=== PATIENT | female | born 1940 | race Caucasian/White ===

== ENCOUNTER → 2016-10-20 | Outpatient (CLI) | payer MEDICARE, BC ==
[2016-10-20 15:53] LABS: Blood Urea Nitrogen 27 mg/dL (7-17); Non-African American GFR(MDRD) >60 (>60 ml/min/1.73 sqM)
== END | disposition home or self-care (01) ==
LOC: LABWHC1 15:20
PROVIDERS: ATTEND Otolaryngology
DX: H91.92 Unspecified hearing loss, left ear (principal)
CPT/HCPCS: 36415; 82565; 84520

== ENCOUNTER → 2016-10-30 | Outpatient (CLI) | payer MEDICARE, BC ==
--- NOTE | 2016-10-30 11:02 | MR ---
EXAMINATION TYPE: MR iac wo/w con DATE OF EXAM: 10/30/2016 10:26 AM COMPARISON: NONE HISTORY: Lt. hearing loss TECHNIQUE: Multiplanar, multisequence images of the brain and brainstem is performed without and with IV contras t, utilizing 15 mL intravenous MultiHance . Acoustic nerve disorder protocol. FINDINGS: Diffusion weighted images demonstrate no evidence of a recent infarct or other diffusion ab normality. There is no worrisome extra-axial fluid collection. There is ventricular and sulcal promi nence consistent with mild to moderate diffuse age-related cerebral atrophy. There are focal and conf luent areas of T2 hyperintensity seen throughout the deep and periventricular white matter. Lesions a re nonspecific in appearance and distribution but are most likely on basis of product of chronic smal l vessel ischemic change in patient of this age. Some brainstem involvement is present at level of th e dionne. Midline structures demonstrate normal morphology. The craniocervical junction appears within normal limits. The paranasal sinuses are grossly clear. The globes are intact bilaterally. Normal vascular f low voids are felt present. No suspicious fluid signal seen in mastoid air cells bilaterally. Visualized portion of vestibulococh lear complexes are symmetric and felt within normal limits. There is no suspicious enhancing cerebell opontine angle mass identified bilaterally. IMPRESSION: 1. No significant finding is seen to account for patient's symptoms of left-sided hearing loss. 2. There is background of mild to moderate diffuse cerebral atrophy and moderate to severe chronic sm all vessel ischemic change noted.
== END | disposition home or self-care (01) ==
LOC: RADMRIMAIN 09:19
PROVIDERS: ATTEND Otolaryngology
DX: G31.9 Degenerative disease of nervous system, unspecified (principal); I67.82 Cerebral ischemia
CPT/HCPCS: 70553; A9577

== ENCOUNTER → 2017-12-07 | Outpatient (CLI) | payer MEDICARE, BC ==
--- NOTE | 2017-12-07 14:19 | XR ---
Cervical spine HISTORY: Numbness in right hand for 6 months, neck pain 5 views of the cervical spine on 6 images No comparisons There is multilevel facet arthropathy. Anterolisthesis grade 1 C2-3, retrolisthesis grade 1 C5-6. The re is loss of disc height at the intervertebral levels, multilevel spondylosis. Cervical vertebral florentin dies show preserved height, bone mineralization is reduced. Bilateral foraminal encroachment present due to lateral extension endplate disc complexes at C3-4, C5-6, C6-7 IMPRESSION: Degenerative disc disease and facet arthropathy.
== END | disposition home or self-care (01) ==
LOC: RADXRMAIN 10:21
PROVIDERS: ATTEND Internal Medicine Geriatric Medicine
DX: M50.30 Other cervical disc degeneration, unspecified cervical region (principal); M46.82 Other specified inflammatory spondylopathies, cervical region
CPT/HCPCS: 72050

== ENCOUNTER → 2018-02-18 | Outpatient (CLI) | payer MEDICARE, BC ==
--- NOTE | 2018-02-19 08:25 | CT ---
EXAMINATION TYPE: CT lower extremity RT wo con DATE OF EXAM: 02/18/2018 COMPARISON: NONE HISTORY: Pain in right joints. Prophecy protocol. CT DLP: 463 mGycm Automated exposure control for dose reduction was used. FINDINGS: Right knee: There is no suprapatellar joint effusion. Patellar retinaculum appear grossly intact. No focal soft tissue swelling. Subchondral sclerosis of the medial tibial plateau and small medial jadon rtment and lateral compartment marginal osteophytes of the tibial plateau and distal femoral condyles are noted. Medial compartment and patellofemoral compartment narrowing are present. Osseous structur es are intact. Subchondral cysts are seen of the distal femur centrally and within the distal medial femoral condyle. Incidental note of a fabella. Suprapatellar small osteophyte is also seen. Anterior cruciate ligament and posterior cruciate ligament appear morphologically unremarkable. Evaluation of the tendons and ligaments are limited on CT although the distal quadriceps tendon and patellar tendon appear intact. Right ankle: The prior known medial malleolus fracture treated with open reduction internal fixation is healed without cortical lucency medial fixation plate and 4 transcortical screws fixate the prior fracture and abuts the cortical surface without dislocation or hardware fracture. There is extensive degenerative change of the talotibial joint and distal fibula with innumerable subchondral cysts and [id number] articulation of the lateral talar dome with the distal tibia and medial talar dome with the medial malleolus. There is no evidence of subchondral collapse of the talus. Bony productive hardin ge of the dorsal talus and talonavicular joints are also seen. Osteophyte protrudes into the sinus ta rsus. Large os trigonum is present. There is diffuse soft tissue swelling of the right ankle most pro nounced in the hindfoot. Evaluation of the tendons and ligaments are limited on CT and further limite d by the surrounding soft tissue swelling. However, the peroneus longus and brevis appear thickened a nd could relate to tendinopathy. There is hindfoot valgus and articulation of the talus with the fibu la creating a pseudoarthrosis. Several large subchondral cystic changes are seen of the tarsometatars al joints. IMPRESSION: 1. No evidence of acute fracture or dislocation of the right ankle or knee. 2. Moderate tricompartmental arthropathy of the right knee. 3. Hindfoot valgus suggesting biomechanical dysfunction with thickening of the peroneus is longus and brevis and may relate to tendinopathy or partial tear. 4. Extensive arthropathy of the hindfoot with [id number] articulation of the lateral talar dome wit h the distal tibia and medial talar dome with the medial malleolus creating subchondral sclerosis and subchondral cyst without subchondral collapse. This is presumed to be posttraumatic in etiology with intact medial distal tibial fixation plate intimately abutting the cortical surface. 5. Extensive midfoot arthropathy with diffuse soft tissue swelling of the right ankle and osteophyte protruding into the sinus tarsus.
== END | disposition home or self-care (01) ==
LOC: RADCTMAIN 15:53
PROVIDERS: ATTEND Orthopaedic Surgery
DX: Z53.9 Procedure and treatment not carried out, unspecified reason (principal)

== ENCOUNTER 2018-05-05 09:06 | Inpatient (IN) | payer MEDICARE, BC ==
[2018-04-28 12:09] VITALS: BMI 27.6
[~2018-05-05 09:06] MED LIST: HYDROmorphone 0.5 MG/0.5 ML SYRINGE IVP PRN; ONDANSETRON 4 MG/2 ML VIAL IVP PRN; ceFAZolin IN SWFI 2 GM/20 ML SYRINGE IVP ONE; fentaNYL (PF) 50 MCG/ML 2 ML AMP IV PRN
[2018-05-05] MEDS: LACTATED RINGERS 1,000 ML IV SCH ×3 (12:04→17:59)
[2018-05-05] MEDS ORDERED: ONDANSETRON 4 MG/2 ML VIAL ONE (12:06)
[2018-05-05] MEDS ORDERED: LIDOCAINE 1% 20 ML VIAL (10MG/ML) FOR IV START INTRADERMA ONE (12:10)
[2018-05-05] MEDS ORDERED: MIDAZOLAM 2 MG/2 ML VIAL IVP ONE (12:44)
[2018-05-05] MEDS ORDERED: LIDOCAINE 1% INJ 10MG/ML (20 ML MDV) ONE (13:38)
[2018-05-05] MEDS ORDERED: fentaNYL (PF) 50 MCG/ML 2 ML AMP ONE (13:38)
[2018-05-05] MEDS ORDERED: HYDROmorphone (PF) 1 MG/ML ONE (13:38)
[2018-05-05] MEDS ORDERED: PROPOFOL 10 MG/ML 20 ML VIAL IV ONE (13:38)
[2018-05-05] MEDS ORDERED: SUCCINYLCHOLINE CHLORIDE 100 MG/5 ML SYR IV ONE (13:38)
[2018-05-05] MEDS ORDERED: PHENYLEPHRINE-0.9% NACL SYG 1 MG/10 ML SYRINGE ONE (13:38)
[2018-05-05] MEDS ORDERED: MIDAZOLAM 2 MG/2 ML VIAL ONE (13:38)
[2018-05-05] MEDS ORDERED: ceFAZolin 1,000 MG in SODIUM CHLORIDE 0.9% 1,000 ML IRRIGATION ONE (14:15)
--- NOTE | 2018-05-05 15:56 | XR ---
EXAMINATION TYPE: XR ankle limited RT DATE OF EXAM: 05/05/2018 COMPARISON: NONE TECHNIQUE: Two views submitted HISTORY: Post op FINDINGS: There is a prosthetic Ankle in near anatomic alignment. There is soft tissue edema and emphysema. IMPRESSION: 1. Postoperative change. Appears in near-anatomic alignment
--- NOTE | 2018-05-05 15:57 | FL ---
EXAMINATION TYPE: FL guidance operating room DATE OF EXAM: 05/05/2018 HISTORY: Flouroscopy time 46 seconds of fluoroscopy provided. IMPRESSION: 1. Fluoroscopy time.
[2018-05-05] MEDS ORDERED: LACTATED RINGERS 1,000 ML IV ONE (15:58)
[2018-05-05] MEDS ORDERED: HYDROcodone/APAP 5-325MG 1 EACH TAB PO PRN (16:03)
[2018-05-05] MEDS ORDERED: NALOXONE 0.4 MG/ML 1 ML VIAL IV PRN (16:03)
[2018-05-05] MEDS ORDERED: TEMAZEPAM 15 MG CAP PO PRN (16:03)
[2018-05-05] MEDS ORDERED: MAGNESIUM HYDROXIDE 2,400 MG/10 ML CUP PO PRN (16:03)
[2018-05-05] MEDS ORDERED: ONDANSETRON 4 MG/2 ML VIAL IVP PRN (16:03)
[2018-05-05] MEDS ORDERED: NA PHOS,M-B/NA PHOS,DI-BA 133 ML ENEMA RECTAL PRN (16:03)
[2018-05-05] MEDS ORDERED: HYDROmorphone 1 MG/ML 1 ML SYRINGE IVP PRN ×4 (16:03)
[2018-05-05] MEDS ORDERED: BISACODYL 10 MG SUPP RECTAL PRN (16:03)
[2018-05-05] MEDS: SENNOSIDES-DOCUSATE SODIUM 1 EACH TAB PO SCH (21:36)
[2018-05-06] MEDS ORDERED: HYDROmorphone 1 MG/ML 1 ML SYRINGE ONE (00:30)
[2018-05-06] MEDS ORDERED: HYDROcodone/APAP 5-325MG 1 EACH TAB ONE (00:30)
[2018-05-06] MEDS: LACTATED RINGERS 1,000 ML IV SCH ×3 (06:31→15:13)
[2018-05-06] MEDS: ceFAZolin IN SWFI 2 GM/20 ML SYRINGE IVP SCH ×2 (06:32→09:36)
[2018-05-06 07:15] LABS: Basophils % (A) 0 %; Eosinophils % (A) 0 %; HGB 12.2 gm/dL (11.4-16.0); Lymphocytes # (A) 0.8 k/uL (1.0-4.8); Lymphocytes % (A) 11 %; MCH 30.9 pg (25.0-35.0); MCHC 32.9 g/dL (31.0-37.0); MCV 93.8 fL (80.0-100.0); Monocytes # (A) 0.4 k/uL (0-1.0); Monocytes % (A) 5 %; Neutrophils # (A) 6.1 k/uL (1.3-7.7); Neutrophils % (A) 82 %; Platelet Count 154 k/uL (150-450); RBC 3.95 m/uL (3.80-5.40); RDW 13.4 % (11.5-15.5); WBC 7.4 k/uL (3.8-10.6)
[2018-05-06] MEDS: HYDROcodone/APAP 5-325MG 1 EACH TAB PO PRN ×3 (07:49→18:54)
--- NOTE | 2018-05-06 08:27 | P.PN ---
Subjective Progress Note Date: 05/06/18 Principal diagnosis: Status post right total ankle arthroplasty This is a 77 year-old female post right total ankle arthroplasty. This is post- op day 1. The patient was evaluated at the bedside today. The patient denies nausea, vomiting, abdominal pain, shortness of breath, and chest pain this morning. She states her pain is controlled at this time but is having some burning on her anterior lower leg. The patient has not been up with physical therapy. Objective - Vital Signs Vital signs: Vital Signs Temp 97.4 F L 05/05/18 17:15 Pulse 80 05/05/18 19:15 Resp 16 05/05/18 17:15 BP 106/68 05/05/18 19:15 Pulse Ox 97 05/05/18 19:15 Intake & Output 05/05/18 05/06/18 05/06/18 18:59 06:59 18:59 Intake Total 1401 1200 Output Total 20 Balance 1381 1200 Weight 66.224 kg Intake: IV 1401 Oral 1200 Output: Estimated Blood Loss 20 Other: Voiding Method Bedpan # Voids 1 - Exam The patient does not appear in acute distress. Alert and orientated x3. Dressing and splint are dry and intact. Thigh is soft and nontender. She is able to wiggle her toes without difficulty. Sensation and circulatory status is intact. - Labs CBC & Chem 7: 05/06/18 06:38 Labs: Abnormal Lab Results - Last 24 Hours (Table) 05/06/18 Range/Units 06:38 Lymphocytes # 0.8 L (1.0-4.8) k/uL Assessment and Plan (1) Status post right ankle joint replacement Current Visit: Yes Status: Acute Code(s): Z96.661 - PRESENCE OF RIGHT ARTIFICIAL ANKLE JOINT SNOMED Code(s): 445179480 (2) Osteoarthritis of right ankle Current Visit: Yes Status: Acute Code(s): M19.071 - PRIMARY OSTEOARTHRITIS, RIGHT ANKLE AND FOOT SNOMED Code(s): 05287536556681787 Plan: 1. Continue pain control 2. Anticoagulation with Lovenox 3. Start physical therapy and ambulation, non-weightbearing 4. Anticipate discharge to skilled rehab when stable
[2018-05-06] MEDS: ATORVASTATIN 10 MG TAB PO SCH (09:37)
[2018-05-06] MEDS: buPROPion XL 300 MG TAB.ER.24H PO SCH (09:38)
[2018-05-06] MEDS: ENOXAPARIN 30 MG/0.3 ML SYRINGE SQ SCH ×2 (09:38→20:06)
[2018-05-06] MEDS: CHOLECALCIFEROL 1,000 UNIT TAB PO SCH (09:38)
[2018-05-06] MEDS: DOCUSATE 100 MG CAP PO SCH (09:38)
[2018-05-06] MEDS: LISINOPRIL-HCTZ 20-12.5 MG 1 EACH TAB PO SCH (09:39)
[2018-05-06] MEDS: hydrOXYzine PAMOATE 25 MG CAP PO PRN ×2 (13:10→18:54)
--- NOTE | 2018-05-06 13:13 | P.CONS ---
History of Present Illness - Reason for Consult Consult date: 05/06/18 Medical management - History of Present Illness This is a 77-year-old female patient of Dr. Peres with past history for hypertension, hyperlipidemia, gastroesophageal reflux disease, history of skin cancer, spinal stenosis status post steroid injections, vitamin D deficiency, recurrent depression. Patient had original injury with fracture to her right ankle in October 2003 initially underwent surgery with Dr. Duque followed by surgery done at [facility]. It sounds like patient did well for a while and then developed difficulty with range of motion and ambulation. 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 Nowak for total right ankle arthroplasty and right gastroc resection was performed yesterday. Patient does complain of some burning along the pretibial area on the right. She states the pain is controlled to her ankle area. She does have a large cast/dressing in place. Patient has been up to commode chair and bed ariza and has been able to void. She is eating her breakfast and denies any nausea or vomiting. No abdominal pain. No chest pain or shortness of breath. She has been afebrile and vital signs have been stable. Pulse ox is 94% on room air. Patient is planning to go to [facility] for rehab at the time of discharge. Review of Systems All systems: negative Constitutional: Denies chills, Denies fever, Denies poor appetite Eyes: denies blurred vision, denies pain Ears, nose, mouth and throat: Denies dental pain, Denies dysphagia, Denies headache, Denies mouth pain, Denies sore throat Cardiovascular: Denies chest pain, Denies decreased exercise tolerance, Denies dyspnea on exertion, Denies edema, Denies leg edema, Denies lightheadedness, Denies shortness of breath, Denies syncope Respiratory: Denies cough, Denies cough with sputum, Denies dyspnea, Denies excessive sputum, Denies hemoptysis, Denies home oxygen, Denies wheezing Gastrointestinal: Denies abdominal pain, Denies diarrhea, Denies loss of appetite, Denies nausea, Denies vomiting Genitourinary: Denies dysuria, Denies hematuria Musculoskeletal: Reports leg numbness/tingling, Denies myalgias Integumentary: Denies pruritus, Denies rash Neurological: Denies numbness, Denies weakness Psychiatric: Denies anxiety, Denies depression Endocrine: Denies fatigue, Denies weight change Past Medical History Past Medical History: Cancer, GERD/Reflux, Hyperlipidemia, Hypertension, Osteoarthritis (OA) Additional Past Medical History / Comment(s): 'slight heart murmer", constipation, hx skin cancer, numbnrss in left arm, spinal stenosis, degenerative disks, "dry eyes" History of Any Multi-Drug Resistant Organisms: None Reported Past Surgical History: Orthopedic Surgery Additional Past Surgical History / Comment(s): 8 surgeries to remove skin cancer ,2 surgeries on rt ankle for fx(plate and screws), 2 surgeries on left knee and thu in left knee as small child, tumor removed from nose, blepharoplasty pop eyes, pop cataracts, left arm surgery to release nerve, steroid spinal injections, total right ankle arthroplasty and right gastroc resection 04/[address] Nowak. Past Anesthesia/Blood Transfusion Reactions: No Reported Reaction Additional Past Anesthesia/Blood Transfusion Reaction / Comm: no family hx ( adopted) Smoking Status: Former smoker Additional Past Alcohol Use History / Comment(s): She was a smoker one pack per day for 40 years and quit in 2016. She denies any marijuana, street drug use. She drinks white wine with dinner. She lives alone and is as her several years ago. - Past Family History Mother Family Medical History: Unable to Obtain Additional Family Medical History / Comment(s): Patient was adopted and does not know any family history. Daughter(s) Additional Family Medical History / Comment(s): Patient has 3 daughters and 2 sons all in their 50s with no major medical problems. Medications and Allergies Home Medications Medication Instructions Recorded Confirmed Type Aloe Cure 1 cap PO DAILY 04/28/18 05/05/18 History Atorvastatin [Lipitor] 10 mg PO DAILY 04/28/18 05/05/18 History Cholecalciferol [Vitamin D3] 5,000 unit PO DAILY 04/28/18 05/05/18 History Docusate [Colace] 100 mg PO DAILY 04/28/18 05/05/18 History Heart Strong 1 oz PO DAILY 04/28/18 05/05/18 History Lidocaine HCl [Aspercreme] 1 applic TOPICAL DIRECTED PRN 04/28/18 05/05/18 History Lisinopril-Hctz 20-12.5 mg 1 tab PO DAILY 04/28/18 05/05/18 History [Zestoretic 20-12.5] Meloxicam [Mobic] 7.5 mg PO BID 04/28/18 05/05/18 History Menthol [Biofreeze] 1 applic TOPICAL DIRECTED PRN 04/28/18 05/05/18 History Multivitamin/Iron/Folic Acid 1 tab PO DAILY 04/28/18 05/05/18 History [Centrum Adults Tablet] [place] Xl 1 cap PO DAILY 04/28/18 05/05/18 History buPROPion XL [Wellbutrin Xl] 300 mg PO DAILY 04/28/18 05/05/18 History traMADol HCL [Ultram] 50 - 100 mg PO Q6HR PRN 04/28/18 05/05/18 History Gabapentin [Neurontin] 100 - 200 mg PO TID PRN 04/29/18 05/05/18 History Allergies Allergy/AdvReac Type Severity Reaction Status Date / Time nickel Allergy Unknown Verified 05/05/18 18:01 Physical Exam Vitals: Vital Signs Temp Pulse Pulse Pulse Resp BP Pulse Ox 05/05/18 19:15 80 106/68 97 05/05/18 19:00 77 103/68 97 05/05/18 18:45 84 101/65 05/05/18 18:30 83 116/73 89 L 05/05/18 18:15 84 119/76 95 05/05/18 18:00 83 125/77 99 05/05/18 17:45 81 126/67 98 05/05/18 17:30 83 109/69 96 05/05/18 17:15 97.4 F L 89 16 100/66 97 05/05/18 17:12 87 05/05/18 17:01 87 18 93/53 98 05/05/18 16:46 90 18 92/54 98 05/05/18 16:30 93 18 94/51 98 05/05/18 16:16 98 F 14 L 14 101/55 97 05/05/18 11:46 98.0 F 81 16 128/67 96 Intake and Output 05/05/18 05/06/18 05/06/18 22:59 06:59 14:59 Intake Total 1000 600 Output Total 20 Balance 980 600 Intake: IV 400 Oral 600 600 Output: Estimated Blood Loss 20 Other: Voiding Method Bedpan # Voids 1 Weight 66.224 kg Gen: This is a 77-year-old female. She is sitting up in bed and appears to be comfortable and in no acute distress. HEENT: Head is atraumatic, normocephalic. Pupils equal, round. Sclerae is anicteric. NECK: Supple. No JVD. No lymphadenopathy. No thyromegaly. LUNGS: Clear to auscultation. No wheezes or rhonchi. No intercostal retractions. HEART: Regular rate and rhythm. No murmur. ABDOMEN: Soft. Bowel sounds are present. No masses. No tenderness. EXTREMITIES: Splint and large dressing in place to the right lower extremity. Capillary refill immediate on the right toes. Left foot has no pedal edema, dorsalis pedis +2. SCD in place to the left leg. NEUROLOGICAL: Patient is awake, alert and oriented x3. Cranial nerves 2 through 12 are grossly intact. Results CBC & Chem 7: 05/06/18 06:38 Labs: Abnormal Lab Results - Last 24 Hours (Table) 05/06/18 Range/Units 06:38 Lymphocytes # 0.8 L (1.0-4.8) k/uL Assessment and Plan Plan: 1. Posttraumatic ankle arthritis failed outpatient treatment, status post total right ankle arthroplasty and right gastroc resection 05/05. Continue current pain management. PT OT per orthopedics. Incentive spirometry reduce incidence of atelectasis and hospital-acquired pneumonia. 2. Hypertension. Patient is on Zestoretic 1 daily. Hold for systolic less than 110. 3. Hyperlipidemia. Continue atorvastatin. 4. Recurrent depression. Continue Wellbutrin. 5. Vitamin D deficiency. Continue supplement. 6. DVT prophylaxis. Lovenox. 7. GI prophylaxis. Pepcid. Discharge plan: [facility] under the care of Dr. Peres. Impression and plan of care have been directed as dictated by the signing physician. Leyla Farmer nurse practitioner acting as scribe for signing physician.
[2018-05-06] MEDS: MULTIVITAMINS, THERA 1 EACH TAB PO SCH (15:11)
[2018-05-06] MEDS ORDERED: HYDROmorphone 2 MG TAB PO PRN ×3 (18:05→18:13)
[2018-05-06] MEDS ORDERED: HYDROmorphone 4 MG TABLET PO PRN (18:13)
[2018-05-06] MEDS: SENNOSIDES-DOCUSATE SODIUM 1 EACH TAB PO SCH (20:05)
--- NOTE | 2018-05-06 21:27 | OP ---
OPERATIVE REPORT DATE OF SURGERY: 05/05/2018. PREOPERATIVE DIAGNOSES: 1. Right posttraumatic ankle arthritis. 2. Symptomatic hardware. 3. Right gastrocnemius equinus contracture. POSTOPERATIVE DIAGNOSES: 1. Right posttraumatic ankle arthritis. 2. Symptomatic hardware. 3. Right gastrocnemius equinus contracture. PROCEDURE: 1. Right total ankle arthroplasty with implant. 2. Delayed gastrocnemius recession. 3. Right ankle hardware removal, deep. 4. Application of short-leg splint by physician. SURGEON: Dr. Gus Nowak. RADIO SURVEY WORKER: Madyson Torres NP (Madyson Torres NP was required as a skilled car rental sales assistant for patient positioning, surgical exposure, retraction, performance of arthroplasty, closure of wound and application of splint). FLUID: 600 mL crystalloid. TOURNIQUET TIME: 97 minutes. ESTIMATED BLOOD LOSS: Blood loss 20 mL. COMPLICATIONS: None. INDICATION: The patient is a very pleasant, previously healthy 77-year-old female with a longstanding history of problems with her right ankle. She previously had a fracture which was fixed by another physician. She went on to develop posttraumatic arthritis. She was initially managed nonsurgically with activity modification, oral anti- inflammatory pain medications, cortisone, corticosteroid injections, bracing, and physical therapy all with diminishing relief. She got to the point that she requested surgery. Due to the patient's age, low demand and minimal deformity, I thought that she would be a good candidate for ankle replacement. She had x-rays of the ankle and foot, which showed a complete loss of the joint space. We discussed the potential risks and complications of an elective ankle replacement and gastrocnemius recession, including, but not limited to risk of anesthesia, risk of superficial infection, risk of deep infection, risk of delayed wound healing, risk of damage to local blood vessels or nerves, risk of intraoperative fracture of the malleoli, risk of postoperative fracture, risk of postoperative infection requiring antibiotics, poly exchange and possibly deep implant removal, placement of an antibiotic spacer, and a PICC line, risk of subsidence of the components, risk of failure of the components, risk of chronic pain, risk of chronic swelling, risk of stiffness, risk of dissatisfaction with surgery, risk of DVT, risk of PE, risk of other medical complications and possibly loss of life or limb. The patient voiced understanding of the potential for complications and provided verbal and written consent to go forward with surgery. The patient identified in preoperative holding. The correct right ankle was marked with my initials. I reviewed the consent form with the patient and her family. All the questions were answered. The patient was then brought back to the operating room. She was positioned on the OR table where general anesthetic and preoperative antibiotics were administered. The patient was then carefully positioned on the OR table. A tourniquet was applied to the proximal aspect of the right leg. All bony prominences were well padded. A bump was placed under the right side internally rotated the leg to neutral. Ramp was placed under the right leg to facilitate imaging. The right leg was then prepped and draped in the standard sterile fashion. Prior to starting surgery, time-out was performed identifying the correct patient, operative extremity, and procedure. The patient's leg was then elevated, exsanguinated with an Esmarch bandage and the tourniquet was inflated to 250 mmHg. I began by performing a gastrocnemius recession. With the knee extended, a longitudinal incision was marked out 1 thumb breadth posterior to the medial tibia at the distal muscle belly of the gastrocnemius. Skin incision was made with a 15 blade scalpel. Dissection was carried down carefully to the subcutaneous tissue with tenotomy scissors. The fascia was incised longitudinally in line with the skin incision. I then bluntly developed the interval between the gastrocnemius aponeurosis and soleus fascia and between the gastrocnemius aponeurosis and superficial fascia. The sural nerve was seen to be adherent to the superficial fascia. Modified right- angled retractors were placed and the gastrocnemius aponeurosis was transected sharply from medial to lateral under direct visualization. Following this, the sural nerve was again identified and seemed to be intact. The wound was copiously irrigated and then closed in layers. Attention was then turned to the hardware in the ankle. Stab incisions were made over the screw sites. The distal 3 screws were removed as they all interfered with placement of the ankle implant and the K-wires holding the custom cutting block in place. Due to the patient's prior fracture, poor bone health and age, I elected to leave the plate and remaining screw to activate support to prevent postoperative or intraoperative malleoli fracture. The wound was copiously irrigated and closed with 3- 0 nylon. Attention was then turned to the anterior aspect of the ankle. A standard anterior incision was marked out directly over the ankle. Skin incision made with a scalpel. Dissection was carried down carefully through the subcutaneous tissue with tenotomy scissors. A branch of the superficial peroneal nerve was identified and carefully retracted. The extensor retinaculum was incised longitudinally in line with the skin incision. I left the sheath covering the tibialis anterior intact. I bluntly developed the interval between the tibialis anterior and EHL tendon. The neurovascular bundle was identified and carefully retracted. Crossing vessels were controlled with electrocautery. I then came down directly on the ankle joint and the capsule was incised. There was a large effusion of clear synovial fluid that did not appear infected. The ankle joint was then exposed. I took care to remove loose bodies, but did not remove any bone off the distal tibia to prevent the cutting block from sitting flush. The wound was copiously irrigated. The joint appeared completely arthritic with loss of bone on the entire talar dome. Multiple loose bodies were removed from the joint. Once all the soft tissue off of the distal tibia was removed, the custom cutting block and guide was placed onto the distal tibia until it found its sweat spot. A single K-wire was placed and the alignment was checked and verified with preoperative templating. I then placed the remaining 3 wires and once again checked the template. The custom cutting guide was removed and the initial cutting back was placed in the corners were drilled. This was removed and a size 2 cutting block was placed and held into place. In addition to making the tibial cuts, I also held the ankle in neutral and verified its position with AP and lateral fluoroscopic images. The talus was then pinned. I then made the tibial and talar cuts with a small microsagittal saw. The tibial bone block was then removed with a distraction device. An osteotome was used to remove the cut portion of the talus. There was a small ridge of bone posterior laterally which was contoured, flush with the initial cut using a saw. The wound was copiously irrigated. I then removed all the pins and left the 2 more proximal pins in the tibia. The tibial base plate was placed and sized to a size 2 long. I then the posterior broach hole and the anterior two broach holes. The posterior broach hole went into a small cyst, but the anterior 2 holes were in solid bone. I then placed a size 2 tibial component and poly. I then elected to float an in bone talus into place. Once the talar component found it sweet spot it was verified with fluoroscopy. I gently manipulated the talar component until its position was in the correct position in both the AP and lateral planes. It was held into place and pinned. I also marked the anterior aspect of the component with a marker. The 2 pegs were then drilled. The poly was removed and a central pin was placed on the talar component. The talar component and anterior two K-wires were removed and a reamer was used for the central component with the talar component. The wound was then copiously irrigated. The final size 2 long tibial component was gently tamped into place. It clinically appeared solid. I verified that it was completely seated on the lateral fluoroscopic image. The ankle was then plantar flexed and a final size 2 talar component was tapped into place. I then trialed with a size 6 mm which felt loose and went up to a size 8 mm poly which felt stable. A final 8 mm poly was gently placed using the insertion device. Final fluoroscopic images were taken including a mortise view, which showed a stable ankle implant with no evidence of loosening or intraoperative fractures. Alignment appeared to be acceptable and comparable with preoperative templated imaging. Lateral x-ray showed both the tibial and talar components fully seated. A maximum dorsiflexion and plantar flexion view were taken. The wound was then copiously irrigated. The capsule was closed with interrupted 0-Vicryl. The extensor retinaculum was closed with interrupted 0-Vicryl. The deep subcu was reapproximated using 2-0 Vicryl. The skin was closed using 0 nylon horizontal mattress stitches. I verified that all instrument, sponge and sharp counts were correct. The tourniquet was let down. Total tourniquet time of 97 minutes. A sterile dressing consisting of Betadine- soaked Adaptic, 4 x 4 and Webril was applied. A bulky Palmer splint was then placed with the ankle in neutral. The patient was woken from her anesthetic, transferred from the OR table to a gurney and brought to PACU having tolerated the procedure well. PLAN: The patient is going to be admitted for IV antibiotics. DVT prophylaxis. Physical therapy and Internal Medicine consult. She has arranged strictly nonweightbearing on her right leg. She is going to be placed in subacute rehab following surgery. She will follow up in 2 weeks for splint removal, x-rays, and likely suture removal. [place] / [place]ULETT[place]: [id number] /
[2018-05-07] MEDS: HYDROcodone/APAP 5-325MG 1 EACH TAB PO PRN ×4 (00:51→19:49)
[2018-05-07] MEDS: LACTATED RINGERS 1,000 ML IV SCH ×3 (01:46→22:35)
--- NOTE | 2018-05-07 08:29 | P.PN ---
Subjective Progress Note Date: 05/07/18 This is a 77-year-old female who is status post right total ankle arthroplasty. This is postoperative day #2. The patient was seen and evaluated at bedside today. Patient does complain of some muscle cramping to the anterior aspect of the right lower extremity and occasionally to the left foot. Otherwise, patient states that her pain is under control. Patient states that she has not been up and out of bed yet. Patient denies any fever/chills, numbness, weakness, tingling, abdominal pain, shortness of breath or chest pain. Objective - Vital Signs Vital signs: Vital Signs Temp 98.8 F 05/07/18 07:00 Pulse 82 05/07/18 07:00 Resp 14 05/07/18 07:00 BP 172/87 05/07/18 07:00 Pulse Ox 96 05/07/18 07:00 Intake & Output 05/06/18 05/07/18 05/07/18 18:59 06:59 18:59 Intake Total 237 540 Output Total 900 Balance -663 540 Intake: Oral 237 540 Output: Urine 900 Other: Voiding Method Bedpan # Voids 2 3 - Exam Vital signs are stable. Patient is in no acute distress and is alert and oriented 3. Splint is clean, dry and intact. Capillary refill is normal at less than 2 seconds. Patient is able to wiggle the toes of the right foot without pain or difficulty. Sensation intact. Neurovascular status and circulatory status are intact. - Labs CBC & Chem 7: 05/06/18 06:38 Assessment and Plan (1) Primary osteoarthritis of right ankle Current Visit: Yes Status: Acute Code(s): M19.071 - PRIMARY OSTEOARTHRITIS, RIGHT ANKLE AND FOOT SNOMED Code(s): 152054042 (2) Status post right ankle joint replacement Current Visit: Yes Status: Acute Code(s): Z96.661 - PRESENCE OF RIGHT ARTIFICIAL ANKLE JOINT SNOMED Code(s): 909938570 Plan: 1. Continue routine postoperative care. 2. Keep splint clean, dry and intact. 3. Non-weightbearing to right lower extremity. 4. Rest and elevate for swelling. 5. Continue anticoagulation with Lovenox. 6. Continue physical therapy. 7. Appreciated input from medicine. 8. Anticipate discharge to [facility] tomorrow or Thursday.
[2018-05-07] MEDS: ATORVASTATIN 10 MG TAB PO SCH (09:43)
[2018-05-07] MEDS: ENOXAPARIN 30 MG/0.3 ML SYRINGE SQ SCH ×2 (09:45→19:48)
[2018-05-07] MEDS: DOCUSATE 100 MG CAP PO SCH (09:46)
[2018-05-07] MEDS: LISINOPRIL-HCTZ 20-12.5 MG 1 EACH TAB PO SCH (09:46)
[2018-05-07] MEDS: FAMOTIDINE 20 MG TAB PO SCH (09:46)
[2018-05-07] MEDS: MULTIVITAMINS, THERA 1 EACH TAB PO SCH (09:46)
[2018-05-07] MEDS: CHOLECALCIFEROL 1,000 UNIT TAB PO SCH (09:46)
[2018-05-07] MEDS: buPROPion XL 300 MG TAB.ER.24H PO SCH (09:46)
--- NOTE | 2018-05-07 14:30 | P.PN ---
Subjective Progress Note Date: 05/07/18 This is a 77-year-old female patient of Dr. Peres with past history for hypertension, hyperlipidemia, gastroesophageal reflux disease, history of skin cancer, spinal stenosis status post steroid injections, vitamin D deficiency, recurrent depression. Patient had original injury with fracture to her right ankle in October 2003 initially underwent surgery with Dr. Duque followed by surgery done at [facility]. It sounds like patient did well for a while and then developed difficulty with range of motion and ambulation. 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 Nowak for total right ankle arthroplasty and right gastroc resection was performed yesterday. Patient does complain of some burning along the pretibial area on the right. She states the pain is controlled to her ankle area. She does have a large cast/dressing in place. Patient has been up to commode chair and bed ariza and has been able to void. She is eating her breakfast and denies any nausea or vomiting. No abdominal pain. No chest pain or shortness of breath. She has been afebrile and vital signs have been stable. Pulse ox is 94% on room air. Patient is planning to go to [facility] for rehab at the time of discharge. 05/07: Patient has been afebrile, pulse ox 96%. Discharge plan is for [facility] on Thursday or Thursday. Pain is controlled. Patient has worked with PT and OT with minimal to moderate assist and improved from yesterday. Objective - Vital Signs Vital signs: Vital Signs Temp 98.8 F 05/07/18 07:00 Pulse 82 05/07/18 07:00 Resp 14 05/07/18 07:00 BP 111/69 05/07/18 08:00 Pulse Ox 96 05/07/18 07:00 Intake & Output 05/06/18 05/07/18 05/07/18 18:59 06:59 18:59 Intake Total 237 540 Output Total 900 Balance -663 540 Intake: Oral 237 540 Output: Urine 900 Other: Voiding Method Bedpan Bedpan # Voids 2 3 - Exam Gen: This is a 77-year-old female. She is sitting up in bed and appears to be comfortable and in no acute distress. HEENT: Head is atraumatic, normocephalic. Pupils equal, round. Sclerae is anicteric. NECK: Supple. No JVD. No lymphadenopathy. No thyromegaly. LUNGS: Clear to auscultation. No wheezes or rhonchi. No intercostal retractions. HEART: Regular rate and rhythm. No murmur. ABDOMEN: Soft. Bowel sounds are present. No masses. No tenderness. EXTREMITIES: Splint and large dressing in place to the right lower extremity. Capillary refill immediate on the right toes. Left foot has no pedal edema, dorsalis pedis +2. SCD in place to the left leg. NEUROLOGICAL: Patient is awake, alert and oriented x3. Cranial nerves 2 through 12 are grossly intact. - Labs CBC & Chem 7: 05/06/18 06:38 Assessment and Plan Plan: 1. Posttraumatic ankle arthritis failed outpatient treatment, status post total right ankle arthroplasty and right gastroc resection 05/05. Continue current pain management. PT OT per orthopedics. Incentive spirometry reduce incidence of atelectasis and hospital-acquired pneumonia. 2. Hypertension. Patient is on Zestoretic 1 daily. Hold for systolic less than 110. 3. Hyperlipidemia. Continue atorvastatin. 4. Recurrent depression. Continue Wellbutrin. 5. Vitamin D deficiency. Continue supplement. 6. DVT prophylaxis. Lovenox. 7. GI prophylaxis. Pepcid. Discharge plan: [facility] under the care of Dr. Peres. Impression and plan of care have been directed as dictated by the signing physician. Leyla Farmer nurse practitioner acting as scribe for signing physician.
[2018-05-07] MEDS: SENNOSIDES-DOCUSATE SODIUM 1 EACH TAB PO SCH (19:49)
[2018-05-08] MEDS: HYDROcodone/APAP 5-325MG 1 EACH TAB PO PRN ×2 (02:43→09:09)
[2018-05-08] MEDS: LACTATED RINGERS 1,000 ML IV SCH (05:19)
[2018-05-08 06:45] VITALS: BP 109/65; PULSE 73; RESP 14; TEMP 98
[2018-05-08 07:44] LABS: Basophils % (A) 0 %; Eosinophils # (A) 0.1 k/uL (0-0.7); Eosinophils % (A) 2 %; HCT 38.9 % (34.0-46.0); HGB 12.7 gm/dL (11.4-16.0); Lymphocytes # (A) 1.3 k/uL (1.0-4.8); Lymphocytes % (A) 24 %; MCH 30.9 pg (25.0-35.0); MCHC 32.6 g/dL (31.0-37.0); MCV 94.8 fL (80.0-100.0); Mean Platelet Volume 7.4; Monocytes # (A) 0.4 k/uL (0-1.0); Monocytes % (A) 7 %; Neutrophils # (A) 3.5 k/uL (1.3-7.7); Neutrophils % (A) 64 %; Platelet Count 177 k/uL (150-450); RDW 13.2 % (11.5-15.5); WBC 5.5 k/uL (3.8-10.6)
[2018-05-08] MEDS: LISINOPRIL-HCTZ 20-12.5 MG 1 EACH TAB PO SCH (08:37)
[2018-05-08] MEDS: MULTIVITAMINS, THERA 1 EACH TAB PO SCH (08:37)
[2018-05-08] MEDS: ATORVASTATIN 10 MG TAB PO SCH (08:37)
[2018-05-08] MEDS: ENOXAPARIN 30 MG/0.3 ML SYRINGE SQ SCH (08:37)
[2018-05-08] MEDS: buPROPion XL 300 MG TAB.ER.24H PO SCH (08:37)
[2018-05-08] MEDS: DOCUSATE 100 MG CAP PO SCH (08:38)
[2018-05-08] MEDS: FAMOTIDINE 20 MG TAB PO SCH (08:38)
[2018-05-08] MEDS: CHOLECALCIFEROL 1,000 UNIT TAB PO SCH (08:38)
--- NOTE | 2018-05-08 08:45 | P.PN ---
Subjective Progress Note Date: 05/08/18 The patient is a very pleasant 69-year-old female who is postoperative day #3 status post right ankle replacement. She is doing well this morning and has no complaints. Objective - Vital Signs Vital signs: Vital Signs Temp 98 F 05/08/18 06:42 Pulse 73 05/08/18 06:42 Resp 14 05/08/18 06:42 BP 109/65 05/08/18 06:42 Pulse Ox 97 05/08/18 06:42 Intake & Output 05/07/18 05/08/18 05/08/18 18:59 06:59 18:59 Intake Total 200 Balance 200 Intake: Intake, IV Titration 200 Amount Lactated Ringers 1,000 ml 200 @ 100 mls/hr IV .Q10H RAFI Rx#:[id number] Other: Voiding Method Bedpan Bedside Commode # Voids 2 2 - Exam A focused exam of the right lower extremity was conducted. On inspection the bulky Palmer splint is in place. There is a small amount of saturated blood over the posterior aspect of the splint which has been reinforced with an ABDs and Kerlix. The tips of the toes are warm and well perfused with brisk capillary refill. Sensation is intact to light touch at the tip of the toes. She is able to actively move her toes. - Labs CBC & Chem 7: 05/08/18 07:01 Assessment and Plan (1) Status post right ankle joint replacement Current Visit: Yes Status: Acute Code(s): Z96.661 - PRESENCE OF RIGHT ARTIFICIAL ANKLE JOINT SNOMED Code(s): 342255584 Plan: The patient is doing well this morning. She is to continue strict nonweightbearing on her right leg. She is to ice and elevate. Reinforce the dressing as needed. If a bed is available at [facility] I'm okay with her discharging today. Time with Patient: Less than 30
--- NOTE | 2018-05-08 08:47 | P.DS ---
Providers Date of admission: 05/05/18 11:06 Attending physician: Gus Nowak Consults: 05/05/18 16:03 Consult Physician Routine Consulting Provider: Jose J Peres Reason/Comments: medical management Do you want consulting provider notified?: Yes Primary care physician: Jose J Peres - Discharge Diagnosis(es) (1) Status post right ankle joint replacement Current Visit: Yes Status: Acute Hospital Course: The patient underwent an uncomplicated total ankle replacement and was then admitted to the floor. She received 2 doses of postoperative antibiotics. Internal medicine was consulted to assist with perioperative medical management. She was treated with Lovenox for DVT prophylaxis. The patient's pain was controlled and she was transitioned from IV to oral pain medication. The patient mobilized out of bed with physical therapy. Arrangement was made for discharge to a correction facility. Procedures: Right total ankle arthroplasty, right gastrocnemius recession, and right ankle hardware removal Patient Condition at Discharge: Good Plan - Discharge Summary Discharge Rx Participant: Yes New Discharge Prescriptions: No Action Aloe Cure 1 cap PO DAILY Multivitamin/Iron/Folic Acid [Centrum Adults Tablet] 1 tab PO DAILY Docusate [Colace] 100 mg PO DAILY Cholecalciferol [Vitamin D3] 5,000 unit PO DAILY Meloxicam [Mobic] 7.5 mg PO BID Atorvastatin [Lipitor] 10 mg PO DAILY traMADol HCL [Ultram] 50 - 100 mg PO Q6HR PRN PRN Reason: Pain Lisinopril-Hctz 20-12.5 mg [Zestoretic 20-12.5] 1 tab PO DAILY buPROPion XL [Wellbutrin Xl] 300 mg PO DAILY Heart Strong 1 oz PO DAILY [place] Xl 1 cap PO DAILY Lidocaine HCl [Aspercreme] 1 applic TOPICAL DIRECTED PRN PRN Reason: Pain Menthol [Biofreeze] 1 applic TOPICAL DIRECTED PRN PRN Reason: Pain Gabapentin [Neurontin] 100 - 200 mg PO TID PRN PRN Reason: Pain Discharge Medication List Aloe Cure 1 cap PO DAILY 04/28/18 [History] Atorvastatin [Lipitor] 10 mg PO DAILY 04/28/18 [History] Cholecalciferol [Vitamin D3] 5,000 unit PO DAILY 04/28/18 [History] Docusate [Colace] 100 mg PO DAILY 04/28/18 [History] Heart Strong 1 oz PO DAILY 04/28/18 [History] Lidocaine HCl [Aspercreme] 1 applic TOPICAL DIRECTED PRN 04/28/18 [History] Lisinopril-Hctz 20-12.5 mg [Zestoretic 20-12.5] 1 tab PO DAILY 04/28/18 [History ] Meloxicam [Mobic] 7.5 mg PO BID 04/28/18 [History] Menthol [Biofreeze] 1 applic TOPICAL DIRECTED PRN 04/28/18 [History] Multivitamin/Iron/Folic Acid [Centrum Adults Tablet] 1 tab PO DAILY 04/28/18 [ History] [place] Xl 1 cap PO DAILY 04/28/18 [History] buPROPion XL [Wellbutrin Xl] 300 mg PO DAILY 04/28/18 [History] traMADol HCL [Ultram] 50 - 100 mg PO Q6HR PRN 04/28/18 [History] Gabapentin [Neurontin] 100 - 200 mg PO TID PRN 04/29/18 [History] Activity/Diet/Wound Care/Special Instructions: Regular diet Non Weight bearing to right lower extremity Keep splint clean, dry, and intact, to be removed by physician
--- NOTE | 2018-05-08 09:14 | P.PN ---
Subjective Progress Note Date: 05/08/18 Principal diagnosis: Right ankle fracture post surgery, hypertension, hyperlipidemia and depression This is a 77-year-old female patient of Dr. Peres with past history for hypertension, hyperlipidemia, gastroesophageal reflux disease, history of skin cancer, spinal stenosis status post steroid injections, vitamin D deficiency, recurrent depression. Patient had original injury with fracture to her right ankle in October 2003 initially underwent surgery with Dr. Duque followed by surgery done at [facility]. It sounds like patient did well for a while and then developed difficulty with range of motion and ambulation. 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 Nowak for total right ankle arthroplasty and right gastroc resection was performed yesterday. Patient does complain of some burning along the pretibial area on the right. She states the pain is controlled to her ankle area. She does have a large cast/dressing in place. Patient has been up to commode chair and bed ariza and has been able to void. She is eating her breakfast and denies any nausea or vomiting. No abdominal pain. No chest pain or shortness of breath. She has been afebrile and vital signs have been stable. Pulse ox is 94% on room air. Patient is planning to go to [facility] for rehab at the time of discharge. 05/07: Patient has been afebrile, pulse ox 96%. Discharge plan is for [facility] on Thursday or Thursday. Pain is controlled. Patient has worked with PT and OT with minimal to moderate assist and improved from yesterday. Objective - Vital Signs Vital signs: Vital Signs Temp 98 F 05/08/18 06:42 Pulse 73 05/08/18 06:42 Resp 14 05/08/18 06:42 BP 109/65 05/08/18 06:42 Pulse Ox 97 05/08/18 06:42 Intake & Output 05/07/18 05/08/18 05/08/18 18:59 06:59 18:59 Intake Total 200 Balance 200 Intake: Intake, IV Titration 200 Amount Lactated Ringers 1,000 ml 200 @ 100 mls/hr IV .Q10H RAFI Rx#:[id number] Other: Voiding Method Bedpan Bedside Commode # Voids 2 2 - Constitutional Constitutional Comment(s): ROS: CONSTITUTIONAL: Well-developed no acute respiratory distress. EYES: No icterus sclerae, no conjunctivitis. EARS, NOSE, MOUTH, THROAT, and FACE: No sore throat, lymphadenopathy, carotid bruits or deformity. RESPIRATORY: No SOB cough or wheezes. CARDIOVASCULAR: No CP, Palpitation, PND, Orthopnea, or angina. GASTROINTESTINAL: No Abd pain, Nausea or vomiting, no Diarrhea or constipation, No GI Bleed, no distention or masses. GENITOURINARY: Negative for Hematuria or UTI, no kidney stones. INTEGUMENT/BREAST: Negative for any muscular injury with mild osteoarthritis.. HEMATOLOGIC/LYMPHATIC: Negative for bleed or purpura. MUSCULOSKELTAL: Negative for Myalgia or arthralgia. NEURLOGICAL: No LOC, Sz or syncope, blurred vision dizziness or abnormality.. BEHAVIORAL/PSYCH: Negative. ENDOCRINE: Negative. Physical Exam: General Appearance: Alert, cooperative, no distress, appears stated age. Neck HEENT: Supple, no lymphadenopathy, no thyroid enlargement, no carotid bruits. Lungs: Clear to auscultation without crackles or wheezes no rhonchi, no deformity. Chest Wall: Chest wall normal expansion with deep inspiration no tenderness and no deformity was found on exam, no costochondral pain or discomfort. Heart: Regular rate and rhythm, S1, S2 normal, no murmur, rub or gallop. Back: Symmetric, no curvature, ROM normal, no CVA tenderness. Abdomen: Soft, non-tender, bowel sounds active all four quadrants, no masses, no organomegaly. Extremities: Extremities normal, atraumatic, no cyanosis or edema. Pulses: 2+ and symmetric. Skin: Skin color, texture, tugor normal, no rashes or lesions. Neurologic: Alert oriented x3 cranial nerves II through XII intact, no motor deficit, no abnormal balance or gait. General appearance: Present: cooperative, no acute distress. Absent: average body habitus, disheveled, mild distress, morbidly obese, obese, severe distress , thin - EENT Eyes: Present: normal appearance. Absent: abnormal pupil, anicteric sclerae, disc margins sharp, edentulous, EOMI, PERRLA, fundus normal, photophobia, dentition normal, poor dentition, ptosis, scleral icterus ENT: Present: normal oropharynx. Absent: hard of hearing, hearing grossly normal, NA/AT, other, pharyngeal erythema, thrush, tonsillar exudates, tonsillar swelling Ears: bilateral: normal - Neck Neck: Present: normal ROM. Absent: lymphadenopathy, other, rigidity, stridor, thyromegaly Carotids: bilateral: upstroke normal Thyroid: bilateral: normal size - Respiratory Respiratory: bilateral: CTA, diminished - Cardiovascular Rhythm: regular Heart sounds: normal: S1, S2 Abnormal Heart Sounds: Present: systolic murmur - Gastrointestinal General gastrointestinal: Present: decreased bowel sounds, normal bowel sounds. Absent: absent bowel sounds, distended, hepatomegaly, hyperactive bowel sounds , organomegaly, rigid, scaphoid, soft, splenomegaly, tenderness, umbilical hernia, ventral hernia - Integumentary Integumentary Comment(s): Right leg is in cast after surgery and immobilizer. Integumentary: Present: normal. Absent: calor, cellulitis, cyanotic, decreased turgor, flushed, jaundiced, normal turgor, pale, rash, ulcer - Neurologic Neurologic: Present: CNII-XII intact - Musculoskeletal Musculoskeletal: Present: gait normal, generalized weakness - Psychiatric Psychiatric: Present: A&O x's 3 - Labs CBC & Chem 7: 05/08/18 07:01 Assessment and Plan Plan: 1. Posttraumatic ankle arthritis failed outpatient treatment, status post total right ankle arthroplasty and right gastroc resection 05/05. The right leg still an immobilizer and cast, mobility still significantly decreased and patient is agreeable to go to [facility] for rehabilitation. 2. Hypertension. Patient is on Zestoretic 1 daily. 3. Hyperlipidemia. Continue atorvastatin. 4. Recurrent depression. Continue Wellbutrin. 5. Vitamin D deficiency. Continue supplement. 6. DVT prophylaxis. Lovenox. 7. GI prophylaxis. Pepcid. 8. Discharge planning: Patient is going to [facility] rehabilitation for 1-2 weeks.
== END 2018-05-08 14:22 | DRG 469 ==
LOC: 2ORMAIN 11:06 → 3SUR 16:31
PROVIDERS: ADMIT Orthopaedic Surgery; ATTEND Orthopaedic Surgery
PROC: 0L8S0ZZ Division of Right Ankle Tendon, Open Approach (ICD-10-PCS; 2018-05-05)
PROC: 0SPF04Z Removal of Internal Fixation Device from Right Ankle Joint, Open Approach (ICD-10-PCS; 2018-05-05)
PROC: 0SRF0JZ Replacement of Right Ankle Joint with Synthetic Substitute, Open Approach (ICD-10-PCS; principal; 2018-05-05 13:00)
DX: M12.579 Traumatic arthropathy, unspecified ankle and foot (principal); F33.9 Major depressive disorder, recurrent, unspecified; M19.071 Primary osteoarthritis, right ankle and foot; S82.891S Other fracture of right lower leg, sequela; E78.5 Hyperlipidemia, unspecified; I10 Essential (primary) hypertension; K21.9 Gastro-esophageal reflux disease without esophagitis; Z85.828 Personal history of other malignant neoplasm of skin; Z87.891 Personal history of nicotine dependence; T84.84XS Pain due to internal orthopedic prosthetic devices, implants and grafts, sequela; M48.00 Spinal stenosis, site unspecified; E55.9 Vitamin D deficiency, unspecified; R01.1 Cardiac murmur, unspecified; H04.123 Dry eye syndrome of bilateral lacrimal glands; Z98.42 Cataract extraction status, left eye; Z98.41 Cataract extraction status, right eye; Z47.2 Encounter for removal of internal fixation device
CPT/HCPCS: 85025

== ENCOUNTER → 2018-08-30 | Outpatient (CLI) | payer MEDICARE, BC ==
--- NOTE | 2018-08-30 12:33 | US ---
Exam: LOWER EXTREMITY VENOUS INSUFFICIENCY DATE: 08/30/2018. TECHNIQUE: Bilateral duplex lower extremity ultrasound. SIDE PERFORMED: Bilateral FINDINGS: 1) Color flow is present and patency is documented in the following vessels. EIV Common Femoral Vein Deep Femoral Vein Femoral Vein Popliteal Vein Proximal Calf Veins Greater Saph Vein Upper Small Saph Vein No DVT or SVT is noted. 2) There is venous reflux noted at the following venous levels: Right EIV. Fluid collection left popliteal fossa, measures 4.9 x 1.0 x 2.2 cm. IMPRESSION: 1. No evidence for DVT in the bilateral lower extremities imaged from the groin to the upper calves. 2. Venous reflux noted in the right external iliac vein. 3. Small to moderate sized elongated Castillo's cyst on the left.
--- NOTE | 2018-09-01 14:24 | P.ARTDOP ---
Arterial Doppler LOWER EXTREMITY ARTERIAL DOPPLER: DATE OF SERVICE: 08/30/2018 Reason for study: Right ankle ulcer. Doppler waveforms: Multiphasic bilaterally throughout. Pulse volume recording: Normal configuration. Pressure gradients: None except a small gradient at the right foot Ankle-brachial indices: Greater than 1 bilaterally. Toe pressures: 55 on the right, 86 on the left Impression: Proximal areas are normal. Mild decrease pressure right great toe. This could be vasospastic or less likely very distal disease. Does not relate to ankle ulcer. Tissue perfusion probably adequate for healing.
== END ==
LOC: RADUSWWP 08:51
PROVIDERS: ATTEND Internal Medicine Geriatric Medicine
DX: M71.22 Synovial cyst of popliteal space [Baker], left knee (principal); I82.421 Acute embolism and thrombosis of right iliac vein; M79.605 Pain in left leg
CPT/HCPCS: 93923; 93970

== ENCOUNTER 2018-11-17 08:49 | Emergency (ER) | payer MEDICARE, BC ==
[2018-11-17 08:55] VITALS: RESP 18; TEMP 97.6
--- NOTE | 2018-11-17 09:25 | ED ---
Recheck HPI - General Chief Complaint: Recheck/Abnormal Lab/Rx Stated Complaint: wound on ankle Time Seen by Provider: 11/17/18 09:00 Source: patient, RN notes reviewed, old records reviewed Mode of arrival: wheelchair Limitations: no limitations - History of Present Illness Initial Comments: Patient is a 77-year-old female who presents emergency Department today with complaints of pain on her right ankle. Patient reports that she is seeing wound care for a delayed healing wound from ankle surgery and joint replacement. Patient states that she had a new change in her treatment care and they added compression to help heal her wounds yesterday. Patient states that she today she's been having pain over the medial aspect of her ankle. She believes that the compression dressing was wrapped too tight. She reports she has full sensation and range of motion of her toes. After the nurse removed the compression dressings Patient states that he feels much better at this time. - Related Data Home Medications Medication Instructions Recorded Confirmed Atorvastatin [Lipitor] 10 mg PO DAILY 04/28/18 11/16/18 Cholecalciferol [Vitamin D3] 5,000 unit PO DAILY 04/28/18 11/16/18 Lidocaine HCl [Aspercreme] 1 applic TOPICAL DIRECTED PRN 04/28/18 11/16/18 Lisinopril-Hctz 20-12.5 mg 1 tab PO DAILY 04/28/18 11/16/18 [Zestoretic 20-12.5] Multivitamin/Iron/Folic Acid 1 tab PO DAILY 04/28/18 11/16/18 [Centrum Adults Tablet] buPROPion XL [Wellbutrin XL] 300 mg PO DAILY 04/28/18 11/16/18 Gabapentin [Neurontin] 100 - 200 mg PO TID PRN 04/29/18 11/16/18 L.acidoph,Paracasei, B.lactis 1 each PO DAILY 08/17/18 11/16/18 [Probiotic] Meloxicam [Mobic] 7.5 mg PO BID 09/21/18 11/16/18 predniSONE 10 mg PO DAILY 10/26/18 11/16/18 Allergies Allergy/AdvReac Type Severity Reaction Status Date / Time nickel Allergy Unknown Verified 11/17/18 08:50 Review of Systems ROS Statement: Those systems with pertinent positive or pertinent negative responses have been documented in the HPI. ROS Other: All systems not noted in ROS Statement are negative. Past Medical History Past Medical History: Cancer, GERD/Reflux, Hyperlipidemia, Hypertension, Osteoarthritis (OA) Additional Past Medical History / Comment(s): 'slight heart murmer", constipation, hx skin cancer, numbnrss in left arm, spinal stenosis, degenerative disks, "dry eyes" History of Any Multi-Drug Resistant Organisms: None Reported Past Surgical History: Orthopedic Surgery Additional Past Surgical History / Comment(s): 8 surgeries to remove skin cancer ,2 surgeries on rt ankle for fx(plate and screws), 2 surgeries on left knee and thu in left knee as small child, tumor removed from nose, blepharoplasty pop eyes, pop cataracts, left arm surgery to release nerve, steroid spinal injections, total right ankle arthroplasty and right gastroc resection 04/[address] Nowak. Past Anesthesia/Blood Transfusion Reactions: No Reported Reaction Additional Past Anesthesia/Blood Transfusion Reaction / Comment(s): no family hx (adopted) Past Psychological History: Anxiety, Depression Smoking Status: Former smoker Past Alcohol Use History: None Reported Past Drug Use History: None Reported - Past Family History Mother Family Medical History: Unable to Obtain Additional Family Medical History / Comment(s): Patient was adopted and does not know any family history. Daughter(s) Additional Family Medical History / Comment(s): Patient has 3 daughters and 2 sons all in their 50s with no major medical problems. General Exam - General Exam Comments Initial Comments: Pleasant 77-year-old female. Alert and oriented. No significant distress. Limitations: no limitations General appearance: alert, in no apparent distress Head exam: Present: atraumatic, normocephalic, normal inspection Eye exam: Present: normal appearance, PERRL, EOMI. Absent: scleral icterus, conjunctival injection, periorbital swelling ENT exam: Present: normal exam, mucous membranes moist Neck exam: Present: normal inspection. Absent: tenderness, meningismus, lymphadenopathy Respiratory exam: Present: normal lung sounds bilaterally. Absent: respiratory distress, wheezes, rales, rhonchi, stridor Cardiovascular Exam: Present: regular rate, normal rhythm, normal heart sounds. Absent: systolic murmur, diastolic murmur, rubs, gallop, clicks GI/Abdominal exam: Present: soft, normal bowel sounds. Absent: distended, tenderness, guarding, rebound, rigid Extremities exam: Present: normal inspection, full ROM, normal capillary refill. Absent: tenderness, pedal edema, joint swelling, calf tenderness Right Ankle exam: Present: full ROM, erythema (Patient has slight erythema over the incision site from ankle joint replacement. Patient has an area at the top of the incision that is scabbed over. Patient has normal sensation range of motion of all of her toes and ankle.). Absent: normal inspection Foot/Toe exam: Present: normal inspection, full ROM Neurovascular tendon exam: Present: no vascular compromise Gait: observed and normal Back exam: Present: normal inspection Neurological exam: Present: alert, oriented X3, CN II-XII intact Psychiatric exam: Present: normal affect, normal mood Skin exam: Present: warm, dry, intact, normal color. Absent: rash Course Vital Signs 11/17/18 08:50 Temperature 97.6 F Pulse Rate 75 Respiratory 18 Rate Blood Pressure 142/82 O2 Sat by Pulse 99 Oximetry Medical Decision Making - Medical Decision Making 69-year-old female presents referred from today for evaluation for right ankle pain. Patient recently saw wound. They changed her treatment plan to add a compression dressing on. At this time I believe patient's pain was related to a wrinkle within her dressing pressing over the medial aspect of her ankle. After the dressing was removed she states she feels much better. She has less than 2 second capillary refill in all sensation is intact. Patient Was re- addressed with her wound. I discussed that if the pain would recur to his gently loosen her dressing. Patient agrees treatment plan will comply. Return parameters were discussed. Disposition Clinical Impression: Encounter for wound care Disposition: HOME SELF-CARE Condition: Good Instructions (If sedation given, give patient instructions): Chronic Wounds (ED ) Additional Instructions: Patient advised to follow-up with wound care has typically scheduled. Keep this dressing on until seen by wound care. Return to emergency department if any alarming signs or symptoms occur. Is patient prescribed a controlled substance at d/c from ED?: No Referrals: Jose J Peres MD [Primary Care Provider] - 1-2 days Time of Disposition: 09:24
[2018-11-17 10:06] VITALS: BP 139/80; PULSE 79
== END 2018-11-17 10:16 | disposition home or self-care (01) ==
LOC: EC 08:49
DX: Z48.01 Encounter for change or removal of surgical wound dressing (principal); M25.571 Pain in right ankle and joints of right foot; E78.5 Hyperlipidemia, unspecified; I10 Essential (primary) hypertension; M19.90 Unspecified osteoarthritis, unspecified site; F32.9 Major depressive disorder, single episode, unspecified; Z79.1 Long term (current) use of non-steroidal anti-inflammatories (NSAID); Z79.51 Long term (current) use of inhaled steroids; Z79.899 Other long term (current) drug therapy; Z91.048 Other nonmedicinal substance allergy status; Z87.891 Personal history of nicotine dependence; Z85.828 Personal history of other malignant neoplasm of skin; Z96.661 Presence of right artificial ankle joint
CPT/HCPCS: 99283

== ENCOUNTER 2019-05-06 07:33 | Day surgery (SDC) | payer MEDICARE, BC ==
[2019-05-04 12:44] VITALS: BMI 27.9
[~2019-05-06 07:33] MED LIST changes: -HYDROmorphone 0.5 MG/0.5 ML SYRINGE IVP PRN; +LACTATED RINGERS 1,000 ML IV SCH; +LIDOCAINE 1% 20 ML VIAL (10MG/ML) FOR IV START INTRADERMA PRN; -ONDANSETRON 4 MG/2 ML VIAL IVP PRN; -ceFAZolin IN SWFI 2 GM/20 ML SYRINGE IVP ONE; -fentaNYL (PF) 50 MCG/ML 2 ML AMP IV PRN
[2019-05-06 07:59] VITALS: TEMP 97.2
[2019-05-06] MEDS ORDERED: LIDOCAINE 1% INJ 10MG/ML (20 ML MDV) ONE (08:19)
[2019-05-06] MEDS ORDERED: PROPOFOL 10 MG/ML 20 ML VIAL IV ONE (08:19)
--- NOTE | 2019-05-06 08:37 | P.GSHP ---
History of Present Illness H&P Date: 05/06/19 Chief Complaint: Dysphagia Patient here today for upper endoscopy. Recent barium swallow shows some subtle narrowing possibly on the basis of bone spurs. Some tertiary contractions noted. Upper endoscopy advised. Patient has intermittent episodes of dysphagia. Some reflux symptoms as well. Past Medical History Past Medical History: Cancer, GERD/Reflux, Hyperlipidemia, Hypertension, Osteoarthritis (OA) Additional Past Medical History / Comment(s): 'slight heart murmer", hx skin cancer, numbness in left hand-two fingers, spinal stenosis, degenerative disks, "dry eyes", "SOME TROUBLE SWALLOWING" History of Any Multi-Drug Resistant Organisms: None Reported Past Surgical History: Orthopedic Surgery Additional Past Surgical History / Comment(s): 8 surgeries to remove skin cancer,2 surgeries on rt ankle for fx(plate and screws), 2 surgeries on left knee and thu in left knee as small child, tumor removed from nose, blephar oplasty pop eyes, pop cataracts, left arm surgery to release nerve, steroid spinal injections, total right ankle arthroplasty and right ANKLE SURGERY-JOINT REPLACEMENT Past Anesthesia/Blood Transfusion Reactions: No Reported Reaction Additional Past Anesthesia/Blood Transfusion Reaction / Comment(s): no family hx (adopted) Smoking Status: Former smoker - Past Family History Mother Family Medical History: Unable to Obtain Additional Family Medical History / Comment(s): Patient was adopted and does not know any family history. Daughter(s) Family Medical History: No Reported History Additional Family Medical History / Comment(s): Patient has 3 daughters and 2 sons all in their 50s with no major medical problems. Medications and Allergies Home Medications Medication Instructions Recorded Confirmed Type Atorvastatin [Lipitor] 10 mg PO HS 04/28/18 05/06/19 History Cholecalciferol [Vitamin D3 (25 5,000 unit PO DAILY 04/28/18 05/06/19 History Mcg = 1000 Iu)] Lisinopril-Hctz 20-12.5 mg 1 tab PO DAILY 04/28/18 05/06/19 History [Zestoretic 20-12.5] Multivitamin/Iron/Folic Acid 1 tab PO DAILY 04/28/18 05/06/19 History [Centrum Adults Tablet] buPROPion XL [Wellbutrin XL] 300 mg PO DAILY 04/28/18 05/06/19 History Gabapentin [Neurontin] 100 mg PO BID 04/29/18 05/06/19 History L.acidoph,Paracasei, B.lactis 1 each PO DAILY 08/17/18 05/06/19 History [Probiotic] Baclofen 5 mg PO BID PRN 11/17/18 05/06/19 History Naproxen Sodium [Aleve] 220 mg PO Q12HR 11/30/18 05/06/19 History Oxybutynin Chloride [Ditropan] 5 mg PO DAILY 05/04/19 05/06/19 History Allergies Allergy/AdvReac Type Severity Reaction Status Date / Time nickel Allergy Rash/Hives Verified 05/06/19 07:48 Surgical - Exam Vital Signs Temp Pulse Resp BP Pulse Ox 97.2 F L 72 18 135/69 98 05/06/19 07:57 05/06/19 07:57 05/06/19 07:57 05/06/19 07:57 05/06/19 07:57 Physical exam: General: Well-developed, well-nourished HEENT: Normocephalic, sclerae nonicteric Abdomen: Nontender, nondistended Extremities: No edema Neuro: Alert and oriented Assessment and Plan (1) Dysphagia Narrative/Plan: Will proceed with upper endoscopy with possible dilation at this time. Risks of bleeding and perforation reviewed. She understands and wishes to proceed. Current Visit: Yes Status: Acute Code(s): R13.10 - DYSPHAGIA, UNSPECIFIED SNOMED Code(s): 39829305
[2019-05-06 08:56] VITALS: RESP 16
[2019-05-06 09:11] VITALS: BP 124/67; PULSE 71
--- NOTE | 2019-05-23 09:06 | PCN ---
Date of Procedure: 05/06/19 Procedure(s) Performed: Preoperative Dx: Dysphagia Postoperative Dx: Erosive gastritis, distal esophagitis Procedure: EGD with Bx Anesthesia: Sedation Endoscopist: Dr. De Leon Specimens: Antrum Endoscopic Procedure: The patient was on the endoscopy table in the left decubitus position. The Olympus gastroscope was inserted into the oropharynx and passed under direct visualization to the region of the third portion of the duodenum. From that point the scope was slowly withdrawn inspecting all surfaces carefully. There were no neoplastic inflammatory or polypoid lesions throughout the duodenum. The pylorus was widely patent. The stomach was carefully inspected. There was erosive gastritis present. A biopsy of the antrum took place to rule out H. pylori. Retroflexion revealed a normal hiatus. The esophagus was then carefully examined. There was evidence of mild distal esophagitis. A single linear erosion present non-circumferential measuring less than 1 cm. The remainder the esophagus appear normal although slightly tortuous. The patient was then taken to the recovery room in stable condition per anesthesia guidelines. Recommendations: Begin antiacid therapy. This should improve the patient's dysphagia symptoms. MTDD
== END 2019-05-06 09:43 | disposition home or self-care (01) ==
LOC: ORWHC2ENDO 07:33
PROVIDERS: ATTEND Surgery
DX: K25.7 Chronic gastric ulcer without hemorrhage or perforation (principal); K21.0 Gastro-esophageal reflux disease with esophagitis; R13.10 Dysphagia, unspecified; K22.8 Other specified diseases of esophagus; I10 Essential (primary) hypertension; E78.5 Hyperlipidemia, unspecified; M19.90 Unspecified osteoarthritis, unspecified site; R20.0 Anesthesia of skin; Z85.828 Personal history of other malignant neoplasm of skin; Z87.891 Personal history of nicotine dependence; Z79.1 Long term (current) use of non-steroidal anti-inflammatories (NSAID); Z79.899 Other long term (current) drug therapy; Z91.09 Other allergy status, other than to drugs and biological substances
CPT/HCPCS: 88305; 43239; J2001; J2704

== ENCOUNTER → 2019-11-11 | Outpatient (CLI) | payer MEDICARE, BC ==
--- NOTE | 2019-11-11 10:18 | BD ---
EXAMINATION TYPE: Axial Bone Density DATE OF EXAM: 11/11/2019 COMPARISON: NONE CLINICAL HISTORY: M 80.0 Height: 5 FT 1 IN Weight: 139 FRAX RISK QUESTIONS: Alcohol (3 or more units per day): NO Family History (Parent hip fracture): UNKNOWN Glucocorticoids (More than 3mos): NO (Ex: prednisone, prednisolone, methylprednisolone, dexamethasone, and hydrocortisone). History of Fracture in Adulthood: YES Secondary Osteoporosis: 1. Type 1 Diabetes: NO 2. Hyperthyroidism: NO 3. Menopause before 45: NO 4. Malnutrition: NO 5. Chronic liver disease: NO Rheumatoid Arthritis: NO Current Tobacco Use: NO RISK FACTORS HISTORY OF: Family History of Osteoporosis: UNKNOWN PT ADOPTED Active: NO Postmenopausal woman: EARLY 50'S Take estrogen and/or progesterone medications: DID TAKE HRT NOT SURE HOW LONG Lost more than 2 inches in height since high school: YES Frequent falls: VERY UNSTEADY MEDICATIONS: Additional Medications: LISINOPRIL, AMOXICILLIN, ANXIETY MEDS , ATORVASTATIN, VITAMINS, VIT D,OMEPRA ZOLE,ALEVE Additional History: RT ANKLE REPLACED 2018 EXAM MEASUREMENTS: Bone mineral densitometry was performed using the [employer] System. Bone mineral density as measured about the Lumbar spine is: ----- L1-L4(G/cm2): 1.652 T Score Values are as follows: ----- L2: 6.2 ----- L3: 4.2 ----- L4: 0.9 ----- L1-L4: 3.9 BASELINE Bone mineral density about the R hip (g/cm2): 0.921 Bone mineral density about the L hip (g/cm2): 0.993 T Score values are as follows: -----R Neck: -0.8 -----L Neck: -0.3 -----R Total: -1.0 -----L Total: -1.0 BASELINE IMPRESSION: Osteopenia (T Score between -2.5 and -1). There is slightly increased risk of fracture and the patient may be considered for treatment. Re-Screen 2-5 years. NOTE: T-SCORE=SD OF THE YOUNG ADULT MEAN.
== END ==
LOC: RADBDWWP 09:17
PROVIDERS: ATTEND Internal Medicine
DX: M85.80 Other specified disorders of bone density and structure, unspecified site (principal)
CPT/HCPCS: 77080

== ENCOUNTER → 2019-12-08 | Outpatient (CLI) | payer MEDICARE, BC ==
--- NOTE | 2019-12-09 14:16 | MM ---
Reason for exam: screening (asymptomatic). Last mammogram was performed 10 months ago. History: Taking hormonal contraceptives. Physical Findings: A clinical breast exam by your physician is recommended on an annual basis and results should be correlated with mammographic findings. MG 3D Screening Mammo W/Cad Bilateral CC and MLO view(s) were taken. Prior study comparison: January 27, 2019, mammogram, performed at [facility]. January 26, 2018, mammogram, performed at [facility]. There are scattered fibroglandular densities. There is a stable left anterior depth upper outer quadrant oval circumscribed mass. Benign appearing vascular bilateral calcifications. No suspicious abnormality. No significant changes when compared with prior studies. ASSESSMENT: Benign, BI-RAD 2 RECOMMENDATION: Routine screening mammogram of both breasts in 1 year.
== END | disposition home or self-care (01) ==
LOC: RADMAMWWP 07:37
PROVIDERS: ATTEND Internal Medicine
DX: Z12.31 Encounter for screening mammogram for malignant neoplasm of breast (principal)
CPT/HCPCS: 77063; 77067

== ENCOUNTER 2020-10-03 15:52 | Inpatient (IN) | payer MEDICARE, BC ==
--- NOTE | 2020-10-03 16:08 | ED ---
General Adult HPI - General Chief complaint: Syncope Stated complaint: Syncope Time Seen by Provider: 10/03/20 16:03 Source: patient, EMS Mode of arrival: EMS Limitations: no limitations - History of Present Illness Initial comments: Patient presents the ED by ambulance for evaluation after having a syncopal episode. Patient states that she has been constipated for the past 3-4 days, and she states that she was on her way to the bathroom this afternoon to have a bowel movement when she became flushed and lightheaded. Patient states that she then sat down on the floor and had a syncopal episode. Patient states that her caregiver was with her and called for an ambulance for her. Patient states that she had one bout of emesis en route to the ED, and patient had a large bowel movement on arrival to the ED. Patient states that she was having crampy abdominal pain earlier today, but she states her abdominal pain has improved now that she has had a bowel movement. Patient denies trauma or injury, fever or chills, headache, focal numbness/weakness/neuro deficit, neck/back/extremity pain, chest pain, dyspnea, cough or cold symptoms, palpitations, bloody or melanotic stool, hematemesis, dysuria or urinary symptoms, decreased urine output, leg or calf swelling or pain, or any other symptoms or complaints. Per EMS, the patient was weak and hypotensive on scene, so she was given epinephrine 1 mg IV. - Related Data Home Medications Medication Instructions Recorded Confirmed Atorvastatin [Lipitor] 10 mg PO HS 04/28/18 05/06/19 Cholecalciferol [Vitamin D3 (25 5,000 unit PO DAILY 04/28/18 05/06/19 Mcg = 1000 Iu)] Lisinopril-Hctz 20-12.5 mg 1 tab PO DAILY 04/28/18 05/06/19 [Zestoretic 20-12.5] Multivitamin/Iron/Folic Acid 1 tab PO DAILY 04/28/18 05/06/19 [Centrum Adults Tablet] buPROPion XL [Wellbutrin XL] 300 mg PO DAILY 04/28/18 05/06/19 Gabapentin [Neurontin] 100 mg PO BID 04/29/18 05/06/19 L.acidoph,Paracasei, B.lactis 1 each PO DAILY 08/17/18 05/06/19 [Probiotic] Baclofen 5 mg PO BID PRN 11/17/18 05/06/19 Naproxen Sodium [Aleve] 220 mg PO Q12HR 11/30/18 05/06/19 Oxybutynin Chloride [Ditropan] 5 mg PO DAILY 05/04/19 05/06/19 Allergies Allergy/AdvReac Type Severity Reaction Status Date / Time nickel Allergy Rash/Hives Verified 10/03/20 16:07 Review of Systems ROS Statement: Those systems with pertinent positive or pertinent negative responses have been documented in the HPI. ROS Other: All systems not noted in ROS Statement are negative. Past Medical History Past Medical History: Cancer, GERD/Reflux, Hyperlipidemia, Hypertension, Osteoarthritis (OA) Additional Past Medical History / Comment(s): 'slight heart murmer", hx skin cancer, numbness in left hand-two fingers, spinal stenosis, degenerative disks, "dry eyes", "SOME TROUBLE SWALLOWING" History of Any Multi-Drug Resistant Organisms: None Reported Past Surgical History: Orthopedic Surgery Additional Past Surgical History / Comment(s): 8 surgeries to remove skin cancer,2 surgeries on rt ankle for fx(plate and screws), 2 surgeries on left k nee and thu in left knee as small child, tumor removed from nose, blepharoplasty pop eyes, pop cataracts, left arm surgery to release nerve, steroid spinal injections, total right ankle arthroplasty and right ANKLE SURGERY-JOINT REPLACEMENT Past Anesthesia/Blood Transfusion Reactions: No Reported Reaction Additional Past Anesthesia/Blood Transfusion Reaction / Comment(s): no family hx (adopted) Past Psychological History: Anxiety, Depression Smoking Status: Never smoker Past Alcohol Use History: Occasional Past Drug Use History: None Reported - Past Family History Mother Family Medical History: Unable to Obtain Additional Family Medical History / Comment(s): Patient was adopted and does not know any family history. Daughter(s) Family Medical History: No Reported History Additional Family Medical History / Comment(s): Patient has 3 daughters and 2 sons all in their 50s with no major medical problems. General Exam Limitations: no limitations General appearance: alert, in no apparent distress Head exam: Present: atraumatic, normocephalic Eye exam: Present: normal appearance, PERRL, EOMI ENT exam: Present: mucous membranes moist Neck exam: Present: other (Trachea is in midline). Absent: tenderness Respiratory exam: Present: normal lung sounds bilaterally. Absent: respiratory distress, wheezes, rales, rhonchi Cardiovascular Exam: Present: regular rate, normal rhythm, normal heart sounds, other (Normal radial pulses bilaterally) GI/Abdominal exam: Present: soft, normal bowel sounds. Absent: distended, tenderness, guarding Extremities exam: Present: full ROM. Absent: tenderness, pedal edema, calf tenderness Back exam: Present: normal inspection. Absent: tenderness Neurological exam: Present: alert, oriented X3, CN II-XII intact. Absent: motor sensory deficit Psychiatric exam: Present: normal affect, normal mood Skin exam: Present: warm, dry, intact, normal color Course Vital Signs 10/03/20 10/03/20 15:54 17:00 Temperature 97.6 F Pulse Rate 81 82 Respiratory 18 18 Rate Blood Pressure 131/70 129/84 O2 Sat by Pulse 95 96 Oximetry - Reevaluation(s) Reevaluation #1: 10/03/20 17:30 Patient denies development of any new symptoms while in the ED. Patient has had loose stool while in the ED. Patient remains alert and breathing comfortably with a normal room air oxygen saturation. Patient's vital signs have been stable while in the ED. Patient is aware of her test results, and she agrees with hospital admission at this time. 10/03/20 17:38 Case, H&P, test results and ED management were discussed with Dr. Peres. He accepts hospital admission. He has no further recommendations at this time. EKG Findings - EKG Comments: EKG Findings:: Normal sinus rhythm, ventricular rate of 76 bpm, no ectopy, normal NM and QRS intervals, normal QT interval, normal axis, no ST or T-wave abnormality Medical Decision Making - Medical Decision Making Other than a mildly elevated lactate level, patient's labs are fairly unremarkable. Patient's EKG and chest x-ray are also unremarkable. Patient's vital signs have been stable while in the ED. I suspect that the patient's syncopal episode was likely secondary to vasovagal syncope given her report that she became lightheaded after having abdominal cramps and as she was on her way to have a bowel movement. Still, given the patient's age, risk factors and reported hypotension on scene, will admit the patient to the hospital for observation and further evaluation. Dr. Peres has accepted hospital admission. Patient's stool studies are pending at this time. - Lab Data Result diagrams: 10/03/20 16:29 10/03/20 16:29 Lab Results 10/03/20 10/03/20 10/03/20 Range/Units 16:29 16:29 16:29 WBC 9.5 (3.8-10.6) k/uL RBC 4.73 (3.80-5.40) m/uL Hgb 15.0 (11.4-16.0) gm/dL Hct 44.8 (34.0-46.0) % MCV 94.6 (80.0-100.0) fL MCH 31.7 (25.0-35.0) pg MCHC 33.4 (31.0-37.0) g/dL RDW 12.9 (11.5-15.5) % Plt Count 144 L (150-450) k/uL MPV 9.8 Neutrophils % 51 % Lymphocytes % 37 % Monocytes % 6 % Eosinophils % 2 % Basophils % 1 % Neutrophils # 4.8 (1.3-7.7) k/uL Lymphocytes # 3.5 (1.0-4.8) k/uL Monocytes # 0.6 (0-1.0) k/uL Eosinophils # 0.2 (0-0.7) k/uL Basophils # 0.1 (0-0.2) k/uL PT 10.6 (9.0-12.0) sec INR 1.0 (<1.2) APTT 22.7 (22.0-30.0) sec Sodium 139 (137-145) mmol/L Potassium 3.9 (3.5-5.1) mmol/L Chloride 105 (98-107) mmol/L Carbon Dioxide 27 (22-30) mmol/L Anion Gap 7 mmol/L BUN 37 H (7-17) mg/dL Creatinine 0.94 (0.52-1.04) mg/dL Est GFR (CKD-EPI)AfAm 66 (>60 ml/min/1.73 sqM) Est GFR (CKD-EPI)NonAf 58 (>60 ml/min/1.73 sqM) Glucose 139 H (74-99) mg/dL Plasma Lactic Acid Fredrick (0.7-2.0) mmol/L Calcium 10.3 H (8.4-10.2) mg/dL Magnesium 2.8 H (1.6-2.3) mg/dL Total Bilirubin 0.5 (0.2-1.3) mg/dL AST 34 (14-36) U/L ALT 21 (4-34) U/L Alkaline Phosphatase 212 H (38-126) U/L Troponin I (0.000-0.034) ng/mL Total Protein 7.4 (6.3-8.2) g/dL Albumin 4.2 (3.5-5.0) g/dL 10/03/20 10/03/20 Range/Units 16:29 16:29 WBC (3.8-10.6) k/uL RBC (3.80-5.40) m/uL Hgb (11.4-16.0) gm/dL Hct (34.0-46.0) % MCV (80.0-100.0) fL MCH (25.0-35.0) pg MCHC (31.0-37.0) g/dL RDW (11.5-15.5) % Plt Count (150-450) k/uL MPV Neutrophils % % Lymphocytes % % Monocytes % % Eosinophils % % Basophils % % Neutrophils # (1.3-7.7) k/uL Lymphocytes # (1.0-4.8) k/uL Monocytes # (0-1.0) k/uL Eosinophils # (0-0.7) k/uL Basophils # (0-0.2) k/uL PT (9.0-12.0) sec INR (<1.2) APTT (22.0-30.0) sec Sodium (137-145) mmol/L Potassium (3.5-5.1) mmol/L Chloride (98-107) mmol/L Carbon Dioxide (22-30) mmol/L Anion Gap mmol/L BUN (7-17) mg/dL Creatinine (0.52-1.04) mg/dL Est GFR (CKD-EPI)AfAm (>60 ml/min/1.73 sqM) Est GFR (CKD-EPI)NonAf (>60 ml/min/1.73 sqM) Glucose (74-99) mg/dL Plasma Lactic Acid Fredrick 2.5 H* (0.7-2.0) mmol/L Calcium (8.4-10.2) mg/dL Magnesium (1.6-2.3) mg/dL Total Bilirubin (0.2-1.3) mg/dL AST (14-36) U/L ALT (4-34) U/L Alkaline Phosphatase (38-126) U/L Troponin I <0.012 (0.000-0.034) ng/mL Total Protein (6.3-8.2) g/dL Albumin (3.5-5.0) g/dL - Radiology Data Radiology results: image reviewed (Chest x-ray is negative) Disposition Clinical Impression: Syncope Disposition: ADMITTED IP TO THIS [facility] Condition: Stable Is patient prescribed a controlled substance at d/c from ED?: No Referrals: Jose J Peres MD [Primary Care Provider] - 1-2 days Time of Disposition: 17:38
[2020-10-03] MEDS ORDERED: SODIUM CHLORIDE 0.9% 500 ML 500 ML IV STA (16:11)
[2020-10-03 16:40] LABS: Basophils # (A) 0.1 k/uL (0-0.2); Basophils % (A) 1 %; Eosinophils # (A) 0.2 k/uL (0-0.7); Eosinophils % (A) 2 %; HCT 44.8 % (34.0-46.0); Lymphocytes # (A) 3.5 k/uL (1.0-4.8); Lymphocytes % (A) 37 %; MCH 31.7 pg (25.0-35.0); MCHC 33.4 g/dL (31.0-37.0); MCV 94.6 fL (80.0-100.0); Mean Platelet Volume 9.8; Monocytes # (A) 0.6 k/uL (0-1.0); Monocytes % (A) 6 %; Neutrophils # (A) 4.8 k/uL (1.3-7.7); Neutrophils % (A) 51 %; Platelet Count 144 k/uL (150-450); RBC 4.73 m/uL (3.80-5.40); RDW 12.9 % (11.5-15.5); WBC 9.5 k/uL (3.8-10.6)
[2020-10-03 16:50] LABS: Albumin 4.2 g/dL (3.5-5.0); Calcium 10.3 mg/dL (8.4-10.2); Magnesium 2.8 mg/dL (1.6-2.3); Potassium 3.9 mmol/L (3.5-5.1); Total Bilirubin 0.5 mg/dL (0.2-1.3); Total Protein 7.4 g/dL (6.3-8.2)
[2020-10-03 17:00] LABS: Partial Thromboplastin Time 22.7 sec (22.0-30.0); Prothrombin Time 10.6 sec (9.0-12.0)
[2020-10-03] MEDS ORDERED: SODIUM CHLORIDE 0.9% 500 ML 500 ML IV ONE (17:11)
--- NOTE | 2020-10-03 17:30 | XR ---
EXAMINATION TYPE: XR chest 1V portable DATE OF EXAM: 10/03/2020 COMPARISON: NONE HISTORY: Syncope TECHNIQUE: Single view FINDINGS: Heart is normal. Lungs are clear. Diaphragm is normal. Bony thorax is normal. There are ed[address] leads. IMPRESSION: No active cardiopulmonary disease.
[2020-10-03] MEDS: SODIUM CHLORIDE 0.9% 1,000 ML IV SCH (17:58)
[2020-10-03] MEDS ORDERED: MECLIZINE 12.5 MG TAB PO PRN (23:59)
--- NOTE | 2020-10-03 23:59 | P.HPIM ---
History of Present Illness H&P Date: 10/03/20 Chief Complaint: Syncope, severe dehydration, nausea vomiting with diarrhea, hypercalcemia a 79-year-old female one of my office patient with past medical history of hypertension, hyperlipidemia, history of severe arthritis will also had atherosclerotic heart disease chronic lower back pain with spinal stenosis along with valvular heart disease patient has been doing well brought to the emergency department at [facility] by EMS for syncopal episode according to her has been constipated for the last to 4 days she ended up going to the bathroom the afternoon and had a bowel movement developed to have lightheadedness and flushing-like symptoms afterward along with severe dizziness she said down on the floor and had syncopal episode her caregiver ended up calling in the EMS patient had one episode of nausea and vomiting on route to the emergency department and she had a large bowel movement at arrival at the emergency was having significant abdominal cramps all the today as well. Her symptom has improved slightly bit after arriving to demurs department she had no head trauma declined any fever or chills declining infection or food poisoning recently. Patient ended up been tested for Route C. diff which was negative her blood work showed moderately elevated blood sugar along with hypercalcemia elevated alkaline phosphatase with normal CBC except mild thrombocytopenia. Chest x-ray on admission showed the no active cardiomegaly on her wrap active pulmonary disease. EKG showed normal sinus rhythm with no other abnormality. Patient was continue on hydration and admitted to the hospital for observation along with hydration. Review of Systems CONSTITUTIONAL: Well-developed no acute respiratory distress. EYES: No icterus sclerae, no conjunctivitis. EARS, NOSE, MOUTH, THROAT, and FACE: No sore throat, lymphadenopathy, carotid bruits or deformity. RESPIRATORY: Mild shortness of breath no cough wheezes CARDIOVASCULAR: No CP, Palpitation, PND, Orthopnea, or angina. Mild arrhythmia on and off GASTROINTESTINAL: She had constipation early but ended up having diarrhea along with emesis and nausea no gastrointestinal bleed no blood be stool or bright red blood per rectum. GENITOURINARY: Negative for Hematuria or UTI, no kidney stones. INTEGUMENT/BREAST: Negative for any muscular injury with mild osteoarthritis.. Generalized arthralgia and lower back pain. HEMATOLOGIC/LYMPHATIC: Negative for bleed or purpura. Mild anemia MUSCULOSKELTAL: Negative for Myalgia or arthralgia. NEURLOGICAL: No LOC, Sz or syncope, blurred vision dizziness or abnormality.. Syncopal episode not a clear etiology. BEHAVIORAL/PSYCH: Negative. ENDOCRINE: Negative. Past Medical History Past Medical History: Cancer, GERD/Reflux, Hyperlipidemia, Hypertension, Osteoarthritis (OA) Additional Past Medical History / Comment(s): 'slight heart murmer", hx skin cancer, numbness in left hand-two fingers, spinal stenosis, degenerative disks, "dry eyes", "SOME TROUBLE SWALLOWING" History of Any Multi-Drug Resistant Organisms: None Reported Past Surgical History: Orthopedic Surgery Additional Past Surgical History / Comment(s): 8 surgeries to remove skin cancer,2 surgeries on rt ankle for fx(plate and screws), 2 surgeries on left knee and thu in left knee as small child, tumor removed from nose, blepharoplasty pop eyes, pop cataracts, left arm surgery to release nerve, steroid spinal injections, total right ankle arthroplasty and right ANKLE SURGERY-JOINT REPLACEMENT Past Anesthesia/Blood Transfusion Reactions: No Reported Reaction Additional Past Anesthesia/Blood Transfusion Reaction / Comment(s): no family hx (adopted) Past Psychological History: Anxiety, Depression Smoking Status: Never smoker Past Alcohol Use History: Occasional Additional Past Alcohol Use History / Comment(s): STARTED SMOKING AT AGE 15 quit in 2017. Past Drug Use History: None Reported - Past Family History Mother Family Medical History: Unable to Obtain Additional Family Medical History / Comment(s): Patient was adopted and does not know any family history. Daughter(s) Family Medical History: No Reported History Additional Family Medical History / Comment(s): Patient has 3 daughters and 2 so ns all in their 50s with no major medical problems. Medications and Allergies Home Medications Medication Instructions Recorded Confirmed Type Atorvastatin [Lipitor] 10 mg PO Q48H 04/28/18 10/03/20 History Lisinopril-Hctz 20-12.5 mg 1 tab PO DAILY 04/28/18 10/03/20 History [Zestoretic 20-12.5] Multivitamin/Iron/Folic Acid 1 tab PO DAILY 04/28/18 10/03/20 History [Centrum Adults Tablet] buPROPion XL [Wellbutrin XL] 300 mg PO DAILY 04/28/18 10/03/20 History Naproxen Sodium [Aleve] 220 mg PO Q12HR PRN 11/30/18 10/03/20 History Calcium Carbonate [Calcium] 600 mg PO DAILY 10/03/20 10/03/20 History Cholecalciferol [Vitamin D3 (25 1,000 unit PO DAILY 10/03/20 10/03/20 History Mcg = 1000 Iu)] Meclizine HCl 12.5 mg PO TID PRN 10/03/20 10/03/20 History Mirabegron [Myrbetriq] 50 mg PO DAILY 10/03/20 10/03/20 History Vit C/E/Zn/Coppr/Lutein/Zeaxan 1 tab PO DAILY 10/03/20 10/03/20 History [Preservision Areds 2 Softgel] Allergies Allergy/AdvReac Type Severity Reaction Status Date / Time nickel Allergy Rash/Hives Verified 10/03/20 16:07 Physical Exam Vitals: Vital Signs Temp Pulse Pulse Resp BP BP Pulse Ox 10/03/20 21:00 97.6 F 97 19 136/78 97 10/03/20 20:21 97.6 F 71 19 136/78 97 10/03/20 20:09 98.4 F 93 18 133/84 97 10/03/20 17:00 82 18 129/84 96 10/03/20 15:54 97.6 F 81 18 131/70 95 Intake and Output 10/03/20 10/03/20 10/04/20 14:59 22:59 06:59 Intake Total 240 Balance 240 Intake: Oral 240 Other: # Voids 2 Weight 67.585 kg General Appearance: Alert, cooperative, no distress, appears stated age. Neck HEENT: Supple, no lymphadenopathy, no thyroid enlargement, no carotid br uits. Lungs: Clear to auscultation without crackles or wheezes no rhonchi, no deformity. Chest Wall: Chest wall normal expansion with deep inspiration no tenderness and no deformity was found on exam, no costochondral pain or discomfort. Heart: Regular rate and rhythm, S1, S2 normal, no murmur, rub or gallop. Back: Symmetric, no curvature, ROM normal, no CVA tenderness. Mild scoliosis and kyphosis with no rash. Abdomen: Soft positive bowel sound organomegaly no tenderness rebound or rigidity. Extremities: Extremities normal, atraumatic, no cyanosis or edema. Generalized arthralgia specially both lower extremities. Pulses: 2+ and symmetric. Skin: Skin color, texture, tugor normal, no rashes or lesions. Neurologic: Alert oriented x3 cranial nerves II through XII intact, no motor deficit, no abnormal balance or gait. Results CBC & Chem 7: 10/03/20 16:29 10/03/20 16:29 Labs: Abnormal Lab Results - Last 24 Hours (Table) 10/03/20 10/03/20 10/03/20 Range/Units 16:29 16:29 16:29 Plt Count 144 L (150-450) k/uL BUN 37 H (7-17) mg/dL Glucose 139 H (74-99) mg/dL Plasma Lactic Acid Fredrick 2.5 H* (0.7-2.0) mmol/L Calcium 10.3 H (8.4-10.2) mg/dL Magnesium 2.8 H (1.6-2.3) mg/dL Alkaline Phosphatase 212 H (38-126) U/L Thrombosis Risk Factor Assmnt - DVT/VTE Prophylaxis DVT/VTE Prophylaxis: Pharmacologic Prophylaxis ordered, Mechanical Prophylaxis ordered - Choose All That Apply Each Factor Represents 1 point: Obesity (BMI >25) Each Risk Factor Represents 3 Points: Age 75 years or older Thrombosis Risk Factor Assessment Total Risk Factor Score: 4 Thrombosis Risk Factor Assessment Level: Moderate Risk Assessment and Plan Assessment: 1 syncope: Not clear etiology most likely vasovagal with patient's current presentation patient will be monitor in the hospital further testing including carotid ultrasound echocardiogram will be done we will consult neurology in the meanwhile after hydration the patient continued to have symptom further testing will be done otherwise the left clear this as a vasovagal after severe constipa tion with the episode of diarrhea and abdominal cramps most likely with causes symptom the first place, continue to use antiarrhythmic medication if needed. 2 mild hypercalcemia most likely from mild dehydration and her current symptoms continue hydration for now repeat chemistry tomorrow morning. 3 lactic acidosis: No sign of infection so far no elevated white blood cell UA was not done which will be order for now no sign of infection on chest x-ray. Continue current management exclude any UTI this point. 4 History of valvular heart disease has been stable with no intervention needed at this point. 5 hypertension: Has been on lisinopril hydrochlorothiazide 20/12.5 mg daily continue medication. 6 hyperlipidemia: Remain on atorvastatin 10 mg daily. 7 chronic depression: Has been on Wellbutrin XL 300 mg a day. 8 severe stress incontinence: Has been on Myrbetriq 50 mg daily. 9 thrombocytopenia: Not a clear etiology repeat CBC by tomorrow morning. 10 GI prophylaxis: Continue patient on Pepcid 20 mg daily. 11 DVT prophylaxis: Continue knee-high JOSH hose and early mobilization. CODE STATUS: Full code. Admit patient to observation status for 1-2 nights stay.
[2020-10-04 02:03] LABS: Basophils # (A) 0.1 k/uL (0-0.2); Basophils % (A) 0 %; Eosinophils # (A) 0.1 k/uL (0-0.7); Eosinophils % (A) 1 %; HCT 44.3 % (34.0-46.0); HGB 14.8 gm/dL (11.4-16.0); Lymphocytes # (A) 0.5 k/uL (1.0-4.8); Lymphocytes % (A) 4 %; MCH 31.7 pg (25.0-35.0); MCHC 33.5 g/dL (31.0-37.0); MCV 94.5 fL (80.0-100.0); Mean Platelet Volume 7.8; Monocytes # (A) 0.5 k/uL (0-1.0); Monocytes % (A) 4 %; Neutrophils # (A) 10.7 k/uL (1.3-7.7); Neutrophils % (A) 90 %; Platelet Count 131 k/uL (150-450); RBC 4.69 m/uL (3.80-5.40); RDW 12.4 % (11.5-15.5); WBC 11.9 k/uL (3.8-10.6)
[2020-10-04] MEDS ORDERED: LABETALOL 5 MG/ML VIAL MDV IVP ONE (02:15)
[2020-10-04] MEDS ORDERED: PANTOPRAZOLE 40 MG/10 ML VIAL IVP ONE (02:34)
--- NOTE | 2020-10-04 02:34 | P.EN ---
A team note Activated at 1:30 AM. Arrived on the scene shortly after. Discussed the case with the patient's RN and reviewed the chart. The patient was admitted to the hospital due to complaints of near syncope and diarrhea. She had a rectal tube inserted which was initially draining soft dark brown stool which then developed bright red bloody drainage, roughly 250-300 ccs. The patient's vitals were BP 2 5/98, pulse 102, with an SpO2 of 97% on room air. The patient noted a mild aching discomfort in the lower abdomen but otherwise denied active complaints. On examination, she was a pleasant elderly female in no acute distress. Heart examination revealed a regular S1 and S2 with no murmurs. Lungs were clear to auscultation. Abdomen revealed mild tenderness diffusely in the lower abdomen with no guarding or rebound. CBC and CT abdomen were ordered. Labetalol 20 mg IV push was also ordered for the patient the patient will be transferred to the medical ICU. ICU and GI consults were placed. The patient's primary team was notified by the RN.
[2020-10-04] MEDS: ATORVASTATIN 10 MG TAB PO SCH (02:38)
--- NOTE | 2020-10-04 02:39 | CT ---
EXAM: CT Abdomen and Pelvis Without Intravenous Contrast CLINICAL HISTORY: ITS.REASON CT Reason: GI bleed TECHNIQUE: Axial computed tomography images of the abdomen and pelvis without intravenous contrast. CTDI is 12.67 mGy and DLP is 713.5 mGy-cm. This CT exam was performed using one or more of the following dose reduction techniques: automated exposure control, adjustment of the mA and/or kV according to patient size, and/or use of iterative reconstruction technique. COMPARISON: CT 06/10/10. FINDINGS: Limitations: Evaluation of the abdominal viscera is limited without contrast. Lung bases: Bibasilar atelectasis/pneumonitis. Emphysematous changes. Small pulmonary nodules. Optional followup imaging in 12 months may be considered in a high-risk patient. Mediastinum: Small hiatal hernia. ABDOMEN: Liver: Small hepatic hypodensity. Gallbladder and bile ducts: Unremarkable. Pancreas: Unremarkable. Spleen: Unremarkable. Adrenals: Bilateral adrenal thickening. Kidneys and ureters: No obstructing stones. No hydronephrosis. Stomach and bowel: Wall thickening of the transverse, descending, and rectosigmoid colon with pericolic stranding compatible with colitis. Scattered colonic diverticula. PELVIS: Appendix: Appendix not visualized. Bladder: Mejía catheter and air in the bladder. Reproductive: Unremarkable as visualized. ABDOMEN and PELVIS: Intraperitoneal space: Trace free fluid. Bones/joints: Degenerative changes. Soft tissues: Unremarkable. Vasculature: Atherosclerotic disease. Lymph nodes: Small mesenteric lymph nodes. IMPRESSION: 1. Colonic wall thickening with pericolic stranding compatible with colitis. 2. Additional findings, as above.
[2020-10-04] MEDS ORDERED: NALOXONE 0.4 MG/ML 1 ML VIAL IV PRN (03:13)
[2020-10-04 05:38] LABS: Basophils % (A) 0 %; Eosinophils # (A) 0.1 k/uL (0-0.7); Eosinophils % (A) 1 %; HCT 45.3 % (34.0-46.0); HGB 14.8 gm/dL (11.4-16.0); Lymphocytes # (A) 0.5 k/uL (1.0-4.8); Lymphocytes % (A) 5 %; MCHC 32.6 g/dL (31.0-37.0); MCV 95.2 fL (80.0-100.0); Monocytes # (A) 0.5 k/uL (0-1.0); Monocytes % (A) 4 %; Neutrophils # (A) 10.6 k/uL (1.3-7.7); Neutrophils % (A) 90 %; Platelet Count 151 k/uL (150-450); RBC 4.76 m/uL (3.80-5.40); RDW 12.9 % (11.5-15.5); WBC 11.8 k/uL (3.8-10.6)
[2020-10-04 06:02] LABS: Appearance,Urine Clear (Clear); Bilirubin,Urine Negative (Negative); Blood,Urine Trace (Negative); Color,Urine Light Yellow; Glucose,Urine (UA) 1+ (Negative); Ketones,Urine Negative (Negative); Leukocyte Esterase,Urine Negative (Negative); Mucus,Urine Rare /hpf; Nitrite,Urine Negative (Negative); Protein,Urine Negative (Negative); RBC,Urine 3 /hpf (0-5); Specific Gravity,Urine 1.013 (1.001-1.035); Urobilinogen,Urine <2.0 mg/dL (<2.0); WBC,Urine 1 /hpf (0-5)
[2020-10-04 06:15] LABS: ALT 25 U/L (4-34); AST 30 U/L (14-36); African American GFR (CKD) >90 (>60 ml/min/1.73 sqM); Albumin 3.6 g/dL (3.5-5.0); Alkaline Phosphatase 206 U/L (38-126); Anion Gap 6 mmol/L; Blood Urea Nitrogen 21 mg/dL (7-17); Calcium 8.3 mg/dL (8.4-10.2); Carbon Dioxide 24 mmol/L (22-30); Chloride 107 mmol/L (98-107); Glucose 186 mg/dL (74-99); Non-African American GFR(CKD) 85 (>60 ml/min/1.73 sqM); Potassium 3.4 mmol/L (3.5-5.1); Sodium 137 mmol/L (137-145); Total Bilirubin 0.9 mg/dL (0.2-1.3); Total Protein 6.4 g/dL (6.3-8.2)
[2020-10-04] MEDS ORDERED: LEVOFLOXACIN 500MG-D5W PMX 500 MG in DEXTROSE/WATER 1 100ML.BAG IVPB SCH (08:00)
--- NOTE | 2020-10-04 08:21 | CONS ---
CONSULTATION DATE OF DICTATION: October 04, 2020. REASON FOR CONSULTATION: Severe abdominal pain, nausea, vomiting, diarrhea with rectal bleeding of one day duration. HISTORY OF PRESENT ILLNESS: The patient is an 79-year-old pleasant white female with history of hypertension, hyperlipidemia and degenerative joint disease who was admitted to the hospital after having an episode of lightheadedness with severe flushing like symptoms and presyncope. The patient apparently started having severe lower abdominal pain that started yesterday morning and she had an urge to have a bowel movement and had gushing loose watery bowel movement. She almost passed out. EMS was called and she was brought into the emergency room and subsequently admitted to the hospital for further evaluation. While she was on the floor, she had a large bloody bowel movement and hence was transferred to the intensive care unit. Subsequently she had a CT of the abdomen and pelvis done that showed thickening of the descending and sigmoid colon as well as distal transverse colon consistent with acute colitis. Through the night as per the nursing staff, she had 3 other small bloody bowel movement. This morning, she is feeling better. Still has abdominal pain. No further episodes of nausea, vomiting. No fever, chills, night sweats. She never had these symptoms in the past. She recalls having a colonoscopy by Dr. De Leon in April of 2019 and according to the patient it was within normal limits. PAST MEDICAL HISTORY: Significant for hypertension, hyperlipidemia, degenerative joint disease, coronary artery disease, anxiety, depression. MEDICATIONS: Medications at home include vitamin D3, calcium, Myrbetriq, meclizine, Wellbutrin, Zestoretic, Lipitor, Aleve, Centrum Silver. ALLERGIES: NICKEL. SOCIAL HISTORY: No smoking, no alcohol use. FAMILY HISTORY: Unremarkable. REVIEW OF SYSTEMS: CARDIOPULMONARY: No chest pain, no shortness of breath. GENITOURINARY: No dysuria or hematuria. MUSCULOSKELETAL: Unremarkable. SKIN: Unremarkable. ENDOCRINE: Unremarkable. PSYCHIATRIC: Unremarkable. NEUROLOGY: Unremarkable. ENT/VISION: Unremarkable. CONSTITUTIONAL: No recent weight loss. No fever, chills, night sweats. PAST SURGICAL HISTORY: Surgery for skin cancer and total right ankle arthroplasty. PHYSICAL EXAMINATION: She appears comfortable. No apparent distress. Vital signs are stable. Blood pressure 132/86, pulse 80 per minute and afebrile. HEENT: Examination unremarkable. Conjunctivae pink. Sclerae anicteric. Oral cavity, no lesions. NECK: No JVD or lymph node enlargement. CHEST: Was clear. HEART: Regular rate and rhythm. ABDOMEN: Soft. Bowel sounds are positive. There was mild tenderness in the lower abdomen in the suprapubic area and left lower quadrant area. EXTREMITIES: No pedal edema. SKIN: No rashes. NEUROLOGIC: Alert and oriented x3. No focal deficits. LABS: WBC 11.8, hemoglobin 14.7, platelets normal. Basic metabolic panel is within normal limits. BUN 21, creatinine 0.64. Stool for C difficile toxin negative. IMPRESSION: 1. This is a lady who presented to the hospital with acute onset of severe lower abdominal pain followed by diarrhea and rectal bleeding and CAT scan showing thickening of the left colon, all consistent with acute ischemic colitis possibility of infectious colitis cannot be excluded. Hemoglobin remains stable at 14 g/dL. She does have mild leukocytosis. 2. History of hypertension. 3. History of hypercholesteremia. 4. Dizziness. RECOMMENDATION: 1. Start her on clear liquid diet. 2. Start empiric antibiotics with Flagyl and Levaquin. 3. Stool for culture. 4. Clear liquids and advance as tolerated. 5. We will follow with you closely. Thank you for this consultation. MMODL / IJN: [id number] /
[2020-10-04] MEDS: CHOLECALCIFEROL 1,000 UNIT TAB PO SCH (09:13)
[2020-10-04] MEDS: buPROPion XL 300 MG TAB.ER.24H PO SCH (09:13)
[2020-10-04] MEDS: LISINOPRIL-HCTZ 20-12.5 MG 1 EACH TAB PO SCH (09:13)
[2020-10-04] MEDS: metroNIDAZOLE-NS PMX 500 MG in SALINE 1 100ML.BAG IVPB SCH ×2 (09:15→18:29)
[2020-10-04] MEDS: NON FORMULARY DRUG (Mirabegron [Myrbetriq] 50 MG Tab.Er.24h) PO SCH (09:16)
--- NOTE | 2020-10-04 10:24 | P.CNPUL ---
History of Present Illness Consult date: 10/04/20 Reason for consult: other Chief complaint: Acute GI bleeding History of present illness: 79-year-old white female patient who came into the hospital per EMS for evaluation after having a syncopal episode. Patient apparently had been having constipation, alternating with some liquid stool, and she was on her way to the bathroom when she became flushed and lightheaded. The ambulance was called, patient was encouraged emergency department, she was having abdominal cramping, however her abdomen was soft. She denied any bloody or melanotic stools, denied any nausea vomiting, denied any hematemesis. No fever or chills, no shortness of breath or cough. Patient was weak and hypotensive urgency room, she was given epinephrine 1 mg IV. Chest x-ray showed no active cardiopulmonary disease. In the emergency department patient was having loose stools. Blood work was reviewed, showing white blood cell count of 9.5, hemoglobin 15, INR is 1, electrolytes are within normal limits, B1 is 37, creatinine 0.94, plasma lactic acid was elevated at 2.5, calcium was 10.3, AST and ALT were unremarkable, but alkaline phosphatase was elevated at 212, troponin was negative at 0.012, C. diff was negative. GI service was consulted, patient was started on Levaquin, she was given some fluids in the ER, she was admitted to the floor. However later that evening she developed some blood in the stool, rapid response team was called, patient had erythematous inserted for soft brown stool which then turn into bright red bloody drainage with a roughly of 250-300 mL. Patient was having some diffuse abdominal tenderness, but abdomen was soft, she was given IV fluids, she was transferred to the intensive care unit to [facility] monitoring for any hemodynamic instability. She was also noted to be very hypertensive at that time, requiring labetalol 20 mg IV push. Repeat CBC was obtained showing stable hemoglobin of 14.8, CT of the abdomen and pelvis without IV contrast was completed, showing colonic wall thickening with paracolic stranding compatible with colitis. She has 4 other very small bowel movements that were red since admission to the intensive care unit. Hemodynamically she is stable, she is getting IV fluids with 0.9 normal saline at 100 ML per hour, she is on Levaquin and Flagyl, GI service is following. Abdomen still has some diffuse tenderness, but soft, no nausea or vomiting. Plasma lactic acid has improved and is down to 1.8. Review of Systems All systems: negative Constitutional: Denies chills, Denies fever Eyes: denies blurred vision, denies pain Ears, nose, mouth and throat: Denies headache, Denies sore throat Cardiovascular: Denies chest pain, Denies shortness of breath Respiratory: Denies cough Gastrointestinal: Reports abdominal pain, Reports diarrhea, Reports hematochezia, Denies nausea, Denies vomiting Genitourinary: Denies dysuria, Denies hematuria Musculoskeletal: Denies myalgias Integumentary: Denies pruritus, Denies rash Neurological: Denies numbness, Denies weakness Psychiatric: Denies anxiety, Denies depression Endocrine: Denies fatigue, Denies weight change Past Medical History Past Medical History: Cancer, GERD/Reflux, Hyperlipidemia, Hypertension, Osteoarthritis (OA) Additional Past Medical History / Comment(s): 'slight heart murmer", hx skin cancer, numbness in left hand-two fingers, spinal stenosis, degenerative disks, "dry eyes", "SOME TROUBLE SWALLOWING" History of Any Multi-Drug Resistant Organisms: None Reported Past Surgical History: Orthopedic Surgery Additional Past Surgical History / Comment(s): 8 surgeries to remove skin cancer,2 surgeries on rt ankle for fx(plate and screws), 2 surgeries on left knee and thu in left knee as small child, tumor removed from nose, blepharoplasty pop eyes, pop cataracts, left arm surgery to release nerve, steroid spinal injections, total right ankle arthroplasty and right ANKLE SURGERY-JOINT REPLACEMENT Past Anesthesia/Blood Transfusion Reactions: No Reported Reaction Additional Past Anesthesia/Blood Transfusion Reaction / Comment(s): no family hx (adopted) Past Psychological History: Anxiety, Depression Smoking Status: Never smoker Past Alcohol Use History: Occasional Additional Past Alcohol Use History / Comment(s): STARTED SMOKING AT AGE 15 quit in 2017. Past Drug Use History: None Reported - Past Family History Mother Family Medical History: Unable to Obtain Additional Family Medical History / Comment(s): Patient was adopted and does not know any family history. Daughter(s) Family Medical History: No Reported History Additional Family Medical History / Comment(s): Patient has 3 daughters and 2 sons all in their 50s with no major medical problems. Medications and Allergies Home Medications Medication Instructions Recorded Confirmed Type Atorvastatin [Lipitor] 10 mg PO Q48H 04/28/18 10/03/20 History Lisinopril-Hctz 20-12.5 mg 1 tab PO DAILY 04/28/18 10/03/20 History [Zestoretic 20-12.5] Multivitamin/Iron/Folic Acid 1 tab PO DAILY 04/28/18 10/03/20 History [Centrum Adults Tablet] buPROPion XL [Wellbutrin XL] 300 mg PO DAILY 04/28/18 10/03/20 History Naproxen Sodium [Aleve] 220 mg PO Q12HR PRN 11/30/18 10/03/20 History Calcium Carbonate [Calcium] 600 mg PO DAILY 10/03/20 10/03/20 History Cholecalciferol [Vitamin D3 (25 1,000 unit PO DAILY 10/03/20 10/03/20 History Mcg = 1000 Iu)] Meclizine HCl 12.5 mg PO TID PRN 10/03/20 10/03/20 History Mirabegron [Myrbetriq] 50 mg PO DAILY 10/03/20 10/03/20 History Vit C/E/Zn/Coppr/Lutein/Zeaxan 1 tab PO DAILY 10/03/20 10/03/20 History [Preservision Areds 2 Softgel] Allergies Allergy/AdvReac Type Severity Reaction Status Date / Time nickel Allergy Rash/Hives Verified 10/03/20 16:07 Physical Exam Vitals: Vital Signs Temp Pulse Pulse Resp BP BP Pulse Ox 10/04/20 10:00 86 14 156/80 95 10/04/20 09:30 92 14 156/80 96 10/04/20 09:00 90 14 159/84 95 10/04/20 08:30 89 12 155/99 94 L 10/04/20 08:00 96 18 138/92 95 10/04/20 07:30 92 16 173/99 97 10/04/20 07:00 89 15 173/80 96 10/04/20 06:30 84 16 190/83 94 L 10/04/20 06:00 89 15 181/84 94 L 10/04/20 05:30 85 16 165/91 94 L 10/04/20 05:00 84 13 171/81 94 L 10/04/20 04:30 99.3 F 85 16 186/92 94 L 10/04/20 04:00 88 12 151/105 96 10/04/20 03:30 81 14 171/86 95 10/04/20 03:00 98.2 F 79 16 164/74 94 L 10/04/20 02:10 85 172/81 94 L 10/04/20 02:09 85 166/78 97 10/04/20 02:07 91 189/87 95 10/04/20 01:54 93 209/95 96 10/04/20 01:47 93 221/93 97 10/04/20 01:40 93 205/98 96 10/04/20 01:32 89 204/91 97 10/04/20 01:20 94 180/85 95 10/03/20 21:00 97.6 F 97 19 136/78 97 10/03/20 20:21 97.6 F 71 19 136/78 97 10/03/20 20:09 98.4 F 93 18 133/84 97 10/03/20 17:00 82 18 129/84 96 10/03/20 15:54 97.6 F 81 18 131/70 95 Intake and Output 10/03/20 10/04/20 10/04/20 22:59 06:59 14:59 Intake Total 240 400 500 Output Total 330 525 Balance 240 70 -25 Intake: IV 400 400 0.9 NaCl- 400 400 Oral 240 100 Output: Urine 330 525 Other: Voiding Method Indwelling Catheter Indwelling Catheter # Voids 2 # Bowel Movements 1 1 Weight 67.585 kg GENERAL EXAM: Alert, pleasant, 79-year-old white female, resting in bed, appears a bit fatigued, but denies any acute distress, she is on room air with a pulse ox of 95% comfortable in no apparent distress. HEAD: Normocephalic/atraumatic. EYES: Normal reaction of pupils, equal size. Conjunctiva pink, sclera white. NOSE: Clear with pink turbinates. THROAT: No erythema or exudates. NECK: No masses, no JVD, no thyroid enlargement, no adenopathy. CHEST: No chest wall deformity. Symmetrical expansion. LUNGS: Equal air entry with no crackles, wheeze, rhonchi or dullness. CVS: Regular rate and rhythm, normal S1 and S2, no gallops, no murmurs, no rubs ABDOMEN: Soft, diffusely tender, but not rigid No hepatosplenomegaly, normal bowel sounds, no guarding or rigidity. EXTREMITIES: No clubbing, no edema, no cyanosis, 2+ pulses and upper and lower extremities. MUSCULOSKELETAL: Muscle strength and tone normal. SPINE: No scoliosis or deformity SKIN: No rashes CENTRAL NERVOUS SYSTEM: Alert and oriented -3. No focal deficits, tone is normal in all 4 extremities. PSYCHIATRIC: Alert and oriented -3. Appropriate affect. Intact judgment and insight. Results - Laboratory Findings CBC and BMP: 10/04/20 05:27 10/04/20 05:27 PT/INR, D-dimer PT 10.6 sec (9.0-12.0) 10/03/20 16:29 INR 1.0 (<1.2) 10/03/20 16:29 Abnormal lab findings: Abnormal Labs 10/03/20 10/03/20 10/03/20 16:29 16:29 16:29 WBC Plt Count 144 L Neutrophils # Lymphocytes # Potassium BUN 37 H Glucose 139 H Plasma Lactic Acid Fredrick 2.5 H* Calcium 10.3 H Magnesium 2.8 H Alkaline Phosphatase 212 H Urine Glucose (UA) Urine Blood Urine Mucus 10/04/20 10/04/20 10/04/20 01:50 05:15 05:27 WBC 11.9 H Plt Count 131 L Neutrophils # 10.7 H Lymphocytes # 0.5 L Potassium 3.4 L BUN 21 H Glucose 186 H Plasma Lactic Acid Fredrick Calcium 8.3 L Magnesium Alkaline Phosphatase 206 H Urine Glucose (UA) 1+ H Urine Blood Trace H Urine Mucus Rare H 10/04/20 05:27 WBC 11.8 H Plt Count Neutrophils # 10.6 H Lymphocytes # 0.5 L Potassium BUN Glucose Plasma Lactic Acid Fredrick Calcium Magnesium Alkaline Phosphatase Urine Glucose (UA) Urine Blood Urine Mucus - Diagnostic Findings Chest x-ray: report reviewed, image reviewed Additional studies: CT of the abdomen and pelvis results reviewed Assessment and Plan Plan: Assessment: #1. Acute severe abdominal pain with episodes of diarrhea and constipation, and CT of the abdomen and pelvis showing colonic wall thickening the possibility of acute ischemic colitis or infectious colitis #2. Rectal bleeding, improved, hemoglobin remains stable at 14.8, did not require blood transfusions #3. Lactic acidosis, mild, improved with IV hydration #4. Syncopal episode at home possibly related to vasovagal episode related to , pain, and constipation with diarrhea. C. diff has been ruled out #5. Hypertension #6. Lipidemia #7. Osteoarthritis #8. GERD/reflux #9. Anxiety depression #10. Never smoker Plan: Continue IV fluids, patient has not required any blood transfusions, she remains hemodynamically stable, she's been started on IV antibiotics for possibility of infectious colitis, C. diff has been ruled out, the rectal bleeding seems to have stopped, we will continue to monitor for any further bleeding in the intensive care unit, diet per GI service. Patient's home antihypertensives, we'll continue to follow I performed a history & physical examination of the patient and discussed their management with my nurse practitioner, Tracey Mandel. I reviewed the nurse practitioner's note and agree with the documented findings and plan of care. Lung sounds are positive for diminished breath sounds. The findings and the impression was discussed with the patient. I attest to the documentation by the nurse practitioner. Time with Patient: Greater than 30
--- NOTE | 2020-10-04 10:41 | P.PN ---
Subjective 79-year-old female one of my office patient with past medical history of hypertension, hyperlipidemia, history of severe arthritis will also had athe rosclerotic heart disease chronic lower back pain with spinal stenosis along with valvular heart disease patient has been doing well brought to the emergency department at [facility] by EMS for syncopal episode according to her has been constipated for the last to 4 days she ended up going to the bathroom the afternoon and had a bowel movement developed to have lightheadedness and flushing-like symptoms afterward along with severe dizziness she said down on the floor and had syncopal episode her caregiver ended up calling in the EMS patient had one episode of nausea and vomiting on route to the emergency department and she had a large bowel movement at arrival at the emergency was h aving significant abdominal cramps all the today as well. Her symptom has improved slightly bit after arriving to the emergency department she had no head trauma declined any fever or chills declining infection or food poisoning recently. Patient ended up been tested for Route C. diff which was negative her blood work showed moderately elevated blood sugar along with hypercalcemia elevated alkaline phosphatase with normal CBC except mild thrombocytopenia. Chest x-ray on admission showed the no active cardiomegaly on her wrap active pulmonary disease. EKG showed normal sinus rhythm with no other abnormality. Patient was continue on hydration and admitted to the hospital for observation a long with hydration. 10/04: Patient evaluated today in the ICU, resting in bed, in no acute distress. Yesterday patient had a rectal tube inserted which was initially draining soft dark brown stool patient then developed bright red bloody drainage. Patient became hypertensive and tachycardic, patient was given IV labetalol and a CT of the abdomen was ordered along with a stat CBC. CT showed colonic wall thickening with pericolic stranding compatible with colitis. Repeat hemoglobin is stable at 14.8, GI has been consulted, consult appreciated recommends clear liquid diet, antibiotics Flagyl and Levaquin, and stool cultures. C.diff has been ruled out. Carotid Doppler, EEG, echo and CT head are pending for her syncopal episode, although more likely vasovagal episode. Patient has not had any further episodes of rectal bleeding or syncope. Neurology also following. Objective - Vital Signs Vital signs: Vital Signs Temp 99.3 F 10/04/20 04:30 Pulse 86 12/24/20 10:00 Resp 14 10/04/20 10:00 BP 156/80 10/04/20 10:00 Pulse Ox 95 10/04/20 10:00 Intake & Output 10/03/20 10/04/20 10/04/20 18:59 06:59 18:59 Intake Total 640 500 Output Total 330 525 Balance 310 -25 Weight 67.585 kg 67.585 kg Intake: IV 400 400 0.9 NaCl- 400 400 Oral 240 100 Output: Urine 330 525 Other: Voiding Method Indwelling Catheter Indwelling Catheter # Voids 2 # Bowel Movements 1 1 - Exam General Appearance: Alert, cooperative, no distress, appears stated age. Neck HEENT: Supple, no lymphadenopathy, no thyroid enlargement, no carotid bruits. Lungs: Clear to auscultation without crackles or wheezes no rhonchi, no deformity. Chest Wall: Chest wall normal expansion with deep inspiration no tenderness and no deformity was found on exam, no costochondral pain or discomfort. Heart: Regular rate and rhythm, S1, S2 normal, no murmur, rub or gallop. Back: Symmetric, no curvature, ROM normal, no CVA tenderness. Mild scoliosis and kyphosis with no rash. Abdomen: Soft positive bowel sound, tenderness Extremities: Extremities normal, atraumatic, no cyanosis or edema. Generalized arthralgia specially both lower extremities. Pulses: 2+ and symmetric. Skin: Skin color, texture, tugor normal, no rashes or lesions. Neurologic: Alert oriented x3 cranial nerves II through XII intact, no motor def icit, no abnormal balance or gait. - Labs CBC & Chem 7: 10/04/20 05:27 10/04/20 05:27 Labs: Abnormal Lab Results - Last 24 Hours (Table) 10/03/20 10/03/20 10/03/20 Range/Units 16:29 16:29 16:29 WBC (3.8-10.6) k/uL Plt Count 144 L (150-450) k/uL Neutrophils # (1.3-7.7) k/uL Lymphocytes # (1.0-4.8) k/uL Potassium (3.5-5.1) mmol/L BUN 37 H (7-17) mg/dL Glucose 139 H (74-99) mg/dL Plasma Lactic Acid Fredrick 2.5 H* (0.7-2.0) mmol/L Calcium 10.3 H (8.4-10.2) mg/dL Magnesium 2.8 H (1.6-2.3) mg/dL Alkaline Phosphatase 212 H (38-126) U/L Urine Glucose (UA) (Negative) Urine Blood (Negative) Urine Mucus (None) /hpf 10/04/20 10/04/20 10/04/20 Range/Units 01:50 05:15 05:27 WBC 11.9 H (3.8-10.6) k/uL Plt Count 131 L (150-450) k/uL Neutrophils # 10.7 H (1.3-7.7) k/uL Lymphocytes # 0.5 L (1.0-4.8) k/uL Potassium 3.4 L (3.5-5.1) mmol/L BUN 21 H (7-17) mg/dL Glucose 186 H (74-99) mg/dL Plasma Lactic Acid Fredrick (0.7-2.0) mmol/L Calcium 8.3 L (8.4-10.2) mg/dL Magnesium (1.6-2.3) mg/dL Alkaline Phosphatase 206 H (38-126) U/L Urine Glucose (UA) 1+ H (Negative) Urine Blood Trace H (Negative) Urine Mucus Rare H (None) /hpf 10/04/20 Range/Units 05:27 WBC 11.8 H (3.8-10.6) k/uL Plt Count (150-450) k/uL Neutrophils # 10.6 H (1.3-7.7) k/uL Lymphocytes # 0.5 L (1.0-4.8) k/uL Potassium (3.5-5.1) mmol/L BUN (7-17) mg/dL Glucose (74-99) mg/dL Plasma Lactic Acid Fredrick (0.7-2.0) mmol/L Calcium (8.4-10.2) mg/dL Magnesium (1.6-2.3) mg/dL Alkaline Phosphatase (38-126) U/L Urine Glucose (UA) (Negative) Urine Blood (Negative) Urine Mucus (None) /hpf Microbiology - Last 24 Hours (Table) 10/03/20 17:49 Stool Culture - Preliminary Stool Assessment and Plan Plan: 1 syncope: most likely vasovagal from rectal bleed. consult neurology, CT head, EEG, carotid u/s and echocardiogram pending. 2 mild hypercalcemia most likely from mild dehydration and her current symptoms continue hydration for now repeat chemistry tomorrow morning. 3 lactic acidosis: Secondary to ischemic colitis. repeat 1.8 4 History of valvular heart disease has been stable with no intervention needed at this point. 5 hypertension: Has been on lisinopril hydrochlorothiazide 20/12.5 mg daily continue medication. 6 hyperlipidemia: Remain on atorvastatin 10 mg daily. 7 chronic depression: Has been on Wellbutrin XL 300 mg a day. 8 severe stress incontinence: Has been on Myrbetriq 50 mg daily. 9 thrombocytopenia: Not a clear etiology repeat CBC by tomorrow morning. 10. Colitis and acute GI bleed. Continue Flagyl and Levaquin, stool culture negative for C. diff, clear liquids and advance as tolerated, GI on consult 10 GI prophylaxis: Continue patient on Pepcid 20 mg daily. 11 DVT prophylaxis: Continue knee-high JOSH hose and early mobilization. CODE STATUS: Full code. The above impression and plan of care have been discussed and directed by signing physician. Tomasa Conti nurse practitioner acting as scribe for signing physician.
--- NOTE | 2020-10-04 11:18 | US ---
EXAM: US Duplex Bilateral Extracranial Arteries CLINICAL HISTORY: ITS.REASON US Reason: syncope TECHNIQUE: Real-time duplex ultrasound scan of the extracranial arteries integrating B-mode two-dimensional vascular structure, Doppler spectral analysis and color flow Doppler imaging. COMPARISON: No relevant prior studies available. FINDINGS: Right common carotid artery: Extensive atherosclerosis is seen involving the right common carotid artery and bulb. No occlusion or significant stenosis on color flow and spectral Doppler imaging. Right internal carotid artery: Atherosclerosis is seen involving the proximal right ICA. Peak systolic velocity is 88.6 cm/s. End diastolic velocity of 20.2 cm/s. Right external carotid artery: Atherosclerosis is also seen involving the proximal right ECA. No occlusion or significant stenosis on color flow and spectral Doppler imaging. Right vertebral artery: Unremarkable. Antegrade flow. Right ICA/CCA ratio: 1.5. Within normal limits. Left common carotid artery: Atherosclerosis is seen involving the left carotid bulb. No occlusion or significant stenosis on color flow and spectral Doppler imaging. Left internal carotid artery: Atherosclerosis is seen involving the left proximal ICA. No occlusion or significant stenosis on color flow and spectral Doppler imaging. Peak systolic velocity is 85.6 cm/s. End- diastolic velocity is 24.5 cm/s. Left external carotid artery: Unremarkable. No occlusion or significant stenosis on color flow and spectral Doppler imaging. Left vertebral artery: Unremarkable. Antegrade flow. Left ICA/CCA ratio: 1.2. Within normal limits. Lymph nodes: Unremarkable. No lymphadenopathy. CAROTID STENOSIS REFERENCE USING SRU CRITERIA: Mild - <50% stenosis. ICA PSV is less than 125 cm/second and plaque or intimal thickening is visible. Moderate - 50-69% stenosis. ICA PSV is 125 to 230 cm/second and plaque is visible. Severe - 70-94% stenosis. ICA PSV is more than 230 cm/second and visible plaque with lumen narrowing is seen. Near occlusion - 95-99% stenosis. ICA PSV is variable and significant plaque with luminal narrowing is seen. Occluded - 100% stenosis. No flow identified. IMPRESSION: Atherosclerosis of bilateral ICAs with no significant elevated peak systolic velocities. Findings suggest less than 50% stenosis.
--- NOTE | 2020-10-04 12:25 | P.CNNES ---
History of Present Illness Consult date: 10/04/20 Requesting physician: Jose J Peres Reason for Consult: syncope History of Present Illness: This is an 79-year-old woman with medical history of hypertention, hyperlipidemia, coronary artery disease, chronic lower back pain with spinal stenosis, valvular heart disease, severe arthritis that presented to the emergency department on 10/03/2020 because of a syncopal episodes. The patient is known to Dr. Peres. The patient had the been constipated for the last 4-5 days prior to presentation to Hospital. She ended up going to the bathroom on 10/03/2020 and had a bowel movement then developed lightheadedness and flushing symptoms afterwards with severe dizziness. She thinks she passed out but not sure. She denies any urinary or bowel incontinence. As a result caregiver end up calling EMS. She had an episode of nausea and vomiting around to the emergency department. The patient did not have any head trauma that's reported. Patient denies any history of seizures in the past. Patient had the severe abdominal pain with the episodes of diarrhea and constipation. Regarding her history or family history she is adopted so does not know. She has cervical and lower back spondlyosis and said she sees an Orthopedic as outpatient in the past. She uses a walker at home. She stated that she has hammertoes of bilateral feet and she had surgery in the past. Workup in the hospital consisted of: Initial vital signs is reported as blood pressure of 131/70, heart rate of 81, respiratory rate of 18, temperature of 97.6 Fahrenheit oral and pulse ox of 95% at room air. In the hospital stay her blood pressure has been elevated and the systolic has been in the range of 180s to 220s and diastolic is been in the range of the 70s to 90s. An EKG is reported as normal sinus rhythm. Normal EKG. Patient initial serum glucose on presentation is 139 repeated was 186. The calcium was 10.3 but the repeat is 8.3. Magnesium is a hot elevated is 2.8. Patient had CT of the abdomen and that was reported as colonic wall thickening with the pericolic stranding compatible with colitis. Per the ICU team because of the acute abdominal pain with Diarrhea and Constipation Because of the CT Abdomen Finding Digits Possibly That She Has Acute Ischemic Colitis or Infectious Colitis. It's reported that she had rectal bleeding which did not require any the blood transfusion. And her hemoglobin is stable at 14.8. Review of Systems Review of system: The 12 point system was reviewed and apparent positive and negative per HPI. Past Medical History Past Medical History: Cancer, GERD/Reflux, Hyperlipidemia, Hypertension, Osteoarthritis (OA) Additional Past Medical History / Comment(s): 'slight heart murmer", hx skin cancer, numbness in left hand-two fingers, spinal stenosis, degenerative disks, "dry eyes", "SOME TROUBLE SWALLOWING" History of Any Multi-Drug Resistant Organisms: None Reported Past Surgical History: Orthopedic Surgery Additional Past Surgical History / Comment(s): 8 surgeries to remove skin cancer,2 surgeries on rt ankle for fx(plate and screws), 2 surgeries on left knee and thu in left knee as small child, tumor removed from nose, blepharoplasty pop eyes, pop cataracts, left arm surgery to release nerve, steroid spinal injections, total right ankle arthroplasty and right ANKLE SURGERY-JOINT REPLACEMENT Past Anesthesia/Blood Transfusion Reactions: No Reported Reaction Additional Past Anesthesia/Blood Transfusion Reaction / Comment(s): no family hx (adopted) Past Psychological History: Anxiety, Depression Smoking Status: Never smoker Past Alcohol Use History: Occasional Additional Past Alcohol Use History / Comment(s): STARTED SMOKING AT AGE 15 quit in 2017. Past Drug Use History: None Reported - Past Family History Mother Family Medical History: Unable to Obtain Additional Family Medical History / Comment(s): Patient was adopted and does not know any family history. Daughter(s) Family Medical History: No Reported History Additional Family Medical History / Comment(s): Patient has 3 daughters and 2 sons all in their 50s with no major medical problems. Medications and Allergies Home Medications Medication Instructions Recorded Confirmed Type Atorvastatin [Lipitor] 10 mg PO Q48H 04/28/18 10/03/20 History Lisinopril-Hctz 20-12.5 mg 1 tab PO DAILY 04/28/18 10/03/20 History [Zestoretic 20-12.5] Multivitamin/Iron/Folic Acid 1 tab PO DAILY 04/28/18 10/03/20 History [Centrum Adults Tablet] buPROPion XL [Wellbutrin XL] 300 mg PO DAILY 04/28/18 10/03/20 History Naproxen Sodium [Aleve] 220 mg PO Q12HR PRN 11/30/18 10/03/20 History Calcium Carbonate [Calcium] 600 mg PO DAILY 10/03/20 10/03/20 History Cholecalciferol [Vitamin D3 (25 1,000 unit PO DAILY 10/03/20 10/03/20 History Mcg = 1000 Iu)] Meclizine HCl 12.5 mg PO TID PRN 10/03/20 10/03/20 History Mirabegron [Myrbetriq] 50 mg PO DAILY 10/03/20 10/03/20 History Vit C/E/Zn/Coppr/Lutein/Zeaxan 1 tab PO DAILY 10/03/20 10/03/20 History [Preservision Areds 2 Softgel] Allergies Allergy/AdvReac Type Severity Reaction Status Date / Time nickel Allergy Rash/Hives Verified 10/03/20 16:07 Physical Examination - Vital Signs Vital Signs: Vital Signs Temp Pulse Pulse Resp BP BP Pulse Ox 10/04/20 08:00 96 18 138/92 95 10/04/20 07:30 92 16 173/99 97 10/04/20 07:00 89 15 173/80 96 10/04/20 06:30 84 16 190/83 94 L 10/04/20 06:00 89 15 181/84 94 L 10/04/20 05:30 85 16 165/91 94 L 10/04/20 05:00 84 13 171/81 94 L 10/04/20 04:30 99.3 F 85 16 186/92 94 L 10/04/20 04:00 88 12 151/105 96 10/04/20 03:30 81 14 171/86 95 10/04/20 03:00 98.2 F 79 16 164/74 94 L 10/04/20 02:10 85 172/81 94 L 10/04/20 02:09 85 166/78 97 10/04/20 02:07 91 189/87 95 10/04/20 01:54 93 209/95 96 10/04/20 01:47 93 221/93 97 10/04/20 01:40 93 205/98 96 10/04/20 01:32 89 204/91 97 10/04/20 01:20 94 180/85 95 10/03/20 21:00 97.6 F 97 19 136/78 97 10/03/20 20:21 97.6 F 71 19 136/78 97 10/03/20 20:09 98.4 F 93 18 133/84 97 10/03/20 17:00 82 18 129/84 96 10/03/20 15:54 97.6 F 81 18 131/70 95 Intake and Output 10/03/20 10/04/20 10/04/20 22:59 06:59 14:59 Intake Total 240 Balance 240 Intake: Oral 240 Other: # Voids 2 Weight 67.585 kg GENERAL: The patient is lying in bed and is not in acute distress. CHEST: The heart rate is regular rate rhythm. No murmurs to auscultation. LUNG: Clear to auscultation bilaterally no wheezing noted throughout. Not labored breathing. ABDOMEN/GI: Bowel sounds present in all 4 quadrants. No tenderness to palpation throughout. INTEGUMENTARY: Has scar right above right ankle from prior surgery. NEUROLOGICAL: Higher mental function: The patient is awake, alert, oriented to self, place and time. Patient is following commands. No aphasia and no neglect. Cranial nerves: The pupils are round, equal and reactive to light and accommodation. Visual pritchard are full to confrontation throughout. Extraocular movement is intact no nystagmus is noted. Facial sensation is normal to touch throughout. The facial strength is normal throughout. Hearing is normal bilaterally to hand rub. Tongue is midline and moved [id number] without any difficulty. No dysarthria is noted. Shoulder shrug is normal bilaterally. Motor: Gait is deferred. The strength is 5 over 5 throughout. Normal tone and bulk. Cerebellum: Normal finger to nose bilaterally. Sensation: Sensation is normal to touch throughout. Reflexes (right/left): 2+ throughout except ankles are 0-1 bilaterally. Plantars are upgoing bilaterally. Musculoskeletal: Has arches feet with some hammer toes bilaterally Results Coagulation study: study: PT of 10.6, INR 1.0, PTT of 22.7. Urinalysis seems negative for urinary tract infection. C.Diff EIA is negative - Laboratory Findings CBC and BMP: 10/04/20 05:27 10/04/20 05:27 Abnormal Lab Findings: Abnormal Labs 10/03/20 10/03/20 10/03/20 16:29 16:29 16:29 WBC Plt Count 144 L Neutrophils # Lymphocytes # Potassium BUN 37 H Glucose 139 H Plasma Lactic Acid Fredrick 2.5 H* Calcium 10.3 H Magnesium 2.8 H Alkaline Phosphatase 212 H Urine Glucose (UA) Urine Blood Urine Mucus 10/04/20 10/04/20 10/04/20 01:50 05:15 05:27 WBC 11.9 H Plt Count 131 L Neutrophils # 10.7 H Lymphocytes # 0.5 L Potassium 3.4 L BUN 21 H Glucose 186 H Plasma Lactic Acid Fredrick Calcium 8.3 L Magnesium Alkaline Phosphatase 206 H Urine Glucose (UA) 1+ H Urine Blood Trace H Urine Mucus Rare H 10/04/20 05:27 WBC 11.8 H Plt Count Neutrophils # 10.6 H Lymphocytes # 0.5 L Potassium BUN Glucose Plasma Lactic Acid Fredrick Calcium Magnesium Alkaline Phosphatase Urine Glucose (UA) Urine Blood Urine Mucus Assessment and Plan Assessment: This is an 79-year-old woman with medical history with multiple medical problems that presented to the emergency department on 10/03/2020 after syncopal episode. She was constipated for 4 days and upon going to the bathroom she felt lightheaded, flushing and dizziness. Syncope seems vasovagal syncope. Unlikely seizure. History of Chronic lower back pain with spinal stenosis Acute severe abdominal pain with the episodes of diarrhea and constipation. Because of the CT abdomen finding of colonic wall thickening there is a possibility of acute ischemic colitis or infection colitis. Rectal bleeding, with a hemoglobin stable at 14.8 that did not require blood pressures and. Uncontrolled Hypertension Hyperlipidemia Coronary artery disease Severe arthritis Plan: Carotid duplex is ordered by the primary team: Is reported atherosclerosis of bilateral ICA with no significant elevated the peak systolic velocities at. Finding suggest less than 50% stenosis. I ordered routine EEG. I will not start the patient on antiepileptic drugs unless there is epileptiform discharges or seizure on the EEG. I'll order a CT of the head. 2-D echo was ordered by the primary team and is pending. Recommend cardiac monitoring. Possibly consider cardiology consultation because of the patient's multiple risk factor of cardiovascular disease. The patient is on the Lipitor 10 mg. I recommend aspirin 81 mg whenever the patient is stable,once stable she is clear since had GI bleed. Reason for ASA 81mg is because of some carotid the stenosis. Regarding the management of the the GI bleed, brass instrument repair technician team are consulted. Regarding the management of hypertension and the rest of the medical management will defer to the primary team. Plan was discussed with the patient as well as the patient's nurse. Thank you for the consultation. Bret Ascencio MD Neuro-Hospitalist Time with Patient: Greater than 30
[2020-10-04] MEDS: SODIUM CHLORIDE 0.9% 1,000 ML IV SCH ×2 (12:41→14:43)
--- NOTE | 2020-10-04 14:32 | EEG ---
ELECTROENCEPHALOGRAM REPORT DATE OF SERVICE: 10/04/2020. CLINICAL HISTORY: This is an 79-year-old woman that presented to the emergency department after a syncope episode. The video EEG is obtained to evaluate for seizure and epileptiform activity. RELEVANT MEDICATION: The patient is not on any antiepileptic drugs. EEG TYPE: A routine 21 channel EEG is performed with video using the 10/20 electrode placement system. DESCRIPTION: Wakefulness and drowsiness are obtained. During wakefulness, there is a posterior dominant rhythm of low to moderate voltage that is well modulated of 6-6.5 hertz over the bilateral hemisphere. During drowsiness, there is slowing attenuation of the background activity. There is no physiological stage II sleep over bilateral hemisphere. There are occasional to frequent 1-1.5 Hz generalized rhythmic delta activity with frontal predominance over bilateral hemisphere. INTERICTAL AND ICTAL: None. ACTIVATION PROCEDURE: Photic stimulation is performed but no photic drive is seen bilaterally. Hyperventilation is not performed. CLINICAL INTERPRETATION: This is an abnormal routine awake and drowsy EEG. The background slowing and generalized rhythmic delta activity of frontal predominance are suggestive of mild to moderate encephalopathy. There are no focal slowing, epileptiform discharges or seizure seen during the study. Clinical correlation is recommended. MMODL / IJN: [id number] / [id number]
--- NOTE | 2020-10-04 17:52 | ECHOF ---
Referral Reason:lvfunction MEASUREMENTS -------- HEIGHT: 152.4 cm WEIGHT: 67.6 kg BP: RVIDd: 2.8 cm (< 3.3) IVSd: 1.0 cm (0.6 - 1.1) LVIDd: 3.0 cm (3.9 - 5.3) LVPWd: 1.4 cm (0.6 - 1.1) IVSs: 1.3 cm LVIDs: 2.6 cm LVPWs: 0.8 cm LAESV Index (A-L): 21.06 ml/m Ao Diam: 2.8 cm (2.0 - 3.7) AV Cusp: 1.7 cm (1.5 - 2.6) MV EXCURSION: 15.293 mm (> 18.000) MV EF SLOPE: 81 mm/s (70 - 150) EPSS: 0.3 cm MV E Rodolfo: 0.41 m/s MV DecT: 233 ms MV A Rodolfo: 1.08 m/s MV E/A Ratio: 0.38 RAP: 5.00 mmHg RVSP: 15.73 mmHg FINDINGS -------- Sinus rhythm. This was a technically good study. LV size, wall thickness and systolic function are normal, with an EF greater than 55%. The left bella tricular size is normal. The right ventricle is normal in size. Normal LA size by volume 22+/-6 ml/m2. The right atrial size is normal. There is mild aortic valve sclerosis. There is mild aortic regurgitation. Mild mitral regurgitation is present. Mild tricuspid regurgitation present. The right ventricular systolic pressure, as measured by Doppl er, is 15.73mmHg. There is no pulmonic regurgitation present. The aortic root size is normal. Echo free space represents a pericardial fat pad. CONCLUSIONS -------- 1. LV size, wall thickness and systolic function are normal, with an EF greater than 55%. 2. The left ventricular size is normal. 3. The right ventricle is normal in size. 4. Normal LA size by volume 22+/-6 ml/m2. 5. The right atrial size is normal. 6. There is mild aortic valve sclerosis. 7. There is mild aortic regurgitation. 8. Mild mitral regurgitation is present. 9. Mild tricuspid regurgitation present. 10. The right ventricular systolic pressure, as measured by Doppler, is 15.73mmHg. 11. Echo free space represents a pericardial fat pad. MONOTYPE OPERATOR: Massiel Darling RDCS
--- NOTE | 2020-10-04 19:30 | CT ---
History: ITS.REASON CT Reason: syncope Exam: CT HEAD Without Contrast Technique more: CTDI is 50.8 mGy and DLP is 1078.4 mGy-cm. Technique more: This CT exam was performed using one or more of the following dose reduction techniques: automated exposure control, adjustment of the mA and/or kV according to patient size, and/or use of iterative reconstruction technique. Comparison: None available FINDINGS: No intracranial hemorrhage, mass effect or CT evidence of large vascular territory acute infarct. The ventricles are within limits and midline. Periventricular confluent areas of white matter low-attenuation statistically would represent chronic small vessel ischemic change, nonspecific. The visualized paranasal sinuses, mastoids and orbits appear within limits. Bilateral parasellar carotid calcification noted. IMPRESSION: No intracranial hemorrhage, mass effect or CT evidence of large vascular territory acute infarct. Periventricular confluent areas of white matter low-attenuation statistically would represent chronic small vessel ischemic change, nonspecific.
[2020-10-05] MEDS: metroNIDAZOLE-NS PMX 500 MG in SALINE 1 100ML.BAG IVPB SCH ×4 (00:09→23:20)
[2020-10-05] MEDS: SODIUM CHLORIDE 0.9% 1,000 ML IV SCH ×3 (01:48→11:26)
[2020-10-05 05:11] LABS: Basophils % (A) 0 %; Eosinophils # (A) 0.1 k/uL (0-0.7); Eosinophils % (A) 1 %; HCT 40.6 % (34.0-46.0); HGB 13.6 gm/dL (11.4-16.0); Lymphocytes # (A) 1.2 k/uL (1.0-4.8); Lymphocytes % (A) 10 %; MCH 31.2 pg (25.0-35.0); MCHC 33.4 g/dL (31.0-37.0); MCV 93.6 fL (80.0-100.0); Mean Platelet Volume 7.8; Monocytes # (A) 0.7 k/uL (0-1.0); Monocytes % (A) 6 %; Neutrophils # (A) 9.6 k/uL (1.3-7.7); Neutrophils % (A) 82 %; Platelet Count 149 k/uL (150-450); RBC 4.34 m/uL (3.80-5.40); RDW 12.9 % (11.5-15.5); WBC 11.7 k/uL (3.8-10.6)
[2020-10-05 05:23] LABS: African American GFR (CKD) >90 (>60 ml/min/1.73 sqM); Anion Gap 4 mmol/L; Blood Urea Nitrogen 10 mg/dL (7-17); Calcium 8.3 mg/dL (8.4-10.2); Carbon Dioxide 27 mmol/L (22-30); Chloride 105 mmol/L (98-107); Glucose 120 mg/dL (74-99); Non-African American GFR(CKD) 88 (>60 ml/min/1.73 sqM); Sodium 136 mmol/L (137-145)
[2020-10-05 05:33] LABS: Potassium 2.7 mmol/L (3.5-5.1)
[2020-10-05] MEDS: LEVOFLOXACIN 500MG-D5W PMX 500 MG in DEXTROSE/WATER 1 100ML.BAG IVPB SCH (06:46)
[2020-10-05] MEDS: CHOLECALCIFEROL 1,000 UNIT TAB PO SCH (09:04)
[2020-10-05] MEDS: LISINOPRIL-HCTZ 20-12.5 MG 1 EACH TAB PO SCH (09:04)
[2020-10-05] MEDS: buPROPion XL 300 MG TAB.ER.24H PO SCH (09:04)
[2020-10-05] MEDS: POTASSIUM CHLORIDE ER 20 MEQ TAB.ER PO SCH ×5 (09:04→17:40)
[2020-10-05] MEDS: NON FORMULARY DRUG (Mirabegron [Myrbetriq] 50 MG Tab.Er.24h) PO SCH (09:05)
--- NOTE | 2020-10-05 10:11 | P.PN ---
Subjective Progress Note Date: 10/05/20 Principal diagnosis: Acute GI bleed 79-year-old white female patient who came into the hospital per EMS for evaluation after having a syncopal episode. Patient apparently had been having constipation, alternating with some liquid stool, and she was on her way to the bathroom when she became flushed and lightheaded. The ambulance was called, patient was encouraged emergency department, she was having abdominal cramping, however her abdomen was soft. She denied any bloody or melanotic stools, denied any nausea vomiting, denied any hematemesis. No fever or chills, no shortness of breath or cough. Patient was weak and hypotensive urgency room, she was given epinephrine 1 mg IV. Chest x-ray showed no active cardiopulmonary disease. In the emergency department patient was having loose stools. Blood work was reviewed, showing white blood cell count of 9.5, hemoglobin 15, INR is 1, electrolytes are within normal limits, B1 is 37, creatinine 0.94, plasma lactic acid was elevated at 2.5, calcium was 10.3, AST and ALT were unremarkable, but alkaline phosphatase was elevated at 212, troponin was negative at 0.012, C. diff was negative. GI service was consulted, patient was started on Levaquin, she was given some fluids in the ER, she was admitted to the floor. However later that evening she developed some blood in the stool, rapid response team was called, patient had erythematous inserted for soft brown stool which then turn into bright red bloody drainage with a roughly of 250-300 mL. Patient was having some diffuse abdominal tenderness, but abdomen was soft, she was given IV fluids, she was transferred to the intensive care unit to continue monitoring for any hemodynamic instability. She was also noted to be very hypertensive at that time, requiring labetalol 20 mg IV push. Repeat CBC was obtained showing stable hemoglobin of 14.8, CT of the abdomen and pelvis without IV contrast was completed, showing colonic wall thickening with paracolic stranding compatible with colitis. She has 4 other very small bowel movements that were red since admission to the intensive care unit. Hemodynamically she is stable, she is getting IV fluids with 0.9 normal saline at 100 ML per hour, she is on Levaquin and Flagyl, GI service is following. Abdomen still has some diffuse tenderness, but soft, no nausea or vomiting. Plasma lactic acid has improved and is down to 1.8. The patient is seen today 10/05/2020 in follow-up in the intensive care unit. She is currently resting comfortably in bed. Maintaining O2 saturations in the 90s on room air. She's afebrile. Hemodynamically stable. Awake and alert in no acute distress. No active GI bleeding noted through the night. Current hemoglobin 13.6. White count 11.7. Platelets 149. Sodium 136. Potassium 2.7. Creatinine 0.58. She remains on metronidazole, Levaquin. Objective - Vital Signs Vital signs: Vital Signs Temp 98.1 F 10/05/20 08:41 Pulse 94 10/05/20 08:41 Resp 11 L 10/05/20 08:41 BP 96/64 10/05/20 08:41 Pulse Ox 94 L 10/05/20 08:41 Intake & Output 10/04/20 10/05/20 10/05/20 18:59 06:59 18:59 Intake Total 1550 1400 100 Output Total 1450 1435 75 Balance 100 -35 25 Weight 65.5 kg Intake: IV 1200 1400 100 0.9 NaCl- 1200 1200 Flagyl 500mg 200 Levaquin 100mg 100 Oral 350 Output: Urine 1450 1435 75 Other: Voiding Method Indwelling Catheter Indwelling Catheter Indwelling Catheter # Bowel Movements 1 - Exam GENERAL EXAM: Alert, pleasant, 79-year-old female patient, resting in bed, denies any acute distress, she is on room air. HEAD: Normocephalic/atraumatic. EYES: Normal reaction of pupils, equal size. Conjunctiva pink, sclera white. NOSE: Clear with pink turbinates. THROAT: No erythema or exudates. NECK: No masses, no JVD, no thyroid enlargement, no adenopathy. CHEST: No chest wall deformity. Symmetrical expansion. LUNGS: Equal air entry with no crackles, wheeze, rhonchi or dullness. CVS: Regular rate and rhythm, normal S1 and S2, no gallops, no murmurs, no rubs ABDOMEN: Soft, diffusely tender, but not rigid No hepatosplenomegaly, normal bowel sounds, no guarding or rigidity. EXTREMITIES: No clubbing, no edema, no cyanosis, 2+ pulses and upper and lower e xtremities. MUSCULOSKELETAL: Muscle strength and tone normal. SPINE: No scoliosis or deformity SKIN: No rashes CENTRAL NERVOUS SYSTEM: No focal deficits, tone is normal in all 4 extremities. PSYCHIATRIC: Alert and oriented -3. Appropriate affect. Intact judgment and insight. - Labs CBC & Chem 7: 10/05/20 04:31 10/05/20 04:31 Labs: Abnormal Lab Results - Last 24 Hours (Table) 10/05/20 10/05/20 Range/Units 04:31 04:31 WBC 11.7 H (3.8-10.6) k/uL Plt Count 149 L (150-450) k/uL Neutrophils # 9.6 H (1.3-7.7) k/uL Sodium 136 L (137-145) mmol/L Potassium 2.7 L* (3.5-5.1) mmol/L Glucose 120 H (74-99) mg/dL Calcium 8.3 L (8.4-10.2) mg/dL Assessment and Plan Assessment: 1 Acute severe abdominal pain with episodes of diarrhea and constipation, and CT of the abdomen and pelvis showing colonic wall thickening the possibility of acute ischemic colitis or infectious colitis 2 Rectal bleeding, improved, hemoglobin remains stable at 14.8, did not require blood transfusions 3 Lactic acidosis, mild, improved with IV hydration 4 Syncopal episode at home possibly related to vasovagal episode related to , pain, and constipation with diarrhea. C. diff has been ruled out 5 Hypertension 6 Lipidemia 7 Osteoarthritis 8 GERD/reflux 9 Anxiety depression 10 Never smoker Plan: The patient was seen and evaluated by Dr. Ascencio She is currently stable from the critical care standpoint Transfer out of the ICU today We'll continue to follow I, the cosigning physician, performed a history & physical examination of the patient. Lungs sounds are clear. Maintaining good O2 saturations in the 90s on room air. I discussed the assessment and plan of care with my nurse practitioner, Deepali Oates. I attest to the above note as dictated by her.
--- NOTE | 2020-10-05 11:41 | PN ---
PROGRESS NOTE DATE OF DICTATION: October 05, 2020 Patient is an 79-year-old pleasant white female admitted to hospital with severe lower abdominal pain and bloody diarrhea of 2 days duration. She is feeling better. Still has abdominal pain. Had 3 bowel movements with bright red blood in the stool through the night and one this morning. No nausea. No vomiting. On a clear liquid diet tolerating well. PHYSICAL EXAMINATION: Appears comfortable. VITAL SIGNS: Stable. Blood pressure 96/64, pulse rate 94, temperature 98.1. HEENT examination unremarkable. Conjunctivae pink. Sclerae anicteric. Oral cavity no lesions. Neck no JVD or lymph node enlargement. CHEST was clear to auscultation. HEART: Regular rate and rhythm. ABDOMEN: Soft. There was mild diffuse tenderness in the left lower quadrant area, suprapubic area and right lower quadrant area. Extremities: No pedal edema. Skin no rashes. NEUROLOGIC: Alert and oriented x3. No focal deficits. LABS: WBC 11.7, hemoglobin 13.6, platelets 149. BUN 10. Creatinine 0.58, potassium is 2.7. IMPRESSION: 1. Acute left-sided colitis possibly ischemic in etiology cannot rule out infectious colitis on empiric antibiotics with Levaquin and Flagyl. Patient gradually improving. Still has some bleeding, but hemoglobin remains stable. 2. Lactic acidosis, improving. 3. History of hypertension and hyperlipidemia. RECOMMENDATIONS: 1. Continue with empiric antibiotics. 2. Continue with a clear liquid diet for today. 3. Monitor CBC on a daily basis. 4. No plans on any endoscopic intervention. 5. Thank you for this consultation. MMODL / IJN: [id number] /
[2020-10-05] MEDS ORDERED: hydrALAZINE HCL 25 MG TAB PO PRN (14:26)
--- NOTE | 2020-10-05 14:36 | US ---
EXAM: US Pelvis Transabdominal, Complete CLINICAL HISTORY: ITS.REASON US Reason: post menopausal bleeding TECHNIQUE: Real-time complete transabdominal pelvic ultrasound with image documentation. COMPARISON: None FINDINGS: Uterus: Surgically absent. Ovaries: Surgically absent. Other: Small amount of free fluid in the pelvis. No adnexal mass. Mejía catheter in a decompressed bladder. IMPRESSION: 1. Prior hysterectomy and oophorectomies. 2. No definite mass identified. 3. Small amount of fluid in the pelvis.
[2020-10-05] MEDS ORDERED: Potassium Replacement Protocol 1 EACH MISC MISCELLANE PRN (16:15)
[2020-10-05] MEDS: ONDANSETRON 4 MG/2 ML VIAL IVP PRN (16:31)
--- NOTE | 2020-10-05 18:06 | P.PN ---
Subjective Progress Note Date: 10/05/20 The patient was seen at bedside and she stated that she's doing well. No further episodes of loss of consciousness or seizure-like activity. Objective - Vital Signs Vital signs: Vital Signs Temp 98.2 F 10/05/20 15:24 Pulse 99 10/05/20 15:24 Resp 18 10/05/20 15:24 BP 127/78 10/05/20 15:24 Pulse Ox 97 10/05/20 15:24 Intake & Output 10/04/20 10/05/20 10/05/20 18:59 06:59 18:59 Intake Total 1550 1400 100 Output Total 1450 1435 475 Balance 100 -35 -375 Weight 65.5 kg Intake: IV 1200 1400 100 0.9 NaCl- 1200 1200 Flagyl 500mg 200 Levaquin 100mg 100 Oral 350 Output: Urine 1450 1435 475 Other: Voiding Method Indwelling Catheter Indwelling Catheter Indwelling Catheter # Bowel Movements 1 - Exam GENERAL: The patient is lying in bed and is not in acute distress. NEUROLOGICAL: Higher mental function: The patient is awake, alert, oriented to self, place and time. Patient is following commands. No aphasia and no neglect. Cranial nerves: The pupils are round, equal and reactive to light and ac commodation. Visual pritchard are full to confrontation throughout. Extraocular movement is intact no nystagmus is noted. Facial sensation is normal to touch throughout. The facial strength is normal throughout. Hearing is normal bilaterally to hand rub. Tongue is midline and moved [id number] without any difficulty. No dysarthria is noted. Shoulder shrug is normal bilaterally. Motor: Gait is deferred. The strength is 5 over 5 throughout. Normal tone and bulk. Cerebellum: Normal finger to nose bilaterally. Sensation: Sensation is normal to touch throughout. Reflexes (right/left): 2+ throughout except ankles are 0-1 bilaterally. Plantars are upgoing bilaterally. Musculoskeletal: Has arches feet with some hammer toes bilaterally - Labs CBC & Chem 7: 10/05/20 04:31 10/05/20 04:31 Labs: Abnormal Lab Results - Last 24 Hours (Table) 10/05/20 10/05/20 Range/Units 04:31 04:31 WBC 11.7 H (3.8-10.6) k/uL Plt Count 149 L (150-450) k/uL Neutrophils # 9.6 H (1.3-7.7) k/uL Sodium 136 L (137-145) mmol/L Potassium 2.7 L* (3.5-5.1) mmol/L Glucose 120 H (74-99) mg/dL Calcium 8.3 L (8.4-10.2) mg/dL Assessment and Plan Assessment: This is an 79-year-old woman with medical history with multiple medical problems that presented to the emergency department on 10/03/2020 after syncopal episode. She was constipated for 4 days and upon going to the bathroom she felt lightheaded, flushing and dizziness. Syncope seems vasovagal syncope. Unlikely seizure. History of Chronic lower back pain with spinal stenosis Acute severe abdominal pain with the episodes of diarrhea and constipation. Because of the CT abdomen finding of colonic wall thickening there is a possibility of acute ischemic colitis or infection colitis. Rectal bleeding, with a hemoglobin stable at 14.8 that did not require blood pressures and. Uncontrolled Hypertension Hyperlipidemia Coronary artery disease Severe arthritis Plan: Carotid duplex is ordered by the primary team: Is reported atherosclerosis of bilateral ICA with no significant elevated the peak systolic velocities at. Finding suggest less than 50% stenosis. Routine EEG: The back was following the in the generalized rhythmic delta activity with frontal predominance are suggestive of mild to moderate encephalopathy. There are no focal slowing, epileptiform discharges or seizure on the routine EEG. CT of the head: Was reported as no intracranial hemorrhage, mass effect or CT evidence of a large vascular territory acute infarct. Paraventricular confluent areas of white matter low attenuation sit to sickly would represent chronic small vessel ischemic change, nonspecific. 2-D echo: It's reported as ejection fraction of 55%. Left ventricular size is normal. Normal left atrial size by volume. Recommend cardiac monitoring. Possibly consider cardiology consultation because of the patient's multiple risk factor of cardiovascular disease. The patient is on the Lipitor 10 mg. I recommend aspirin 81 mg whenever the patient is stable,once stable she is clear since had GI bleed. Reason for ASA 81mg is because of some carotid the stenosis. Regarding the management of the the GI bleed, horseradish maker team are consulted. Regarding the management of hypertension and the rest of the medical management will defer to the primary team. Plan was discussed with the patient as well as the patient's nurse. From a neurology perspective there is no further neurological workup. Neurology will sign off. Please reconsult as needed. Bret Ascencio MD Neuro-Hospitalist Time with Patient: Less than 30
[2020-10-05] MEDS: ATORVASTATIN 10 MG TAB PO SCH (23:20)
[2020-10-06] MEDS: ONDANSETRON 4 MG/2 ML VIAL IVP PRN (00:17)
[2020-10-06] MEDS: LEVOFLOXACIN 500MG-D5W PMX 500 MG in DEXTROSE/WATER 1 100ML.BAG IVPB SCH (05:39)
[2020-10-06] MEDS: SODIUM CHLORIDE 0.9% 1,000 ML IV SCH (05:39)
[2020-10-06 06:51] LABS: Basophils % (A) 0 %; Eosinophils # (A) 0.1 k/uL (0-0.7); Eosinophils % (A) 1 %; HCT 38.4 % (34.0-46.0); Lymphocytes % (A) 8 %; MCH 32.1 pg (25.0-35.0); MCHC 33.8 g/dL (31.0-37.0); MCV 94.9 fL (80.0-100.0); Mean Platelet Volume 7.6; Monocytes # (A) 0.7 k/uL (0-1.0); Monocytes % (A) 6 %; Neutrophils # (A) 9.6 k/uL (1.3-7.7); Neutrophils % (A) 84 %; Platelet Count 132 k/uL (150-450); RBC 4.04 m/uL (3.80-5.40); RDW 12.6 % (11.5-15.5); WBC 11.5 k/uL (3.8-10.6)
[2020-10-06] MEDS: buPROPion XL 300 MG TAB.ER.24H PO SCH (07:37)
[2020-10-06] MEDS: LISINOPRIL-HCTZ 20-12.5 MG 1 EACH TAB PO SCH (07:37)
[2020-10-06] MEDS: CHOLECALCIFEROL 1,000 UNIT TAB PO SCH (07:37)
[2020-10-06] MEDS: metroNIDAZOLE-NS PMX 500 MG in SALINE 1 100ML.BAG IVPB SCH ×3 (07:38→22:54)
[2020-10-06] MEDS: NON FORMULARY DRUG (Mirabegron [Myrbetriq] 50 MG Tab.Er.24h) PO SCH (07:45)
[2020-10-06 09:27] LABS: African American GFR (CKD) 99.8 (60.0-200.0); Calcium 8.2 mg/dL (8.7-10.3); Non-African American GFR(CKD) 86.1 (60.0-200.0); Potassium 3.4 mmol/L (3.5-5.5)
--- NOTE | 2020-10-06 10:50 | PN ---
PROGRESS NOTE DATE OF SERVICE: 10/06/2020 INTERVAL HISTORY: Patient is an 79-year-old pleasant white female admitted to the hospital with acute abdominal pain, bloody diarrhea, possibly related to ischemic colitis. Presently on broad-spectrum antibiotics. She still continues to complain of abdominal pain and had 2 bowel movements last night with no blood. No nausea, no vomiting. She is also complaining of severe headaches. PHYSICAL EXAMINATION: VITAL SIGNS: Vital signs are stable. Blood pressure 123/75, pulse rate 94, temperature 98.9. HEENT: Examination unremarkable. Conjunctivae are pink. Sclerae anicteric. Oral cavity no lesions. NECK: No JVD or lymph node enlargement. CHEST: Clear to auscultation. HEART: Regular rate and rhythm. ABDOMEN: Soft. There was tenderness in the right lower quadrant area as well as mild tenderness in the suprapubic area. EXTREMITIES: No pedal edema. SKIN: No rashes. NEUROLOGICAL: She is alert and oriented x3. No focal deficits. LABS: From today WBC 11.5, hemoglobin 13, platelets 132. Basic metabolic panel was not done. IMPRESSION: 1. Acute onset of lower abdominal pain with rectal bleeding and CT scan showing thickening of the left colon, all consistent with acute ischemic colitis. The patient continues to have ongoing abdominal pain, though the bleeding has resolved. She is on a clear liquid diet, tolerating well. Remains on broad-spectrum antibiotics. 2. History of hypertension and hyperlipidemia. RECOMMENDATIONS: 1. Continue with broad-spectrum antibiotics. 2. Advance to full liquid diet. 3. Monitor CBC daily. 4. We will follow with you closely. Thank you for this consultation. MMODL / IJN: [id number] /
--- NOTE | 2020-10-06 13:17 | P.PN ---
Subjective Progress Note Date: 10/05/20 Principal diagnosis: Syncope, GI bleed, severe dehydration, colitis, possible vaginal bleed, valvular heart disease and thrombocytopenia 79-year-old female one of my office patient with past medical history of hypertension, hyperlipidemia, history of severe arthritis will also had atherosclerotic heart disease chronic lower back pain with spinal stenosis along with valvular heart disease patient has been doing well brought to the emergency department at [facility] by EMS for syncopal episode according to her has been constipated for the last to 4 days she ended up going to the bathroom the afternoon and had a bowel movement developed to have lightheadedness and flushing-like symptoms afterward along with severe dizziness she said down on the floor and had syncopal episode her caregiver ended up calling in the EMS patient had one episode of nausea and vomiting on route to the emergency department and she had a large bowel movement at arrival at the emergency was having significant abdominal cramps all the today as well. Her symptom has improved slightly bit after arriving to the emergency department she had no head trauma declined any fever or chills declining infection or food poisoning recently. Patient ended up been tested for Route C. diff which was negative her blood work showed moderately elevated blood sugar along with hypercalcemia elevated alkaline phosphatase with normal CBC except mild thrombocytopenia. Chest x-ray on admission showed the no active cardiomegaly on her wrap active pulmonary disease. EKG showed normal sinus rhythm with no other abnormality. Patient was continue on hydration and admitted to the hospital for observation along with hydration. 10/04: Patient evaluated today in the ICU, resting in bed, in no acute distress. Yesterday patient had a rectal tube inserted which was initially draining soft dark brown stool patient then developed bright red bloody drainage. Patient became hypertensive and tachycardic, patient was given IV labetalol and a CT of the abdomen was ordered along with a stat CBC. CT showed colonic wall thickening with pericolic stranding compatible with colitis. Repeat hemoglobin is stable at 14.8, GI has been consulted, consult appreciated recommends clear liquid diet, antibiotics Flagyl and Levaquin, and stool cultures. C.diff has been ruled out. Carotid Doppler, EEG, echo and CT head are pending for her syncopal episode, although more likely vasovagal episode. Patient has not had any further episodes of rectal bleeding or syncope. Neurology also following. 10/05: Patient is doing better so far been treated for colitis continued to have slight rectal bleed with slight abdominal pain she is on Flagyl for ischemic an infectious colitis. An episode of vaginal bleed Papen today agent be seen DIE TESTER along with an pelvic ultrasound to determine whether need any further intervention. In the meanwhile continue to treat her colitis and continue to watch her hemoglobin on daily basis. Objective - Vital Signs Vital signs: Vital Signs Temp 98.2 F 10/05/20 15:24 Pulse 99 10/05/20 15:24 Resp 18 10/05/20 15:24 BP 127/78 10/05/20 15:24 Pulse Ox 97 10/05/20 15:24 Intake & Output 10/04/20 10/05/20 10/05/20 18:59 06:59 18:59 Intake Total 1550 1400 100 Output Total 1450 1435 475 Balance 100 -35 -375 Weight 65.5 kg Intake: IV 1200 1400 100 0.9 NaCl- 1200 1200 Flagyl 500mg 200 Levaquin 100mg 100 Oral 350 Output: Urine 1450 1435 475 Other: Voiding Method Indwelling Catheter Indwelling Catheter Indwelling Catheter # Bowel Movements 1 - Exam Objective - Vital Signs Vital signs: Vital Signs Temp 99.3 F 10/04/20 04:30 Pulse 86 10/04/20 10:00 Resp 14 10/04/20 10:00 BP 156/80 10/04/20 10:00 Pulse Ox 95 10/04/20 10:00 Intake & Output 10/03/20 10/04/20 10/04/20 18:59 06:59 18:59 Intake Total 640 500 Output Total 330 525 Balance 310 -25 Weight 67.585 kg 67.585 kg Intake: IV 400 400 0.9 NaCl- 400 400 Oral 240 100 Output: Urine 330 525 Other: Voiding Method Indwelling Catheter Indwelling Catheter # Voids 2 # Bowel Movements 1 1 - Exam General Appearance: Alert, cooperative, no distress, appears stated age. Neck HEENT: Supple, no lymphadenopathy, no thyroid enlargement, no carotid bruits. Lungs: Clear to auscultation without crackles or wheezes no rhonchi, no deformity. Chest Wall: Chest wall normal expansion with deep inspiration no tenderness and no deformity was found on exam, no costochondral pain or discomfort. Heart: Regular rate and rhythm, S1, S2 normal, no murmur, rub or gallop. Back: Symmetric, no curvature, ROM normal, no CVA tenderness. Mild scoliosis and kyphosis with no rash. Abdomen: Soft positive bowel sound, tenderness Extremities: Extremities normal, atraumatic, no cyanosis or edema. Generalized arthralgia specially both lower extremities. Pulses: 2+ and symmetric. Skin: Skin color, texture, tugor normal, no rashes or lesions. Neurologic: Alert oriented x3 cranial nerves II through XII intact, no motor deficit, no abnormal balance or gait. - Labs CBC & Chem 7: 10/06/20 06:19 10/06/20 06:19 Labs: Abnormal Lab Results - Last 24 Hours (Table) 10/05/20 10/05/20 10/05/20 Range/Units 04:31 04:31 15:17 WBC 11.7 H (3.8-10.6) k/uL Plt Count 149 L (150-450) k/uL Neutrophils # 9.6 H (1.3-7.7) k/uL Sodium 136 L (137-145) mmol/L Potassium 2.7 L* 3.3 L (3.5-5.1) mmol/L Glucose 120 H (74-99) mg/dL Calcium 8.3 L (8.4-10.2) mg/dL Assessment and Plan Assessment: 1 syncope: Not clear etiology most likely vasovagal with patient's current presentation patient will be monitor in the hospital further testing including carotid ultrasound echocardiogram will be done we will consult neurology in the meanwhile after hydration the patient continued to have symptom further testing will be done otherwise the left clear this as a vasovagal after severe constipation with the episode of diarrhea and abdominal cramps most likely with causes symptom the first place, continue to use antiarrhythmic medication if needed. 2 gastrointestinal bleed: Most likely secondary to ischemic colitis or infectious colitis also no significant drop in hemoglobin continue to treat mellitus with IV Levaquin and Flagyl. Patient stable to leave the ICU this point. 3 lactic acidosis: No sign of infection so far no elevated white blood cell UA was not done which will be order for now no sign of infection on chest x-ray. Continue current management exclude any UTI this point. 4 History of valvular heart disease has been stable with no intervention needed at this point. 5 vaginal bleed: Patient is seeing PRODUCTION STATISTICAL CLERK and pelvic ultrasound be done. 6 hyperlipidemia: Remain on atorvastatin 10 mg daily. 7 chronic depression: Has been on Wellbutrin XL 300 mg a day. 8 severe stress incontinence: Has been on Myrbetriq 50 mg daily. 9 thrombocytopenia: Not a clear etiology repeat CBC by tomorrow morning. 10 hypertension: Has been on lisinopril hydrochlorothiazide 20/12.5 mg daily continue medication. 11 GI prophylaxis: Continue patient on Pepcid 20 mg daily. 12 DVT prophylaxis: Continue knee-high JOSH hose and early mobilization. CODE STATUS: Full code. Patient be transfer out of ICU today was start PTOT possible need to go to subacute rehab sometime in the next few days.
--- NOTE | 2020-10-06 13:19 | P.PN ---
Subjective Progress Note Date: 10/06/20 Principal diagnosis: Syncope, GI bleed, severe dehydration, colitis, possible vaginal bleed, valvular heart disease and thrombocytopenia 79-year-old female one of my office patient with past medical history of hypertension, hyperlipidemia, history of severe arthritis will also had atherosclerotic heart disease chronic lower back pain with spinal stenosis along with valvular heart disease patient has been doing well brought to the emergency department at [facility] by EMS for syncopal episode according to her has been constipated for the last to 4 days she ended up going to the bathroom the afternoon and had a bowel movement developed to have lightheadedness and flushing-like symptoms afterward along with severe dizziness she said down on the floor and had syncopal episode her caregiver ended up calling in the EMS patient had one episode of nausea and vomiting on route to the emergency department and she had a large bowel movement at arrival at the emergency was having significant abdominal cramps all the today as well. Her symptom has improved slightly bit after arriving to the emergency department she had no head trauma declined any fever or chills declining infection or food poisoning recently. Patient ended up been tested for Route C. diff which was negative her blood work showed moderately elevated blood sugar along with hypercalcemia elevated alkaline phosphatase with normal CBC except mild thrombocytopenia. Chest x-ray on admission showed the no active cardiomegaly on her wrap active pulmonary disease. EKG showed normal sinus rhythm with no other abnormality. Patient was continue on hydration and admitted to the hospital for observation along with hydration. 10/04: Patient evaluated today in the ICU, resting in bed, in no acute distress. Yesterday patient had a rectal tube inserted which was initially draining soft dark brown stool patient then developed bright red bloody drainage. Patient became hypertensive and tachycardic, patient was given IV labetalol and a CT of the abdomen was ordered along with a stat CBC. CT showed colonic wall thickening with pericolic stranding compatible with colitis. Repeat hemoglobin is stable at 14.8, GI has been consulted, consult appreciated recommends clear liquid diet, antibiotics Flagyl and Levaquin, and stool cultures. C.diff has been ruled out. Carotid Doppler, EEG, echo and CT head are pending for her syncopal episode, although more likely vasovagal episode. Patient has not had any further episodes of rectal bleeding or syncope. Neurology also following. 10/05: Patient is doing better so far been treated for colitis continued to have slight rectal bleed with slight abdominal pain she is on Flagyl for ischemic an infectious colitis. An episode of vaginal bleed Papen today agent be seen PHOTOCOPYING EQUIPMENT MECHANIC along with an pelvic ultrasound to determine whether need any further intervention. In the meanwhile continue to treat her colitis and continue to watch her hemoglobin on daily basis. 10/06: Pelvic ultrasound did not show any abnormality or bleed like sign, patient was seen DRILL SHARPENER and no active bleed was found at the time. Significantly decrease the amount of GI bleed at this point with no need for blood transfusion, will switch patient to oral Flagyl by tomorrow, will advance PTOT patient might benefit from going to inpatient rehab Objective - Vital Signs Vital signs: Vital Signs Temp 98.9 F 10/06/20 07:18 Pulse 94 10/06/20 07:18 Resp 17 10/06/20 07:18 BP 123/75 10/06/20 07:18 Pulse Ox 92 L 10/06/20 07:18 Intake & Output 10/05/20 10/06/20 10/06/20 18:59 06:59 18:59 Intake Total 100 Output Total 475 500 Balance -375 -500 Intake: IV 100 Levaquin 100mg 100 Output: Urine 475 500 Other: Voiding Method Indwelling Catheter Indwelling Catheter Indwelling Catheter # Bowel Movements 1 - Exam Objective - Vital Signs Vital signs: Vital Signs Temp 99.3 F 10/04/20 04:30 Pulse 86 10/04/20 10:00 Resp 14 10/04/20 10:00 BP 156/80 10/04/20 10:00 Pulse Ox 95 10/04/20 10:00 Intake & Output 10/03/20 10/04/20 10/04/20 18:59 06:59 18:59 Intake Total 640 500 Output Total 330 525 Balance 310 -25 Weight 67.585 kg 67.585 kg Intake: IV 400 400 0.9 NaCl- 400 400 Oral 240 100 Output: Urine 330 525 Other: Voiding Method Indwelling Catheter Indwelling Catheter # Voids 2 # Bowel Movements 1 1 - Exam General Appearance: Alert, cooperative, no distress, appears stated age. Neck HEENT: Supple, no lymphadenopathy, no thyroid enlargement, no carotid bruits. Lungs: Clear to auscultation without crackles or wheezes no rhonchi, no deformity. Chest Wall: Chest wall normal expansion with deep inspiration no tenderness and no deformity was found on exam, no costochondral pain or discomfort. Heart: Regular rate and rhythm, S1, S2 normal, no murmur, rub or gallop. Back: Symmetric, no curvature, ROM normal, no CVA tenderness. Mild scoliosis and kyphosis with no rash. Abdomen: Soft positive bowel sound, tenderness Extremities: Extremities normal, atraumatic, no cyanosis or edema. Generalized arthralgia specially both lower extremities. Pulses: 2+ and symmetric. Skin: Skin color, texture, tugor normal, no rashes or lesions. Neurologic: Alert oriented x3 cranial nerves II through XII intact, no motor deficit, no abnormal balance or gait. - Labs CBC & Chem 7: 10/06/20 06:19 10/06/20 06:19 Labs: Abnormal Lab Results - Last 24 Hours (Table) 10/05/20 10/06/20 10/06/20 Range/Units 15:17 06:19 06:19 WBC 11.5 H (3.8-10.6) k/uL Plt Count 132 L (150-450) k/uL Neutrophils # 9.6 H (1.3-7.7) k/uL Potassium 3.3 L 3.4 L (3.5-5.1) mmol/L Glucose 131 H (70-110) mg/dL Calcium 8.2 L (8.7-10.3) mg/dL Assessment and Plan Assessment: 1 syncope: Not clear etiology most likely vasovagal with patient's current presentation patient will be monitor in the hospital further testing including carotid ultrasound echocardiogram will be done we will consult neurology in the meanwhile after hydration the patient continued to have symptom further testing will be done otherwise the left clear this as a vasovagal after severe constipation with the episode of diarrhea and abdominal cramps most likely with causes symptom the first place, continue to use antiarrhythmic medication if needed. 2 gastrointestinal bleed: Most likely secondary to ischemic colitis or infectious colitis also no significant drop in hemoglobin continue to treat mellitus with IV Levaquin and Flagyl. Patient stable to leave the ICU this point. 3 lactic acidosis: No sign of infection so far no elevated white blood cell UA was not done which will be order for now no sign of infection on chest x-ray. Continue current management exclude any UTI this point. 4 History of valvular heart disease has been stable with no intervention needed at this point. 5 vaginal bleed: Patient is seeing DRILL SHARPENER and pelvic ultrasound be done. 6 hyperlipidemia: Remain on atorvastatin 10 mg daily. 7 chronic depression: Has been on Wellbutrin XL 300 mg a day. 8 severe stress incontinence: Has been on Myrbetriq 50 mg daily. 9 thrombocytopenia: Not a clear etiology repeat CBC by tomorrow morning. 10 hypertension: Has been on lisinopril hydrochlorothiazide 20/12.5 mg daily continue medication. 11 GI prophylaxis: Continue patient on Pepcid 20 mg daily. 12 DVT prophylaxis: Continue knee-high JOSH hose and early mobilization. CODE STATUS: Full code. Patient has done very well since was transfer out of ICU, electrolytes are much better today with potassium is up to 3.4 kidney function is normal white blood cell still at 11.5 with hemoglobin 13.0 with drop of 200 have a grams since admission. No further syncope was found and neurology has completed their testing.
--- NOTE | 2020-10-06 13:20 | P.PN ---
Subjective Progress Note Date: 10/06/20 Principal diagnosis: Acute GI bleed 79-year-old white female patient who came into the hospital per EMS for evaluation after having a syncopal episode. Patient apparently had been having constipation, alternating with some liquid stool, and she was on her way to the bathroom when she became flushed and lightheaded. The ambulance was called, patient was encouraged emergency department, she was having abdominal cramping, however her abdomen was soft. She denied any bloody or melanotic stools, denied any nausea vomiting, denied any hematemesis. No fever or chills, no shortness of breath or cough. Patient was weak and hypotensive urgency room, she was given epinephrine 1 mg IV. Chest x-ray showed no active cardiopulmonary disease. In the emergency department patient was having loose stools. Blood work was reviewed, showing white blood cell count of 9.5, hemoglobin 15, INR is 1, electrolytes are within normal limits, B1 is 37, creatinine 0.94, plasma lactic acid was elevated at 2.5, calcium was 10.3, AST and ALT were unremarkable, but alkaline phosphatase was elevated at 212, troponin was negative at 0.012, C. diff was negative. GI service was consulted, patient was started on Levaquin, she was given some fluids in the ER, she was admitted to the floor. However later that evening she developed some blood in the stool, rapid response team was called, patient had erythematous inserted for soft brown stool which then turn into bright red bloody drainage with a roughly of 250-300 mL. Patient was having some diffuse abdominal tenderness, but abdomen was soft, she was given IV fluids, she was transferred to the intensive care unit to continue monitoring for any hemodynamic instability. She was also noted to be very hypertensive at that time, requiring labetalol 20 mg IV push. Repeat CBC was obtained showing stable hemoglobin of 14.8, CT of the abdomen and pelvis without IV contrast was completed, showing colonic wall thickening with paracolic stranding compatible with colitis. She has 4 other very small bowel movements that were red since admission to the intensive care unit. Hemodynamically she is stable, she is getting IV fluids with 0.9 normal saline at 100 ML per hour, she is on Levaquin and Flagyl, GI service is following. Abdomen still has some diffuse tenderness, but soft, no nausea or vomiting. Plasma lactic acid has improved and is down to 1.8. The patient is seen today 10/05/2020 in follow-up in the intensive care unit. She is currently resting comfortably in bed. Maintaining O2 saturations in the 90s on room air. She's afebrile. Hemodynamically stable. Awake and alert in no acute distress. No active GI bleeding noted through the night. Current hemoglobin 13.6. White count 11.7. Platelets 149. Sodium 136. Potassium 2.7. Creatinine 0.58. She remains on metronidazole, Levaquin. The patient is seen today 10/06/2020 in follow-up on the regular medical floor. She is sitting up in bed. Awake and alert in no acute distress. Denies any further syncopal episodes. No dizziness or lightheadedness. Maintaining O2 saturation in the 90s on room air. She's been afebrile. Hemodynamically stable. White count 11.5. Hemoglobin 13.0. Sodium 139. Potassium 3.4. Creatinine 0.6. Objective - Vital Signs Vital signs: Vital Signs Temp 98.9 F 10/06/20 07:18 Pulse 94 10/06/20 07:18 Resp 17 10/06/20 07:18 BP 123/75 10/06/20 07:18 Pulse Ox 92 L 10/06/20 07:18 Intake & Output 10/05/20 10/06/20 10/06/20 18:59 06:59 18:59 Intake Total 100 Output Total 475 500 Balance -375 -500 Intake: IV 100 Levaquin 100mg 100 Output: Urine 475 500 Other: Voiding Method Indwelling Catheter Indwelling Catheter Indwelling Catheter # Bowel Movements 1 - Exam GENERAL EXAM: Alert, pleasant, 79-year-old female patient, denies any acute distress, she is on room air. HEAD: Normocephalic/atraumatic. EYES: Normal reaction of pupils, equal size. Conjunctiva pink, sclera white. NOSE: Clear with pink turbinates. THROAT: No erythema or exudates. NECK: No masses, no JVD, no thyroid enlargement, no adenopathy. CHEST: No chest wall deformity. Symmetrical expansion. LUNGS: Equal air entry with no crackles, wheeze, rhonchi or dullness. CVS: Regular rate and rhythm, normal S1 and S2, no gallops, no murmurs, no rubs ABDOMEN: Soft, diffusely tender, but not rigid No hepatosplenomegaly, normal bowel sounds, no guarding or rigidity. EXTREMITIES: No clubbing, no edema, no cyanosis, 2+ pulses and upper and lower extremities. MUSCULOSKELETAL: Muscle strength and tone normal. SPINE: No scoliosis or deformity SKIN: No rashes CENTRAL NERVOUS SYSTEM: No focal deficits, tone is normal in all 4 extremities. PSYCHIATRIC: Alert and oriented -3. Appropriate affect. Intact judgment and insight. - Labs CBC & Chem 7: 10/06/20 06:19 10/06/20 06:19 Labs: Abnormal Lab Results - Last 24 Hours (Table) 10/05/20 10/06/20 10/06/20 Range/Units 15:17 06:19 06:19 WBC 11.5 H (3.8-10.6) k/uL Plt Count 132 L (150-450) k/uL Neutrophils # 9.6 H (1.3-7.7) k/uL Potassium 3.3 L 3.4 L (3.5-5.1) mmol/L Glucose 131 H (70-110) mg/dL Calcium 8.2 L (8.7-10.3) mg/dL Assessment and Plan Assessment: 1 Acute severe abdominal pain with episodes of diarrhea and constipation, and CT of the abdomen and pelvis showing colonic wall thickening the possibility of acute ischemic colitis or infectious colitis 2 Rectal bleeding, improved, hemoglobin remains stable at 13.0, did not require blood transfusions 3 Lactic acidosis, mild, improved with IV hydration 4 Syncopal episode at home possibly related to vasovagal episode related to , pain, and constipation with diarrhea. C. diff has been ruled out 5 Hypertension 6 Lipidemia 7 Osteoarthritis 8 GERD/reflux 9 Anxiety depression 10 Never smoker Plan: The patient was seen and evaluated by Dr. Ascencio She is stable from the pulmonary and critical care standpoint We will see as needed I, the cosigning physician, performed a history & physical examination of the patient. Lungs sounds are clear. Maintaining good O2 saturations in the 90s on room air. I discussed the assessment and plan of care with my nurse practitioner, Deepali Oates. I attest to the above note as dictated by her.
[2020-10-06] MEDS: DICLOFENAC SODIUM GEL 100 GM TUBE TOPICAL SCH ×2 (19:49→22:52)
[2020-10-07 01:20] LABS: Appearance,Urine Clear (Clear); Bacteria,Urine Rare /hpf; Bilirubin,Urine Negative (Negative); Blood,Urine Trace (Negative); Color,Urine Light Red; Glucose,Urine (UA) Negative (Negative); Hyaline Casts,Urine 22 /lpf (0-2); Ketones,Urine 1+ (Negative); Leukocyte Esterase,Urine Moderate (Negative); Mucus,Urine Moderate /hpf; Nitrite,Urine Negative (Negative); Protein,Urine Trace (Negative); RBC,Urine 3 /hpf (0-5); Specific Gravity,Urine 1.021 (1.001-1.035); Squamous Epithelial Cell,Urine <1 /hpf (0-4); Urobilinogen,Urine <2.0 mg/dL (<2.0); WBC,Urine 13 /hpf (0-5)
[2020-10-07] MEDS: SODIUM CHLORIDE 0.9% 1,000 ML IV SCH ×2 (01:32→04:22)
--- NOTE | 2020-10-07 05:05 | P.OBCN ---
History of Present Illness Consult date: 10/06/20 Reason for consult: other (postmenopausal bleeding) Chief complaint: syncopal episode History of present illness: 79-year-old female presented to the emergency room after a syncopal episode when she was getting ready to go out to her girlfriends house for a crab dinner. She's been diagnosed with infectious diverticulitis and had some bloody stools. Pitocin was halved since become softer normal. When she was having a bloody stools one of the RNs thought she saw some vaginal bleeding as well. Since that one incision there has been no further episodes of bleeding. Review of Systems All systems: negative Constitutional: Denies chills, Denies fever Eyes: denies blurred vision, denies pain Ears, nose, mouth and throat: Denies headache, Denies sore throat Cardiovascular: Denies chest pain, Denies shortness of breath Respiratory: Denies cough Gastrointestinal: Reports abdominal pain, Reports change in bowel habits, Repor ts diarrhea, Reports nausea, Denies vomiting Genitourinary: Denies dysuria, Denies hematuria Musculoskeletal: Denies myalgias Integumentary: Denies pruritus, Denies rash Neurological: Denies numbness, Denies weakness Psychiatric: Denies anxiety, Denies depression Endocrine: Denies fatigue, Denies weight change Past Medical History Past Medical History: Cancer, GERD/Reflux, Hyperlipidemia, Hypertension, Oste oarthritis (OA) Additional Past Medical History / Comment(s): 'slight heart murmer", hx skin cancer, numbness in left hand-two fingers, spinal stenosis, degenerative disks, "dry eyes", "SOME TROUBLE SWALLOWING" History of Any Multi-Drug Resistant Organisms: None Reported Past Surgical History: Orthopedic Surgery Additional Past Surgical History / Comment(s): 8 surgeries to remove skin cancer,2 surgeries on rt ankle for fx(plate and screws), 2 surgeries on left knee and thu in left knee as small child, tumor removed from nose, blepharoplasty pop eyes, pop cataracts, left arm surgery to release nerve, steroid spinal injections, total right ankle arthroplasty and right ANKLE SURGERY-JOINT REPLACEMENT Past Anesthesia/Blood Transfusion Reactions: No Reported Reaction Additional Past Anesthesia/Blood Transfusion Reaction / Comm: no family hx (adopted) Past Psychological History: Anxiety, Depression Smoking Status: Never smoker Past Alcohol Use History: Occasional Additional Past Alcohol Use History / Comment(s): STARTED SMOKING AT AGE 15 quit in 2017. Past Drug Use History: None Reported - Past Family History Mother Family Medical History: Unable to Obtain Additional Family Medical History / Comment(s): Patient was adopted and does not know any family history. Daughter(s) Family Medical History: No Reported History Additional Family Medical History / Comment(s): Patient has 3 daughters and 2 sons all in their 50s with no major medical problems. Medications and Allergies Home Medications Medication Instructions Recorded Confirmed Type Atorvastatin [Lipitor] 10 mg PO Q48H 04/28/18 10/03/20 History Lisinopril-Hctz 20-12.5 mg 1 tab PO DAILY 04/28/18 10/03/20 History [Zestoretic 20-12.5] Multivitamin/Iron/Folic Acid 1 tab PO DAILY 04/28/18 10/03/20 History [Centrum Adults Tablet] buPROPion XL [Wellbutrin XL] 300 mg PO DAILY 04/28/18 10/03/20 History Naproxen Sodium [Aleve] 220 mg PO Q12HR PRN 11/30/18 10/03/20 History Calcium Carbonate [Calcium] 600 mg PO DAILY 10/03/20 10/03/20 History Cholecalciferol [Vitamin D3 (25 1,000 unit PO DAILY 10/03/20 10/03/20 History Mcg = 1000 Iu)] Meclizine HCl 12.5 mg PO TID PRN 10/03/20 10/03/20 History Mirabegron [Myrbetriq] 50 mg PO DAILY 10/03/20 10/03/20 History Vit C/E/Zn/Coppr/Lutein/Zeaxan 1 tab PO DAILY 10/03/20 10/03/20 History [Preservision Areds 2 Softgel] Allergies Allergy/AdvReac Type Severity Reaction Status Date / Time nickel Allergy Rash/Hives Verified 10/03/20 16:07 Exam Osteopathic Statement: *. No significant issues noted on an osteopathic structural exam other than those noted in the History and Physical/Consult. Vital Signs Temp Pulse Resp BP Pulse Ox 10/07/20 02:35 98.3 F 95 16 99/61 91 L 10/06/20 21:40 98.1 F 76 16 115/68 96 12/26/20 20:00 76 16 10/06/20 14:42 98.5 F 90 18 94/64 96 10/06/20 07:18 98.9 F 94 17 123/75 92 L Intake and Output 10/06/20 10/06/20 10/07/20 14:59 22:59 06:59 Other: Voiding Method Indwelling Catheter Indwelling Catheter # Voids 1 Vaginal exam there are no masses externally, no blood noted in the vaginal vault. Results Result Diagrams: 10/06/20 06:19 10/06/20 06:19 Abnormal Lab Results - Last 24 Hours (Table) 10/06/20 10/06/20 10/07/20 Range/Units 06:19 06:19 01:05 WBC 11.5 H (3.8-10.6) k/uL Plt Count 132 L (150-450) k/uL Neutrophils # 9.6 H (1.3-7.7) k/uL Potassium 3.4 L (3.5-5.5) mmol/L Glucose 131 H (70-110) mg/dL Calcium 8.2 L (8.7-10.3) mg/dL Urine Protein Trace H (Negative) Urine Ketones 1+ H (Negative) Urine Blood Trace H (Negative) Ur Leukocyte Esterase Moderate H (Negative) Urine WBC 13 H (0-5) /hpf Urine Bacteria Rare H (None) /hpf Hyaline Casts 22 H (0-2) /lpf Urine Mucus Moderate H (None) /hpf Microbiology - Last 24 Hours (Table) 10/03/20 17:49 Stool Culture - Final Stool Assessment and Plan (1) Bloody stools Current Visit: Yes Status: Acute Code(s): K92.1 - MELENA SNOMED Code(s): 443526032 (2) Syncope Current Visit: Yes Status: Acute Code(s): R55 - SYNCOPE AND COLLAPSE SNOMED Code(s): 264654172 Plan: 1. When I was consulted on this patient originally, I did call the nurse and asked if she still had a uterus. The RN informed me that she did not see in the chart where the patient had a previous hysterectomy and so she assumed that the patient did have a uterus. I asked her if she does have a uterus, then to order a pelvic ultrasound and I will see her in the morning. She did order this ultrasound and results of the ultrasound showed that she has a surgically absent uterus and ovaries. After my exam of finding no blood in the vaginal vault and no masses that would be bleeding from there, I am concluding that the blood that the RN did see was rectal bleeding from her bloody stools. If this conclusion changes, please reconsult. Thank you for including me in consultation of this pleasant woman.
[2020-10-07] MEDS: LEVOFLOXACIN 500MG-D5W PMX 500 MG in DEXTROSE/WATER 1 100ML.BAG IVPB SCH (05:29)
[2020-10-07 07:02] LABS: HCT 33.9 % (34.0-46.0); HGB 11.7 gm/dL (11.4-16.0); MCH 32.9 pg (25.0-35.0); MCHC 34.6 g/dL (31.0-37.0); Mean Platelet Volume 7.8; Platelet Count 146 k/uL (150-450); RBC 3.57 m/uL (3.80-5.40); RDW 12.7 % (11.5-15.5); WBC 9.7 k/uL (3.8-10.6)
[2020-10-07] MEDS: buPROPion XL 300 MG TAB.ER.24H PO SCH (07:41)
[2020-10-07] MEDS: CHOLECALCIFEROL 1,000 UNIT TAB PO SCH (07:41)
[2020-10-07] MEDS: DICLOFENAC SODIUM GEL 100 GM TUBE TOPICAL SCH ×4 (07:41→19:56)
[2020-10-07] MEDS: metroNIDAZOLE-NS PMX 500 MG in SALINE 1 100ML.BAG IVPB SCH ×3 (07:42→23:02)
[2020-10-07] MEDS: LISINOPRIL-HCTZ 20-12.5 MG 1 EACH TAB PO SCH (07:42)
[2020-10-07] MEDS: NON FORMULARY DRUG (Mirabegron [Myrbetriq] 50 MG Tab.Er.24h) PO SCH (07:52)
[2020-10-07 09:36] LABS: Glucose,Whole Blood 175 mg/dL (75-99)
[2020-10-07 09:36] LABS: Glucose,Whole Blood 167 mg/dL (75-99)
[2020-10-07 09:38] LABS: Glucose,Whole Blood 143 mg/dL (75-99)
[2020-10-07 09:44] LABS: African American GFR (CKD) 99.8 (60.0-200.0); Albumin 3.1 g/dL (3.80-4.90); Albumin/Globulin Ratio 1.94 (1.60-3.17); Anion Gap 6.3 mmol/L (4.00-12.00); BUN/Creat Ratio 18.33 Ratio (12.00-20.00); Calcium 8.1 mg/dL (8.7-10.3); Carbon Dioxide 29.7 mmol/L (21.6-31.8); Globulin 1.6 g/dL (1.6-3.3); Non-African American GFR(CKD) 86.1 (60.0-200.0); Potassium 3.1 mmol/L (3.5-5.5); Total Bilirubin 0.4 mg/dL (0.2-1.2); Total Protein 4.7 g/dL (6.2-8.2)
[2020-10-07] MEDS: POTASSIUM CHLORIDE ER 20 MEQ TAB.ER PO SCH ×3 (11:58→15:09)
--- NOTE | 2020-10-07 13:19 | P.PN ---
Subjective Progress Note Date: 10/07/20 Principal diagnosis: Syncope, GI bleed, severe dehydration, colitis, possible vaginal bleed, valvular heart disease and thrombocytopenia, UTI 79-year-old female one of my office patient with past medical history of hypertension, hyperlipidemia, history of severe arthritis will also had atherosclerotic heart disease chronic lower back pain with spinal stenosis along with valvular heart disease patient has been doing well brought to the emergency department at [facility] by EMS for syncopal episode according to her has been constipated for the last to 4 days she ended up going to the bathroom the afternoon and had a bowel movement developed to have lightheadedness and flushing-like symptoms afterward along with severe dizziness she said down on the floor and had syncopal episode her caregiver ended up calling in the EMS patient had one episode of nausea and vomiting on route to the emergency department and she had a large bowel movement at arrival at the emergency was having significant abdominal cramps all the today as well. Her symptom has improved slightly bit after arriving to the emergency department she had no head trauma declined any fever or chills declining infection or food poisoning recently. Patient ended up been tested for Route C. diff which was negative her blood work showed moderately elevated blood sugar along with hypercalcemia el evated alkaline phosphatase with normal CBC except mild thrombocytopenia. Chest x-ray on admission showed the no active cardiomegaly on her wrap active pulmonary disease. EKG showed normal sinus rhythm with no other abnormality. Patient was continue on hydration and admitted to the hospital for observation along with hydration. 10/04: Patient evaluated today in the ICU, resting in bed, in no acute distress. Yesterday patient had a rectal tube inserted which was initially draining soft dark brown stool patient then developed bright red bloody drainage. Patient became hypertensive and tachycardic, patient was given IV labetalol and a CT of the abdomen was ordered along with a stat CBC. CT showed colonic wall thickening with pericolic stranding compatible with colitis. Repeat hemoglobin is stable at 14.8, GI has been consulted, consult appreciated recommends clear liquid diet, antibiotics Flagyl and Levaquin, and stool cultures. C.diff has been ruled out. Carotid Doppler, EEG, echo and CT head are pending for her syncopal episode, although more likely vasovagal episode. Patient has not had any further episodes of rectal bleeding or syncope. Neurology also following. 10/05: Patient is doing better so far been treated for colitis continued to have slight rectal bleed with slight abdominal pain she is on Flagyl for ischemic an infectious colitis. An episode of vaginal bleed Papen today agent be seen [employer] along with an pelvic ultrasound to determine whether need any further intervention. In the meanwhile continue to treat her colitis and continue to watch her hemoglobin on daily basis. 10/06: Pelvic ultrasound did not show any abnormality or bleed like sign, paty nt was seen MARKETING TRAFFIC MANAGER and no active bleed was found at the time. Significantly decrease the amount of GI bleed at this point with no need for blood transfusion, will switch patient to oral Flagyl by tomorrow, will advance PTOT patient might benefit from going to inpatient rehab 10/07: No further bleeding at this point, still having mild diarrhea, still having significant fatigue and tiredness, UA was positive for UTI and patient remain on Levaquin orally. Continue PTOT and prepare hopefully for discharge to rehab tomorrow. Objective - Vital Signs Vital signs: Vital Signs Temp 98.2 F 10/07/20 07:52 Pulse 88 10/07/20 07:52 Resp 18 10/07/20 07:52 BP 116/73 10/07/20 07:52 Pulse Ox 94 L 10/07/20 07:52 Intake & Output 10/06/20 10/07/20 10/07/20 18:59 06:59 18:59 Output Total 150 Balance -150 Output: Urine 150 Other: Voiding Method Indwelling Catheter Indwelling Catheter Indwelling Catheter # Voids 1 - Exam Objective - Vital Signs Vital signs: Vital Signs Temp 99.3 F 10/04/20 04:30 Pulse 86 10/04/20 10:00 Resp 14 10/04/20 10:00 BP 156/80 10/04/20 10:00 Pulse Ox 95 10/04/20 10:00 Intake & Output 10/03/20 10/04/20 10/04/20 18:59 06:59 18:59 Intake Total 640 500 Output Total 330 525 Balance 310 -25 Weight 67.585 kg 67.585 kg Intake: IV 400 400 0.9 NaCl- 400 400 Oral 240 100 Output: Urine 330 525 Other: Voiding Method Indwelling Catheter Indwelling Catheter # Voids 2 # Bowel Movements 1 1 - Exam General Appearance: Alert, cooperative, no distress, appears stated age. Neck HEENT: Supple, no lymphadenopathy, no thyroid enlargement, no carotid bruits. Lungs: Clear to auscultation without crackles or wheezes no rhonchi, no deformity. Chest Wall: Chest wall normal expansion with deep inspiration no tenderness and no deformity was found on exam, no costochondral pain or discomfort. Heart: Regular rate and rhythm, S1, S2 normal, no murmur, rub or gallop. Back: Symmetric, no curvature, ROM normal, no CVA tenderness. Mild scoliosis and kyphosis with no rash. Abdomen: Soft positive bowel sound, tenderness Extremities: Extremities normal, atraumatic, no cyanosis or edema. Generalized arthralgia specially both lower extremities. Pulses: 2+ and symmetric. Skin: Skin color, texture, tugor normal, no rashes or lesions. Neurologic: Alert oriented x3 cranial nerves II through XII intact, no motor deficit, no abnormal balance or gait. - Labs CBC & Chem 7: 10/07/20 06:27 10/07/20 06:27 Labs: Abnormal Lab Results - Last 24 Hours (Table) 10/04/20 10/04/20 10/04/20 Range/Units 02:36 05:24 12: RBC (3.80-5.40) m/uL Hct (34.0-46.0) % Plt Count (150-450) k/uL Potassium (3.5-5.5) mmol/L Glucose (70-110) mg/dL POC Glucose (mg/dL) 175 H 167 H 143 H (75-99) mg/dL Calcium (8.7-10.3) mg/dL Total Protein (6.2-8.2) g/dL Albumin (3.80-4.90) g/dL Urine Protein (Negative) Urine Ketones (Negative) Urine Blood (Negative) Ur Leukocyte Esterase (Negative) Urine WBC (0-5) /hpf Urine Bacteria (None) /hpf Hyaline Casts (0-2) /lpf Urine Mucus (None) /hpf 10/07/20 10/07/20 10/07/20 Range/Units 01:05 06:27 06:27 RBC 3.57 L (3.80-5.40) m/uL Hct 33.9 L (34.0-46.0) % Plt Count 146 L (150-450) k/uL Potassium 3.1 L (3.5-5.5) mmol/L Glucose 116 H (70-110) mg/dL POC Glucose (mg/dL) (75-99) mg/dL Calcium 8.1 L (8.7-10.3) mg/dL Total Protein 4.7 L (6.2-8.2) g/dL Albumin 3.10 L (3.80-4.90) g/dL Urine Protein Trace H (Negative) Urine Ketones 1+ H (Negative) Urine Blood Trace H (Negative) Ur Leukocyte Esterase Moderate H (Negative) Urine WBC 13 H (0-5) /hpf Urine Bacteria Rare H (None) /hpf Hyaline Casts 22 H (0-2) /lpf Urine Mucus Moderate H (None) /hpf Microbiology - Last 24 Hours (Table) 10/07/20 01:05 Urine Culture - Preliminary Urine,Voided 10/03/20 17:49 Stool Culture - Final Stool Assessment and Plan Assessment: 1 syncope: Not clear etiology most likely vasovagal with patient's current presentation patient will be monitor in the hospital further testing including carotid ultrasound echocardiogram will be done we will consult neurology in the meanwhile after hydration the patient continued to have symptom further testing will be done otherwise the left clear this as a vasovagal after severe constipation with the episode of diarrhea and abdominal cramps most likely with causes symptom the first place, continue to use antiarrhythmic medication if needed. 2 gastrointestinal bleed: Most likely secondary to ischemic colitis or infectious colitis also no significant drop in hemoglobin continue to treat mellitus with IV Levaquin and Flagyl. Patient stable to leave the ICU this point. 3 lactic acidosis: No sign of infection so far no elevated white blood cell UA was not done which will be order for now no sign of infection on chest x-ray. Continue current management exclude any UTI this point. 4 History of valvular heart disease has been stable with no intervention needed at this point. 5 vaginal bleed: Patient is seeing MARKETING TRAFFIC MANAGER and pelvic ultrasound be done. 6 UTI: UA was very positive patient male Levaquin at this point waiting for final culture. 7 chronic depression: Has been on Wellbutrin XL 300 mg a day. 8 severe stress incontinence: Has been on Myrbetriq 50 mg daily. 9 mild anemia: On iron supplement only. 10 hypertension: Has been on lisinopril hydrochlorothiazide 30/09.5 mg daily continue medication. Discharge planning: Possible going to rehab tomorrow.
[2020-10-07] MEDS: MAGNESIUM SULFATE-D5W PMX 1 GM in DEXTROSE/WATER 1 100ML.BAG IVPB SCH ×2 (13:41→15:08)
[2020-10-07] MEDS: Acetaminophen-Codeine 300-30mg TAB PO PRN ×2 (16:58→23:01)
--- NOTE | 2020-10-07 18:25 | PN ---
PROGRESS NOTE DATE OF DICTATION: October 07, 2020 Patient is an 79-year-old pleasant white female admitted to the hospital with possible acute ischemic colitis when she presented with abdominal pain and bloody diarrhea. She is doing better. She had no bowel movements yesterday or today. No nausea, no vomiting. Abdominal pain is improving. On a full liquid diet tolerating well. PHYSICAL EXAMINATION: Appears comfortable. VITAL SIGNS: Stable. Blood pressure is 132/76, pulse rate 96, temperature 98.6. HEENT examination unremarkable. Conjunctivae pink. Sclerae anicteric. Oral cavity no lesions. Neck no JVD. No lymph node enlargement. CHEST was clear to auscultation. HEART: Regular rate and rhythm. ABDOMEN: Soft. Bowel sounds are positive. No organomegaly. Extremities: No pedal edema. Skin no rashes. Neuro: She is alert and oriented x3. No focal deficits. LABS: From today WBC 9.7, hemoglobin 11.7, platelets are 146. Rest of the labs are within normal limits. IMPRESSION: 1. Possible acute ischemic colitis versus infectious colitis. Patient on broad- spectrum antibiotics. Symptoms gradually improving. Abdominal pain has significantly improved. Diarrhea and bleeding have resolved. Hemoglobin remains stable. 2. History of hypertension and hyperlipidemia. RECOMMENDATIONS: 1. Continue with antibiotics. 2. Advance to soft diet. 3. Increase ambulation. 4. Repeat labs in the morning. 5. Will follow with you closely. Thank you for this consultation. [place] / R[place]: [id number] /
[2020-10-07] MEDS: ATORVASTATIN 10 MG TAB PO SCH (23:01)
[2020-10-08 03:16] VITALS: RESP 16
[2020-10-08] MEDS: LEVOFLOXACIN 500MG-D5W PMX 500 MG in DEXTROSE/WATER 1 100ML.BAG IVPB SCH (05:26)
[2020-10-08] MEDS: SODIUM CHLORIDE 0.9% 1,000 ML IV SCH (05:27)
[2020-10-08] MEDS: buPROPion XL 300 MG TAB.ER.24H PO SCH (07:27)
[2020-10-08] MEDS: CHOLECALCIFEROL 1,000 UNIT TAB PO SCH (07:27)
[2020-10-08] MEDS: metroNIDAZOLE-NS PMX 500 MG in SALINE 1 100ML.BAG IVPB SCH (07:27)
[2020-10-08] MEDS: LISINOPRIL-HCTZ 20-12.5 MG 1 EACH TAB PO SCH (07:27)
[2020-10-08 08:17] VITALS: BP 129/78; PULSE 90; TEMP 98.2
[2020-10-08] MEDS: NON FORMULARY DRUG (Mirabegron [Myrbetriq] 50 MG Tab.Er.24h) PO SCH (08:30)
[2020-10-08] MEDS: DICLOFENAC SODIUM GEL 100 GM TUBE TOPICAL SCH (11:36)
--- NOTE | 2020-10-08 11:46 | P.DS ---
Providers Date of admission: 10/04/20 02:17 Expected date of discharge: 10/08/20 Attending physician: Jose J Peres Consults: 10/04/20 00:00 Consult Physician Routine Consulting Provider: Bret Ascencio Consult Reason/Comments: Syncope Do you want consulting provider notified?: Yes 10/04/20 02:42 Consult Physician Routine Consulting Provider: Emani Syed Consult Reason/Comments: GI bleed Do you want consulting provider notified?: Yes, Notify in am 10/04/20 03:13 Consult Physician Stat Consulting Provider: Lyle Ascencio Consult Reason/Comments: ICU management Do you want consulting provider notified?: Already Contacted 10/05/20 12:49 Consult Physician Stat Consulting Provider: Ignacia Swenson Consult Reason/Comments: Post menapausal bleeding Do you want consulting provider notified?: Already Contacted Primary care physician: Jose J Peres [facility] Course: Syncope, GI bleed, severe dehydration, colitis, possible vaginal bleed, valvular heart disease and thrombocytopenia, UTI 79-year-old female one of my office patient with past medical history of hypertension, hyperlipidemia, history of severe arthritis will also had atherosclerotic heart disease chronic lower back pain with spinal stenosis along with valvular heart disease patient has been doing well brought to the emergency department at [facility] by EMS for syncopal episode according to her has been constipated for the last to 4 days she ended up going to the bathroom the afternoon and had a bowel movement developed to have lightheadedness and flushing-like symptoms afterward along with severe dizziness she said down on the floor and had syncopal episode her caregiver ended up calling in the EMS patient had one episode of nausea and vomiting on route to the emergency department and she had a large bowel movement at arrival at the emergency was having significant abdominal cramps all the today as well. Her symptom has improved slightly bit after arriving to the emergency department she had no head trauma declined any fever or chills declining infection or food poisoning recently. Patient ended up been tested for Route C. diff which was negative her blood work showed moderately elevated blood sugar along with hypercalcemia elevated alkaline phosphatase with normal CBC except mild thrombocytopenia. Chest x-ray on admission showed the no active cardiomegaly on her wrap active pulmonary disease. EKG showed normal sinus rhythm with no other abnormality. Patient was continue on hydration and admitted to the hospital for observation along with hydration. 10/04: Patient evaluated today in the ICU, resting in bed, in no acute distress. Yesterday patient had a rectal tube inserted which was initially draining soft dark brown stool patient then developed bright red bloody drainage. Patient became hypertensive and tachycardic, patient was given IV labetalol and a CT of the abdomen was ordered along with a stat CBC. CT showed colonic wall thickening with pericolic stranding compatible with colitis. Repeat hemoglobin is stable at 14.8, GI has been consulted, consult appreciated recommends clear liquid diet, antibiotics Flagyl and Levaquin, and stool cultures. C.diff has been ruled out. Carotid Doppler, EEG, echo and CT head are pending for her syncopal episode, although more likely vasovagal episode. Patient has not had any further episodes of rectal bleeding or syncope. Neurology also following. 10/05: Patient is doing better so far been treated for colitis continued to have slight rectal bleed with slight abdominal pain she is on Flagyl for ischemic an infectious colitis. An episode of vaginal bleed Papen today agent be seen SUPPORT TEAM [employer]BER along with an pelvic ultrasound to determine whether need any further intervention. In the meanwhile continue to treat her colitis and continue to watch her hemoglobin on daily basis. 10/06: Pelvic ultrasound did not show any abnormality or bleed like sign, patient was seen [employer] and no active bleed was found at the time. Significantly decrease the amount of GI bleed at this point with no need for blood transfusion, will switch patient to oral Flagyl by tomorrow, will advance PTOT patient might benefit from going to inpatient rehab 10/07: No further bleeding at this point, still having mild diarrhea, still having significant fatigue and tiredness, UA was positive for UTI and patient remain on Levaquin orally. Continue PTOT and prepare hopefully for discharge to rehab tomorrow. 10/08: Patient evaluated, resting in bed, she is in no acute distress. Patient doing well, continues have mild diarrhea. White count is trending down at 9.7, hemoglobin is stable at 11.7, Still has some weakness and debility, continue PTOT, patient is agreeable to go to subacute rehab. Patient was unsure which rehab facility she would like to go to, will have social work speak with patient Patient Condition at Discharge: Stable Plan - Discharge Summary Discharge Rx Participant: No New Discharge Prescriptions: No Action Multivitamin/Iron/Folic Acid [Centrum Adults Tablet] 1 tab PO DAILY Atorvastatin [Lipitor] 10 mg PO Q48H Lisinopril-Hctz 20-12.5 mg [Zestoretic 20-12.5] 1 tab PO DAILY buPROPion XL [Wellbutrin XL] 300 mg PO DAILY Naproxen Sodium [Aleve] 220 mg PO Q12HR PRN PRN Reason: Pain Calcium Carbonate [Calcium] 600 mg PO DAILY Vit C/E/Zn/Coppr/Lutein/Zeaxan [Preservision Areds 2 Softgel] 1 tab PO DAILY Mirabegron [Myrbetriq] 50 mg PO DAILY Meclizine HCl 12.5 mg PO TID PRN PRN Reason: Nausea And Vomiting Cholecalciferol [Vitamin D3 (25 Mcg = 1000 Iu)] 1,000 unit PO DAILY Discharge Medication List Atorvastatin [Lipitor] 10 mg PO Q48H 04/28/18 [History] Lisinopril-Hctz 20-12.5 mg [Zestoretic 20-12.5] 1 tab PO DAILY 04/28/18 [History] Multivitamin/Iron/Folic Acid [Centrum Adults Tablet] 1 tab PO DAILY 04/28/18 [History] buPROPion XL [Wellbutrin XL] 300 mg PO DAILY 04/28/18 [History] Naproxen Sodium [Aleve] 220 mg PO Q12HR PRN 11/30/18 [History] Calcium Carbonate [Calcium] 600 mg PO DAILY 10/03/20 [History] Cholecalciferol [Vitamin D3 (25 Mcg = 1000 Iu)] 1,000 unit PO DAILY 10/03/20 [History] Meclizine HCl 12.5 mg PO TID PRN 10/03/20 [History] Mirabegron [Myrbetriq] 50 mg PO DAILY 10/03/20 [History] Vit C/E/Zn/Coppr/Lutein/Zeaxan [Preservision Areds 2 Softgel] 1 tab PO DAILY 10/03/20 [History] Follow up Appointment(s)/Referral(s): Jose J Peres MD [Primary Care Provider] - 1-2 days Discharge/Stand Alone Forms: Community Resources
== END 2020-10-08 15:09 | DRG 391 ==
LOC: EC 15:52 → 1SOBS 17:39 → OBSVTOIN 10-04 02:17 → 2SICU 10-04 02:18 → 4SSUR 10-05 15:00
PROVIDERS: ADMIT Internal Medicine Geriatric Medicine; ATTEND Internal Medicine Geriatric Medicine
DX: A09 Infectious gastroenteritis and colitis, unspecified (principal); K55.039 Acute (reversible) ischemia of large intestine, extent unspecified; E87.2 Acidosis; N39.0 Urinary tract infection, site not specified; D64.9 Anemia, unspecified; D69.6 Thrombocytopenia, unspecified; E78.00 Pure hypercholesterolemia, unspecified; E78.5 Hyperlipidemia, unspecified; E83.52 Hypercalcemia; E86.0 Dehydration; F41.8 Other specified anxiety disorders; I10 Essential (primary) hypertension; R53.81 Other malaise; I25.10 Atherosclerotic heart disease of native coronary artery without angina pectoris; K21.9 Gastro-esophageal reflux disease without esophagitis; K59.00 Constipation, unspecified; M19.90 Unspecified osteoarthritis, unspecified site; N39.3 Stress incontinence (female) (male); Z79.899 Other long term (current) drug therapy; Z85.828 Personal history of other malignant neoplasm of skin; Z87.891 Personal history of nicotine dependence
CPT/HCPCS: 36415; 70450; 71045; 74176; 76857; 80048; 80053; 81001; 83605; 83735; 84132; 84484; 85025; 85027; 85610; 85730; 87045; 87046; 87086; 87324; 93005; 93306; 93880; 95819; 99283

== ENCOUNTER 2022-03-22 13:21 | Emergency (ER) | payer MEDICARE, BC ==
[2022-03-22 13:36] VITALS: RESP 18; TEMP 97.4
[2022-03-22] MEDS ORDERED: SODIUM CHLORIDE 0.9% 1,000 ML IV STA (13:56)
[2022-03-22] MEDS ORDERED: DIPH,PERTUS(ACELL)TETVAC-LF 0.5 ML VIAL IM ONE (13:57)
--- NOTE | 2022-03-22 14:04 | ED ---
General Adult HPI - General Chief complaint: Head Injury Stated complaint: Fall Time Seen by Provider: 03/22/22 13:38 Source: patient, family, RN notes reviewed, old records reviewed Mode of arrival: wheelchair Limitations: no limitations - History of Present Illness Initial comments: Patient is an 81-year-old female with past medical history remarkable for Parkinson's disease recent was started on a new medication for her tremors presents emergency Department after a fall. Patient states she's been falling asleep easily over the last few weeks since she started on medication. Has been feeling fatigued. Denies any nausea, vomiting, abdominal pain, chest pain, shortness of breath. She states she believes she is feeling sleepy may have become drowsy, and states that she slumped over and awoke when she hit the ground striking the left side of her head. She woke when she the ground. Does not believe that she experienced syncopal episode but rather she is feeling sleepy. Denies being on blood thinners. Denies any blurry vision. Has no acute complaints at this time. Presents for further evaluation at this time. Denies any cardiac history. She has been dealing with these symptoms since she started a new medication 3 weeks ago. Believes this is likely causing her to be more tired than normal. Is due to follow-up with her PCP regarding this medication. - Related Data Home Medications Medication Instructions Recorded Confirmed Atorvastatin [Lipitor] 10 mg PO Q48H 04/28/18 10/03/20 Lisinopril-Hctz 20-12.5 mg 1 tab PO DAILY 04/28/18 10/03/20 [Zestoretic 20-12.5] Multivitamin/Iron/Folic Acid 1 tab PO DAILY 04/28/18 10/03/20 [Centrum Adults Tablet] buPROPion XL [Wellbutrin XL] 300 mg PO DAILY 04/28/18 10/03/20 Naproxen Sodium [Aleve] 220 mg PO Q12HR PRN 11/30/18 10/03/20 Calcium Carbonate [Calcium] 600 mg PO DAILY 10/03/20 10/03/20 Cholecalciferol [Vitamin D3 (25 1,000 unit PO DAILY 10/03/20 10/03/20 Mcg = 1000 Iu)] Meclizine HCl 12.5 mg PO TID PRN 10/03/20 10/03/20 Mirabegron [Myrbetriq] 50 mg PO DAILY 10/03/20 10/03/20 Vit C/E/Zn/Coppr/Lutein/Zeaxan 1 tab PO DAILY 10/03/20 10/03/20 [Preservision Areds 2 Softgel] Previous Rx's Medication Instructions Recorded Diclofenac Sodium Gel [Voltaren 2 gm TOPICAL QID tube 10/08/20 Gel] Levofloxacin [Levaquin] 500 mg PO DAILY 1 Days #7 tab 10/08/20 hydrALAZINE HCL [Apresoline] 25 mg PO Q6HR PRN tab 10/08/20 metroNIDAZOLE [Flagyl] 500 mg PO TID #21 tab 10/08/20 Allergies Allergy/AdvReac Type Severity Reaction Status Date / Time nickel Allergy Rash/Hives Verified 03/22/22 13:35 Review of Systems ROS Statement: Those systems with pertinent positive or pertinent negative responses have been documented in the HPI. Review of Systems: CONST: Denies fever EYES: Denies blurry vision ENT: Denies nasal congestion C/V: Denies Chest pain RESP: Denies shortness of breath GI: Denies abdominal pain : Denies dysuria SKIN: Endorses lacerations/abrasions to the left lateral face. MSK: Denies joint pain. NEURO: Denies headache ROS Other: All systems not noted in ROS Statement are negative. Past Medical History Past Medical History: Cancer, GERD/Reflux, Hyperlipidemia, Hypertension, Osteoarthritis (OA) Additional Past Medical History / Comment(s): 'slight heart murmer", hx skin cancer, numbness in left hand-two fingers, spinal stenosis, degenerative disks, "dry eyes", "SOME TROUBLE SWALLOWING" History of Any Multi-Drug Resistant Organisms: None Reported Past Surgical History: Orthopedic Surgery Additional Past Surgical History / Comment(s): 8 surgeries to remove skin cancer,2 surgeries on rt ankle for fx(plate and screws), 2 surgeries on left knee and thu in left knee as small child, tumor removed from nose, blepharoplasty pop eyes, pop cataracts, left arm surgery to release nerve, steroid spinal injections, total right ankle arthroplasty and right ANKLE SURGERY-JOINT REPLACEMENT Past Anesthesia/Blood Transfusion Reactions: No Reported Reaction Additional Past Anesthesia/Blood Transfusion Reaction / Comment(s): no family hx (adopted) Past Psychological History: Anxiety, Depression Smoking Status: Never smoker Past Alcohol Use History: Occasional Past Drug Use History: None Reported - Past Family History Mother Family Medical History: Unable to Obtain Additional Family Medical History / Comment(s): Patient was adopted and does not know any family history. Daughter(s) Family Medical History: No Reported History Additional Family Medical History / Comment(s): Patient has 3 daughters and 2 sons all in their 50s with no major medical problems. General Exam - General Exam Comments Initial Comments: General: Appears in no acute distress. HEAD: Patient has an approximately 2-3 cm linear laceration located lateral to the left eye as well as a skin tear/abrasion inferior to this is approximately 1-2 cm in diameter. Bleeding is controlled on both. Mild swelling around both lacerations but no obvious deformities. EYES: PERRLA, EOMI, conjunctiva normal, no discharge. Pupils are 2 mm and equal bilaterally. ENT: Hearing grossly intact, normal oropharynx. RESPIRATORY: Clear breath sounds bilaterally. No wheezes, rales, or rhonchi. C/V: Regular rate and rhythm. S1 and S2 auscultated, no edema, peripheral pulses 2+ and intact throughout ABD: Abd is soft, nontender, nondistended EXT: Normal range of motion, no obvious deformity.No Midline C, T, L-spine tenderness to palpation. Pelvis is stable. SKIN: Facial laceration/abrasions as well as small abrasion located over the anterior right vu. NEURO: Alert and oriented x 4. Cranial nerves II-XII intact. No focal sensory or strength deficits. NIH of 0. GCS of 15. Limitations: no limitations Course Vital Signs 03/22/22 03/22/22 13:27 17:00 Temperature 97.4 F L Pulse Rate 76 78 Respiratory 18 18 Rate Blood Pressure 106/67 110/68 O2 Sat by Pulse 98 99 Oximetry Medical Decision Making - Medical Decision Making The patient's presentation and physical exam, she appeared to have suffered a fall from chair and has abrasions located over the left lateral face. Appears to be happening more frequently with falling asleep lately. However cannot rule out syncopal episode at this time. Therefore we will obtain basic labs, as well as cardiac labs and urinalysis. She'll be given a 1 L fluid bolus. Tetanus booster will be updated. She was in agreement this plan. She refuses analgesic medications at this time. Due to her age as well as fall, we will obtain a CT brain as well as a C-spine. EKG showed no signs of acute ischemia. Chest x-ray revealed no acute cardio pu lmonary process. CT of the face and brain and neck revealed no acute traumatic injury other than the edema over the sites of the abrasions. No acute intracranial process. Laboratory studies are remarkable for a mild AK eye with a creatinine of 1.37 revealing a 56. Patient did receive a 1 L fluid bolus. Troponin is undetectable. Urine is unremarkable. Remainder labs are unremarkable. On reevaluation, patient is feeling improved. Laceration was closed by mid- level provider. Please see separate note. Used skin glue. She would like to go home. I did discuss with her that I do believe this is reasonable. Workup was unremarkable. It does appear that her symptoms have been ongoing since she started her new medication, the carbidopa levodopa and I recommended that she stop using until she can follow up with her PCP. She was in agreement this plan. She is ambulating at her baseline. Vital signs and neuro exam remained within normal as throughout her stay. I believe it is reasonable for discharge home at this time. I instructed the patient to follow up with their PCP in the next 3 days. I explained that the patient should return to the emergency department if they experience any worsening symptoms. Strict return precautions were discussed with the patient. The patient expressed understanding of these instructions. I answered all questions that the patient had. The patient was discharged home in good condition with their prescriptions and follow up information. - Lab Data Result diagrams: 03/22/22 14:06 03/22/22 14:06 Lab Results 03/22/22 03/22/22 03/22/22 Range/Units 14:06 14:06 14:06 WBC 6.9 (3.8-10.6) k/uL RBC 4.21 (3.80-5.40) m/uL Hgb 13.7 (11.4-16.0) gm/dL Hct 41.2 (34.0-46.0) % MCV 97.9 (80.0-100.0) fL MCH 32.7 (25.0-35.0) pg MCHC 33.4 (31.0-37.0) g/dL RDW 12.7 (11.5-15.5) % Plt Count 196 (150-450) k/uL MPV 8.3 Neutrophils % 60 % Lymphocytes % 27 % Monocytes % 6 % Eosinophils % 4 % Basophils % 1 % Neutrophils # 4.1 (1.3-7.7) k/uL Lymphocytes # 1.8 (1.0-4.8) k/uL Monocytes # 0.4 (0-1.0) k/uL Eosinophils # 0.3 (0-0.7) k/uL Basophils # 0.1 (0-0.2) k/uL PT 11.0 (9.0-12.0) sec INR 1.0 (<1.2) APTT 26.1 (22.0-30.0) sec Sodium (137-145) mmol/L Potassium (3.5-5.1) mmol/L Chloride (98-107) mmol/L Carbon Dioxide (22-30) mmol/L Anion Gap mmol/L BUN (7-17) mg/dL Creatinine (0.52-1.04) mg/dL Est GFR (CKD-EPI)AfAm (>60 ml/min/1.73 sqM) Est GFR (CKD-EPI)NonAf (>60 ml/min/1.73 sqM) Glucose (74-99) mg/dL Calcium (8.4-10.2) mg/dL Magnesium (1.6-2.3) mg/dL Total Bilirubin (0.2-1.3) mg/dL AST (14-36) U/L ALT (4-34) U/L Alkaline Phosphatase (38-126) U/L Troponin I (0.000-0.034) ng/mL Total Protein (6.3-8.2) g/dL Albumin (3.5-5.0) g/dL Urine Color Light Yellow Urine Appearance Clear (Clear) Urine pH 5.5 (5.0-8.0) Ur Specific [place] 1.012 (1.001-1.035) Urine Protein Negative (Negative) Urine Glucose (UA) Negative (Negative) Urine Ketones Negative (Negative) Urine Blood Negative (Negative) Urine Nitrite Negative (Negative) Urine Bilirubin Negative (Negative) Urine Urobilinogen <2.0 (<2.0) mg/dL Ur Leukocyte Esterase Negative (Negative) 03/22/22 03/22/22 Range/Units 14:06 14:06 WBC (3.8-10.6) k/uL RBC (3.80-5.40) m/uL Hgb (11.4-16.0) gm/dL Hct (34.0-46.0) % MCV (80.0-100.0) fL MCH (25.0-35.0) pg MCHC (31.0-37.0) g/dL RDW (11.5-15.5) % Plt Count (150-450) k/uL MPV Neutrophils % % Lymphocytes % % Monocytes % % Eosinophils % % Basophils % % Neutrophils # (1.3-7.7) k/uL Lymphocytes # (1.0-4.8) k/uL Monocytes # (0-1.0) k/uL Eosinophils # (0-0.7) k/uL Basophils # (0-0.2) k/uL PT (9.0-12.0) sec INR (<1.2) APTT (22.0-30.0) sec Sodium 140 (137-145) mmol/L Potassium 4.0 (3.5-5.1) mmol/L Chloride 104 (98-107) mmol/L Carbon Dioxide 29 (22-30) mmol/L Anion Gap 7 mmol/L BUN 56 H (7-17) mg/dL Creatinine 1.37 H (0.52-1.04) mg/dL Est GFR (CKD-EPI)AfAm 42 (>60 ml/min/1.73 sqM) Est GFR (CKD-EPI)NonAf 36 (>60 ml/min/1.73 sqM) Glucose 88 (74-99) mg/dL Calcium 9.2 (8.4-10.2) mg/dL Magnesium 2.2 (1.6-2.3) mg/dL Total Bilirubin 0.4 (0.2-1.3) mg/dL AST 28 (14-36) U/L ALT 12 (4-34) U/L Alkaline Phosphatase 79 (38-126) U/L Troponin I <0.012 (0.000-0.034) ng/mL Total Protein 7.7 (6.3-8.2) g/dL Albumin 4.5 (3.5-5.0) g/dL Urine Color Urine Appearance (Clear) Urine pH (5.0-8.0) Ur Specific [place] (1.001-1.035) Urine Protein (Negative) Urine Glucose (UA) (Negative) Urine Ketones (Negative) Urine Blood (Negative) Urine Nitrite (Negative) Urine Bilirubin (Negative) Urine Urobilinogen (<2.0) mg/dL Ur Leukocyte Esterase (Negative) - EKG Data -: EKG Interpreted by Me EKG Comments: 12-lead Electrocardiogram Interpretation Note EKG was reviewed and interpreted by myself. 12-lead ECG performed at 1354 is interpreted by me as revealing normal sinus rhythm at a rate of 70 beats per minute. [place] is normal. [place] interval is 186 ms, QRS duration is 87 ms, QTc is 417 ms.. There were no ST or T wave abnormalities to suggest myocardial ischemia or injury. R wave progression across the precordium was satisfactory. By my interpretation this EKG is non-diagnostic for acute ischemia. Disposition Clinical Impression: Fall, Laceration of head Disposition: HOME SELF-CARE Condition: Good Instructions (If sedation given, give patient instructions): Fall Prevention for Older Adults (ED) Is patient prescribed a controlled substance at d/c from ED?: No Referrals: Jose J Peres MD [Primary Care Provider] - 1-2 days Time of Disposition: 17:30
[2022-03-22] MEDS ORDERED: LIDOCAINE 1% INJ 10MG/ML (5 ML VIAL-PF) SQ ONE (14:24)
[2022-03-22 14:30] LABS: Basophils # (A) 0.1 k/uL (0-0.2); Basophils % (A) 1 %; Eosinophils # (A) 0.3 k/uL (0-0.7); Eosinophils % (A) 4 %; HCT 41.2 % (34.0-46.0); HGB 13.7 gm/dL (11.4-16.0); Lymphocytes # (A) 1.8 k/uL (1.0-4.8); Lymphocytes % (A) 27 %; MCH 32.7 pg (25.0-35.0); MCHC 33.4 g/dL (31.0-37.0); MCV 97.9 fL (80.0-100.0); Mean Platelet Volume 8.3; Monocytes # (A) 0.4 k/uL (0-1.0); Monocytes % (A) 6 %; Neutrophils # (A) 4.1 k/uL (1.3-7.7); Neutrophils % (A) 60 %; Platelet Count 196 k/uL (150-450); RBC 4.21 m/uL (3.80-5.40); RDW 12.7 % (11.5-15.5); WBC 6.9 k/uL (3.8-10.6)
[2022-03-22 14:47] LABS: Partial Thromboplastin Time 26.1 sec (22.0-30.0)
[2022-03-22 14:54] LABS: Albumin 4.5 g/dL (3.5-5.0); Calcium 9.2 mg/dL (8.4-10.2); Magnesium 2.2 mg/dL (1.6-2.3); Total Bilirubin 0.4 mg/dL (0.2-1.3); Total Protein 7.7 g/dL (6.3-8.2)
[2022-03-22] MEDS ORDERED: TOPICAL SKIN ADHESIVE 1 EACH AMP TOPICAL ONE (15:07)
--- NOTE | 2022-03-22 16:21 | CT ---
EXAMINATION TYPE: CT brain cspine wo con CT DLP: 1042.7 mGycm, Automated exposure control for dose reduction was used. DATE OF EXAM: 03/22/2022 3:37 PM COMPARISON: None CLINICAL INDICATION:Female, 81 years old with history of syncope; Fall and forehead laceration. TECHNIQUE: Brain: Multiple axial CT images of the brain were obtained without IV contrast. Cspine: Axial CT images from the skull base to the inferior aspect of T2 we obtained without intraven ous contrast. Coronal and sagittal reformatted images were also reviewed. FINDINGS: Brain: Extra-axial spaces: No abnormal extra-axial fluid collections. Ventricular system: Dilatation in proportion to cerebral atrophy. Cerebral parenchyma: Cerebral atrophy. No acute intraparenchymal hemorrhage or mass effect. The moseley -white junction is well differentiated. Scattered hypoattenuating areas are seen within the white mat ter. Cerebellum: Unremarkable. Mass effect: No evidence of midline shift. Intracranial vasculature: unremarkable Soft tissues: Left frontal scalp and cheek saphenous fat stranding likely representing edema. Calvarium/osseous structures: No depressed skull fracture. Paranasal sinuses and mastoid air cells: Clear. Visualized orbits: Orbital contents are intact. Cervical spine: Fracture: None. Osseous structures: Multilevel degenerative disc disease changes with endplate spurring and disc oste ophyte complex's. Vertebral alignment: Straightening of the alignment. Spinal canal/Neural Foramina: No evidence of significant spinal canal narrowing. Facet joint uncovert ebral joint arthropathy scattered throughout the cervical spine with varying degrees of neural forami nal stenosis. Neck soft tissues: Prevertebral soft tissues are within normal limits. Right thyroid nodule measuring 7 mm.. Other: The airway is patent. The lung apices are clear. Atherosclerosis of the arterial vasculature. IMPRESSION: 1. No acute intracranial process. 2. Nonspecific white matter changes, likely secondary to chronic small vessel ischemic disease. 3. Left frontal scalp and left cheek subcutaneous edema. 4. No evidence of cervical spine fracture. 5. Moderate to severe multilevel degenerative disc disease varying degrees of neural foraminal steno sis throughout the spine..
--- NOTE | 2022-03-22 16:26 | CT ---
EXAMINATION TYPE: CT facial bones wo con CT DLP: 1042.7 mGycm, Automated exposure control for dose reduction was used. DATE OF EXAM: 03/22/2022 3:37 PM COMPARISON: Extremity brain same day. CLINICAL INDICATION:Female, 81 years old with history of facial pain, fall; Fall and forehead lacera tion. TECHNIQUE: Multiple unenhanced axial CT images were obtained of the facial bones soft tissue and bone windows. Coronal, axial and sagittal reformatted images were also provided in soft tissue and bone windows and submitted for interpretation. FINDINGS: Left facial and left cheek subcutaneous fat stranding/edema. There is no evidence of fractu re, subluxation, dislocation. The lenses are not in the globes. The temporal-mandibular joints appear symmetric. The visualized portion of the paranasal sinuses appear clear. IMPRESSION: 1. No evidence of acute fracture. 2. Left cheek and left frontal scalp edema.
--- NOTE | 2022-03-22 16:27 | XR ---
EXAMINATION TYPE: XR chest 2V DATE OF EXAM: 03/22/2022 3:41 PM COMPARISON: Chest radiographs from 10/03/2020 TECHNIQUE: XR chest 2V Frontal and lateral views of the chest. CLINICAL INDICATION:Female, 81 years old with history of syncope; FINDINGS: Lungs/Pleura: There is flattening of the diaphragm with increased lucency of the lungs. No evidence o f pneumothorax, pleural effusion or focal consolidation. Pulmonary vascularity: Unremarkable. Heart/mediastinum: Cardiomediastinal silhouette is unremarkable. Musculoskeletal: No acute osseous pathology. IMPRESSION: 1. No acute cardiopulmonary disease process. 2. COPD changes.
[2022-03-22 17:23] LABS: Appearance,Urine Clear (Clear); Bilirubin,Urine Negative (Negative); Blood,Urine Negative (Negative); Color,Urine Light Yellow; Glucose,Urine (UA) Negative (Negative); Ketones,Urine Negative (Negative); Leukocyte Esterase,Urine Negative (Negative); Nitrite,Urine Negative (Negative); PH, Urine 5.5 (5.0-8.0); Protein,Urine Negative (Negative); Specific Gravity,Urine 1.012 (1.001-1.035); Urobilinogen,Urine <2.0 mg/dL (<2.0)
[2022-03-22 17:58] VITALS: BP 110/68; PULSE 78
== END 2022-03-22 17:55 | disposition home or self-care (01) ==
LOC: EC 13:21
DX: S01.91XA Laceration without foreign body of unspecified part of head, initial encounter (principal); E78.5 Hyperlipidemia, unspecified; I10 Essential (primary) hypertension; Z23 Encounter for immunization; Z91.048 Other nonmedicinal substance allergy status; W19.XXXA Unspecified fall, initial encounter
CPT/HCPCS: 36415; 93005; 80053; 83735; 84484; 85025; 85610; 85730; 81003; 71046; 72125; 70486; 70450; 90715; 99284; 90471; 96360; J2001

== ENCOUNTER 2022-04-03 16:36 | Emergency (ER) | payer MEDICARE, BC ==
[2022-04-03 16:49] VITALS: BP 128/78; PULSE 81; RESP 18; TEMP 97.7
--- NOTE | 2022-04-03 18:03 | ED ---
Fall HPI - General Chief Complaint: Fall Stated Complaint: Fall, blood thiners Time Seen by Provider: 04/03/22 16:51 Source: patient, family, EMS, Caregiver Mode of arrival: EMS - History of Present Illness Initial Comments: This is an 81-year-old female who presents to the emergency department for a fall. She was walking out of her closet when she caught her foot on a carpet a nd tripped. When she fell she hit the back of her head. Denies taking any blood thinners. She does report some pain to the back of her head on the right side. She also has some obvious bruising underneath the left eye, however this may be from the fall she experienced a couple of weeks ago. Currently denies any pain in the chest, trunk or, extremities. The staff heard her fall and came to her assistance. Denies any loss of consciousness or prolonged downtime. Denies any fevers, chills, sore throat, cough, dyspnea, chest pain, palpitations, abdominal pain, nausea, vomiting, diarrhea, or back pain. MD Complaint: fall Fall From: standing Fall Witnessed: no Place Fall Occurred: long term/SNF Loss of Consciousness: none Prolonged Down Time?: no Symptoms Prior to Fall: none Location: head Context: tripped/slipped - Related Data Home Medications Medication Instructions Recorded Confirmed Atorvastatin [Lipitor] 10 mg PO Q48H 04/28/18 10/03/20 Lisinopril-Hctz 20-12.5 mg 1 tab PO DAILY 04/28/18 10/03/20 [Zestoretic 20-12.5] Multivitamin/Iron/Folic Acid 1 tab PO DAILY 04/28/18 10/03/20 [Centrum Adults Tablet] buPROPion XL [Wellbutrin XL] 300 mg PO DAILY 04/28/18 10/03/20 Naproxen Sodium [Aleve] 220 mg PO Q12HR PRN 11/30/18 10/03/20 Calcium Carbonate [Calcium] 600 mg PO DAILY 10/03/20 10/03/20 Cholecalciferol [Vitamin D3 (25 1,000 unit PO DAILY 10/03/20 10/03/20 Mcg = 1000 Iu)] Meclizine HCl 12.5 mg PO TID PRN 10/03/20 10/03/20 Mirabegron [Myrbetriq] 50 mg PO DAILY 10/03/20 10/03/20 Vit C/E/Zn/Coppr/Lutein/Zeaxan 1 tab PO DAILY 10/03/20 10/03/20 [Preservision Areds 2 Softgel] Previous Rx's Medication Instructions Recorded Diclofenac Sodium Gel [Voltaren 2 gm TOPICAL QID tube 10/08/20 Gel] Levofloxacin [Levaquin] 500 mg PO DAILY 1 Days #7 tab 10/08/20 hydrALAZINE HCL [Apresoline] 25 mg PO Q6HR PRN tab 10/08/20 metroNIDAZOLE [Flagyl] 500 mg PO TID #21 tab 10/08/20 Allergies Allergy/AdvReac Type Severity Reaction Status Date / Time nickel Allergy Rash/Hives Verified 04/03/22 16:49 Review of Systems ROS Statement: Those systems with pertinent positive or pertinent negative responses have been documented in the HPI. ROS Other: All systems not noted in ROS Statement are negative. Past Medical History Past Medical History: Cancer, GERD/Reflux, Hyperlipidemia, Hypertension, Osteoarthritis (OA) Additional Past Medical History / Comment(s): 'slight heart murmer", hx skin cancer, numbness in left hand-two fingers, spinal stenosis, degenerative disks, "dry eyes", "SOME TROUBLE SWALLOWING" History of Any Multi-Drug Resistant Organisms: None Reported Past Surgical History: Orthopedic Surgery Additional Past Surgical History / Comment(s): 8 surgeries to remove skin cancer,2 surgeries on rt ankle for fx(plate and screws), 2 surgeries on left knee and thu in left knee as small child, tumor removed from nose, blepharoplasty pop eyes, pop cataracts, left arm surgery to release nerve, steroid spinal injections, total right ankle arthroplasty and right ANKLE S URGERY-JOINT REPLACEMENT Past Anesthesia/Blood Transfusion Reactions: No Reported Reaction Additional Past Anesthesia/Blood Transfusion Reaction / Comment(s): no family hx (adopted) Past Psychological History: Anxiety, Depression Smoking Status: Never smoker Past Alcohol Use History: Occasional Past Drug Use History: None Reported - Past Family History Mother Family Medical History: Unable to Obtain Additional Family Medical History / Comment(s): Patient was adopted and does not know any family history. Daughter(s) Family Medical History: No Reported History Additional Family Medical History / Comment(s): Patient has 3 daughters and 2 sons all in their 50s with no major medical problems. General Exam Limitations: no limitations General appearance: alert, in no apparent distress Head exam: Present: atraumatic, normocephalic, normal inspection, other (Mild tenderness to the right occipital area no obvious abrasions or lacerations. No palpable hematoma. Ecchymosis inferior to the left orbit.) Respiratory exam: Present: normal lung sounds bilaterally. Absent: respiratory distress, wheezes, rales, rhonchi, stridor Cardiovascular Exam: Present: regular rate, normal rhythm, normal heart sounds. Absent: systolic murmur, diastolic murmur, rubs, gallop, clicks Extremities exam: Present: normal inspection, full ROM, normal capillary refill. Absent: tenderness, pedal edema, joint swelling, calf tenderness Neurological exam: Present: alert, oriented X3, CN II-XII intact Psychiatric exam: Present: normal affect, normal mood Skin exam: Present: warm, dry, intact. Absent: rash Course Vital Signs 04/03/22 16:43 Temperature 97.7 F Pulse Rate 81 Respiratory 18 Rate Blood Pressure 128/78 O2 Sat by Pulse 98 Oximetry Medical Decision Making - Medical Decision Making This is an 81-year-old female who presents to the emergency department for a fall. Patient fell and hit the back of her head. CT of the facial bones, head, and C-spine were obtained, all revealing no acute irregularities. There are no obvious abrasions or lacerations to the head or neck. Patient cleared for discharge home. Instructed the caregiver to pay close attention to her over the next couple of days, and if she exhibits any neurological or behavioral changes, to return to the emergency department, as it may be an indication of a delayed brain bleed. Return precautions reviewed in depth, the patient is instructed to return to the emergency department with any new, worsening, or concerning symptoms. Patient verbalized understanding. This case was discussed in detail with the attending ED physician. Presentation, findings, and treatment plan discussed in detail as well. - Radiology Data Radiology results: report reviewed, image reviewed Disposition Clinical Impression: Head injury, closed, without LOC Disposition: HOME SELF-CARE Instructions (If sedation given, give patient instructions): Fall Prevention for Older Adults (ED) Additional Instructions: Return to the emergency department with any new, worsening, or concerning symptoms. Closely monitor the patient and her behavior over the next couple of days and if she exhibits any changes return to the emergency department immediately. Follow up with your primary care provider in 1-2 days. Is patient prescribed a controlled substance at d/c from ED?: No Referrals: Jose J Peres MD [Primary Care Provider] - 1-2 days
--- NOTE | 2022-04-03 18:11 | CT ---
EXAMINATION TYPE: CT brain cspine wo con CT DLP: 1209.7 mGycm, Automated exposure control for dose reduction was used. DATE OF EXAM: 04/03/2022 5:45 PM COMPARISON: 03/22/2022 CLINICAL INDICATION:Female, 81 years old with history of head injury after fall; Head injury after fa ll TECHNIQUE: Brain: Multiple axial CT images of the brain were obtained without IV contrast. Cspine: Axial CT images from the skull base to the inferior aspect of T2 we obtained without intraven ous contrast. Coronal and sagittal reformatted images were also reviewed. FINDINGS: Brain: Extra-axial spaces: No abnormal extra-axial fluid collections. Ventricular system: Dilatation in proportion to cerebral atrophy. Cerebral parenchyma: Cerebral atrophy. No acute intraparenchymal hemorrhage or mass effect. The moseley -white junction is well differentiated. Scattered hypoattenuating areas are seen within the white mat ter. Cerebellum: Unremarkable. Mass effect: No evidence of midline shift. Intracranial vasculature: Atherosclerotic calcifications of the intracranial vessels. Soft tissues: Normal. Calvarium/osseous structures: No depressed skull fracture. Paranasal sinuses and mastoid air cells: Clear. Visualized orbits: Bilateral aphakia Cervical spine: Fracture: None. Osseous structures: Multilevel degenerative disc disease changes with endplate spurring and disc oste ophyte complex's. Vertebral alignment: Straightening of the normal alignment of the cervical spine. Spinal canal/Neural Foramina: Mild multilevel spinal canal stenosis secondary disc osteophyte complex es throughout the cervical spine. Facet joint uncovertebral joint arthropathy scattered throughout th e cervical spine with varying degrees of neural foraminal stenosis. Neck soft tissues: Prevertebral soft tissues are within normal limits. Other: The airway is patent. Respiratory motion limits presumably mosaic attenuation from atelectasis noted bilaterally. IMPRESSION: 1. No acute intracranial process. 2. Nonspecific white matter changes, likely secondary to chronic small vessel ischemic disease. 3. No evidence of cervical spine fracture. 4. Moderate to severe multilevel degenerative disc disease.
--- NOTE | 2022-04-03 18:13 | CT ---
EXAMINATION TYPE: CT facial bones wo con CT DLP: 1209.7 mGycm, Automated exposure control for dose reduction was used. DATE OF EXAM: 04/03/2022 5:45 PM COMPARISON: CT facial 03/22/2022. CLINICAL INDICATION:Female, 81 years old with history of Head and facial trauma from fall; Head injur y after fall TECHNIQUE: Multiple unenhanced axial CT images were obtained of the facial bones soft tissue and bone windows. Coronal, axial and sagittal reformatted images were also provided in soft tissue and bone windows and submitted for interpretation. No 3-D reformats are created. FINDINGS: There is no evidence of fracture, subluxation, dislocation, or significant soft tissue swelling. The orbital contents are unremarkable. The temporal-mandibular joints appear symmetric. No evidence of si gnificant paranasal sinus disease. Bilateral aphakia IMPRESSION: No evidence of acute fracture.
== END 2022-04-03 18:53 | disposition home or self-care (01) ==
LOC: EC 16:36
DX: S05.12XA Contusion of eyeball and orbital tissues, left eye, initial encounter (principal); I10 Essential (primary) hypertension; E78.5 Hyperlipidemia, unspecified; K21.9 Gastro-esophageal reflux disease without esophagitis; M19.90 Unspecified osteoarthritis, unspecified site; F32.A Depression, unspecified; F41.9 Anxiety disorder, unspecified; Z79.899 Other long term (current) drug therapy; W01.0XXA Fall on same level from slipping, tripping and stumbling without subsequent striking against object, initial encounter; Y92.129 Unspecified place in nursing home as the place of occurrence of the external cause
CPT/HCPCS: 70450; 70486; 72125; 99284

== ENCOUNTER 2022-05-03 17:45 | Emergency (ER) | payer MEDICARE, BC ==
[2022-05-03 18:12] VITALS: BP 153/79; PULSE 82; RESP 18; TEMP 97.6
--- NOTE | 2022-05-03 18:47 | XR ---
EXAMINATION TYPE: XR hand complete LT DATE OF EXAM: 05/03/2022 6:39 PM INDICATION: Patient age:Female; 81 years old; Reason for study: pain; COMPARISON: None TECHNIQUE: Frontal, lateral and oblique views of the right hand were obtained. FINDINGS: Bone demineralization. Normal alignment of the visualized joints. No acute osseous patholo gy is identified. The DIP and PIP joints with joint space narrowing and sclerosis. No osseous erosion s. Severe degenerative changes at the first carpometacarpal joint. No evidence of soft tissue swellin g. No radiopaque foreign bodies. IMPRESSION: No acute osseous pathology. Degenerative changes most pronounced at the first carpometacarpal joint.
--- NOTE | 2022-05-03 19:46 | ED ---
General Adult HPI - General Chief complaint: Fall Stated complaint: fall, hit head, hand injury Time Seen by Provider: 05/03/22 19:38 Source: patient Limitations: no limitations - History of Present Illness Initial comments: Patient presents to the ED with her friend from her assisted living facility for evaluation status post fall/possible syncope. Patient states that she was sitting at a chair at her desk at her assisted living facility this evening, and the next thing she remembers was waking up on the floor. Patient states that she is uncertain how she fell out of her chair onto the carpeted floor. She states that she is not certain if she lost consciousness. Patient is currently complaining of having left hand pain and skin tears. Patient also states that she believes that she hit her head, but she denies having any head pain, although she states that her head feels unusual. Patient denies any other site of pain or injury. Patient denies fever or chills, headache, focal numbness/weakness/neuro deficit, visual changes, speech difficulty, neck/back/lower extremity pain, chest pain, cough or cold symptoms, palpitations, dizziness, abdominal pain, nausea/vomiting/diarrhea, bloody or melanotic stool, dysuria or urinary symptoms, or any other symptoms or complaints. Patient states that her tetanus is up-to-date. - Related Data Home Medications Medication Instructions Recorded Confirmed Atorvastatin [Lipitor] 10 mg PO Q48H 04/28/18 10/03/20 Lisinopril-Hctz 20-12.5 mg 1 tab PO DAILY 04/28/18 10/03/20 [Zestoretic 20-12.5] Multivitamin/Iron/Folic Acid 1 tab PO DAILY 04/28/18 10/03/20 [Centrum Adults Tablet] buPROPion XL [Wellbutrin XL] 300 mg PO DAILY 04/28/18 10/03/20 Naproxen Sodium [Aleve] 220 mg PO Q12HR PRN 11/30/18 10/03/20 Calcium Carbonate [Calcium] 600 mg PO DAILY 10/03/20 10/03/20 Cholecalciferol [Vitamin D3 (25 1,000 unit PO DAILY 10/03/20 10/03/20 Mcg = 1000 Iu)] Meclizine HCl 12.5 mg PO TID PRN 10/03/20 10/03/20 Mirabegron [Myrbetriq] 50 mg PO DAILY 10/03/20 10/03/20 Vit C/E/Zn/Coppr/Lutein/Zeaxan 1 tab PO DAILY 10/03/20 10/03/20 [Preservision Areds 2 Softgel] Previous Rx's Medication Instructions Recorded Diclofenac Sodium Gel [Voltaren 2 gm TOPICAL QID tube 10/08/20 Gel] Levofloxacin [Levaquin] 500 mg PO DAILY 1 Days #7 tab 10/08/20 hydrALAZINE HCL [Apresoline] 25 mg PO Q6HR PRN tab 10/08/20 metroNIDAZOLE [Flagyl] 500 mg PO TID #21 tab 10/08/20 Allergies Allergy/AdvReac Type Severity Reaction Status Date / Time nickel Allergy Rash/Hives Verified 05/03/22 18:09 Review of Systems ROS Statement: Those systems with pertinent positive or pertinent negative responses have been documented in the HPI. ROS Other: All systems not noted in ROS Statement are negative. Past Medical History Past Medical History: Cancer, GERD/Reflux, Hyperlipidemia, Hypertension, O steoarthritis (OA) Additional Past Medical History / Comment(s): 'slight heart murmer", hx skin cancer, numbness in left hand-two fingers, spinal stenosis, degenerative disks, "dry eyes", "SOME TROUBLE SWALLOWING" History of Any Multi-Drug Resistant Organisms: None Reported Past Surgical History: Orthopedic Surgery Additional Past Surgical History / Comment(s): 8 surgeries to remove skin cancer,2 surgeries on rt ankle for fx(plate and screws), 2 surgeries on left knee and thu in left knee as small child, tumor removed from nose, blepharoplasty pop eyes, pop cataracts, left arm surgery to release nerve, steroid spinal injections, total right ankle arthroplasty and right ANKLE SURGERY-JOINT REPLACEMENT Past Anesthesia/Blood Transfusion Reactions: No Reported Reaction Additional Past Anesthesia/Blood Transfusion Reaction / Comment(s): no family hx (adopted) Past Psychological History: Anxiety, Depression Smoking Status: Never smoker Past Alcohol Use History: Occasional Past Drug Use History: None Reported - Past Family History Mother Family Medical History: Unable to Obtain Additional Family Medical History / Comment(s): Patient was adopted and does not know any family history. Daughter(s) Family Medical History: No Reported History Additional Family Medical History / Comment(s): Patient has 3 daughters and 2 sons all in their 50s with no major medical problems. General Exam Limitations: no limitations General appearance: alert, in no apparent distress Head exam: Present: atraumatic, normocephalic Eye exam: Present: normal appearance, PERRL, EOMI ENT exam: Present: mucous membranes moist, TM's normal bilaterally Neck exam: Present: other (Trachea is in midline). Absent: tenderness, meningismus Respiratory exam: Present: normal lung sounds bilaterally. Absent: respiratory distress, wheezes, rales, rhonchi, stridor, chest wall tenderness Cardiovascular Exam: Present: regular rate, normal rhythm, normal heart sounds, other (Normal radial pulses bilaterally) GI/Abdominal exam: Present: soft. Absent: distended, tenderness, guarding Extremities exam: Present: other (Superficial skin tears are noted over left third and fifth digits with surrounding tenderness; no deformity is appreciated; pelvis is stable and nontender). Absent: pedal edema, calf tenderness Back exam: Absent: tenderness Neurological exam: Present: alert, oriented X3, CN II-XII intact. Absent: motor sensory deficit Psychiatric exam: Present: normal affect, normal mood Skin exam: Present: warm, dry, normal color Course Vital Signs 05/03/22 18:09 Temperature 97.6 F Pulse Rate 82 Respiratory 18 Rate Blood Pressure 153/79 O2 Sat by Pulse 97 Oximetry - Reevaluation(s) Reevaluation #1: 05/03/22 23:02 Patient denies development of any new pain or symptoms while in the ED. Patient remains alert and breathing comfortably. Patient and friend are aware the patient's test results. I have discussed with the patient my recommendation to be admitted to the hospital for cardiac monitoring given her possible syncopal episode, but she declines. Patient states that she has had multiple syncopal episodes in the past, and she does not want to be admitted to the hospital for any further monitoring or workup. Patient states that she will follow up closely with her primary care provider. Other than mild renal insufficiency (patient was treated with IV fluids in the ED), the patient's labs and imaging studies are fairly unremarkable. Patient's wounds were cleaned and dressed by ED nursing staff. Patient was counseled about falls, skin tears and syncope. Patient was clearly explained return and follow-up instructions, and she was instructed to follow up closely with her primary care provider. Patient feels comfortable with this plan. EKG Findings - EKG Comments: EKG Findings:: Normal sinus rhythm, ventricular rate of 88 bpm, no ectopy, normal RI and QRS intervals, normal QT interval, normal axis, no ST or T-wave abnormality Medical Decision Making - Lab Data Result diagrams: 05/03/22 20:35 05/03/22 20:35 Lab Results 05/03/22 05/03/22 05/03/22 Range/Units 20:35 20:35 20:35 WBC 7.1 (3.8-10.6) k/uL RBC 3.99 (3.80-5.40) m/uL Hgb 12.5 (11.4-16.0) gm/dL Hct 39.0 (34.0-46.0) % MCV 97.7 (80.0-100.0) fL MCH 31.2 (25.0-35.0) pg MCHC 32.0 (31.0-37.0) g/dL RDW 12.7 (11.5-15.5) % Plt Count 200 (150-450) k/uL MPV 8.2 Neutrophils % 64 % Lymphocytes % 25 % Monocytes % 6 % Eosinophils % 2 % Basophils % 1 % Neutrophils # 4.5 (1.3-7.7) k/uL Lymphocytes # 1.8 (1.0-4.8) k/uL Monocytes # 0.4 (0-1.0) k/uL Eosinophils # 0.2 (0-0.7) k/uL Basophils # 0.0 (0-0.2) k/uL PT 10.9 (9.0-12.0) sec INR 1.0 (<1.2) APTT 26.6 (22.0-30.0) sec Sodium 139 (137-145) mmol/L Potassium 4.0 (3.5-5.1) mmol/L Chloride 102 (98-107) mmol/L Carbon Dioxide 29 (22-30) mmol/L Anion Gap 8 mmol/L BUN 48 H (7-17) mg/dL Creatinine 1.46 H (0.52-1.04) mg/dL Est GFR (CKD-EPI)AfAm 38 (>60 ml/min/1.73 sqM) Est GFR (CKD-EPI)NonAf 33 (>60 ml/min/1.73 sqM) Glucose 108 H (74-99) mg/dL Calcium 9.5 (8.4-10.2) mg/dL Magnesium 2.2 (1.6-2.3) mg/dL Total Bilirubin 0.3 (0.2-1.3) mg/dL AST 23 (14-36) U/L ALT 11 (4-34) U/L Alkaline Phosphatase 76 (38-126) U/L Troponin I (0.000-0.034) ng/mL Total Protein 7.5 (6.3-8.2) g/dL Albumin 4.4 (3.5-5.0) g/dL 05/03/22 Range/Units 20:35 WBC (3.8-10.6) k/uL RBC (3.80-5.40) m/uL Hgb (11.4-16.0) gm/dL Hct (34.0-46.0) % MCV (80.0-100.0) fL MCH (25.0-35.0) pg MCHC (31.0-37.0) g/dL RDW (11.5-15.5) % Plt Count (150-450) k/uL MPV Neutrophils % % Lymphocytes % % Monocytes % % Eosinophils % % Basophils % % Neutrophils # (1.3-7.7) k/uL Lymphocytes # (1.0-4.8) k/uL Monocytes # (0-1.0) k/uL Eosinophils # (0-0.7) k/uL Basophils # (0-0.2) k/uL PT (9.0-12.0) sec INR (<1.2) APTT (22.0-30.0) sec Sodium (137-145) mmol/L Potassium (3.5-5.1) mmol/L Chloride (98-107) mmol/L Carbon Dioxide (22-30) mmol/L Anion Gap mmol/L BUN (7-17) mg/dL Creatinine (0.52-1.04) mg/dL Est GFR (CKD-EPI)AfAm (>60 ml/min/1.73 sqM) Est GFR (CKD-EPI)NonAf (>60 ml/min/1.73 sqM) Glucose (74-99) mg/dL Calcium (8.4-10.2) mg/dL Magnesium (1.6-2.3) mg/dL Total Bilirubin (0.2-1.3) mg/dL AST (14-36) U/L ALT (4-34) U/L Alkaline Phosphatase (38-126) U/L Troponin I <0.012 (0.000-0.034) ng/mL Total Protein (6.3-8.2) g/dL Albumin (3.5-5.0) g/dL - Radiology Data Left hand x-rays: No acute osseous pathology. Degenerative changes most pronounced at the first carpometacarpal joint. Chest x-ray: No acute cardiopulmonary disease process. No significant change from prior examination. COPD changes. Noncontrast head CT: No acute intracranial process. Nonspecific white matter changes, likely secondary to chronic small vessel ischemic disease. Disposition Clinical Impression: Fall, Skin tear Narrative: Possible syncope Disposition: HOME SELF-CARE Condition: Stable Instructions (If sedation given, give patient instructions): Fall Prevention for Older Adults (ED), Syncope (ED), Skin Tear (ED) Additional Instructions: Return to the ER immediately should you develop dizziness, fainting, new or worsening pain, a fever, chest pain, shortness of breath, or any other symptoms or complaints. Follow up closely with your primary care provider. Is patient prescribed a controlled substance at d/c from ED?: No Referrals: Jose J Peres MD [Primary Care Provider] - 1-2 days Time of Disposition: 23:06
--- NOTE | 2022-05-03 20:37 | XR ---
EXAMINATION TYPE: XR chest 1V portable DATE OF EXAM: 05/03/2022 8:32 PM COMPARISON: Chest radiographs from 03/22/2022. TECHNIQUE: XR chest 1V portable Frontal view of the chest. CLINICAL INDICATION:Female, 81 years old with history of syncope; FINDINGS: Lungs/Pleura: There is flattening of the diaphragm with increased lucency of the lungs. No evidence o f pneumothorax, pleural effusion or focal consolidation. Pulmonary vascularity: Unremarkable. Heart/mediastinum: Cardiomediastinal silhouette is unremarkable. Musculoskeletal: No acute osseous pathology. IMPRESSION: 1. No acute cardiopulmonary disease process. No significant change from prior examination. 2. COPD changes.
[2022-05-03 20:58] LABS: Basophils % (A) 1 %; Eosinophils # (A) 0.2 k/uL (0-0.7); Eosinophils % (A) 2 %; HGB 12.5 gm/dL (11.4-16.0); Lymphocytes # (A) 1.8 k/uL (1.0-4.8); Lymphocytes % (A) 25 %; MCH 31.2 pg (25.0-35.0); MCV 97.7 fL (80.0-100.0); Mean Platelet Volume 8.2; Monocytes # (A) 0.4 k/uL (0-1.0); Monocytes % (A) 6 %; Neutrophils # (A) 4.5 k/uL (1.3-7.7); Neutrophils % (A) 64 %; Platelet Count 200 k/uL (150-450); RBC 3.99 m/uL (3.80-5.40); RDW 12.7 % (11.5-15.5); WBC 7.1 k/uL (3.8-10.6)
[2022-05-03 21:02] LABS: Albumin 4.4 g/dL (3.5-5.0); Calcium 9.5 mg/dL (8.4-10.2); Magnesium 2.2 mg/dL (1.6-2.3); Total Bilirubin 0.3 mg/dL (0.2-1.3); Total Protein 7.5 g/dL (6.3-8.2)
--- NOTE | 2022-05-03 21:08 | CT ---
EXAMINATION TYPE: CT brain wo con CT DLP: 1196.4 mGycm, Automated exposure control for dose reduction was used. DATE OF EXAM: 05/03/2022 8:59 PM COMPARISON: CT brain C-spine 04/03/2022. CLINICAL INDICATION:Female, 81 years old with history of fall TECHNIQUE: Brain: Multiple axial CT images of the brain were obtained without IV contrast. Coronal and sagittal reformats reviewed. FINDINGS: Brain: Extra-axial spaces: No abnormal extra-axial fluid collections. Ventricular system: Dilatation in proportion to cerebral atrophy. Cerebral parenchyma: No acute intraparenchymal hemorrhage or mass effect. The moseley-white junction is well differentiated. Scattered and confluent hypoattenuating areas are seen within the white matter. Cerebral atrophy. Cerebellum: Unremarkable. Mass effect: No evidence of midline shift. Intracranial vasculature: Atherosclerotic calcifications of the intracranial vessels. Soft tissues: Normal. Calvarium/osseous structures: No depressed skull fracture. Paranasal sinuses and mastoid air cells: Clear Visualized orbits: Bilateral aphakia IMPRESSION: 1. No acute intracranial process. 2. Nonspecific white matter changes, likely secondary to chronic small vessel ischemic disease.
[2022-05-03 21:21] LABS: Partial Thromboplastin Time 26.6 sec (22.0-30.0); Prothrombin Time 10.9 sec (9.0-12.0)
[2022-05-03] MEDS ORDERED: SODIUM CHLORIDE 0.9% 1,000 ML IV ONE (21:37)
[2022-05-03] MEDS ORDERED: NEOMYCIN-BACITRACIN-POLY OINT 14 GM TUBE TOPICAL STA (22:36)
== END 2022-05-03 23:42 | disposition home or self-care (01) ==
LOC: EC 17:45
DX: S61.213A Laceration without foreign body of left middle finger without damage to nail, initial encounter (principal); S61.217A Laceration without foreign body of left little finger without damage to nail, initial encounter; I10 Essential (primary) hypertension; K21.9 Gastro-esophageal reflux disease without esophagitis; M19.90 Unspecified osteoarthritis, unspecified site; E78.5 Hyperlipidemia, unspecified; Z91.09 Other allergy status, other than to drugs and biological substances; Z79.899 Other long term (current) drug therapy; W07.XXXA Fall from chair, initial encounter
CPT/HCPCS: 36415; 70450; 71045; 80053; 83735; 84484; 85025; 85610; 85730; 93005; 96360; 99284

== ENCOUNTER → 2022-07-18 | Outpatient (CLI) | payer MEDICARE, BC ==
--- NOTE | 2022-07-18 17:37 | US ---
EXAMINATION TYPE: US venous doppler duplex LE RT DATE OF EXAM: 07/18/2022 4:59 PM COMPARISON: NONE CLINICAL HISTORY: I82.491 DVT EXTREMITY. Right lower extremity redness and edema SIDE PERFORMED: Right TECHNIQUE: The lower extremity deep venous system is examined utilizing real time linear array sonog glenny with graded compression, doppler sonography and color-flow sonography. VESSELS IMAGED: Common Femoral Vein Deep Femoral Vein Greater Saphenous Vein * Femoral Vein Popliteal Vein Small Saphenous Vein * Proximal Calf Veins (* superficial vessels) Right Leg: Negative for DVT. Prominent lymph nodes visualized in the right groin, lacking a hilum. Largest measures 1.7 x 0.8 x 1.1cm IMPRESSION: No evidence of deep vein thrombosis in the right leg.
== END | disposition home or self-care (01) ==
LOC: RADUSWWP 16:25
PROVIDERS: ATTEND Podiatrist Foot & Ankle Surgery
DX: I82.491 Acute embolism and thrombosis of other specified deep vein of right lower extremity (principal)

== ENCOUNTER → 2023-03-18 | Outpatient (CLI) | payer MEDICARE, BC | END | disposition home or self-care (01) | LOC: LABWHC1 11:05 | PROVIDERS: ATTEND Ophthalmology | DX: H35.3112 Nonexudative age-related macular degeneration, right eye, intermediate dry stage (principal); H16.223 Keratoconjunctivitis sicca, not specified as Sjogren's, bilateral | CPT/HCPCS: 36415 ==

== ENCOUNTER 2023-05-13 07:44 | Inpatient (IN) | payer MEDICARE, BC ==
[2023-05-13 07:53] LABS: Glucose,Whole Blood 96 mg/dL (70-110)
--- NOTE | 2023-05-13 07:54 | ED ---
General Adult HPI - General Stated complaint: Neuro, poss Stroke, CVA Time Seen by Provider: 05/13/23 07:46 Source: patient, RN notes reviewed Mode of arrival: EMS Limitations: altered mental status - History of Present Illness Initial comments: Patient is a pleasant 82-year-old female presenting to the emergency department with concern for weakness. Patient admits to feeling weak. Patient is a poor historian and offers little history. Last known well is to believed to be last evening however patient is unable to clarify this. Last known well therefore is unknown. Patient did have symptoms this morning. - Related Data Home Medications Medication Instructions Recorded Confirmed Multivitamin/Iron/Folic Acid 1 tab PO DAILY 04/28/18 05/13/23 [Centrum Adults Tablet] Meclizine HCl 12.5 mg PO BID PRN 10/03/20 05/13/23 Acetaminophen Tab [Tylenol Tab] 1,000 mg PO BID 05/13/23 05/13/23 Acetaminophen Tab [Tylenol Tab] 1,000 mg PO DAILY@1500 PRN 05/13/23 05/13/23 Albuterol Sulfate [Ventolin HFA] 2 puff INHALATION RT-Q4H PRN 05/13/23 05/13/23 Artificial Tears-Hypromellose 1 drop BOTH EYES QID PRN 05/13/23 05/13/23 [Artificial Tear Drops] Aspirin EC [Ecotrin Low Dose] 81 mg PO DAILY 05/13/23 05/13/23 Autologous Serum Tears 1 drop BOTH EYES QID 05/13/23 05/13/23 Carbidopa-Levodopa 25-100 mg 0.5 tab PO BID@0800,1200 05/13/23 05/13/23 [Sinemet 25-100] Carbidopa-Levodopa 25-100 mg 1 tab PO HS 05/13/23 05/13/23 [Sinemet 25-100] Carboxymethylcellulos/Glycerin 1 drop BOTH EYES QID 05/13/23 05/13/23 [Refresh Relieva 0.5-0.9% Drop] Cholecalciferol [Vitamin D3 (25 50 mcg PO DAILY 05/13/23 05/13/23 Mcg = 1000 Iu)] Docusate [Colace] 100 mg PO HS 05/13/23 05/13/23 Eye Multivitamin/Sodium Tablet 2 tab PO BID 05/13/23 05/13/23 Furosemide [Lasix] 20 mg PO Q2D 05/13/23 05/13/23 L.acidoph,Paracasei, B.lactis 1 cap PO DAILY 05/13/23 05/13/23 [Probiotic] Meloxicam [Mobic] 7.5 mg PO DAILY PRN 05/13/23 05/13/23 Pantoprazole [Protonix] 40 mg PO DAILY PRN 05/13/23 05/13/23 Refresh Optive Drops 1 drop BOTH EYES TID 05/13/23 05/13/23 Refresh Pm Lubricant Eye Ointm 1 applic OPHTHALMIC HS 05/13/23 05/13/23 Steralid Eye Cleanser 1 applic OPHTHALMIC MOWEFR 05/13/23 05/13/23 buPROPion XL [Wellbutrin XL] 150 mg PO DAILY 05/13/23 05/13/23 calcium polycarbophiL [Fiber-Lax] 1,250 mg PO HS 05/13/23 05/13/23 lisinopriL [Zestril] 10 mg PO DAILY 05/13/23 05/13/23 polyethylene glycoL 3350 [Miralax] 17 gm PO DAILY 05/13/23 05/13/23 rOPINIRole HCL [Requip] 0.25 mg PO HS 05/13/23 05/13/23 Allergies Allergy/AdvReac Type Severity Reaction Status Date / Time nickel Allergy Rash/Hives Verified 05/13/23 08:40 Review of Systems ROS Statement: Those systems with pertinent positive or pertinent negative responses have been documented in the HPI. ROS Other: All systems not noted in ROS Statement are negative. Constitutional: Denies: fever Eyes: Denies: eye pain ENT: Denies: ear pain Respiratory: Denies: cough Cardiovascular: Denies: chest pain Endocrine: Denies: fatigue Gastrointestinal: Denies: abdominal pain Genitourinary: Denies: urgency Musculoskeletal: Denies: back pain Neurological: Reports: as per HPI, weakness Past Medical History Past Medical History: Cancer, GERD/Reflux, Hyperlipidemia, Hypertension, Osteoarthritis (OA) Additional Past Medical History / Comment(s): 'slight heart murmer", hx skin cancer, numbness in left hand-two fingers, spinal stenosis, degenerative disks, "dry eyes", "SOME TROUBLE SWALLOWING" History of Any Multi-Drug Resistant Organisms: None Reported Past Surgical History: Orthopedic Surgery Additional Past Surgical History / Comment(s): 8 surgeries to remove skin cancer,2 surgeries on rt ankle for fx(plate and screws), 2 surgeries on left knee and thu in left knee as small child, tumor removed from nose, blepharoplasty pop eyes, pop cataracts, left arm surgery to release nerve, steroid spinal injections, total right ankle arthroplasty and right ANKLE SURGERY-JOINT REPLACEMENT Past Anesthesia/Blood Transfusion Reactions: No Reported Reaction Additional Past Anesthesia/Blood Transfusion Reaction / Comment(s): no family hx (adopted) Past Psychological History: Anxiety, Depression Smoking Status: Never smoker Past Alcohol Use History: Occasional Past Drug Use History: None Reported - Past Family History Mother Family Medical History: Unable to Obtain Additional Family Medical History / Comment(s): Patient was adopted and does not know any family history. Daughter(s) Family Medical History: No Reported History Additional Family Medical History / Comment(s): Patient has 3 daughters and 2 sons all in their 50s with no major medical problems. General Exam Limitations: no limitations General appearance: alert, in no apparent distress Head exam: Present: atraumatic Eye exam: Present: normal appearance, PERRL, EOMI ENT exam: Present: normal oropharynx Neck exam: Present: normal inspection Respiratory exam: Present: normal lung sounds bilaterally Cardiovascular Exam: Present: regular rate, normal rhythm GI/Abdominal exam: Present: soft. Absent: tenderness Extremities exam: Present: normal inspection Neurological exam: Present: alert, oriented X3 Expanded Neurological exam: Present: other (L facial droop. mild slurred speach) Patient oriented to: Present: person, place, time Cranial nerves: EOM's Intact: Normal Motor strength exam: RUE: 5, LUE: 5, RLE: 5, LLE: 5 Eye Response: (4) open spontaneously Motor Response: (6) obeys commands Verbal Response: (5) oriented Psychiatric exam: Present: normal affect, normal mood Skin exam: Present: normal color Course Vital Signs 05/13/23 05/13/23 05/13/23 07:47 08:01 08:04 Temperature 97.7 F 97.7 F Pulse Rate 83 83 78 Respiratory 18 18 18 Rate Blood Pressure 190/97 201/96 201/96 O2 Sat by Pulse 97 98 98 Oximetry 08/02/23 09:32 Temperature Pulse Rate 81 Respiratory 14 Rate Blood Pressure 148/122 O2 Sat by Pulse 98 Oximetry EKG Findings - EKG Results: EKG: interpreted by ERMD (Septal Q waves.), sinus rhythm, normal axis, normal ST/T Medical Decision Making - Medical Decision Making Was pt. sent in by a medical professional or institution (ARYAN Morales, CHALK EXTRUDING MACHINE OPERATOR, urgent care, hospital, or shelter...) When possible be specific @ -Patient was sent from nursing facility Did you speak to anyone other than the patient for history (EMS, parent, family, police, friend...)? What history was obtained from this source @ -[No] Did you review nursing and triage notes (agree or disagree)? Why? @ -[I reviewed and agree with nursing and triage notes] Were old charts reviewed (outside hosp., previous admission, EMS record, old EKG, old radiological studies, urgent care reports/EKG's, shelter records)? Report findings @ -[No old charts were reviewed] Differential Diagnosis (chest pain, altered mental status, abdominal pain women, abdominal pain men, vaginal bleeding, weakness, fever, dyspnea, syncope, headache, dizziness, GI bleed, back pain, seizure, CVA, palpatations, mental health, musculoskeletal)? @ -Differential Weakness: Hypoglycemia, shock, sepsis, hyponatremia, anemia, infection, VT, ETOH, adverse medicine reaction, overdose, stroke, this is not meant to be an all-inclusive list. EKG interpreted by me (3pts min.). @ -[As above] X-rays interpreted by me (1pt min.). @ -Chest x-ray does not reveal acute abnormality CT interpreted by me (1pt min.). @ -CT brain with chronic changes. No acute large mass or hemorrhage U/S interpreted by me (1pt. min.). @ -[None done] What testing was considered but not performed or refused? (CT, X-rays, U/S, labs)? Why? @ -[None] What meds were considered but not given or refused? Why? @ -Patient is not a candidate for TPA secondary to last known well greater than 4.5 hours Did you discuss the management of the patient with other professionals (p rofessionals i.e. ARYAN Morales, CHALK EXTRUDING MACHINE OPERATOR, lab, RT, psych nurse, hospice social worker, fourdrinier operator, teacher, lodge officer, case management assistant)? Give summary @ -Case was discussed with Dr. lee, who will admit covering Dr. Peres Was smoking cessation discussed for >3mins.? @ -[No] Was critical care preformed (if so, how long)? @ -[No] Were there social determinants of health that impacted care today? How? (Home lessness, low income, unemployed, alcoholism, drug addiction, transportation, low edu. Level, literacy, decrease access to med. care, senior living, rehab)? @ -[No] Was there de-escalation of care discussed even if they declined (Discuss DNR or withdrawal of care, Hospice)? DNR status @ -[No] What co-morbidities impacted this encounter? (DM, HTN, Smoking, COPD, CAD, Cancer, CVA, ARF, Chemo, Hep., AIDS, mental health diagnosis, sleep apnea, morbid obesity)? @ -[None] Was patient admitted / discharged? Hospital course, mention meds given and route, prescriptions, significant lab abnormalities, going to OR and other pertinent info. @ -Patient reevaluated and updated. Patient will be admitted with neurology consult. Admission orders written. Patient is not a TPA candidate secondary to last known well greater than 4.5 hours Undiagnosed new problem with uncertain prognosis? @ -[No] Drug Therapy requiring intensive monitoring for toxicity (Heparin, Nitro, Insulin, Cardizem)? @ -[No] Were any procedures done? @ -[No] Diagnosis/symptom? @ -cva Acute, or Chronic, or Acute on Chronic? @ -acute Uncomplicated (without systemic symptoms) or Complicated (systemic symptoms)? @ -[default] Side effects of treatment? @ -[No] Exacerbation, Progression, or Severe Exacerbation? @ -[No] Poses a threat to life or bodily function? How? (Chest pain, USA, VT, pneumonia, PE, COPD, DKA, ARF, appy, cholecystitis, CVA, Diverticulitis, Homicidal, Suicidal, threat to staff... and all critical care pts) @ -[No] - Lab Data Result diagrams: 05/13/23 07:58 05/13/23 07:58 Lab Results 05/13/23 05/13/23 05/13/23 Range/Units 07:50 07:58 07:58 WBC 6.1 (3.8-10.6) k/uL RBC 4.14 (3.80-5.40) m/uL Hgb 12.5 (11.4-16.0) gm/dL Hct 37.9 (34.0-46.0) % MCV 91.4 (80.0-100.0) fL MCH 30.1 (25.0-35.0) pg MCHC 33.0 (31.0-37.0) g/dL RDW 14.3 (11.5-15.5) % Plt Count 176 (150-450) k/uL MPV 8.5 Neutrophils % 54 % Lymphocytes % 33 % Monocytes % 7 % Eosinophils % 3 % Basophils % 0 % Neutrophils # 3.3 (1.3-7.7) k/uL Lymphocytes # 2.1 (1.0-4.8) k/uL Monocytes # 0.4 (0-1.0) k/uL Eosinophils # 0.2 (0-0.7) k/uL Basophils # 0.0 (0-0.2) k/uL PT 10.8 (9.0-12.0) sec INR 1.0 (<1.2) APTT 26.0 (22.0-30.0) sec Sodium (137-145) mmol/L Potassium (3.5-5.1) mmol/L Chloride (98-107) mmol/L Carbon Dioxide (22-30) mmol/L Anion Gap mmol/L BUN (7-17) mg/dL Creatinine (0.52-1.04) mg/dL Est GFR (CKD-EPI)AfAm (>60 ml/min/1.73 sqM) Est GFR (CKD-EPI)NonAf (>60 ml/min/1.73 sqM) Glucose (74-99) mg/dL POC Glucose (mg/dL) 96 (70-110) mg/dL POC Glu [employer] Manager ID Jose J Colon Calcium (8.4-10.2) mg/dL Total Bilirubin (0.2-1.3) mg/dL AST (14-36) U/L ALT (4-34) U/L Alkaline Phosphatase (38-126) U/L Creatine Kinase (30-135) U/L Total Protein (6.3-8.2) g/dL Albumin (3.5-5.0) g/dL 05/13/23 Range/Units 07:58 WBC (3.8-10.6) k/uL RBC (3.80-5.40) m/uL Hgb (11.4-16.0) gm/dL Hct (34.0-46.0) % MCV (80.0-100.0) fL MCH (25.0-35.0) pg MCHC (31.0-37.0) g/dL RDW (11.5-15.5) % Plt Count (150-450) k/uL MPV Neutrophils % % Lymphocytes % % Monocytes % % Eosinophils % % Basophils % % Neutrophils # (1.3-7.7) k/uL Lymphocytes # (1.0-4.8) k/uL Monocytes # (0-1.0) k/uL Eosinophils # (0-0.7) k/uL Basophils # (0-0.2) k/uL PT (9.0-12.0) sec INR (<1.2) APTT (22.0-30.0) sec Sodium 142 (137-145) mmol/L Potassium 4.0 (3.5-5.1) mmol/L Chloride 107 (98-107) mmol/L Carbon Dioxide 27 (22-30) mmol/L Anion Gap 8 mmol/L BUN 21 H (7-17) mg/dL Creatinine 0.64 (0.52-1.04) mg/dL Est GFR (CKD-EPI)AfAm >90 (>60 ml/min/1.73 sqM) Est GFR (CKD-EPI)NonAf 83 (>60 ml/min/1.73 sqM) Glucose 93 (74-99) mg/dL POC Glucose (mg/dL) (70-110) mg/dL POC Glu [employer] Manager ID Calcium 9.1 (8.4-10.2) mg/dL Total Bilirubin 0.4 (0.2-1.3) mg/dL AST 21 (14-36) U/L ALT 13 (4-34) U/L Alkaline Phosphatase 90 (38-126) U/L Creatine Kinase 32 (30-135) U/L Total Protein 7.1 (6.3-8.2) g/dL Albumin 4.0 (3.5-5.0) g/dL Disposition Clinical Impression: Cerebrovascular accident (CVA) Disposition: ADMITTED IP TO THIS HOSP Is patient prescribed a controlled substance at d/c from ED?: No Referrals: None,Stated [REFERRING] - 1-2 days Time of Disposition: 09:59
[2023-05-13 08:12] LABS: Basophils % (A) 0 %; Eosinophils # (A) 0.2 k/uL (0-0.7); Eosinophils % (A) 3 %; HCT 37.9 % (34.0-46.0); HGB 12.5 gm/dL (11.4-16.0); Lymphocytes # (A) 2.1 k/uL (1.0-4.8); Lymphocytes % (A) 33 %; MCH 30.1 pg (25.0-35.0); MCV 91.4 fL (80.0-100.0); Mean Platelet Volume 8.5; Monocytes # (A) 0.4 k/uL (0-1.0); Monocytes % (A) 7 %; Neutrophils # (A) 3.3 k/uL (1.3-7.7); Neutrophils % (A) 54 %; Platelet Count 176 k/uL (150-450); RBC 4.14 m/uL (3.80-5.40); RDW 14.3 % (11.5-15.5); WBC 6.1 k/uL (3.8-10.6)
[2023-05-13 08:22] LABS: ALT 13 U/L (4-34); AST 21 U/L (14-36); African American GFR (CKD) >90 (>60 ml/min/1.73 sqM); Alkaline Phosphatase 90 U/L (38-126); Anion Gap 8 mmol/L; Blood Urea Nitrogen 21 mg/dL (7-17); Calcium 9.1 mg/dL (8.4-10.2); Carbon Dioxide 27 mmol/L (22-30); Chloride 107 mmol/L (98-107); Creatine Kinase 32 U/L (30-135); Glucose 93 mg/dL (74-99); Non-African American GFR(CKD) 83 (>60 ml/min/1.73 sqM); Sodium 142 mmol/L (137-145); Total Bilirubin 0.4 mg/dL (0.2-1.3); Total Protein 7.1 g/dL (6.3-8.2)
[2023-05-13 08:23] LABS: Prothrombin Time 10.8 sec (9.0-12.0)
--- NOTE | 2023-05-13 08:42 | XR ---
EXAMINATION TYPE: XR chest 2V DATE OF EXAM: 05/13/2023 8:26 AM COMPARISON: Chest radiographs from 05/03/2022 TECHNIQUE: XR chest 2V Frontal and lateral views of the chest. CLINICAL INDICATION:Female, 82 years old with history of altered mental status; FINDINGS: Lungs/Pleura: There is flattening of the diaphragm with increased lucency of the lungs. No evidence o f pneumothorax, pleural effusion or focal consolidation. Chronic senescent parenchymal change. Pulmonary vascularity: Unremarkable. Heart/mediastinum: Cardiomediastinal silhouette is unremarkable. Atherosclerotic calcifications are seen in the aorta. Musculoskeletal: Multiple level degenerative disc disease changes seen throughout the spine. Bilatera l shoulder arthropathy. IMPRESSION: Chronic changes without evidence for acute process.
--- NOTE | 2023-05-13 09:08 | CT ---
EXAMINATION TYPE: CT brain wo con DATE OF EXAM: 05/13/2023 COMPARISON: 05/03/2022 INDICATION: headache, slurred speech, left leg drift DLP: 1129.6 mGycm, Automated exposure control for dose reduction was used. CONTRAST: None CT of the brain is performed utilizing 3 mm thick sections through the posterior fossa and 3 mm thick sections through the remaining calvarium. Study is performed within 24 hours of arrival to the hosp ital. No abnormal hyperdensity is present to suggest an acute intracranial hemorrhage. No mass lesion is evident. No acute infarcts are evident. Periventricular white matter hypodensity is present, likely on the bas is of patchy chronic appearing periventricular white matter ischemic changes. Old lacunar infarcts wi thin the inferior basal ganglion may be present. Virchow-Michele's spaces would be within the different ial. Ventricles and sulci are prominent for the patient age. Paranasal sinuses and mastoid air cells within the [id number] are clear. IMPRESSIONS: 1. Patchy chronic appearing periventricular white matter ischemic type changes with atrophy. Findin gs appear similar to comparison study. Follow-up MRI can be performed as clinically indicated
--- NOTE | 2023-05-13 09:17 | CT ---
EXAMINATION TYPE: CT angio head neck DATE OF EXAM: 05/13/2023 HISTORY: headache, slurred speech, left leg drift COMPARISON: None CT DLP: 411.3 mGycm. Automated Exposure Control for Dose Reduction was Utilized. TECHNIQUE: CTA scan of the neck is performed with IV Contrast, patient injected with 65 mL of Isovue 370, axial images are obtained, coronal and sagittal reformatted images are reviewed. Three-D recons tructed images are created on an independent workstation and reviewed. Source images are reviewed. FINDINGS: Carotid/Vascular Structures: There is a three-vessel arch. Vertebral arteries are codominant. Plaquin g is at the distal common carotid arteries and at the carotid bifurcation. Significant flow-limiting stenosis is not identified. Minimal narrowing of less than 50% is present bilaterally at the internal carotid artery origins. There may be a 45% narrowing of the distal right common carotid artery. Cervical of Brush: Vertebral basilar system appears normal. Posterior cerebral vasculature is unrema rkable. Internal carotid arteries bifurcate normally into A1 and M1 segments. A2 segments are normal. The anterior communicating artery is not identified. Left Posterior communicating artery may be pres ent. Right posterior communicating artery is absent. Other: Thyroid is somewhat heterogenous. IMPRESSION: 1. No significant flow-limiting stenosis bilateral carotid bifurcations. 2. Normal soboba of Brush NASCET criteria was used in interpretation of this exam?
[2023-05-13] MEDS ORDERED: ASPIRIN 325 MG TAB PO STA (10:00)
--- NOTE | 2023-05-13 10:06 | P.HPIM ---
History of Present Illness This is a pleasant 82 years old female with multiple medical problems GERD/Reflux, Hyperlipidemia, Hypertension, Osteoarthritis,, numbness in left hand-two fingers, spinal stenosis, degenerative disks, "dry eyes", "SOME TROUBLE SWALLOWING",8 surgeries to remove skin cancer,2 surgeries on rt ankle for fx(plate and screws), 2 surgeries on left knee and thu in left knee as small child, tumor removed from nose, blepharoplasty pop eyes, pop cataracts, left arm surgery to release nerve, steroid spinal injections, total right ankle arthroplasty and right ANKLE SURGERY-JOINT REPLACEMENT, Anxiety, Depression. Her PCP is Dr. Casiano and she follow up with the [facility] and she has been told she has Parkinson disease Patient is alert awake oriented 3, she is lying in bed looks very weak and le thargic, she talks slowly and will slowly with a low volume. Patient says that this morning she was going to the bathroom with the help of her aide, when she is difficulty getting up from the toilet seat. Also she is been complaining of from chronic numbness in her left hand but states that it's more numbness this time last right she came to the hospital. She denies any other specific weakness or new numbness. She is complaining of from mild headache which started last night about 5-6/10 in severity, all around her head. No dizziness. No vision changes but she states that she has trouble pronouncing words with low voice. She has chronic right shoulder problem and pain. She denies any specific GI or urinary symptoms. Chest pain or dyspnea. No smoking or drinking alcohol history. Review of Systems Review of systems CONSTITUTIONAL: No fever, no malaise, no fatigue. HEENT: No recent visual problems or hearing problems. Denied any sore throat. CARDIOVASCULAR: No orthopnea, PND, no palpitations, no syncope. PULMONARY: No shortness of breath, no cough, no hemoptysis. GASTROINTESTINAL: No diarrhea, no nausea, no vomiting, no abdominal pain. Normoactive bowel sounds. -NEUROLOGICAL: As above. HEMATOLOGICAL: Denies any bleeding or petechiae. GENITOURINARY: Denies any burning micturition, frequency, or urgency. MUSCULOSKELETAL/RHEUMATOLOGICAL: Denies any joint pain, swelling, or any muscle pain. ENDOCRINE: Denies any polyuria or polydipsia. Past Medical History Past Medical History: Cancer, GERD/Reflux, Hyperlipidemia, Hypertension, Osteoarthritis (OA) Additional Past Medical History / Comment(s): 'slight heart murmer", hx skin cancer, numbness in left hand-two fingers, spinal stenosis, degenerative disks, "dry eyes", "SOME TROUBLE SWALLOWING" History of Any Multi-Drug Resistant Organisms: None Reported Past Surgical History: Orthopedic Surgery Additional Past Surgical History / Comment(s): 8 surgeries to remove skin cancer,2 surgeries on rt ankle for fx(plate and screws), 2 surgeries on left knee and thu in left knee as small child, tumor removed from nose, bleph aroplasty pop eyes, pop cataracts, left arm surgery to release nerve, steroid spinal injections, total right ankle arthroplasty and right ANKLE SURGERY-JOINT REPLACEMENT Past Anesthesia/Blood Transfusion Reactions: No Reported Reaction Additional Past Anesthesia/Blood Transfusion Reaction / Comment(s): no family hx (adopted) Past Psychological History: Anxiety, Depression Smoking Status: Never smoker Past Alcohol Use History: Occasional Past Drug Use History: None Reported - Past Family History Mother Family Medical History: Unable to Obtain Additional Family Medical History / Comment(s): Patient was adopted and does not know any family history. Daughter(s) Family Medical History: No Reported History Additional Family Medical History / Comment(s): Patient has 3 daughters and 2 sons all in their 50s with no major medical problems. Medications and Allergies Home Medications Medication Instructions Recorded Confirmed Type Multivitamin/Iron/Folic Acid 1 tab PO DAILY 04/28/18 05/13/23 History [Centrum Adults Tablet] Meclizine HCl 12.5 mg PO BID PRN 10/03/20 05/13/23 History Acetaminophen Tab [Tylenol Tab] 1,000 mg PO BID 05/13/23 05/13/23 History Acetaminophen Tab [Tylenol Tab] 1,000 mg PO DAILY@1500 PRN 05/13/23 05/13/23 History Albuterol Sulfate [Ventolin HFA] 2 puff INHALATION RT-Q4H PRN 05/13/23 05/13/23 History Artificial Tears-Hypromellose 1 drop BOTH EYES QID PRN 05/13/23 05/13/23 History [Artificial Tear Drops] Aspirin EC [Ecotrin Low Dose] 81 mg PO DAILY 05/13/23 05/13/23 History Autologous Serum Tears 1 drop BOTH EYES QID 05/13/23 05/13/23 History Carbidopa-Levodopa 25-100 mg 0.5 tab PO BID@0800,1200 05/13/23 05/13/23 History [Sinemet 25-100] Carbidopa-Levodopa 25-100 mg 1 tab PO HS 05/13/23 05/13/23 History [Sinemet 25-100] Carboxymethylcellulos/Glycerin 1 drop BOTH EYES QID 05/13/23 05/13/23 History [Refresh Relieva 0.5-0.9% Drop] Cholecalciferol [Vitamin D3 (25 50 mcg PO DAILY 05/13/23 05/13/23 History Mcg = 1000 Iu)] Docusate [Colace] 100 mg PO HS 05/13/23 05/13/23 History Eye Multivitamin/Sodium Tablet 2 tab PO BID 05/13/23 05/13/23 History Furosemide [Lasix] 20 mg PO Q2D 05/13/23 05/13/23 History L.acidoph,Paracasei, B.lactis 1 cap PO DAILY 05/13/23 05/13/23 History [Probiotic] Meloxicam [Mobic] 7.5 mg PO DAILY PRN 05/13/23 05/13/23 History Pantoprazole [Protonix] 40 mg PO DAILY PRN 05/13/23 05/13/23 History Refresh Optive Drops 1 drop BOTH EYES TID 05/13/23 05/13/23 History Refresh Pm Lubricant Eye Ointm 1 applic OPHTHALMIC HS 05/13/23 05/13/23 History Steralid Eye Cleanser 1 applic OPHTHALMIC MOWEFR 05/13/23 05/13/23 History buPROPion XL [Wellbutrin XL] 150 mg PO DAILY 05/13/23 05/13/23 History calcium polycarbophiL [Fiber-Lax] 1,250 mg PO HS 05/13/23 05/13/23 History lisinopriL [Zestril] 10 mg PO DAILY 05/13/23 05/13/23 History polyethylene glycoL 3350 [Miralax] 17 gm PO DAILY 05/13/23 05/13/23 History rOPINIRole HCL [Requip] 0.25 mg PO HS 05/13/23 05/13/23 History Allergies Allergy/AdvReac Type Severity Reaction Status Date / Time nickel Allergy Rash/Hives Verified 05/13/23 08:40 Physical Exam Vitals: Vital Signs Temp Pulse Resp BP Pulse Ox 05/13/23 09:32 81 14 148/122 98 05/13/23 08:04 97.7 F 78 18 201/96 98 05/13/23 08:01 83 18 201/96 98 05/13/23 07:47 97.7 F 83 18 190/97 97 Intake and Output 05/12/23 05/13/23 05/13/23 22:59 06:59 14:59 Other: Weight 76.2 kg GENERAL: The patient is alert and oriented x3, not in any acute distress. Well developed, well nourished. HEENT: Pupils are round and equally reacting to light. EOMI. No scleral icterus. No conjunctival pallor. Normocephalic, atraumatic. No pharyngeal erythema. No thyromegaly. CARDIOVASCULAR: S1 and S2 present. No murmurs, rubs, or gallops. PULMONARY: Chest is clear to auscultation, no wheezing , no crackles. ABDOMEN: Soft, nontender, nondistended, normoactive bowel sounds. No palpable organomegaly. MUSCULOSKELETAL: No joint swelling or deformity. EXTREMITIES: No cyanosis, clubbing, or pedal edema. -NEUROLOGICAL: Mild diffusion of the lower face the right side, no much obvious with smiling rate other pertinent nerves are grossly intact. Motor 5/5. Sensation is intact.. SKIN: No rashes. no petechiae. Results CBC & Chem 7: 05/13/23 07:58 05/13/23 07:58 Labs: Abnormal Lab Results - Last 24 Hours (Table) 05/13/23 Range/Units 07:58 BUN 21 H (7-17) mg/dL Assessment and Plan Assessment: Extremity Weakness and difficulty moving. Could be secondary to Parkinson disease. Versus atrophic which is felt most likely versus other Diabetes mellitus Hypertension Hyperlipidemia History of osteoarthritis Plan: Continue with the neuro check Neurology consult Continue with aspirin Check TSH Labs and medication were reviewed.. Continue same treatment. Continue with symptomatic treatment. Resume home medication. Monitor lytes and vitals. DVT and GI prophylaxis. Further recommendations depends on the clinical course of the patient DVT prophylaxis: Subcutaneous heparin GI Prophylaxis: Pepcid PT/OT: Pending Prognosis is guarded
[2023-05-13] MEDS ORDERED: ALBUTEROL NEBULIZED 2.5 MG/3 ML INHALATION PRN (10:09)
[2023-05-13] MEDS ORDERED: MECLIZINE 12.5 MG TAB PO PRN (10:09)
[2023-05-13] MEDS ORDERED: PANTOPRAZOLE 40 MG TABLET PO PRN (10:09)
[2023-05-13] MEDS ORDERED: ARTIFICIAL TEARS-HYPROMELLOSE DROPS 15 ML BTL BOTH EYES PRN (10:09)
[2023-05-13] MEDS: lisinopriL 10 MG TAB PO SCH (10:34)
[2023-05-13] MEDS: SODIUM CHLORIDE 0.9% 1,000 ML IV SCH (10:34)
[2023-05-13] MEDS: CARBIDOPA-LEVODOPA 25-100 MG 1 EACH TAB PO SCH ×2 (13:12→21:18)
[2023-05-13] MEDS: METOPROLOL TARTRATE 12.5 MG TAB PO SCH ×2 (14:00→21:18)
[2023-05-13] MEDS: amLODIPine 5 MG TAB PO SCH (14:00)
--- NOTE | 2023-05-13 14:52 | P.CNNES ---
History of Present Illness Consult date: 05/13/23 Requesting physician: Nicanor Palmer Reason for Consult: cva History of Present Illness: 82-year-old woman with history of Parkinson's disease who presented emergency department because of left hand numbness. Some of the history is obtained from medical record since patient is not a great historian. According to patient she noticed today that her left hand is numb and unknown exact the last normal state. She stated that she usually has numbness over the left the fourth and fifth digit at a baseline for years but today she knows the left hand is numb. She resides in the nursing facility. Per the ED she presented emergency department the because of weakness and it was believed last normalcy was last evening on known She could not tell me she is on any antiplatelet. Per the nurse the according to her medical records she is not on any antiplatelet. Patient denies of any headache. She stated that she follows up with Dr. Gruber's team for her Parkinson's disease (had tremor over the right upper extremity). Some of the workup during this hospital visit consisted of: CBC with differential and commission panels unremarkable. CT of the head is reported as patchy chronic appearing. Ventricle white matter ischemic type changes with atrophy. Finding appears similar to the comparison study. Follow-up MRI can be performed as clinically indicated. I personally reviewed the CT head and there is no acute or subacute ischemia. There is no intracranial hemorrhage. CT angiography of the head and neck was reported as no significant flow limiting stenosis bilateral carotid bifurcation. No muscle colorless. No IV tpa per ED team since last normal >4.5. Initial risk outweigh the benefit. Review of Systems Review of systems Limited but the pertinent positive and negative as per HPI. Past Medical History Past Medical History: Cancer, GERD/Reflux, Hyperlipidemia, Hypertension, Osteoarthritis (OA) Additional Past Medical History / Comment(s): 'slight heart murmer", hx skin cancer, numbness in left hand-two fingers, spinal stenosis, degenerative disks, "dry eyes", "SOME TROUBLE SWALLOWING" History of Any Multi-Drug Resistant Organisms: None Reported Past Surgical History: Orthopedic Surgery Additional Past Surgical History / Comment(s): 8 surgeries to remove skin cancer,2 surgeries on rt ankle for fx(plate and screws), 2 surgeries on left knee and thu in left knee as small child, tumor removed from nose, blepharoplasty pop eyes, pop cataracts, left arm surgery to release nerve, steroid spinal injections, total right ankle arthroplasty and right ANKLE SURGERY-JOINT REPLACEMENT Past Anesthesia/Blood Transfusion Reactions: No Reported Reaction Additional Past Anesthesia/Blood Transfusion Reaction / Comment(s): no family hx (adopted) Past Psychological History: Anxiety, Depression Smoking Status: Never smoker Past Alcohol Use History: Occasional Past Drug Use History: None Reported - Past Family History Mother Family Medical History: Unable to Obtain Additional Family Medical History / Comment(s): Patient was adopted and does not know any family history. Daughter(s) Family Medical History: No Reported History Additional Family Medical History / Comment(s): Patient has 3 daughters and 2 sons all in their 50s with no major medical problems. Medications and Allergies Home Medications Medication Instructions Recorded Confirmed Type Multivitamin/Iron/Folic Acid 1 tab PO DAILY 04/28/18 05/13/23 History [Centrum Adults Tablet] Meclizine HCl 12.5 mg PO BID PRN 10/03/20 05/13/23 History Acetaminophen Tab [Tylenol Tab] 1,000 mg PO BID 05/13/23 05/13/23 History Acetaminophen Tab [Tylenol Tab] 1,000 mg PO DAILY@1500 PRN 05/13/23 05/13/23 History Albuterol Sulfate [Ventolin HFA] 2 puff INHALATION RT-Q4H PRN 05/13/23 05/13/23 History Artificial Tears-Hypromellose 1 drop BOTH EYES QID PRN 05/13/23 05/13/23 History [Artificial Tear Drops] Aspirin EC [Ecotrin Low Dose] 81 mg PO DAILY 05/13/23 05/13/23 History Autologous Serum Tears 1 drop BOTH EYES QID 05/13/23 05/13/23 History Carbidopa-Levodopa 25-100 mg 0.5 tab PO BID@0800,1200 05/13/23 05/13/23 History [Sinemet 25-100] Carbidopa-Levodopa 25-100 mg 1 tab PO HS 05/13/23 05/13/23 History [Sinemet 25-100] Carboxymethylcellulos/Glycerin 1 drop BOTH EYES QID 05/13/23 05/13/23 History [Refresh Relieva 0.5-0.9% Drop] Cholecalciferol [Vitamin D3 (25 50 mcg PO DAILY 05/13/23 05/13/23 History Mcg = 1000 Iu)] Docusate [Colace] 100 mg PO HS 05/13/23 05/13/23 History Eye Multivitamin/Sodium Tablet 2 tab PO BID 05/13/23 05/13/23 History Furosemide [Lasix] 20 mg PO Q2D 05/13/23 05/13/23 History L.acidoph,Paracasei, B.lactis 1 cap PO DAILY 05/13/23 05/13/23 History [Probiotic] Meloxicam [Mobic] 7.5 mg PO DAILY PRN 05/13/23 05/13/23 History Pantoprazole [Protonix] 40 mg PO DAILY PRN 05/13/23 05/13/23 History Refresh Optive Drops 1 drop BOTH EYES TID 05/13/23 05/13/23 History Refresh Pm Lubricant Eye Ointm 1 applic OPHTHALMIC HS 05/13/23 05/13/23 History Steralid Eye Cleanser 1 applic OPHTHALMIC MOWEFR 05/13/23 05/13/23 History buPROPion XL [Wellbutrin XL] 150 mg PO DAILY 05/13/23 05/13/23 History calcium polycarbophiL [Fiber-Lax] 1,250 mg PO HS 05/13/23 05/13/23 History lisinopriL [Zestril] 10 mg PO DAILY 05/13/23 05/13/23 History polyethylene glycoL 3350 [Miralax] 17 gm PO DAILY 05/13/23 05/13/23 History rOPINIRole HCL [Requip] 0.25 mg PO HS 05/13/23 05/13/23 History Allergies Allergy/AdvReac Type Severity Reaction Status Date / Time nickel Allergy Rash/Hives Verified 05/13/23 08:40 Physical Examination - Vital Signs Vital Signs: Vital Signs Temp Pulse Resp BP Pulse Ox 05/13/23 13:22 82 16 189/115 95 05/13/23 12:57 77 16 177/85 97 05/13/23 11:22 74 12 180/78 96 05/13/23 09:32 81 14 148/122 98 05/13/23 08:04 97.7 F 78 18 201/96 98 05/13/23 08:01 83 18 201/96 98 05/13/23 07:47 97.7 F 83 18 190/97 97 Intake and Output 05/12/23 05/13/23 05/13/23 22:59 06:59 14:59 Other: Weight 76.2 kg GENERAL: The patient is lying in bed and is not in acute distress. NEUROLOGICAL: Higher mental function: The patient is awake, alert, oriented to self and time. She stated the name of her nursing facility for currently place. She is able to name objects (pen and watch) correctly. She is following simple commands but is very slow. No aphasia from limited language. No neglect. Cranial nerves: The pupils are round, equal and reactive to light. Visual pritchard are full to confrontation throughout. Extraocular movement is intact no nystagmus is noted. Facial sensation is hard to assess because since did not respond. Has left lower facial weakness. No dysarthria is noted. Motor: The strength is left upper and lower extremity is 4+. Normal tone and bulk. Cerebellum: Normal finger to nose bilaterally. Sensation: Sensation is unable to assess because of her cooperation but she stat ed "close to normal" but to nurse she stated decrease to touch on left side. Reflexes (right/left): 2+ uppers while lowers are 1+. Plantars are mute bilaterally. Results - Laboratory Findings CBC and BMP: 05/13/23 07:58 05/13/23 07:58 Abnormal Lab Findings: Abnormal Labs 05/13/23 07:58 BUN 21 H Assessment and Plan Assessment: This is an 82-year-old woman who presented her nursing facility and is complaining of numbness of left hand. On examination she has left facial droop left the upper and lower extremity weakness and decreased sensation on left side. Last normal state is possibly last night per the ED. Acute ischemic stroke. No IV TPA since outside the window History of Parkinson's disease Hypertension Hyperlipidemia Plan: The patient started on aspirin 325 mg daily by ED team. It seems she was not on any antiplatelet prior to this. Started her on Lipitor 20 mg daily at bedtime I ordered MRI of the brain, carotid duplex, hemoglobin A1c. 2-D echo, lipid panel, TSH is ordered pending Continue her checks Cardiac monitoring PT OT and MASON HELPER are consulted Recommend permissive hypertension for the next 24-48 hours We'll defer the rest of medical management to primary team For DVT prophylaxis the patient is on subcu heparin 5000 units every 12 hours Plan discussed with the patient nurse Thank you for the consultation Time with Patient: Greater than 30
--- NOTE | 2023-05-13 20:55 | US ---
EXAMINATION TYPE: US carotid duplex BILAT DATE OF EXAM: 05/13/2023 COMPARISON: CTA: Today CLINICAL INDICATION: Female, 82 years old with history of cva; cva TECHNIQUE: Carotid duplex ultrasound examination. Indirect Doppler criteria was utilized. FINDINGS: EXAM MEASUREMENTS: RIGHT: Peak Systolic Velocity (PSV) cm/sec ----- Right CCA: 84.6 ----- Right ICA: 91.2 ----- Right ECA: 102.9 ICA/CCA ratio: 1.1 RIGHT: End Diastole cm/sec ----- Right CCA: 23.3 ----- Right ICA: 24.7 ----- Right ECA: 19.4 LEFT: Peak Systolic Velocity (PSV) cm/sec ----- Left CCA: 58.1 ----- Left ICA: 71.3 ----- Left ECA: 81.2 ICA/CCA ratio: 1.2 LEFT: End Diastole cm/sec ----- Left CCA: 10.9 ----- Left ICA: 24.1 ----- Left ECA: 13.1 VERTEBRALS (direction of flow): Right Vertebral: Antegrade Left Vertebral: Antegrade Rhythm: Normal SALVAGE MECHANIC NOTES: Moderate amount of plaque seen in bilateral bulbs and prox ICA's IMPRESSION: Less than 50% stenosis of the bilateral carotid bifurcation. Criteria for Assigning % of Stenosis / Diameter reduction (Estimation based on the indirect measurements of the internal carotid artery velocities (ICA PSV). 1. Normal (no stenosis)=ICA PSV < 125 cm/s: ratio < 2.0: ICA EDV<40 cm/s. 2. Less than 50% stenosis=ICA PSV < 125 cm/s: ratio < 2.0: ICA EDV<40 cm/s. 3. 50 to 69% stenosis=ICA PSV of 125 to 230 cm/s: ration 2.0 ? 4.0: ICA EDV 40-100 cm/s. 4. Greater than 70% stenosis to near occlusion= ICA PSV > 230 cm/s: ratio > 4.0: ICA EDV > 100 cm/s. 5. Near occlusion= ICA PSV velocities may be low or undetectable: variable ratio and ICA EDV. 6. Total occlusion=unable to detect flow.
[2023-05-13] MEDS: DOCUSATE 100 MG CAP PO SCH (21:17)
[2023-05-13] MEDS: ATORVASTATIN 20 MG TAB PO SCH (21:17)
[2023-05-13] MEDS: HEPARIN SODIUM,PORCINE/PF 5,000 UNIT/0.5 ML SYRINGE SQ SCH (21:18)
[2023-05-13] MEDS: FAMOTIDINE 20 MG/2 ML VIAL IV SCH (21:18)
[2023-05-14] MEDS: SODIUM CHLORIDE 0.9% 1,000 ML IV SCH (06:15)
--- NOTE | 2023-05-14 07:34 | CA ---
Transthoracic Echo Report Name: Raven Moreno Age: 82 Gender: F : 1940 Exam Date: 05/13/2023 12:47 Exam Location: [facility] Ht (in): 64 Wt (lb): 167 Ordering Physician: Nicanor Palmer DO Attending/Referring Phys: Gum Puller Jessica Persaud RDCS Procedure CPT: Indications: Thrombus Cardiac Hx: Technical Quality: Good Contrast 1: Total Dose (mL): Contrast 2: Total Dose (mL): MEASUREMENTS (Male / Female) Normal Values 2D ECHO LV Diastolic Diameter PLAX 5.0 cm 4.2 - 5.9 / 3.9 - 5.3 cm LV Systolic Diameter PLAX 3.1 cm IVS Diastolic Thickness 0.9 cm 0.6 - 1.0 / 0.6 - 0.9 cm LVPW Diastolic Thickness 0.8 cm 0.6 - 1.0 / 0.6 - 0.9 cm LV Relative Wall Thickness 0.3 RV Internal Dim ED PLAX 2.8 cm LA Systolic Diameter LX 3.5 cm 3.0 - 4.0 / 2.7 - 3.8 cm LV Diastolic Volume MOD 4C 82.9 cm??? LV Systolic Volume MOD 4C 34.3 cm??? LV Ejection Fraction MOD 4C 58.6 % LV Cardiac Index MOD 4C 1895.9 cm???/min???m??? LV Diastolic Length 4C 7.8 cm LV Systolic Length 4C 6.1 cm LV Diastolic Volume MOD 2C 56.9 cm??? LV Systolic Volume MOD 2C 16.9 cm??? LV Ejection Fraction MOD 2C 70.2 % LV Cardiac Index MOD 2C 1558.2 cm???/min???m??? LV Diastolic Length 2C 7.2 cm LV Systolic Length 2C 5.7 cm LA Volume 39.8 cm??? 18 - 58 / 22 - 52 cm??? M-MODE Aortic Root Diameter MM 3.3 cm MV E Point Septal Separation 0.4 cm AV Cusp Separation MM 1.9 cm DOPPLER AV Peak Velocity 122.0 cm/s AV Peak Gradient 6.0 mmHg AI Peak Velocity 445.7 cm/s AI Peak Gradient 79.5 mmHg AI Pressure Half Time 565.9 ms MV Area PHT 2.4 cm??? Mitral E Point Velocity 77.7 cm/s Mitral A Point Velocity 100.9 cm/s Mitral E to A Ratio 0.8 MV Deceleration Time 318.9 ms MV E' Velocity 5.3 cm/s Mitral E to MV E' Ratio 14.6 TR Peak Velocity 227.3 cm/s TR Peak Gradient 20.7 mmHg Right Ventricular Systolic Press 25.6 mmHg FINDINGS Left Ventricle Left ventricular ejection fraction is estimated at 55-60 %. Left ventricular cavity size normal. Left ventricular wall thickness normal.normal left ventricular wall motion. Right Ventricle Normal right ventricular size. Right ventricular systolic pressure within normal limits. Right Atrium Normal right atrial size. Left Atrium Normal left atrial size. Mitral Valve Structurally normal mitral valve. Mild mitral regurgitation.mitral annular calcification. Aortic Valve Trileaflet aortic valve. Mild aortic regurgitation.aortic valve sclerosis. Tricuspid Valve Structurally normal tricuspid valve. Mild tricuspid regurgitation. Pulmonic Valve Structurally normal pulmonic valve. No pulmonic regurgitation. Pericardium Normal pericardium. No pericardial effusion. Aorta Normal size aortic root and proximal ascending aorta. CONCLUSIONS 1. Normal left ventricle size and systolic function 2. Mild mitral, tricuspid and aortic regurgitation Previewed by: Dr. Medardo Sawant MD (Electronically Signed) Final Date: 14 May 2023 07:33
[2023-05-14 08:56] LABS: Chol/HDL Ratio 4.89 Ratio; LDL Cholesterol,Calculated 144.6 mg/dL (0.0-131.0)
[2023-05-14] MEDS ORDERED: FUROSEMIDE 20 MG TAB PO SCH (09:00)
[2023-05-14] MEDS: CHOLECALCIFEROL 25 MCG (1000 IU) TABLET PO SCH (09:03)
[2023-05-14] MEDS: amLODIPine 5 MG TAB PO SCH (09:03)
[2023-05-14] MEDS: FAMOTIDINE 20 MG/2 ML VIAL IV SCH ×2 (09:04→21:02)
[2023-05-14] MEDS: METOPROLOL TARTRATE 12.5 MG TAB PO SCH ×2 (09:04→21:02)
[2023-05-14] MEDS: ASPIRIN 325 MG TAB PO SCH (09:04)
[2023-05-14] MEDS: CARBIDOPA-LEVODOPA 25-100 MG 1 EACH TAB PO SCH ×3 (09:04→21:02)
[2023-05-14] MEDS: lisinopriL 10 MG TAB PO SCH (09:04)
[2023-05-14] MEDS: HEPARIN SODIUM,PORCINE/PF 5,000 UNIT/0.5 ML SYRINGE SQ SCH (09:04)
[2023-05-14] MEDS: buPROPion XL 150 MG TAB.ER.24H PO SCH (09:08)
--- NOTE | 2023-05-14 11:36 | MR ---
EXAMINATION TYPE: MR brain wo con DATE OF EXAM: 05/14/2023 10:51 AM COMPARISON: Brain 05/13/2023. CLINICAL INDICATION:Female, 82 years old with history of left sided weakness. cva Left side weakness, CVA, TECHNIQUE: Multi planar, multi sequence imaging was performed through the brain including: T1, T2, In version recovery, Diffusion weighted imaging, and gradient echo imaging. No gadolinium was given. FINDINGS: Scattered areas of restricted diffusion including the right posterior frontal lobe with gyr iform appearance additional subcortical right posterior frontal lobe focus, medial aspect of the aliyah etal region on the right as well as the left. Ventricular dilation to proportion to cerebral atrophy changes. There is a cavum veli interpositi. Scattered foci and confluent areas of of high T2 signal intensity are seen within the periventricular white matter. Single focus of blooming artifact in the anterior right dionne which appears a vessel entering and exiting. This is not fully appreciated on CT Angio 05/13/2023 during arterial phase imaging. The bone marrow signal is within normal limits. Paranasal sinuses and mastoid air cells: No significant paranasal sinus disease. Visualized orbits: Orbital contents are intact. IMPRESSION: 1. Scattered areas of acute/subacute CVA predominantly involving the right frontal lobe with gyriform pattern as well as areas within the bilateral parietal lobes near the skull vertex and single focus within the right occipital lobe. Correlate for embolic phenomenon. 2. Nonspecific white matter changes, likely secondary to small vessel ischemic disease. 3. Blooming artifact near the surface of the right dionne which is not well appreciated on arterial pha se imaging on CTA on 05/13/2023. There is a vessel that extends to this region on susceptibility weight ed imaging. Finding could represent vascular malformation.
[2023-05-14] MEDS ORDERED: DICLOFENAC SODIUM GEL 100 GM TUBE TOPICAL PRN (11:43)
--- NOTE | 2023-05-14 13:22 | P.PN ---
Subjective Progress Note Date: 05/14/23 I'll follow up seeing the patient and she is accompanied with her son and [id number]. She feels about the same. Continues to have left facial droop and left-sided weakness. I spoke with the patient's son and he is uncertain what medication exactly what she is on and does not recall if she has any history of A. fib or flutter in the past. He notes that she has history of Parkinson's disease. Objective - Vital Signs Vital signs: Vital Signs Temp 97.6 F 05/14/23 08:49 Pulse 61 05/14/23 11:23 Resp 15 05/14/23 11:23 BP 134/76 05/14/23 11:23 Pulse Ox 98 05/14/23 11:23 FiO2 Intake & Output 05/13/23 05/14/23 05/14/23 18:59 06:59 18:59 Intake Total 60 Balance 60 Weight 76.2 kg 62.5 kg 62.5 kg Intake: Oral 60 Other: Voiding Method External Catheter Diaper External Catheter # Voids 1 0 # Bowel Movements 0 - Exam GENERAL: The patient is lying in bed and is not in acute distress. NEUROLOGICAL: Higher mental function: The patient is awake, alert, oriented to self and time. She is able to name objects (pen and watch) correctly. She is following simple commands but is very slow. Severely hypophonic. No aphasia from limited language. No neglect. Cranial nerves: The pupils are round, equal and reactive to light. Visual pritchard are full to confrontation throughout. Extraocular movement is intact no nystagmus is noted. Facial sensation is hard to assess because since did not respond. Has left lower facial weakness. No dysarthria is noted. Motor: The strength is left upper and lower extremity is 4+. Normal tone and bulk. Cerebellum: Normal finger to nose bilaterally. Sensation: Sensation is unable to assess because of her cooperation but she stated "close to normal" but to nurse she stated decrease to touch on left side. Reflexes (right/left): 2+ uppers while lowers are 1+. Plantars are mute bilaterally. Some of the workup during this hospital visit consisted of: Lipid panel is triglyceride 132, cholesterol is 2:15, LDLs 144 and HDL 44 TSH is 3.760 [address] is 5.70. CT of the head is reported as patchy chronic appearing. Ventricle white matter ischemic type changes with atrophy. Finding appears similar to the comparison study. Follow-up MRI can be performed as clinically indicated. I personally reviewed the CT head and there is no acute or subacute ischemia. There is no intracranial hemorrhage. CT angiography of the head and neck was reported as no significant flow limiting stenosis bilateral carotid bifurcation. Carotid duplex is reported as less than 50% stenosis of bilateral carotid bifurcation. MR the brain is reported as scattered area of acute/subacute CVA predominantly involving the right frontal lobe with epileptiform pattern as well as within the bilateral parietal lobe near the skull vertex and a single focus within the right occipital lobe. Correlate for embolic phenomena. Nonspecific white matter changes, likely secondary to chronic small vessel ischemic disease. Andrews artifact near the subtotal of the right dionne which is the not well appreciated on the arterial phase imaging on CTA on 05/13/2023. There is a vessel that extends to this region on susceptibility weighted image. Finding could represent vascular malformation. I personally reviewed the MRI and I do agree that patient has scattered stroke over bilateral hemisphere predominantly in the the right frontal parietal region. - Labs CBC & Chem 7: 05/13/23 07:58 05/13/23 07:58 Labs: Abnormal Lab Results - Last 24 Hours (Table) 05/13/23 Range/Units 07:58 Cholesterol 215.00 H (0.00-200.00) mg/dL LDL Cholesterol, Calc 144.6 H (0.0-131.0) mg/dL Assessment and Plan Assessment: This is an 82-year-old woman who presented her nursing facility and is complaining of numbness of left hand. On examination she has left facial droop left the upper and lower extremity weakness and decreased sensation on left side. Last normal state is possibly last night per the ED. Acute ischemic stroke that scattered over bilateral hemisphere on MRI but predominantly over the right frontal as well as bilateral parietal single focus of the right occipital (has left facial droop and left-sided weakness with numbness as well as hypophonia). Stroke seems possible cardioembolic. ?vascular malformation within the right dionne on MRI. History of Parkinson's disease Hypertension Hyperlipidemia Plan: The patient started on aspirin 325 mg daily by ED team. I also start the patient on Plavix 75 mg daily. Patient to be on dual antiplatelets for now. It seems she was not on any antiplatelet prior to this. She does not have any A. fib or flutter as of now per the nurse. But if she develops any A. fib or flutter then we'll consider placing her on anticoagulati on in avoiding dual antiplatelet. Continue Lipitor 20 mg daily at bedtime for seconds she flexes Pending 2-D echo. If 2-D echo is negative for clot or vegatation then recommend a KRYSTLE. Also of no A. fib or flutter recommended an event monitor for 30 days (to be placed prior to discharge). Continue her checks Cardiac monitoring PT OT and CREATIVE SERVICES DIRECTOR are consulted. I CONSULTED INPATIENT REHAB SINCE I FEEL PATIENT WILL BENEFIT. Recommend permissive hypertension for the next 24 hours For ?vascular malformation of the right dionne on MRI, recommend to follow-up with Dr. Rendon as outpatient within 1-2 weeks. We'll defer the rest of medical management to primary team For DVT prophylaxis the patient is on subcu heparin 5000 units every 12 hours The plan discussed with the patient, her son was at bedside and her nurse. Time with Patient: Less than 30
[2023-05-14] MEDS: CLOPIDOGREL 75 MG TAB PO SCH (13:28)
--- NOTE | 2023-05-14 13:59 | P.PN ---
Subjective Progress Note Date: 05/14/23 82 years old female with multiple medical problems GERD/Reflux, Hyperlipidemia, Hypertension, Osteoarthritis,, numbness in left hand-two fingers, spinal stenosis, degenerative disks, total right ankle arthroplasty Her PCP is Dr. Casiano and she follow up with the [place] [facility] and she has been told she has Parkinson disease. Patient admitted with episode of weakness. MRI brain consistent with stroke 05/14: Patient seen at bedside, family at bedside as code status address. Patient therefore. Does have generalized weakness. Asymmetric weakness noted as well Seen by neurology as well Objective - Vital Signs Vital signs: Vital Signs Temp 97.6 F 05/14/23 08:49 Pulse 61 05/14/23 11:23 Resp 15 05/14/23 11:23 BP 134/76 05/14/23 11:23 Pulse Ox 98 05/14/23 11:23 FiO2 Intake & Output 05/13/23 05/14/23 05/14/23 18:59 06:59 18:59 Intake Total 60 Balance 60 Weight 76.2 kg 62.5 kg 62.5 kg Intake: Oral 60 Other: Voiding Method External Catheter Diaper External Catheter # Voids 1 0 # Bowel Movements 0 - Exam PHYSICAL EXAMINATION: GENERAL: The patient is alert and oriented x3, ill appearance HEENT: Pupils are round and equally reacting to light. EOMI. No scleral icterus. No conjunctival pallor. Normocephalic, atraumatic. No pharyngeal erythema. No thyromegaly. CARDIOVASCULAR: S1 and S2 present. No murmurs, rubs, or gallops. PULMONARY: Chest is clear to auscultation, no wheezing or crackles. ABDOMEN: Soft, nontender, nondistended, normoactive bowel sounds. No palpable organomegaly. MUSCULOSKELETAL: No joint swelling or deformity. EXTREMITIES: No cyanosis, clubbing, or pedal edema. NEUROLOGICAL: Left-sided facial droop and left-sided weakness - Labs CBC & Chem 7: 05/13/23 07:58 05/13/23 07:58 Labs: Abnormal Lab Results - Last 24 Hours (Table) 05/13/23 Range/Units 07:58 Cholesterol 215.00 H (0.00-200.00) mg/dL LDL Cholesterol, Calc 144.6 H (0.0-131.0) mg/dL Assessment and Plan Assessment: * Acute ischemic stroke bilateral hemisphere involvement with left-sided hemiparesis * History of Parkinson disease * Hypertension * Hyperlipidemia * Depressed mood * Malnutrition * In regards to acute CVA urology consulted, CT head, CT head and neck, echocardiogram carotid Doppler and MRI brain completed * Continue patient on aspirin, Plavix, Lipitor. Echocardiogram ordered * Carotid ultrasound shows less than 50% stenosis * Nutrition to consult * Continue patient on Wellbutrin
[2023-05-14] MEDS: ARTIFICIAL TEARS-HYPROMELLOSE DROPS 15 ML BTL BOTH EYES SCH ×2 (16:15→21:03)
[2023-05-14] MEDS: HEPARIN SODIUM,PORCINE 5,000 UNIT/ML 1 ML VIAL SQ SCH (21:02)
[2023-05-14] MEDS: DOCUSATE 100 MG CAP PO SCH (21:02)
[2023-05-14] MEDS: ATORVASTATIN 20 MG TAB PO SCH (21:02)
[2023-05-14] MEDS: ARTIFICIAL TEARS OINTMENT 3.5 GM TUBE BOTH EYES SCH (22:57)
[2023-05-15] MEDS: SODIUM CHLORIDE 0.9% 1,000 ML IV SCH ×2 (03:59→17:55)
[2023-05-15 08:32] LABS: HCT 44.2 % (34.0-46.0); HGB 14.1 gm/dL (11.4-16.0); MCH 29.2 pg (25.0-35.0); Mean Platelet Volume 8.7; Platelet Count 218 k/uL (150-450); RBC 4.85 m/uL (3.80-5.40); RDW 14.3 % (11.5-15.5); WBC 7.3 k/uL (3.8-10.6)
[2023-05-15 08:41] LABS: African American GFR (CKD) 55 (>60 ml/min/1.73 sqM); Anion Gap 8 mmol/L; Blood Urea Nitrogen 26 mg/dL (7-17); Calcium 9.9 mg/dL (8.4-10.2); Carbon Dioxide 29 mmol/L (22-30); Chloride 104 mmol/L (98-107); Glucose 94 mg/dL (74-99); Non-African American GFR(CKD) 47 (>60 ml/min/1.73 sqM); Potassium 4.2 mmol/L (3.5-5.1); Sodium 141 mmol/L (137-145)
[2023-05-15] MEDS ORDERED: NON FORMULARY DRUG (Aspirin Ec 81 MG Tablet) PO SCH (09:00)
[2023-05-15] MEDS: ASPIRIN 325 MG TAB PO SCH (09:07)
[2023-05-15] MEDS: METOPROLOL TARTRATE 12.5 MG TAB PO SCH ×2 (09:07→20:33)
[2023-05-15] MEDS: CLOPIDOGREL 75 MG TAB PO SCH (09:07)
[2023-05-15] MEDS: CHOLECALCIFEROL 25 MCG (1000 IU) TABLET PO SCH (09:08)
[2023-05-15] MEDS: CARBIDOPA-LEVODOPA 25-100 MG 1 EACH TAB PO SCH ×3 (09:08→20:33)
[2023-05-15] MEDS: HEPARIN SODIUM,PORCINE 5,000 UNIT/ML 1 ML VIAL SQ SCH ×2 (09:09→20:33)
[2023-05-15] MEDS: FAMOTIDINE 20 MG/2 ML VIAL IV SCH (09:09)
[2023-05-15] MEDS: buPROPion XL 150 MG TAB.ER.24H PO SCH (09:09)
[2023-05-15] MEDS: ARTIFICIAL TEARS-HYPROMELLOSE DROPS 15 ML BTL BOTH EYES SCH ×3 (09:59→20:34)
[2023-05-15] MEDS: amLODIPine 5 MG TAB PO SCH (11:44)
[2023-05-15] MEDS: lisinopriL 10 MG TAB PO SCH (11:45)
--- NOTE | 2023-05-15 12:18 | CA ---
Transthoracic Echo Report Name: Raven Moreno Age: 82 Gender: F : 1940 Exam Date: 05/15/2023 09:32 Exam Location: [facility] Ht (in): 64 Wt (lb): 137 Ordering Physician: Bret Ascencio MD Attending/Referring Phys: Dye Tub Tender Jessica Persaud RDCS Procedure CPT: Indications: stroke Cardiac Hx: BUBBLES STUDY ONLY Technical Quality: Fair Contrast 1: Total Dose (mL): Contrast 2: Total Dose (mL): MEASUREMENTS (Male / Female) Normal Values FINDINGS Left Ventricle Left ventricular ejection fraction is estimated at 55-60 %. Right Ventricle Right Atrium Negative agitated saline bubble study for right to left shunt. Left Atrium Mitral Valve Aortic Valve Tricuspid Valve Pulmonic Valve Pericardium No pericardial effusion. Aorta CONCLUSIONS No evidence of shunting with bubble study Previewed by: Dr. Medardo Sawant MD (Electronically Signed) Final Date: 15 May 2023 12:17
--- NOTE | 2023-05-15 13:17 | FL ---
INDICATION: Patient age:Female; 82 years old; Reason for study: r/o aspiration; PHH. COMPARISON: Barium swallow 04/06/2019 TECHNIQUE: Utilizing real-time video recording fluoroscopy, multiple images were obtained after admin istration of various consistencies of barium contrast. A speech pathologist was present throughout the exam. Fluoroscopic time: 2 min 51 seconds Fluoroscopic images: None saved Total DAP: 276.12 Gycm2 FINDINGS: Consistencies administered: puree, honey, nectar thick, thin, and chopped consistencies. During the oral phase there is normal formation of food bolus with normal initiation of swallow with all consist encies. No significant premature spill with all consistencies. Silent tracheal aspiration with thin, nectar, and puree consistencies. The patient had increased episodes of tracheal aspiration over the course of the examination. No nasopharyngeal reflux. No significant retention. IMPRESSION: Silent tracheal aspiration with thin, nectar, and puree consistencies. There was increased episodes o f tracheal aspiration during the course of the examination likely related to patient's known Parkinso n's disease. Please see dedicated speech pathology report for additional information.
--- NOTE | 2023-05-15 14:56 | P.PN ---
Subjective 82 years old female with multiple medical problems GERD/Reflux, Hyperlipidemia, Hypertension, Osteoarthritis,, numbness in left hand-two fingers, spinal stenosis, degenerative disks, total right ankle arthroplasty Her PCP is Dr. Casiano and she follow up with the [facility] and she has been told she has Parkinson disease. Patient admitted with episode of weakness. MRI brain consistent with stroke 05/14: Patient seen at bedside, family at bedside as code status address. Patient therefore. Does have generalized weakness. Asymmetric weakness noted as well Seen by neurology as well 05/15: Patient seen and evaluated bedside, MRI results discussed again. Patient does have weakness and will need transesophageal echo to rule out intracardiac thrombus. Patient accompanied by friend at bedside. Will adjust antihypertensive medication Objective - Vital Signs Vital signs: Vital Signs Temp 97.5 F L 05/15/23 09:00 Pulse 70 05/15/23 11:44 Resp 16 05/15/23 11:44 BP 96/62 05/15/23 11:44 Pulse Ox 98 05/15/23 11:44 FiO2 Intake & Output 05/14/23 05/15/23 05/15/23 18:59 06:59 18:59 Intake Total 240 0 Output Total 700 Balance -460 0 Weight 62.5 kg 58 kg Intake: Oral 240 0 Output: Urine 700 Other: Voiding Method Diaper Diaper Diaper External Catheter External Catheter External Catheter # Voids 1 # Bowel Movements 1 - Exam PHYSICAL EXAMINATION: GENERAL: The patient is alert and oriented x2 , ill appearance HEENT: Pupils are round and equally reacting to light. EOMI. CARDIOVASCULAR: S1 and S2 present. No murmurs, rubs, or gallops. PULMONARY: Chest is clear to auscultation, no wheezing or crackles. ABDOMEN: Soft, nontender, nondistended, normoactive bowel sounds. No palpable organomegaly. MUSCULOSKELETAL: No joint swelling or deformity. EXTREMITIES: No cyanosis, clubbing, or pedal edema. NEUROLOGICAL: Left-sided facial droop and left-sided weakness improved. Motor strength is 4 x 5 bilateral upper extremity, 3 x 5 bilateral lower extremity - Labs CBC & Chem 7: 05/15/23 07:08 05/15/23 07:08 Labs: Abnormal Lab Results - Last 24 Hours (Table) 05/15/23 Range/Units 07:08 BUN 26 H (7-17) mg/dL Creatinine 1.09 H (0.52-1.04) mg/dL Assessment and Plan Assessment: * Acute ischemic stroke bilateral hemisphere involvement with left-sided hemiparesis * History of Parkinson disease * Hypertension * Hyperlipidemia * Depressed mood * Malnutrition * In regards to acute CVA urology consulted, CT head, CT head and neck, echocardiogram carotid Doppler and MRI brain completed, * MRI brain does show scattered areas of acute to subacute infarct in the right frontal lobe with bilateral parietal lobe involvement as well single focus in right occipital lobe. Suspicion for cardioembolic phenomena * Continue patient on aspirin, Plavix, Lipitor. Transthoracic echocardiogram negative for intracardiac thrombus, transesophageal echo ordered * Carotid ultrasound shows less than 50% stenosis * Nutrition to consult * Continue patient on Wellbutrin * Patient will need discharge to subacute rehab for physical therapy * Patient therapy following, videofluoroscopic study ordered * CODE STATUS is DO NOT RESUSCITATE limited intervention
--- NOTE | 2023-05-15 15:12 | CDI ---
Documentation Clarification Form Date: 05/15/2023 02:20:43 PM From: Alejandra Anthony RN CCDS Phone: [phone] Admit Date: 05/13/2023 10:02:00 AM Patient Name: Raven Moreno Visit Number: [id number] Discharge Date: ATTENTION: The Clinical Documentation Specialists (CDI) and [facility] Coding Staff appreciate your assistance in clarifying documentation. Please respond to the clarification below the line at the bottom and electronically sign. The CDI & [facility] Coding staff will review the response and follow-up if needed. Please note: Queries are made part of the Legal Health Record. If you have any questions, please contact the author of this message via ITS. Dr. Soha Anguiano Malnutrition is documented 05/14, Medicine note. Additional clarification regarding the severity of malnutrition is requested. History/Risk Factors: 82- year-old female presented to ED from nursing facility for numbness of the left hand, left facial droop, left upper and lower extremity weakness and decreased sensation on the left side. Medical History: Trouble swallowing, Cancer, GERD, HLD, HTN, OA, Parkinsons disease and Spinal stenosis. 05/13 Neurology consult. Clinical Indicators: Barium swallow, 05/15: Silent tracheal aspiration with thin nectar and puree consistencies. There were increased episodes of tracheal aspiration during the course of the examination likely related to patients known Parkinsons disease Feeding assessment Nursing notes 05/14: Percent of meal consumed: Breakfast 25% Lunch 50% Dinner 25% with moderate assistance Current BMI: 21.9kg RD Consult Assessment, 05/14: Weight 62.5kg Height 5ft 4in BMI 23.6 BMI classification Normal. [place] calculated weight 54.431kg. Treatment: Dysphagia level 3: Chopped Diet. Modifications: [place] Thick Liquids, NO straws, Aspirations Precautions, 1:1 Supervision, Heart Healthy. RD Consult above. Please clarify the severity of malnutrition, if known: [ y ] Mild Protein-Calorie Malnutrition [ ] Other condition, please specify [y ] Unable to Determine Reference: Using the ASPEN Guidelines, Undernutrition (Malnutrition) is characterized by at least two of the following six findings. The severity can be determined based on the criteria listed below. Malnutrition Characteristics for Moderate and Severe Malnutrition Type of Malnutrition Acute Illness or Injury Chronic Illness Degree of Malnutrition Non-severe (moderate) Malnutrition Severe Malnutrition Non-severe (moderate) Malnutrition Severe Malnutrition Energy Intake <75% for >7 days = 50% for = 5 days <75% for = 1 month =75% for = 1 month Weight Loss 1-2% in one week, 5% in 1 month, 7.5% in 3 months 2% in one week, >5% in 1 month, >7.5% in 3 months 5% in one month, 7.5% in 3 months, 10% in 6 months, 20% in 1 year >5% in one month, >7.5% in 3 months, >10% in 6 months, >20% in 1 year Body Fat Wasting Mild Moderate Mild Severe Muscle Wasting Mild Moderate Mild Severe Presence of Edema Mild Moderate to Severe Mild Severe Gericare Aide Strength Not applicable Measurably Reduced Not applicable Measurably Reduced Source: Shameka AlvaradoV, Chris P, Dylon G, et al. Consensus statement: Academy of Nutrition and Dietetics and [place] Society for Parenteral and Enteral Nutrition: characteristics recommended for the identification and documentation of adult malnutrition (undernutrition).JENNIFER J Parenter Enteral Nutr. 2012;36(3):275-283. (Template Last Revised: April 2023) MTDD
[2023-05-15 15:27] VITALS: BMI 21.9
--- NOTE | 2023-05-15 15:30 | P.PN ---
Subjective Progress Note Date: 05/15/23 On follow-up seeing the patient and she was sitting on a recliner chair and feels about the same. Denies any worsening of her neurological symptoms. Objective - Vital Signs Vital signs: Vital Signs Temp 97.5 F L 05/15/23 09:00 Pulse 73 05/15/23 15:08 Resp 16 05/15/23 15:08 BP 117/72 05/15/23 15:08 Pulse Ox 96 05/15/23 15:08 FiO2 Intake & Output 05/14/23 05/15/23 05/15/23 18:59 06:59 18:59 Intake Total 240 0 Output Total 700 Balance -460 0 Weight 62.5 kg 58 kg Intake: Oral 240 0 Output: Urine 700 Other: Voiding Method Diaper Diaper Diaper External Catheter External Catheter External Catheter # Voids 1 # Bowel Movements 1 1 - Exam GENERAL: The patient is sitting in a recliner chair and is not in acute distress. NEUROLOGICAL: Higher mental function: The patient is awake, alert, oriented to self and time. She is able to name objects (pen and watch) correctly. She is following simple commands but is very slow. Severely hypophonic. No aphasia from limited language. No neglect. Cranial nerves: The pupils are round, equal and reactive to light. Visual pritchard are full to confrontation throughout. Extraocular movement is intact no nystagmus is noted. Facial sensation is hard to assess because since did not respond. Has left lower facial weakness. No dysarthria is noted. Motor: The strength is left upper and lower extremity is 4+. Normal tone and bulk. Cerebellum: Normal finger to nose bilaterally. Sensation: Sensation is unable to assess because of her cooperation but she stated "close to normal" but to nurse she stated decrease to touch on left side. Reflexes (right/left): 2+ uppers while lowers are 1+. Plantars are mute bilaterally. Some of the workup during this hospital visit consisted of: Lipid panel is triglyceride 132, cholesterol is 2:15, LDLs 144 and HDL 44 TSH is 3.760 Hemoglobin A1c is 5.70. CT of the head is reported as patchy chronic appearing. Ventricle white matter ischemic type changes with atrophy. Finding appears similar to the comparison study. Follow-up MRI can be performed as clinically indicated. I personally reviewed the CT head and there is no acute or subacute ischemia. There is no intracranial hemorrhage. CT angiography of the head and neck was reported as no significant flow limiting stenosis bilateral carotid bifurcation. Carotid duplex is reported as less than 50% stenosis of bilateral carotid bifurcation. MR the brain is reported as scattered area of acute/subacute CVA predominantly involving the right frontal lobe with epileptiform pattern as well as within the bilateral parietal lobe near the skull vertex and a single focus within the right occipital lobe. Correlate for embolic phenomena. Nonspecific white matter changes, likely secondary to chronic small vessel ischemic disease. [place] artifact near the subtotal of the right dionne which is the not well appreciated on the arterial phase imaging on CTA on 05/13/2023. There is a vessel that extends to this region on susceptibility weighted image. Finding could represent vascular malformation. I personally reviewed the MRI and I do agree that patient has scattered stroke over bilateral hemisphere predominantly in the the right frontal parietal region. Limited 2-D echo was reported as no evidence of shunting with bubble study. - Labs CBC & Chem 7: 05/15/23 07:08 05/15/23 07:08 Labs: Abnormal Lab Results - Last 24 Hours (Table) 05/15/23 Range/Units 07:08 BUN 26 H (7-17) mg/dL Creatinine 1.09 H (0.52-1.04) mg/dL Assessment and Plan Assessment: This is an 82-year-old woman who presented her nursing facility and is complaining of numbness of left hand. On examination she has left facial droop left the upper and lower extremity weakness and decreased sensation on left side. Last normal state is possibly last night per the ED. Acute ischemic stroke that scattered over bilateral hemisphere on MRI but predominantly over the right frontal as well as bilateral parietal single focus of the right occipital (has left facial droop and left-sided weakness with numbness as well as hypophonia). Stroke seems possible cardioembolic. So far no evidence of A-fib or flutter. ?vascular malformation within the right dionne on MRI. History of Parkinson's disease Hypertension Hyperlipidemia Plan: The patient started on aspirin 325 mg daily by ED team. I also start the patient on Plavix 75 mg daily. Patient to be on dual antiplatelets for now. It seems she was not on any antiplatelet prior to this. So far no evidence of A-fib or flutter per nurse but if does then recommend placing her on anticoagulation and avoid antiplatletes. I went up on Lipitor from 20mg to 40mg daily at bedtime for secondary stroke prophylaxis. LDL goal in stroke is <70. Her LDL is 144. Recommend pursuing KRYSTLE. Recommended an event monitor for 30 days (to be placed prior to discharge). Continue her checks Cardiac monitoring PT OT and [employer] SALESPERSON are consulted. I CONSULTED INPATIENT REHAB SINCE I FEEL PATIENT WILL BENEFIT. For ?vascular malformation of the right dionne on MRI, recommend to follow-up with Dr. Rendon as outpatient within 1-2 weeks. We'll defer the rest of medical management to primary team For DVT prophylaxis the patient is on subcu heparin 5000 units every 12 hours The plan discussed with the patient, her son was at bedside and primary attending. Time with Patient: Less than 30
--- NOTE | 2023-05-15 15:52 | P.CONS ---
History of Present Illness - Reason for Consult Consult date: 05/15/23 rehab recommendations - Chief Complaint CVA - History of Present Illness Raven Moreno is a 82 , female, who lives in a assisted living facility [facility]. Prior to admission, she was ambulating with a walker and supervision. She needed assistance for basic/advanced ADLs. Current driving: no. Transportation by: . Retired: yes/no. Support system: She was admitted to [facility] on 05/13. She presented to the ED with c/o weakness and left handed numbness. She stated that she usually has numbness over the left fourth and fifth digit at baseline for years, but at admission her entire left hand was numb. The time of symptoms presentation is unknown, therefore, no IV tpa was administered. Some of the history was obtained from medical records since patient is not a great historian. She resides in the nursing facility. On admission, her blood pressure was 200's/90's, but has stabilized. She was admitted with a consult to neurology. Numerous tests were completed including an unremarkable CBC and COMP. Chest xray showed chronic changes, CT of the brain showed chronic ischemic type changes with atrophy. CT angiogram of the head and neck showed no significant flow limiting stenosis of the bilateral carotid bifurcations and a normal qawalangin of arguello. An e chocardiogram was completed, EF 55-60%. US carotids showed less than 50% stenosis. MRI revealed scattered areas of acute/subacute CVA involving the right frontal lobe with gyriform pattern as well as areas within the bilateral parietal lobes near the skull vertex and single focus within the right occipital lobe. Further findings includes small vessel ischemic disease and a questionable area of vascular malformation. PM&R consulted for rehab recommendations. Therapy evaluations reviewed: max as sist for bathing, total assist for dressing, min assist for grooming and eating, max assist bed mobility, mod impaired comprehension, mild impaired oral expression. PT notes pending. Review of Systems negative unless noted in HPI Past Medical History Past Medical History: Cancer, GERD/Reflux, Hyperlipidemia, Hypertension, Osteoar thritis (OA) Additional Past Medical History / Comment(s): 'slight heart murmer", hx skin cancer, numbness in left hand-two fingers, spinal stenosis, degenerative disks, "dry eyes", "SOME TROUBLE SWALLOWING" History of Any Multi-Drug Resistant Organisms: None Reported Past Surgical History: Orthopedic Surgery Additional Past Surgical History / Comment(s): 8 surgeries to remove skin cancer,2 surgeries on rt ankle for fx(plate and screws), 2 surgeries on left knee and thu in left knee as small child, tumor removed from nose, blepharoplasty pop eyes, pop cataracts, left arm surgery to release nerve, steroid spinal injections, total right ankle arthroplasty and right ANKLE SURGERY-JOINT REPLACEMENT Past Anesthesia/Blood Transfusion Reactions: No Reported Reaction Additional Past Anesthesia/Blood Transfusion Reaction / Comm: no family hx (ad opted) Smoking Status: Former smoker - Past Family History Mother Family Medical History: Unable to Obtain Additional Family Medical History / Comment(s): Patient was adopted and does not know any family history. Daughter(s) Family Medical History: No Reported History Additional Family Medical History / Comment(s): Patient has 3 daughters and 2 sons all in their 50s with no major medical problems. Medications and Allergies Home Medications Medication Instructions Recorded Confirmed Type Multivitamin/Iron/Folic Acid 1 tab PO DAILY 04/28/18 05/13/23 History [Centrum Adults Tablet] Meclizine HCl 12.5 mg PO BID PRN 10/03/20 05/13/23 History Acetaminophen Tab [Tylenol Tab] 1,000 mg PO BID 05/13/23 05/13/23 History Acetaminophen Tab [Tylenol Tab] 1,000 mg PO DAILY@1500 PRN 05/13/23 05/13/23 History Albuterol Sulfate [Ventolin HFA] 2 puff INHALATION RT-Q4H PRN 05/13/23 05/13/23 History Artificial Tears-Hypromellose 1 drop BOTH EYES QID PRN 05/13/23 05/13/23 History [Artificial Tear Drops] Aspirin EC [Ecotrin Low Dose] 81 mg PO DAILY 05/13/23 05/13/23 History Autologous Serum Tears 1 drop BOTH EYES QID 05/13/23 05/13/23 History Carbidopa-Levodopa 25-100 mg 0.5 tab PO BID@0800,1200 05/13/23 05/13/23 History [Sinemet 25-100] Carbidopa-Levodopa 25-100 mg 1 tab PO HS 05/13/23 05/13/23 History [Sinemet 25-100] Carboxymethylcellulos/Glycerin 1 drop BOTH EYES QID 05/13/23 05/13/23 History [Refresh Relieva 0.5-0.9% Drop] Cholecalciferol [Vitamin D3 (25 50 mcg PO DAILY 05/13/23 05/13/23 History Mcg = 1000 Iu)] Docusate [Colace] 100 mg PO HS 05/13/23 05/13/23 History Eye Multivitamin/Sodium Tablet 2 tab PO BID 05/13/23 05/13/23 History Furosemide [Lasix] 20 mg PO Q2D 05/13/23 05/13/23 History L.acidoph,Paracasei, B.lactis 1 cap PO DAILY 05/13/23 05/13/23 History [Probiotic] Meloxicam [Mobic] 7.5 mg PO DAILY PRN 05/13/23 05/13/23 History Pantoprazole [Protonix] 40 mg PO DAILY PRN 05/13/23 05/13/23 History Refresh Optive Drops 1 drop BOTH EYES TID 05/13/23 05/13/23 History Refresh Pm Lubricant Eye Ointm 1 applic OPHTHALMIC HS 05/13/23 05/13/23 History Steralid Eye Cleanser 1 applic OPHTHALMIC MOWEFR 05/13/23 05/13/23 History buPROPion XL [Wellbutrin XL] 150 mg PO DAILY 05/13/23 05/13/23 History calcium polycarbophiL [Fiber-Lax] 1,250 mg PO HS 05/13/23 05/13/23 History lisinopriL [Zestril] 10 mg PO DAILY 05/13/23 05/13/23 History polyethylene glycoL 3350 [Miralax] 17 gm PO DAILY 05/13/23 05/13/23 History rOPINIRole HCL [Requip] 0.25 mg PO HS 05/13/23 05/13/23 History Allergies Allergy/AdvReac Type Severity Reaction Status Date / Time nickel Allergy Rash/Hives Verified 05/13/23 08:40 Physical Exam Osteopathic Statement: *. No significant issues noted on an osteopathic structural exam other than those noted in the History and Physical/Consult. Vitals: Vital Signs Temp Pulse Resp BP Pulse Ox 05/15/23 09:00 97.5 F L 70 16 117/72 98 05/15/23 04:00 97.7 F 68 15 121/72 95 08/04/23 02:00 65 05/15/23 00:00 97.9 F 65 14 111/74 94 L 05/14/23 20:00 98.1 F 77 17 129/74 96 05/14/23 15:36 66 16 123/67 95 Intake and Output 05/14/23 05/15/23 05/15/23 22:59 06:59 14:59 Intake Total 180 0 Output Total 700 Balance -520 0 Intake: Oral 180 0 Output: Urine 700 Other: Voiding Method Diaper Diaper Diaper External Catheter External Catheter External Catheter # Voids 1 # Bowel Movements 1 Weight 58 kg EXAM; General: WDWN, female, NAD, lying in bed, friend at bedside Head: +Left facial droop. Eyes: Symmetric Ears: Symmetric. Hearing within normal limits. Mouth: Clear. Neck: Supple. Cardiac: Calves supple, non tender, no edema Lungs: Breathing comfortably on RA. Chest symmetric. Abdomen: Soft, nontender. Extremities: Arthritic changes consistent with age. Neurological: Alert and oriented x2, dysarthria. Cranial nerves: CN II-XII: intact. Sensation: Intact and symmetrical limbs. Musculoskeletal: ROM WFL in the bilateral UEs. Healed medial left knee and anterior right ankle incisions. MMT UE Sh Abd EE EF FABD WE HG Right 3 4 4 4 4 4 Left 3 4 4 4 4 4 MMT LE HF KE DF EHL Right 2 3 3 3 Left 0 0 0 0 Reflexes Biceps Triceps Brachioradialis Patella Achilles Babinski Hoffmans Right - - Left + - Skin: Skin intact where visible to head, neck, and bilateral upper and lower extremities Psych: Calm, cooperative Results CBC & Chem 7: 05/15/23 07:08 05/15/23 07:08 Labs: Abnormal Lab Results - Last 24 Hours (Table) 05/15/23 Range/Units 07:08 BUN 26 H (7-17) mg/dL Creatinine 1.09 H (0.52-1.04) mg/dL Assessment and Plan Assessment: Assessment/Plan: #Left hemiparesis and dysarthria secondary to acute CVA of the right frontal and bilateral parietal with single focus of the right occipital lobe -CT and MRI reports reviewed -Patient is on aspirin 325 mg daily, lipitor 20 mg daily, plavix 75 daily #Dysphagia -dysphagia level III chopped nectar thicks liquids, no straws, aspiration precautions 1:1 supervision-heart healthy #Parkinson's disease -sinemet 25-100 1 at HS and 0.5 in am #Hypertension #Hyperlipidemia -lipitor 20 mg daily #Anxiety, depression -wellbutrin 150 daily #Bowel/ Bladder: Nursing to monitor and report concerns if any. #Skin/wound: Skin/Wound care to follow as needed #Pain Management -volteran gel 2 gram topical prn #DVT Prophylaxis -SQ heparin 5000 units daily #Comorbidities: OA, DDD, spinal stenosis #Your medical dx and mgt Goals: 1 person assist mobility and ADLS both basic and advanced; increased functional mobility/strength; increased balance, safety, endurance. Improvement in medical issues through your care. Barriers: cognition, endurance, left hemiparesis Discharge recommendation: IPR once medically ready for discharge. Patient seen and examined in coordination with Dr. Yost note prepped by Any Draper NP-C Author: Any Draper NP
[2023-05-15] MEDS: DOCUSATE 100 MG CAP PO SCH (20:33)
[2023-05-15] MEDS: ATORVASTATIN 40 MG TAB PO SCH (20:33)
[2023-05-15] MEDS: ARTIFICIAL TEARS OINTMENT 3.5 GM TUBE BOTH EYES SCH (20:34)
[2023-05-16 09:38] LABS: HCT 37.7 % (34.0-46.0); HGB 12.6 gm/dL (11.4-16.0); MCH 30.5 pg (25.0-35.0); MCHC 33.6 g/dL (31.0-37.0); MCV 90.7 fL (80.0-100.0); Mean Platelet Volume 9.7; Platelet Count 172 k/uL (150-450); RBC 4.15 m/uL (3.80-5.40); RDW 14.2 % (11.5-15.5); WBC 7.1 k/uL (3.8-10.6)
[2023-05-16 09:51] LABS: African American GFR (CKD) >90 (>60 ml/min/1.73 sqM); Anion Gap 8 mmol/L; Blood Urea Nitrogen 23 mg/dL (7-17); Calcium 8.8 mg/dL (8.4-10.2); Carbon Dioxide 22 mmol/L (22-30); Chloride 110 mmol/L (98-107); Glucose 85 mg/dL (74-99); Non-African American GFR(CKD) 80 (>60 ml/min/1.73 sqM); Potassium 3.8 mmol/L (3.5-5.1); Sodium 140 mmol/L (137-145)
[2023-05-16] MEDS: FAMOTIDINE 20 MG/2 ML VIAL IV SCH (10:00)
[2023-05-16] MEDS: HEPARIN SODIUM,PORCINE 5,000 UNIT/ML 1 ML VIAL SQ SCH ×2 (10:03→21:21)
[2023-05-16] MEDS: ARTIFICIAL TEARS-HYPROMELLOSE DROPS 15 ML BTL BOTH EYES SCH ×3 (10:04→21:20)
[2023-05-16] MEDS: SODIUM CHLORIDE 0.9% 1,000 ML IV SCH ×2 (10:04→17:35)
--- NOTE | 2023-05-16 13:30 | P.PN ---
Subjective Progress Note Date: 05/16/23 82 years old female with multiple medical problems GERD/Reflux, Hyperlipidemia, Hypertension, Osteoarthritis,, numbness in left hand-two fingers, spinal stenosis, degenerative disks, total right ankle arthroplasty Her PCP is Dr. Casiano and she follow up with the [place] [facility] and she has been told she has Parkinson disease. Patient admitted with episode of weakness. MRI brain consistent with stroke 05/14: Patient seen at bedside, family at bedside as code status address. Patient therefore. Does have generalized weakness. Asymmetric weakness noted as well Seen by neurology as well 05/15: Patient seen and evaluated bedside, MRI results discussed again. Patient does have weakness and will need transesophageal echo to rule out intracardiac thrombus. Patient accompanied by friend at bedside. Will adjust antihypertensive medication 05/16: Patient seen and everted bedside, competent with son at bedside MRI results discussed land for KRYSTLE discussed patient is moving bilateral upper and lower extremity speech has improved significantly as well. Objective - Vital Signs Vital signs: Vital Signs Temp 98.1 F 05/16/23 12:41 Pulse 72 05/16/23 12:41 Resp 16 05/16/23 12:41 BP 147/88 05/16/23 12:41 Pulse Ox 95 05/16/23 12:41 FiO2 Intake & Output 05/15/23 05/16/23 05/16/23 18:59 06:59 18:59 Intake Total 110 100 Output Total 110 Balance 110 -10 Weight 58 kg Intake: Oral 110 100 Output: Urine 110 Other: Voiding Method Diaper Diaper Diaper External Catheter External Catheter External Catheter # Voids 1 # Bowel Movements 1 1 - Exam PHYSICAL EXAMINATION: GENERAL: The patient is alert and oriented x2 , ill appearance HEENT: Pupils are round and equally reacting to light. EOMI. CARDIOVASCULAR: S1 and S2 present. No murmurs, rubs, or gallops. PULMONARY: Chest is clear to auscultation, no wheezing or crackles. ABDOMEN: Soft, nontender, nondistended, normoactive bowel sounds. No palpable organomegaly. MUSCULOSKELETAL: No joint swelling or deformity. EXTREMITIES: No cyanosis, clubbing, or pedal edema. NEUROLOGICAL: Left-sided facial droop and left-sided weakness improved. Motor strength is 4 x 5 bilateral upper extremity, 4 x 5 bilateral lower extremity - Labs CBC & Chem 7: 05/16/23 08:08 05/16/23 08:08 Labs: Abnormal Lab Results - Last 24 Hours (Table) 05/16/23 Range/Units 08:08 Chloride 110 H (98-107) mmol/L BUN 23 H (7-17) mg/dL Assessment and Plan Assessment: * Acute ischemic stroke bilateral hemisphere involvement with left-sided hemiparesis * History of Parkinson disease * Hypertension * Hyperlipidemia * Depressed mood * Malnutrition * In regards to acute CVA urology consulted, CT head, CT head and neck, echocardiogram negative for PFO, intracardiac thrombus, carotid Doppler negative for hemodynamically significant stenosis. * MRI brain does show scattered areas of acute to subacute infarct in the right frontal lobe with bilateral parietal lobe involvement as well single focus in right occipital lobe. Suspicion for cardioembolic phenomena * Continue patient on aspirin, Plavix, Lipitor. Transthoracic echocardiogram negative for intracardiac thrombus, transesophageal echo ordered * Carotid ultrasound shows less than 50% stenosis * Nutrition/speech consulted * For depression Continue patient on Wellbutrin * Patient will need discharge to subacute rehab for physical therapy * Patient therapy following, videofluoroscopic study completed a aspiration precautions ordered * In regards to history of Parkinson continue patient on Sinemet * CODE STATUS is DO NOT RESUSCITATE limited intervention
--- NOTE | 2023-05-16 13:41 | P.PN ---
Subjective Progress Note Date: 05/16/23 I am following-up seeing the patient and she feels a bit better today compared to past couple days. Her boyfriend walked-in today and he feels she looks better today as well. Objective - Vital Signs Vital signs: Vital Signs Temp 98.1 F 05/16/23 12:41 Pulse 72 05/16/23 12:41 Resp 16 05/16/23 12:41 BP 147/88 05/16/23 12:41 Pulse Ox 95 05/16/23 12:41 FiO2 Intake & Output 05/15/23 05/16/23 05/16/23 18:59 06:59 18:59 Intake Total 110 100 Output Total 110 Balance 110 -10 Weight 58 kg Intake: Oral 110 100 Output: Urine 110 Other: Voiding Method Diaper Diaper Diaper External Catheter External Catheter External Catheter # Voids 1 # Bowel Movements 1 1 - Exam GENERAL: The patient is sitting in a recliner chair and is not in acute distress. NEUROLOGICAL: Higher mental function: The patient is awake, alert, oriented to self and time. She seems more awake today. She is following simple commands but is slow but is quicker in response. Moderately hypophonic. No aphasia. No neglect. Cranial nerves: The pupils are round, equal and reactive to light. Visual pritchard are full to confrontation throughout. Extraocular movement is intact no nystagmus is noted. Facial sensation is hard to assess because since did not respond. Has left lower facial weakness. No dysarthria is noted. Motor: The strength is left upper and lower extremity is 4+. Normal tone and bulk. Cerebellum: Normal finger to nose bilaterally. Sensation: Sensation is unable to assess because of her cooperation but she s tated "close to normal" but to nurse she stated decrease to touch on left side. Reflexes (right/left): 2+ uppers while lowers are 1+. Plantars are mute bilaterally. Some of the workup during this hospital visit consisted of: Lipid panel is triglyceride 132, cholesterol is 2:15, LDLs 144 and HDL 44 TSH is 3.760 [address]c is 5.70. CT of the head is reported as patchy chronic appearing. Ventricle white matter ischemic type changes with atrophy. Finding appears similar to the comparison study. Follow-up MRI can be performed as clinically indicated. I personally reviewed the CT head and there is no acute or subacute ischemia. There is no intracranial hemorrhage. CT angiography of the head and neck was reported as no significant flow limiting stenosis bilateral carotid bifurcation. Carotid duplex is reported as less than 50% stenosis of bilateral carotid bifurcation. MR the brain is reported as scattered area of acute/subacute CVA predominantly i nvolving the right frontal lobe with epileptiform pattern as well as within the bilateral parietal lobe near the skull vertex and a single focus within the right occipital lobe. Correlate for embolic phenomena. Nonspecific white matter changes, likely secondary to chronic small vessel ischemic disease. [place] artifact near the subtotal of the right dionne which is the not well appreciated on the arterial phase imaging on CTA on 05/13/2023. There is a vessel that extends to this region on susceptibility weighted image. Finding could represent vascular malformation. I personally reviewed the MRI and I do agree that patient has scattered stroke over bilateral hemisphere predominantly in the the right frontal parietal region. Limited 2-D echo was reported as no evidence of shunting with bubble study. Barium Swallow as reported as silent tracheal aspiration with thin, nectar and pure coexistence. There was increased episode of tracheal aspiration during the course of the examination likely related to the patient known Parkinson's disease. - Labs CBC & Chem 7: 05/16/23 08:08 05/16/23 08:08 Labs: Abnormal Lab Results - Last 24 Hours (Table) 05/16/23 Range/Units 08:08 Chloride 110 H (98-107) mmol/L BUN 23 H (7-17) mg/dL Assessment and Plan Assessment: This is an 82-year-old woman who presented her nursing facility and is compla ining of numbness of left hand. On examination she has left facial droop left the upper and lower extremity weakness and decreased sensation on left side. Last normal state is possibly last night per the ED. Acute ischemic stroke that scattered over bilateral hemisphere on MRI but predominantly over the right frontal as well as bilateral parietal single focus of the right occipital (has left facial droop and left-sided weakness with numbness as well as hypophonia). Stroke seems possible cardioembolic. So far no evidence of A-fib or flutter. ?vascular malformation within the right dionne on MRI. History of Parkinson's disease Hypertension Hyperlipidemia Plan: The patient started on aspirin 325mg mg daily by ED team. I also start the patient on Plavix 75 mg daily. Patient to be on dual antiplatelets for now. It seems she was not on any antiplatelet prior to this. So far no evidence of A-fib or flutter per nurse but if does then recommend placing her on anticoagulation and avoid dual antiplatletes. Continue 40mg daily at bedtime for secondary stroke prophylaxis. LDL goal in stroke is <70. Her LDL is 144. Recommend pursuing KRYSTLE. Recommended an event monitor for 30 days (to be placed prior to discharge). Continue her checks Cardiac monitoring Patient had a barium swallow is seems the patient is having the tracheal aspiration with thin, nectar and pure consistencies. PT OT and CLASSROOM COORDINATOR are consulted. I CONSULTED INPATIENT REHAB SINCE I FEEL PATIENT WILL BENEFIT. For ?vascular malformation of the right dionne on MRI, recommend to follow-up with Dr. Rendon as outpatient within 1-2 weeks. We'll defer the rest of medical management to primary team For DVT prophylaxis the patient is on subcu heparin 5000 units every 12 hours The plan discussed with the patient and her boyfriend who is at bedside. Time with Patient: Less than 30
[2023-05-16] MEDS: METOPROLOL TARTRATE 12.5 MG TAB PO SCH ×2 (14:40→21:21)
[2023-05-16] MEDS: amLODIPine 5 MG TAB PO SCH (14:40)
[2023-05-16] MEDS: ASPIRIN 325 MG TAB PO SCH (14:40)
[2023-05-16] MEDS: CLOPIDOGREL 75 MG TAB PO SCH (14:43)
[2023-05-16] MEDS: CHOLECALCIFEROL 25 MCG (1000 IU) TABLET PO SCH (14:43)
[2023-05-16] MEDS: CARBIDOPA-LEVODOPA 25-100 MG 1 EACH TAB PO SCH ×3 (14:43→21:20)
[2023-05-16] MEDS: buPROPion XL 150 MG TAB.ER.24H PO SCH (14:44)
[2023-05-16] MEDS: ARTIFICIAL TEARS OINTMENT 3.5 GM TUBE BOTH EYES SCH (21:20)
[2023-05-16] MEDS: DOCUSATE 100 MG CAP PO SCH (21:21)
[2023-05-16] MEDS: ATORVASTATIN 40 MG TAB PO SCH (21:21)
[2023-05-17 07:46] LABS: African American GFR (CKD) >90 (>60 ml/min/1.73 sqM); Anion Gap 9 mmol/L; Blood Urea Nitrogen 17 mg/dL (7-17); Calcium 8.8 mg/dL (8.4-10.2); Carbon Dioxide 22 mmol/L (22-30); Chloride 109 mmol/L (98-107); Glucose 85 mg/dL (74-99); Non-African American GFR(CKD) 85 (>60 ml/min/1.73 sqM); Potassium 3.6 mmol/L (3.5-5.1); Sodium 140 mmol/L (137-145)
--- NOTE | 2023-05-17 08:56 | P.CRDCN ---
History of Present Illness Consult date: 05/17/23 Reason for Consult (text): KRYSTLE History of present illness: History of present illness: This is an 82-year-old female with past medical history of hypertension, hyperlipidemia, Parkinson's disease gastroesophageal reflux disease, degenerative disc disease. Patient is a poor historian. We have been asked to evaluate patient for KRYSTLE. Patient presented to the hospital on 05/13 with numbness of the hand has been subsequently diagnosed with acute ischemic stroke and MRI revealed scattered areas of acute/subacute CVA predominantly involving t he right frontal lobe as well as bilateral parietal lobes. Correlate for embolic phenomenon. EKG sinus rhythm with no acute ST changes Chest x-ray: Chronic changes Echocardiogram 05/13: Normal left ventricular size and systolic function, mild mitral, tricuspid, and aortic regurgitation. Echocardiogram limited 05/15: No evidence of shunting with bubble study Home cardiac medications: Aspirin 81 mg daily, Lasix 20 mg every 2 days, lisinopril 10 mg daily Review Of Systems: At the time of my evaluation: Constitutional: No documented fever. EENT: No headache. No dizziness. Lungs: No shortness of breath Cardiovascular: No chest pain, no lower extremity edema. No orthopnea. No syncopal episodes. Abdominal: No abdominal pain. Musculoskeletal: No myalgias. Chronic generalized muscle weakness. Neurologic: No aphasia. + facial droop. Physical examination: Gen: This is an 82-year-old female VS: reviewed HEENT: Head is atraumatic, normocephalic. Pupils equal, round. Sclerae is anicteric. NECK: Supple. No JVD. . LUNGS: Clear to auscultation. No wheezes or rhonchi. No intercostal retractions. HEART: Regular rate and rhythm. ABDOMEN: Soft EXTREMITIES: No pedal edema. NEUROLOGICAL: Patient is awake, alert. Assessment: Acute ischemic stroke Hypertension Hyperlipidemia Parkinson's Gastroesophageal reflux disease Plan: Patient will be scheduled for KRYSTLE with Dr. Syed on Thursday Further recommendations to follow based upon clinical course Thank you kindly for this consultation. Nurse practitioner note has been reviewed, I agree with documented findings and plan of care. Patient was seen and examined. Past Medical History Past Medical History: Cancer, GERD/Reflux, Hyperlipidemia, Hypertension, Osteoarthritis (OA) Additional Past Medical History / Comment(s): 'slight heart murmer", hx skin cancer, numbness in left hand-two fingers, spinal stenosis, degenerative disks, "dry eyes", "SOME TROUBLE SWALLOWING" History of Any Multi-Drug Resistant Organisms: None Reported Past Surgical History: Orthopedic Surgery Additional Past Surgical History / Comment(s): 8 surgeries to remove skin cancer,2 surgeries on rt ankle for fx(plate and screws), 2 surgeries on left knee and thu in left knee as small child, tumor removed from nose, blepharoplasty pop eyes, pop cataracts, left arm surgery to release nerve, steroid spinal injections, total right ankle arthroplasty and right ANKLE SURGERY-JOINT REPLACEMENT Past Anesthesia/Blood Transfusion Reactions: No Reported Reaction Additional Past Anesthesia/Blood Transfusion Reaction / Comment(s): no family hx (adopted) Smoking Status: Former smoker - Past Family History Mother Family Medical History: Unable to Obtain Additional Family Medical History / Comment(s): Patient was adopted and does not know any family history. Daughter(s) Family Medical History: No Reported History Additional Family Medical History / Comment(s): Patient has 3 daughters and 2 sons all in their 50s with no major medical problems. Medications and Allergies Home Medications Medication Instructions Recorded Confirmed Type Multivitamin/Iron/Folic Acid 1 tab PO DAILY 04/28/18 05/13/23 History [Centrum Adults Tablet] Meclizine HCl 12.5 mg PO BID PRN 10/03/20 05/13/23 History Acetaminophen Tab [Tylenol Tab] 1,000 mg PO BID 05/13/23 05/13/23 History Acetaminophen Tab [Tylenol Tab] 1,000 mg PO DAILY@1500 PRN 05/13/23 05/13/23 History Albuterol Sulfate [Ventolin HFA] 2 puff INHALATION RT-Q4H PRN 05/13/23 05/13/23 History Artificial Tears-Hypromellose 1 drop BOTH EYES QID PRN 05/13/23 05/13/23 History [Artificial Tear Drops] Aspirin EC [Ecotrin Low Dose] 81 mg PO DAILY 05/13/23 05/13/23 History Autologous Serum Tears 1 drop BOTH EYES QID 05/13/23 05/13/23 History Carbidopa-Levodopa 25-100 mg 0.5 tab PO BID@0800,1200 05/13/23 05/13/23 History [Sinemet 25-100] Carbidopa-Levodopa 25-100 mg 1 tab PO HS 05/13/23 05/13/23 History [Sinemet 25-100] Carboxymethylcellulos/Glycerin 1 drop BOTH EYES QID 05/13/23 05/13/23 History [Refresh Relieva 0.5-0.9% Drop] Cholecalciferol [Vitamin D3 (25 50 mcg PO DAILY 05/13/23 05/13/23 History Mcg = 1000 Iu)] Docusate [Colace] 100 mg PO HS 05/13/23 05/13/23 History Eye Multivitamin/Sodium Tablet 2 tab PO BID 05/13/23 05/13/23 History Furosemide [Lasix] 20 mg PO Q2D 05/13/23 05/13/23 History L.acidoph,Paracasei, B.lactis 1 cap PO DAILY 05/13/23 05/13/23 History [Probiotic] Meloxicam [Mobic] 7.5 mg PO DAILY PRN 05/13/23 05/13/23 History Pantoprazole [Protonix] 40 mg PO DAILY PRN 05/13/23 05/13/23 History Refresh Optive Drops 1 drop BOTH EYES TID 05/13/23 05/13/23 History Refresh Pm Lubricant Eye Ointm 1 applic OPHTHALMIC HS 05/13/23 05/13/23 History Steralid Eye Cleanser 1 applic OPHTHALMIC MOWEFR 05/13/23 05/13/23 History buPROPion XL [Wellbutrin XL] 150 mg PO DAILY 05/13/23 05/13/23 History calcium polycarbophiL [Fiber-Lax] 1,250 mg PO HS 05/13/23 05/13/23 History lisinopriL [Zestril] 10 mg PO DAILY 05/13/23 05/13/23 History polyethylene glycoL 3350 [Miralax] 17 gm PO DAILY 05/13/23 05/13/23 History rOPINIRole HCL [Requip] 0.25 mg PO HS 05/13/23 05/13/23 History Allergies Allergy/AdvReac Type Severity Reaction Status Date / Time nickel Allergy Rash/Hives Verified 05/13/23 08:40 Physical Exam Vitals: Vital Signs Temp Pulse Resp BP Pulse Ox 05/17/23 04:00 98.1 F 67 18 141/85 97 05/17/23 00:00 97.8 F 70 16 93/53 93 L 05/16/23 20:00 97.9 F 74 16 125/73 95 05/16/23 16:00 97.6 F 72 18 115/75 96 05/16/23 12:41 98.1 F 72 16 147/88 95 05/16/23 09:13 97 Intake and Output 05/16/23 05/17/23 05/17/23 22:59 06:59 14:59 Intake Total 710 Output Total 450 500 Balance 260 -500 Intake: Intake, IV Titration 600 Amount Sodium Chloride 0.9% 1, 600 000 ml @ 75 mls/hr IV . [id number] [facility] Rx#:[id number] Oral 110 Output: Urine 450 500 Other: Voiding Method Diaper Diaper External Catheter External Catheter # Voids 1 # Bowel Movements 1 Results 05/16/23 08:08 05/17/23 06:59 CBC 05/16/23 Range/Units 08:08 WBC 7.1 (3.8-10.6) k/uL RBC 4.15 (3.80-5.40) m/uL Hgb 12.6 (11.4-16.0) gm/dL Hct 37.7 (34.0-46.0) % Plt Count 172 (150-450) k/uL Comprehensive Metabolic Panel 05/16/23 05/17/23 Range/Units 08:08 06:59 Sodium 140 140 (137-145) mmol/L Potassium 3.8 3.6 (3.5-5.1) mmol/L Chloride 110 H 109 H (98-107) mmol/L Carbon Dioxide 22 22 (22-30) mmol/L BUN 23 H 17 (7-17) mg/dL Creatinine 0.70 0.60 (0.52-1.04) mg/dL Glucose 85 85 (74-99) mg/dL Calcium 8.8 8.8 (8.4-10.2) mg/dL Current Medications Generic Name Dose Route Start Last Admin Trade Name Freq PRN Reason Stop Dose Admin Albuterol Sulfate 2.5 mg 05/13/23 10:09 Albuterol Nebulized 2.5 Mg/3 Ml INHALATION RT-Q4H PRN Shortness Of Breath Amlodipine Besylate 5 mg 05/13/23 13:30 05/16/23 14:40 Amlodipine 5 Mg Tab PO 5 mg DAILY [facility] Administration Artificial Tears 1 drops 05/13/23 10:09 Artificial Tears-Hypromellose Drops 15 Ml Btl BOTH EYES QID PRN Dry Eye(s) Artificial Tears 1 drops 05/14/23 16:00 05/16/23 21:20 Artificial Tears-Hypromellose Drops 15 Ml Btl BOTH EYES 1 drops TID RAFI Administration Aspirin 325 mg 05/14/23 09:00 05/16/23 14:40 Aspirin 325 Mg Tab PO 325 mg DAILY [facility]FI Administration Atorvastatin Calcium 40 mg 05/15/23 21:00 05/16/23 21:21 Atorvastatin 40 Mg Tab PO 40 mg HS [facility]FI Administration Bupropion HCl 150 mg 05/14/23 09:00 05/16/23 14:44 Bupropion Xl 150 Mg Tab.Er.24h PO 150 mg DAILY RAFI Administration Calcium Polycarbophil 1,250 mg 05/13/23 21:00 05/16/23 21:21 Calcium Polycarbophil 625 Mg Tab PO 1,250 mg HS RAFI Administration Carbidopa/Levodopa 0.5 each 05/13/23 12:00 05/16/23 14:54 Carbidopa-Levodopa 25-100 Mg 1 Each Tab PO Not Given BID@0800,1200 [facility] Carbidopa/Levodopa 1 each 05/13/23 21:00 05/16/23 21:20 Carbidopa-Levodopa 25-100 Mg 1 Each Tab PO 1 each HS RAFI Administration Cholecalciferol 50 mcg 05/14/23 09:00 05/16/23 14:43 Cholecalciferol 25 Mcg (1000 Iu) Tablet PO 50 mcg DAILY RAFI Administration Clopidogrel Bisulfate 75 mg 05/14/23 13:30 05/16/23 14:43 Clopidogrel 75 Mg Tab PO 75 mg DAILY RAFI Administration Diclofenac Sodium 2 gm 05/14/23 11:43 05/14/23 21:04 Diclofenac Sodium Gel 100 Gm Tube TOPICAL 2 gm QID PRN Administration Mild to Moderate Pain (1 - 6) Protocol Docusate Sodium 100 mg 05/13/23 21:00 05/16/23 21:21 Docusate 100 Mg Cap PO 100 mg HS RAFI Administration Famotidine 20 mg 05/16/23 09:00 05/16/23 10:00 Famotidine 20 Mg/2 Ml Vial IV 20 mg Q24HR [facility]FI Administration Heparin Sodium (Porcine) 5,000 unit 05/14/23 21:00 05/16/23 21:21 Heparin Sodium,Porcine 5,000 Unit/Ml 1 Ml Vial SQ 5,000 unit Q12HR RAFI Administration Sodium Chloride 1,000 mls @ 75 mls/hr 05/13/23 10:00 05/16/23 17:35 Saline 0.9% IV 75 mls/hr .[id number] [facility] Administration Meclizine HCl 12.5 mg 05/13/23 10:09 Meclizine 12.5 Mg Tab PO BID PRN Nausea And Vomiting Metoprolol Tartrate 12.5 mg 05/13/23 13:30 05/16/23 21:21 Metoprolol Tartrate 12.5 Mg Tab PO Not Given BID [facility] Multi-Ingred Cream/Lotion/Oil/Oint 1 applic 05/14/23 21:00 05/16/23 21:20 Artificial Tears Ointment 3.5 Gm Tube BOTH EYES 1 applic HS RAFI Administration Pantoprazole Sodium 40 mg 05/13/23 10:09 Pantoprazole 40 Mg Tablet PO DAILY PRN Gerd Ropinirole HCl 0.25 mg 05/13/23 21:00 05/16/23 21:20 Ropinirole Hcl 0.25 Mg Tab PO 0.25 mg HS RAFI Administration Intake and Output 05/16/23 05/17/23 05/17/23 22:59 06:59 14:59 Intake Total 710 Output Total 450 500 Balance 260 -500 Intake: Intake, IV Titration 600 Amount Sodium Chloride 0.9% 1, 600 000 ml @ 75 mls/hr IV . [id number] [facility] Rx#:[id number] Oral 110 Output: Urine 450 500 Other: Voiding Method Diaper Diaper External Catheter External Catheter # Voids 1 # Bowel Movements 1 05/16/23 08:08 05/17/23 06:59
[2023-05-17] MEDS: ACETAMINOPHEN TAB 325 MG TAB PO PRN ×2 (09:48→17:51)
[2023-05-17] MEDS: FAMOTIDINE 20 MG/2 ML VIAL IV SCH (09:49)
[2023-05-17] MEDS: CARBIDOPA-LEVODOPA 25-100 MG 1 EACH TAB PO SCH ×3 (09:50→19:38)
[2023-05-17] MEDS: METOPROLOL TARTRATE 12.5 MG TAB PO SCH ×2 (09:50→19:38)
[2023-05-17] MEDS: buPROPion XL 150 MG TAB.ER.24H PO SCH (09:50)
[2023-05-17] MEDS: HEPARIN SODIUM,PORCINE 5,000 UNIT/ML 1 ML VIAL SQ SCH ×2 (09:50→19:38)
[2023-05-17] MEDS: ASPIRIN 325 MG TAB PO SCH (09:50)
[2023-05-17] MEDS: CLOPIDOGREL 75 MG TAB PO SCH (09:50)
[2023-05-17] MEDS: CHOLECALCIFEROL 25 MCG (1000 IU) TABLET PO SCH (09:50)
[2023-05-17] MEDS: ARTIFICIAL TEARS-HYPROMELLOSE DROPS 15 ML BTL BOTH EYES SCH ×3 (09:51→21:56)
[2023-05-17] MEDS: SODIUM CHLORIDE 0.9% 1,000 ML IV SCH (09:51)
[2023-05-17] MEDS: amLODIPine 5 MG TAB PO SCH (09:52)
--- NOTE | 2023-05-17 11:31 | P.PN ---
Subjective Progress Note Date: 05/17/23 I am following-up with patient and denies of any new neurological issues. She feels her neck feels stiff laying in bed. Objective - Vital Signs Vital signs: Vital Signs Temp 97.8 F 05/17/23 11:02 Pulse 79 05/17/23 11:02 Resp 16 05/17/23 11:02 BP 145/79 05/17/23 11:02 Pulse Ox 95 05/17/23 11:02 FiO2 Intake & Output 05/16/23 05/17/23 05/17/23 18:59 06:59 18:59 Intake Total 710 10 Output Total 450 500 Balance 710 -450 -490 Intake: IV 10 Invasive Line 2 10 Intake, IV Titration 600 Amount Sodium Chloride 0.9% 1, 600 000 ml @ 75 mls/hr IV . [id number] [facility] Rx#:[id number] Oral 110 Output: Urine 450 500 Other: Voiding Method Diaper Diaper Diaper External Catheter External Catheter External Catheter # Voids 1 # Bowel Movements 1 - Exam GENERAL: The patient is sitting in a recliner chair and is not in acute distress. NEUROLOGICAL: Higher mental function: The patient is awake, alert, oriented to self and time. She is following simple commands but is slow but is quicker in response. Moderately hypophonic. No aphasia. No neglect. Cranial nerves: The pupils are round, equal and reactive to light. Visual pritchard are full to confrontation throughout. Extraocular movement is intact no nystagmus is noted. Facial sensation is hard to assess because since did not respond. Has left lower facial weakness. No dysarthria is noted. Motor: The strength is left upper and lower extremity is 4+. Normal tone and bulk. Cerebellum: Normal finger to nose bilaterally. Sensation: Sensation is unable to assess because of her cooperation but she stated "close to normal" but to nurse she stated decrease to touch on left side. Reflexes (right/left): 2+ uppers while lowers are 1+. Plantars are mute bilaterally. Some of the workup during this hospital visit consisted of: Lipid panel is triglyceride 132, cholesterol is 2:15, LDLs 144 and HDL 44 TSH is 3.760 [address]c is 5.70. CT of the head is reported as patchy chronic appearing. Ventricle white matter ischemic type changes with atrophy. Finding appears similar to the comparison study. Follow-up MRI can be performed as clinically indicated. I personally reviewed the CT head and there is no acute or subacute ischemia. There is no intracranial hemorrhage. CT angiography of the head and neck was reported as no significant flow limiting stenosis bilateral carotid bifurcation. Carotid duplex is reported as less than 50% stenosis of bilateral carotid bifurcation. MR the brain is reported as scattered area of acute/subacute CVA predominantly involving the right frontal lobe with epileptiform pattern as well as within the bilateral parietal lobe near the skull vertex and a single focus within the right occipital lobe. Correlate for embolic phenomena. Nonspecific white matter changes, likely secondary to chronic small vessel ischemic disease. [place] artifact near the subtotal of the right dionne which is the not well appreciated on the arterial phase imaging on CTA on 05/13/2023. There is a vessel that extends to this region on susceptibility weighted image. Finding could represent vascular malformation. I personally reviewed the MRI and I do agree that patient has scattered stroke over bilateral hemisphere predominantly in the the right frontal parietal region. Limited 2-D echo was reported as no evidence of shunting with bubble study. Barium Swallow as reported as silent tracheal aspiration with thin, nectar and pure coexistence. There was increased episode of tracheal aspiration during the course of the examination likely related to the patient known Parkinson's disease. - Labs CBC & Chem 7: 05/16/23 08:08 05/17/23 06:59 Labs: Abnormal Lab Results - Last 24 Hours (Table) 05/17/23 Range/Units 06:59 Chloride 109 H (98-107) mmol/L Assessment and Plan Assessment: This is an 82-year-old woman who presented her nursing facility and is complaining of numbness of left hand. On examination she has left facial droop left the upper and lower extremity weakness and decreased sensation on left side. Last normal state is possibly last night per the ED. Acute ischemic stroke that scattered over bilateral hemisphere on MRI but predominantly over the right frontal as well as bilateral parietal single focus of the right occipital (has left facial droop and left-sided weakness with numbness as well as hypophonia). Stroke seems possible cardioembolic. So far no evidence of A-fib or flutter. ?vascular malformation within the right dionne on MRI. History of Parkinson's disease Hypertension Hyperlipidemia Plan: The patient started on aspirin 325mg mg daily by ED team. I also start the patient on Plavix 75 mg daily. Patient to be on dual antiplatelets for now. It seems she was not on any antiplatelet prior to this. So far no evidence of A-fib or flutter per nurse but if does then recommend placing her on anticoagulation and avoid dual antiplatletes. Continue 40mg daily at bedtime for secondary stroke prophylaxis. LDL goal in stroke is <70. Her LDL is 144. Recommend pursuing KRYSTLE and spoke with son and he will like to pursue it. Patient is in agreement. Recommended an event monitor for 30 days (to be placed prior to discharge). Continue her checks Cardiac monitoring Patient had a barium swallow is seems the patient is having the tracheal aspiration with thin, nectar and pure consistencies. PT OT and HISTORIC SITE ADMINISTRATOR are consulted. I CONSULTED INPATIENT REHAB SINCE I FEEL PATIENT WILL BENEFIT. For ?vascular malformation of the right dionne on MRI, recommend to follow-up with Dr. Rendon as outpatient within 1-2 weeks. We'll defer the rest of medical management to primary team For DVT prophylaxis the patient is on subcu heparin 5000 units every 12 hours The plan discussed with the patient, her son via phone and her nurse. Dr. Zuleta will start neurology service tomorrow A.M. Time with Patient: Less than 30
--- NOTE | 2023-05-17 12:45 | P.PN ---
Subjective Progress Note Date: 05/17/23 82 years old female with multiple medical problems GERD/Reflux, Hyperlipidemia, Hypertension, Osteoarthritis,, numbness in left hand-two fingers, spinal stenosis, degenerative disks, total right ankle arthroplasty Her PCP is Dr. Casiano and she follow up with the [place] [facility] and she has been told she has Parkinson disease. Patient admitted with episode of weakness. MRI brain consistent with stroke 05/14: Patient seen at bedside, family at bedside as code status address. Patient therefore. Does have generalized weakness. Asymmetric weakness noted as well Seen by neurology as well 05/15: Patient seen and evaluated bedside, MRI results discussed again. Patient does have weakness and will need transesophageal echo to rule out intracardiac thrombus. Patient accompanied by friend at bedside. Will adjust antihypertensive medication 05/16: Patient seen and everted bedside, competent with son at bedside MRI results discussed land for KRYSTLE discussed patient is moving bilateral upper and lower extremity speech has improved significantly as well. 05/17: Patient seen and evaluated bedside, care plan discussed plan for KRYSTLE during this hospitalization. Patient family was ALREADY NOTIFIED WE'LL TRY TO RULE OUT LV THROMBUS Objective - Vital Signs Vital signs: Vital Signs Temp 97.8 F 05/17/23 11:02 Pulse 79 05/17/23 11:02 Resp 16 05/17/23 11:02 BP 145/79 05/17/23 11:02 Pulse Ox 95 05/17/23 11:02 FiO2 Intake & Output 05/16/23 05/17/23 05/17/23 18:59 06:59 18:59 Intake Total 710 10 Output Total 450 500 Balance 710 -450 -490 Intake: IV 10 Invasive Line 2 10 Intake, IV Titration 600 Amount Sodium Chloride 0.9% 1, 600 000 ml @ 75 mls/hr IV . [id number] [facility] Rx#:[id number] Oral 110 Output: Urine 450 500 Other: Voiding Method Diaper Diaper Diaper External Catheter External Catheter External Catheter # Voids 1 # Bowel Movements 1 - Exam PHYSICAL EXAMINATION: GENERAL: The patient is alert and oriented x2 , ill appearance HEENT: Pupils are round and equally reacting to light. EOMI. CARDIOVASCULAR: S1 and S2 present. No murmurs, rubs, or gallops. PULMONARY: Chest is clear to auscultation, no wheezing or crackles. ABDOMEN: Soft, nontender, nondistended, normoactive bowel sounds. No palpable organomegaly. MUSCULOSKELETAL: No joint swelling or deformity. EXTREMITIES: No cyanosis, clubbing, or pedal edema. NEUROLOGICAL: Left-sided facial droop and left-sided weakness improved. Motor strength is 4 x 5 bilateral upper extremity, 4 x 5 bilateral lower extremity - Labs CBC & Chem 7: 05/16/23 08:08 05/17/23 06:59 Labs: Abnormal Lab Results - Last 24 Hours (Table) 05/17/23 Range/Units 06:59 Chloride 109 H (98-107) mmol/L Assessment and Plan Assessment: * Acute ischemic stroke bilateral hemisphere involvement with left-sided hemiparesis * History of Parkinson disease * Hypertension * Hyperlipidemia * Depressed mood * Malnutrition * In regards to acute CVA Neurology >> consulted, CT head, CT head and neck, ec hocardiogram negative for PFO, intracardiac thrombus, carotid Doppler negative for hemodynamically significant stenosis. * MRI brain does show scattered areas of acute to subacute infarct in the right frontal lobe with bilateral parietal lobe involvement as well single focus in right occipital lobe. Suspicion for cardioembolic phenomena * Continue patient on aspirin, Plavix, Lipitor. Transthoracic echocardiogram negative for intracardiac thrombus, transesophageal echo ordered scheduled for * Carotid ultrasound shows less than 50% stenosis * Nutrition/speech consulted * For depression Continue patient on Wellbutrin * Patient will need discharge to subacute rehab for physical therapy * Patient therapy following, videofluoroscopic study completed a aspiration precautions ordered * In regards to history of Parkinson continue patient on Sinemet * CODE STATUS is DO NOT RESUSCITATE limited intervention
[2023-05-17] MEDS: ATORVASTATIN 40 MG TAB PO SCH (19:38)
[2023-05-17] MEDS: DOCUSATE 100 MG CAP PO SCH (19:38)
[2023-05-17] MEDS: ARTIFICIAL TEARS OINTMENT 3.5 GM TUBE BOTH EYES SCH (19:38)
[2023-05-18] MEDS: SODIUM CHLORIDE 0.9% 1,000 ML IV SCH ×2 (06:54→13:05)
[2023-05-18] MEDS ORDERED: fentaNYL (PF) 50 MCG/ML 2 ML AMP ONE (07:13)
[2023-05-18] MEDS ORDERED: BENZOCAINE SPRAY 1 CAN TOPICAL ONE (07:54)
[2023-05-18] MEDS ORDERED: MIDAZOLAM 2 MG/2 ML VIAL IVP ONE (07:56)
[2023-05-18] MEDS ORDERED: fentaNYL (PF) 50 MCG/ML 2 ML AMP IVP ONE (08:05)
[2023-05-18] MEDS ORDERED: IV FLUID CONTINUATION 300 ML IV ONE (08:05)
--- NOTE | 2023-05-18 09:50 | ECHOT ---
TRANSESOPHAGEAL ECHOCARDIOGRAM INDICATION: CVA. PROCEDURE NOTE: After obtaining informed consent, transesophageal echocardiogram was performed in left lateral position using an Omniplane probe. Local and IV sedation were obtained using Xylocaine spray, I mg of Versed, and 25 mcg of fentanyl. The patient tolerated the procedure well without any obvious immediate complications. FINDINGS: 1. Interatrial septum. There is no evidence of [id number] shunt by color-flow Doppler, or smoxr-kh-ixme shunt by agitated saline contrast study. 2. There is no intracardiac thrombus within the left atrium, right atrium, right ventricle, or left atrial appendage. 3. Left ventricle has normal size and systolic function. 4. Left atrium appears enlarged. Right atrium, right ventricle seen within normal limits. 5. Mitral valve is anatomically normal. There is mild to moderate central mitral regurgitation noted. 6. There is mild tricuspid regurgitation noted. 7. There is trace aortic regurgitation. There is moderate atherosclerotic block. CONCLUSIONS: Normal LV systolic function. No intracardiac thrombus. No evidence of shunting across the interatrial septum. MMODL / IJN: [id number] /
[2023-05-18 10:04] LABS: African American GFR (CKD) >90 (>60 ml/min/1.73 sqM); Anion Gap 12 mmol/L; Blood Urea Nitrogen 9 mg/dL (7-17); Calcium 9.1 mg/dL (8.4-10.2); Carbon Dioxide 19 mmol/L (22-30); Chloride 108 mmol/L (98-107); Glucose 97 mg/dL (74-99); Non-African American GFR(CKD) 90 (>60 ml/min/1.73 sqM); Potassium 3.5 mmol/L (3.5-5.1); Sodium 139 mmol/L (137-145)
[2023-05-18] MEDS: CHOLECALCIFEROL 25 MCG (1000 IU) TABLET PO SCH (10:28)
[2023-05-18] MEDS: METOPROLOL TARTRATE 12.5 MG TAB PO SCH ×2 (10:29→21:20)
[2023-05-18] MEDS: CARBIDOPA-LEVODOPA 25-100 MG 1 EACH TAB PO SCH ×3 (10:29→21:20)
[2023-05-18] MEDS: CLOPIDOGREL 75 MG TAB PO SCH (10:29)
[2023-05-18] MEDS: amLODIPine 5 MG TAB PO SCH (10:29)
[2023-05-18] MEDS: ASPIRIN 325 MG TAB PO SCH (10:29)
[2023-05-18] MEDS: ACETAMINOPHEN TAB 325 MG TAB PO PRN (10:29)
[2023-05-18] MEDS: buPROPion XL 150 MG TAB.ER.24H PO SCH (10:30)
[2023-05-18] MEDS: HEPARIN SODIUM,PORCINE 5,000 UNIT/ML 1 ML VIAL SQ SCH ×2 (10:30→21:20)
[2023-05-18] MEDS: FAMOTIDINE 20 MG/2 ML VIAL IV SCH (10:30)
[2023-05-18] MEDS: ARTIFICIAL TEARS-HYPROMELLOSE DROPS 15 ML BTL BOTH EYES SCH ×3 (10:49→21:20)
--- NOTE | 2023-05-18 14:37 | P.PN ---
Subjective Progress Note Date: 05/18/23 82 years old female with multiple medical problems GERD/Reflux, Hyperlipidemia, Hypertension, Osteoarthritis,, numbness in left hand-two fingers, spinal stenosis, degenerative disks, total right ankle arthroplasty Her PCP is Dr. Casiano and she follow up with the [place] [facility] and she has been told she has Parkinson disease. Patient admitted with episode of weakness. MRI brain consistent with stroke 05/14: Patient seen at bedside, family at bedside as code status address. Patient therefore. Does have generalized weakness. Asymmetric weakness noted as well Seen by neurology as well 05/15: Patient seen and evaluated bedside, MRI results discussed again. Patient does have weakness and will need transesophageal echo to rule out intracardiac thrombus. Patient accompanied by friend at bedside. Will adjust antihypertensive medication 05/16: Patient seen and everted bedside, competent with son at bedside MRI results discussed land for KRYSTLE discussed patient is moving bilateral upper and lower extremity speech has improved significantly as well. 05/17: Patient seen and evaluated bedside, care plan discussed plan for KRYSTLE during this hospitalization. Patient family was ALREADY NOTIFIED WE'LL TRY TO RULE OUT LV THROMBUS 05/18. Patient seen and examined. Patient lethargic, family at the bedside. Had KRYSTLE done this morning REVIEW OF SYSTEMS: Cannot be obtained patient is lethargic. PHYSICAL EXAMINATION: GENERAL: The patient is lethargic, not in any acute distress. Well developed, well nourished. HEENT: Pupils are round and equally reacting to light. EOMI. No scleral icterus. No conjunctival pallor. Normocephalic, atraumatic. No pharyngeal erythema. No th yromegaly. CARDIOVASCULAR: S1 and S2 present. No murmurs, rubs, or gallops. PULMONARY: Chest is clear to auscultation, no wheezing or crackles. ABDOMEN: Soft, nontender, nondistended, normoactive bowel sounds. No palpable organomegaly. MUSCULOSKELETAL: No joint swelling or deformity. EXTREMITIES: No cyanosis, clubbing, or pedal edema. NEUROLOGICAL: Left-sided facial droop and left-sided weakness improved. Motor strength is 4 x 5 bilateral upper extremity, 4 x 5 bilateral lower extremity SKIN: No rashes. Assessment and plan * Acute ischemic stroke bilateral hemisphere involvement with left-sided hemiparesis * History of Parkinson disease * Hypertension * Hyperlipidemia * Depressed mood * Malnutrition Monitor vital signs Monitor CBC Monitor CMP continue neuro checks Telemetry monitoring * In regards to acute CVA Neurology >> consulted, CT head, CT head and neck, echocardiogram negative for PFO, intracardiac thrombus, carotid Doppler negative for hemodynamically significant stenosis. * MRI brain does show scattered areas of acute to subacute infarct in the right frontal lobe with bilateral parietal lobe involvement as well single focus in right occipital lobe. Suspicion for cardioembolic phenomena * Continue patient on aspirin, Plavix, Lipitor. Transthoracic echocardiogram negative for intracardiac thrombus, transesophageal echo done, negative for any evidence of any intracardiac thrombus * Carotid ultrasound shows less than 50% stenosis * Nutrition/speech consulted * For depression Continue patient on Wellbutrin * Patient will need discharge to subacute rehab for physical therapy * Patient therapy following, videofluoroscopic study completed a aspiration precautions ordered * In regards to history of Parkinson continue patient on Sinemet * CODE STATUS is DO NOT RESUSCITATE limited intervention * Labs and medication were reviewed.. Continue same treatment. Continue with symptomatic treatment. Resume home medication. Monitor labs and vitals. DVT and GI prophylaxis. Further recommendations as per clinical course of the patient Dictation was produced using [employer] dictation software. please excuse any grammatical, word or spelling errors. Objective - Vital Signs Vital signs: Vital Signs Temp 98.3 F 05/18/23 04:00 Pulse 69 05/18/23 08:05 Resp 20 05/18/23 08:05 BP 176/89 05/18/23 08:05 Pulse Ox 99 05/18/23 08:05 FiO2 Intake & Output 05/17/23 05/18/23 05/18/23 18:59 06:59 18:59 Intake Total 130 420 50 Output Total 500 Balance -370 420 50 Intake: IV 10 50 Invasive Line 2 10 Intake, IV Titration 300 Amount Sodium Chloride 0.9% 1, 300 000 ml @ 75 mls/hr IV . [id number] [facility] Rx#:[id number] Oral 120 120 0 Output: Urine 500 Other: Voiding Method Diaper Diaper External Catheter External Catheter # Voids 2 - Labs CBC & Chem 7: 05/16/23 08:08 05/18/23 09:27 Labs: Abnormal Lab Results - Last 24 Hours (Table) 05/18/23 Range/Units 09:27 Chloride 108 H (98-107) mmol/L Carbon Dioxide 19 L (22-30) mmol/L Creatinine 0.51 L (0.52-1.04) mg/dL
--- NOTE | 2023-05-18 14:44 | P.PN ---
Subjective Progress Note Date: 05/18/23 Patient initially seen by Dr. Bret Ascencio. Please refer to his note for details. Patient is a 82-year-old female with bilateral hemispheric stroke but predominantly right. Patient has left facial weakness and left-sided weakness. No atrial fibrillation or atrial flutter. Patient to undergo KRYSTLE today. Patient is currently on aspirin and Plavix. Patient was taking aspirin 81 mg daily prior to the arrival to the hospital. Some of the workup during this hospital visit consisted of: Lipid panel is triglyceride 132, cholesterol is 215, LDLs 144 and HDL 44 TSH is 3.760 [address]c is 5.70. CT of the head is reported as patchy chronic appearing. Ventricle white matter ischemic type changes with atrophy. Finding appears similar to the comparison study. Follow-up MRI can be performed as clinically indicated. I personally reviewed the CT head and there is no acute or subacute ischemia. There is no intracranial hemorrhage. CT angiography of the head and neck was reported as no significant flow limiting stenosis bilateral carotid bifurcation. Carotid duplex is reported as less than 50% stenosis of bilateral carotid bifurcation. MR the brain is reported as scattered area of acute/subacute CVA predominantly involving the right frontal lobe with epileptiform pattern as well as within the bilateral parietal lobe near the skull vertex and a single focus within the right occipital lobe. Correlate for embolic phenomena. Nonspecific white matter changes, likely secondary to chronic small vessel ischemic disease. [place] artifact near the subtotal of the right dionne which is the not well appreciated on the arterial phase imaging on CTA on 05/13/2023. There is a vessel that extends to this region on susceptibility weighted image. Finding could represent vascular malformation. I personally reviewed the MRI and I do agree that patient has scattered stroke over bilateral hemisphere predominantly in the the right frontal parietal region. Limited 2-D echo was reported as no evidence of shunting with bubble study. Barium Swallow as reported as silent tracheal aspiration with thin, nectar and pure coexistence. There was increased episode of tracheal aspiration during the course of the examination likely related to the patient known Parkinson's disease. Objective - Vital Signs Vital signs: Vital Signs Temp 98.2 F 05/18/23 08:10 Pulse 87 05/18/23 08:10 Resp 18 05/18/23 08:10 BP 151/83 05/18/23 08:10 Pulse Ox 92 L 05/18/23 08:10 FiO2 Intake & Output 05/17/23 05/18/23 05/18/23 18:59 06:59 18:59 Intake Total 130 420 60 Output Total 500 Balance -370 420 60 Intake: IV 10 60 Invasive Line 2 10 10 Intake, IV Titration 300 Amount Sodium Chloride 0.9% 1, 300 000 ml @ 75 mls/hr IV . [id number] [facility] Rx#:[id number] Oral 120 120 0 Output: Urine 500 Other: Voiding Method Diaper Diaper External Catheter External Catheter # Voids 2 - Exam On examination patient is an elderly female, laying comfortably in the recliner. Patient has very slow mentation. She is slightly sleepy. Speech is mildly dysarthric but no aphasia. On cranial nerve exam shows pupils are equal, round and reacting, visual pritchard are full, face appears symmetric on active testing, although patient does have mild left facial droop. Tongue protrudes the midline. On muscle strength testing, the patient does not hold arms up, and then sit down equally bilaterally. Overall the muscle strength is (right/left) deltoid 3+/4-, biceps 5/5, triceps 5/5, slasher sawyer 5-/4+, ankle dorsiflexion 5/4-, hip flexion 5-/5- Sensory to touch is equal bilaterally with no neglect. Cerebellar functions revealed no ataxia for [id number] on the right, but very difficult to perform with her left upper extremity. Patient is very severely bradykinetic. No resting tremors noted. Tone is mildly increased bilaterally. - Labs CBC & Chem 7: 05/16/23 08:08 05/18/23 09:27 Labs: Abnormal Lab Results - Last 24 Hours (Table) 05/18/23 Range/Units 09:27 Chloride 108 H (98-107) mmol/L Carbon Dioxide 19 L (22-30) mmol/L Creatinine 0.51 L (0.52-1.04) mg/dL Assessment and Plan Assessment: This is an 82-year-old woman who presented her nursing facility and is complaining of numbness of left hand. On examination she has left facial droop left the upper and lower extremity weakness and decreased sensation on left side. Last normal state is possibly last night prior to arrival, per ED report. Acute ischemic stroke that scattered over bilateral hemisphere on MRI but predominantly over the right frontal as well as bilateral parietal single focus of the right occipital (has left facial droop and left-sided weakness with numbness as well as hypophonia). Stroke seems possible cardioembolic. So far no evidence of A-fib or flutter. ?vascular malformation within the right dionne on MRI. Parkinson's disease Hypertension Hyperlipidemia Plan: The patient started on aspirin 325mg mg daily by ED team. Dr. Ascencio started the patient on Plavix 75 mg daily. It appears patient was taking aspirin 81 mg daily prior to arrival to the hospital. Suggest continuing aspirin and Plavix for 21 days, then stop aspirin and continue Plavix indefinitely. So far no evidence of A-fib or flutter per nurse but if does then recommend placing her on anticoagulation and avoid dual antiplatletes. Patient started on Lipitor 40mg daily at bedtime for secondary stroke prophylaxis. LDL goal in stroke is <70. Her LDL is 144. Patient was not taking any statins at home. KRYSTLE performed today revealed normal left ventricular systolic function. No intr acardiac thrombus. No evidence of shunt across the interatrial septum. Recommended an event monitor for 30 days (to be placed prior to discharge). Cardiac monitoring Patient had a barium swallow is seems the patient is having the tracheal aspiration with thin, nectar and pure consistencies. PT OT and STEEL DETAILER are consulted. Dr. Bret Ascencio has consulted inpatient rehab. For ?vascular malformation of the right dionne on MRI, recommend to follow-up with Dr. Rendon as outpatient within 1-2 weeks. We'll defer the rest of medical management to primary team For DVT prophylaxis the patient is on subcu heparin 5000 units every 12 hours We will try to contact patient's daughter to get more collateral history.
[2023-05-18] MEDS: ATORVASTATIN 40 MG TAB PO SCH (21:20)
[2023-05-18] MEDS: DOCUSATE 100 MG CAP PO SCH (21:20)
[2023-05-18] MEDS: ARTIFICIAL TEARS OINTMENT 3.5 GM TUBE BOTH EYES SCH (21:21)
[2023-05-19] MEDS: SODIUM CHLORIDE 0.9% 1,000 ML IV SCH (04:32)
[2023-05-19] MEDS ORDERED: ASPIRIN 81 MG PO SCH (09:00)
[2023-05-19] MEDS: buPROPion XL 150 MG TAB.ER.24H PO SCH (09:54)
[2023-05-19] MEDS: CARBIDOPA-LEVODOPA 25-100 MG 1 EACH TAB PO SCH ×2 (09:54→12:14)
[2023-05-19] MEDS: amLODIPine 5 MG TAB PO SCH (09:55)
[2023-05-19] MEDS: METOPROLOL TARTRATE 12.5 MG TAB PO SCH (09:55)
[2023-05-19] MEDS: CHOLECALCIFEROL 25 MCG (1000 IU) TABLET PO SCH (09:55)
[2023-05-19] MEDS: ARTIFICIAL TEARS-HYPROMELLOSE DROPS 15 ML BTL BOTH EYES SCH (09:55)
[2023-05-19] MEDS: CLOPIDOGREL 75 MG TAB PO SCH (09:55)
[2023-05-19] MEDS: FAMOTIDINE 20 MG/2 ML VIAL IV SCH (09:55)
[2023-05-19] MEDS: HEPARIN SODIUM,PORCINE 5,000 UNIT/ML 1 ML VIAL SQ SCH (09:56)
--- NOTE | 2023-05-19 11:58 | P.PN ---
Subjective Progress Note Date: 05/19/23 05/19/2023: Patient was seen for a follow-up. Patient's daughter was also present today. Patient's daughter mentions that patient has history of Parkinson's disease. She was transferred to [facility] about 2-1/2 years ago after she started to having frequent falls related to Parkinson's disease. She is also incontinent of urine. Patient's baseline is that she talks with very low volume, delayed speech but no slurred speech. She has not been diagnosed with any dementia otherwise. Patient's baseline was having difficulty feeding from hand to mouth. Patient follows up with [facility], with one of the nurse practitioners. Patient's daughter mention s that she has not been mobile for a while. She cannot walk without her walker and usually needs one assist for walking for last several months. Patient has history of smoking 1 pack per week for about 40 years, quit about 8-10 years ago. Patient does not take any cholesterol medication. She used to be on Zetia, but was stopped 6 or 8 months ago, as they just wanted to cut back on medications that were possible. Patient at present complains of throbbing in the ears bilaterally. She is layi ng in the bed. Telemetry monitoring so far showing sinus rhythm. 05/18/2023: Patient initially seen by Dr. Bret Ascencio. Please refer to his note for details. Patient is a 82-year-old female with bilateral hemispheric stroke but predominantly right. Patient has left facial weakness and left-sided weakness. No atrial fibrillation or atrial flutter. Patient to undergo KRYSTLE today. Patient is currently on aspirin and Plavix. Patient was taking aspirin 81 mg daily prior to the arrival to the hospital. Some of the workup during this hospital visit consisted of: Lipid panel is triglyceride 132, cholesterol is 215, LDLs 144 and HDL 44 TSH is 3.[address] is 5.70. CT of the head is reported as patchy chronic appearing. Ventricle white matter ischemic type changes with atrophy. Finding appears similar to the comparison study. Follow-up MRI can be performed as clinically indicated. I personally reviewed the CT head and there is no acute or subacute ischemia. There is no intracranial hemorrhage. CT angiography of the head and neck was reported as no significant flow limiting stenosis bilateral carotid bifurcation. Carotid duplex is reported as less than 50% stenosis of bilateral carotid b ifurcation. MR the brain is reported as scattered area of acute/subacute CVA predominantly involving the right frontal lobe with epileptiform pattern as well as within the bilateral parietal lobe near the skull vertex and a single focus within the right occipital lobe. Correlate for embolic phenomena. Nonspecific white matter changes, likely secondary to chronic small vessel ischemic disease. B [place] artifact near the subtotal of the right dionne which is the not well appreciated on the arterial phase imaging on CTA on 05/13/2023. There is a vessel that extends to this region on susceptibility weighted image. Finding could represent vascular malformation. I personally reviewed the MRI and I do agree that patient has scattered stroke over bilateral hemisphere predominantly in the the right frontal parietal region. Limited 2-D echo was reported as no evidence of shunting with bubble study. Barium Swallow as reported as silent tracheal aspiration with thin, nectar and pure coexistence. There was increased episode of tracheal aspiration during the course of the examination likely related to the patient known Parkinson's disease. Objective - Vital Signs Vital signs: Vital Signs Temp 98 F 05/19/23 08:00 Pulse 95 05/19/23 08:00 Resp 16 05/19/23 08:00 BP 158/83 05/19/23 08:00 Pulse Ox 94 L 05/19/23 08:00 FiO2 Intake & Output 05/18/23 05/19/23 05/19/23 18:59 06:59 18:59 Intake Total 329 120 Output Total 200 250 Balance 129 -130 Intake: IV 60 Invasive Line 2 10 Oral 269 120 Output: Urine 200 250 Other: Voiding Method Diaper Diaper Diaper External Catheter External Catheter External Catheter - Exam On examination patient is an elderly female, laying comfortably in the recliner. Patient has very slow mentation. She is more awake today. Speech is mildly dysarthric but no aphasia. She speaks in very low volume. Very delayed speech. On cranial nerve exam shows pupils are equal, round and reacting, visual pritchard are full, face appears symmetric on active testing, although patient does have mild left facial droop. Tongue protrudes the midline. On muscle strength testing, the patient does not hold arms up, and then sit down equally bilaterally. Overall the muscle strength is (right/left) deltoid 3+/4-, biceps 5/5, triceps 5/5, show worker 5-/4+, ankle dorsiflexion 5/4-, hip flexion 5-/5- Sensory to touch is equal bilaterally with no neglect. Cerebellar functions revealed no ataxia for [id number] on the right, but very difficult to perform with her left upper extremity. Patient is very severely bradykinetic. No resting tremors noted. Tone is mildly increased bilaterally. - Labs CBC & Chem 7: 05/16/23 08:08 05/18/23 09:27 Assessment and Plan Assessment: This is an 82-year-old woman who presented her nursing facility and is com plaining of numbness of left hand. On examination she has left facial droop left the upper and lower extremity weakness and decreased sensation on left side. Last normal state is possibly last night prior to arrival, per ED report. Acute ischemic stroke that scattered over bilateral hemisphere on MRI but predominantly over the right frontal as well as bilateral parietal single focus of the right occipital (has left facial droop and left-sided weakness with numbness as well as hypophonia). Stroke seems possible cardioembolic. So far no evidence of A-fib or flutter. ?vascular malformation within the right dionne on MRI. Parkinson's disease Hypertension Hyperlipidemia Plan: The patient started on aspirin 325mg mg daily by ED team. Dr. Ascencio started the patient on Plavix 75 mg daily. It appears patient was taking aspirin 81 mg daily prior to arrival to the hospital. Suggest continuing aspirin and Plavix for 21 days, then stop aspirin and continue Plavix indefinitely. So far no evidence of A-fib or flutter per nurse but if does then recommend placing her on anticoagulation and avoid dual antiplatletes. Patient started on Lipitor 40mg daily at bedtime for secondary stroke prophylaxis. LDL goal in stroke is <70. Her LDL is 144. Patient was not taking any statins at home. Parkinson's disease well controlled. Continue Sinemet. KRYSTLE performed today revealed normal left ventricular systolic function. No intracardiac thrombus. No evidence of shunt across the interatrial septum. Recommended an event monitor for 30 days (to be placed prior to discharge). Cardiac monitoring so far showing sinus rhythm. No other arrhythmia. Patient had a barium swallow is seems the patient is having the tracheal aspiration with thin, nectar and pure consistencies. PT OT and [employer] MANAGER are consulted. Dr. Bret Ascencio has consulted inpatient rehab. For ?vascular malformation of the right dionne on MRI, recommend to follow-up with Dr. Rendon as outpatient within 1-2 weeks. We'll defer the rest of medical management to primary team For DVT prophylaxis the patient is on subcu heparin 5000 units every 12 hours Discussed with patient's daughter in detail. She mentions that patient has very poor quality of life. Lately she has mentioned her daughter "throw me in the [place]". Patient has never felt as bad ever in the past. Patient's daughter will discuss with her brother, and patient herself as well, about further care. Informed them about possibility of palliative consult. They will let the nurse know after they have had family discussion in regard to pursue palliative care.
[2023-05-19 12:19] VITALS: BP 141/82; PULSE 83; RESP 18; TEMP 97.5
--- NOTE | 2023-05-19 12:51 | P.DS ---
Providers Date of admission: 05/13/23 10:02 Expected date of discharge: 05/19/23 Attending physician: Aureliano Ash MD Consults: 05/13/23 10:02 Consult Physician Routine Consulting Provider: Bret Ascencio Consult Reason/Comments: cva Do you want consulting provider notified?: Yes 05/14/23 15:04 Consult Physician Routine Consulting Provider: Will Son Consult Reason/Comments: inpatient rehab Do you want consulting provider notified?: Yes Primary care physician: [facility] Hospital Course: Discharge diagnoses; * Acute ischemic stroke bilateral hemisphere involvement with left-sided hemiparesis * History of Parkinson disease * Hypertension * Hyperlipidemia * Depressed mood * Malnutrition In regards to acute CVA Neurology >> consulted, CT head, CT head and neck, echocardiogram negative for PFO, intracardiac thrombus, carotid Doppler negative for hemodynamically significant stenosis. * MRI brain does show scattered areas of acute to subacute infarct in the right frontal lobe with bilateral parietal lobe involvement as well single focus in right occipital lobe. Suspicion for cardioembolic phenomena * Continue patient on aspirin, Plavix, Lipitor. Transthoracic echocardiogram negative for intracardiac thrombus, transesophageal echo done, negative for any evidence of any intracardiac thrombus.Suggest continuing aspirin and Plavix for 21 days, then stop aspirin and continue Plavix indefinitely * For ?vascular malformation of the right dionne on MRI, recommend to follow-up with Dr. Rendon as outpatient within 1-2 weeks. Hospital course; 82 years old female with multiple medical problems GERD/Reflux, Hyperlipidemia, Hypertension, Osteoarthritis,, numbness in left hand-two fingers, spinal stenosis, degenerative disks, total right ankle arthroplasty Her PCP is Dr. Casiano and she follow up with the [facility] and she has been told she has Parkinson disease. Patient admitted with episode of weakness. MRI brain consistent with stroke 8: Patient seen at bedside, family at bedside as code status address. Patient therefore. Does have generalized weakness. Asymmetric weakness noted as well Seen by neurology as well 05/15: Patient seen and evaluated bedside, MRI results discussed again. Patient does have weakness and will need transesophageal echo to rule out intracardiac thrombus. Patient accompanied by friend at bedside. Will adjust antihypertensive medication 05/16: Patient seen and everted bedside, competent with son at bedside MRI results discussed land for KRYSTLE discussed patient is moving bilateral upper and lower extremity speech has improved significantly as well. 05/17: Patient seen and evaluated bedside, care plan discussed plan for KRYSTLE during this hospitalization. Patient family was ALREADY NOTIFIED WE'LL TRY TO RULE OUT LV THROMBUS 05/18. Patient seen and examined. Patient lethargic, family at the bedside. Had KRYSTLE done this morning 05/19. Patient seen and examined. Son and daughter at the bedside, discussed with them regarding patient's nutrition, both kids are in agreement that the patient at this time would not have wanted any alternative form of nutrition, they stated that if patient's clinical status deteriorates, they will consider palliative care. Patient being discharged to rehab facility PHYSICAL EXAMINATION: GENERAL: The patient is lethargic, not in any acute distress. Well developed, well nourished. HEENT: Pupils are round and equally reacting to light. EOMI. No scleral icterus. No conjunctival pallor. Normocephalic, atraumatic. No pharyngeal erythema. No thyromegaly. CARDIOVASCULAR: S1 and S2 present. No murmurs, rubs, or gallops. PULMONARY: Chest is clear to auscultation, no wheezing or crackles. ABDOMEN: Soft, nontender, nondistended, normoactive bowel sounds. No palpable organomegaly. MUSCULOSKELETAL: No joint swelling or deformity. EXTREMITIES: No cyanosis, clubbing, or pedal edema. NEUROLOGICAL: Left-sided facial droop and left-sided weakness improved. Motor strength is 4 x 5 in right side, 4 x 5 in left upper extremity and 3/5 in left lower extremity SKIN: No rashes. Dictation was produced using [employer] dictation software. please excuse any grammatical, word or spelling errors. Patient Condition at Discharge: Fair Plan - Discharge Summary New Discharge Prescriptions: New Atorvastatin [Lipitor] 40 mg PO HS #30 tab amLODIPine [Norvasc] 5 mg PO DAILY #30 tab Clopidogrel [Plavix] 75 mg PO DAILY #30 tab Metoprolol Tartrate [Lopressor] 12.5 mg PO BID #30 tab Continue Multivitamin/Iron/Folic Acid [Centrum Adults Tablet] 1 tab PO DAILY Meclizine HCl 12.5 mg PO BID PRN PRN Reason: Nausea And Vomiting Cholecalciferol [Vitamin D3 (25 Mcg = 1000 Iu)] 50 mcg PO DAILY Albuterol Sulfate [Ventolin HFA] 2 puff INHALATION RT-Q4H PRN PRN Reason: Shortness Of Breath Refresh Pm Lubricant Eye Ointm 1 applic OPHTHALMIC HS Refresh Optive Drops 1 drop BOTH EYES TID L.acidoph,Paracasei, B.lactis [Probiotic] 1 cap PO DAILY polyethylene glycoL 3350 [Miralax] 17 gm PO DAILY lisinopriL [Zestril] 10 mg PO DAILY calcium polycarbophiL [Fiber-Lax] 1,250 mg PO HS Furosemide [Lasix] 20 mg PO Q2D Eye Multivitamin/Sodium Tablet 2 tab PO BID buPROPion XL [Wellbutrin XL] 150 mg PO DAILY Artificial Tears-Hypromellose [Artificial Tear Drops] 1 drop BOTH EYES QID PRN PRN Reason: Dry Eye(S) Steralid Eye Cleanser 1 applic OPHTHALMIC MOWEFR rOPINIRole HCL [Requip] 0.25 mg PO HS Carboxymethylcellulos/Glycerin [Refresh Relieva 0.5-0.9% Drop] 1 drop BOTH EYES QID Pantoprazole [Protonix] 40 mg PO DAILY PRN PRN Reason: Gerd Docusate [Colace] 100 mg PO HS Carbidopa-Levodopa 25-100 mg [Sinemet 25-100 mg] 0.5 tab PO BID@0800,1200 Carbidopa-Levodopa 25-100 mg [Sinemet 25-100 mg] 1 tab PO HS Autologous Serum Tears 1 drop BOTH EYES QID Acetaminophen Tab [Tylenol] 1,000 mg PO DAILY@1500 PRN PRN Reason: Pain Aspirin EC [Ecotrin Low Dose] 81 mg PO DAILY #21 Discontinued Acetaminophen Tab [Tylenol Tab] 1,000 mg PO BID Meloxicam [Mobic] 7.5 mg PO DAILY PRN PRN Reason: Pain Discharge Medication List Multivitamin/Iron/Folic Acid [Centrum Adults Tablet] 1 tab PO DAILY 04/28/18 [History] Meclizine HCl 12.5 mg PO BID PRN 10/03/20 [History] Acetaminophen Tab [Tylenol] 1,000 mg PO DAILY@1500 PRN 05/13/23 [History] Albuterol Sulfate [Ventolin HFA] 2 puff INHALATION RT-Q4H PRN 05/13/23 [History] Artificial Tears-Hypromellose [Artificial Tear Drops] 1 drop BOTH EYES QID PRN 05/13/23 [History] Autologous Serum Tears 1 drop BOTH EYES QID 05/13/23 [History] Carbidopa-Levodopa 25-100 mg [Sinemet 25-100 mg] 0.5 tab PO BID@0800,1200 05/13/23 [History] Carbidopa-Levodopa 25-100 mg [Sinemet 25-100 mg] 1 tab PO HS 05/13/23 [History] Carboxymethylcellulos/Glycerin [Refresh Relieva 0.5-0.9% Drop] 1 drop BOTH EYES QID 05/13/23 [History] Cholecalciferol [Vitamin D3 (25 Mcg = 1000 Iu)] 50 mcg PO DAILY 05/13/23 [History] Docusate [Colace] 100 mg PO HS 05/13/23 [History] Eye Multivitamin/Sodium Tablet 2 tab PO BID 05/13/23 [History] Furosemide [Lasix] 20 mg PO Q2D 05/13/23 [History] L.acidoph,Paracasei, B.lactis [Probiotic] 1 cap PO DAILY 05/13/23 [History] Pantoprazole [Protonix] 40 mg PO DAILY PRN 05/13/23 [History] Refresh Optive Drops 1 drop BOTH EYES TID 05/13/23 [History] Refresh Pm Lubricant Eye Ointm 1 applic OPHTHALMIC HS 05/13/23 [History] Steralid Eye Cleanser 1 applic OPHTHALMIC MOWEFR 05/13/23 [History] buPROPion XL [Wellbutrin XL] 150 mg PO DAILY 05/13/23 [History] calcium polycarbophiL [Fiber-Lax] 1,250 mg PO HS 05/13/23 [History] lisinopriL [Zestril] 10 mg PO DAILY 05/13/23 [History] polyethylene glycoL 3350 [Miralax] 17 gm PO DAILY 05/13/23 [History] rOPINIRole HCL [Requip] 0.25 mg PO HS 05/13/23 [History] Aspirin EC [Ecotrin Low Dose] 81 mg PO DAILY #21 05/19/23 [Rx] Atorvastatin [Lipitor] 40 mg PO HS #30 tab 05/19/23 [Rx] Clopidogrel [Plavix] 75 mg PO DAILY #30 tab 05/19/23 [Rx] Metoprolol Tartrate [Lopressor] 12.5 mg PO BID #30 tab 05/19/23 [Rx] amLODIPine [Norvasc] 5 mg PO DAILY #30 tab 05/19/23 [Rx] Follow up Appointment(s)/Referral(s): Emi Rendon MD [STAFF PHYSICIAN] - 1 Week (?vascular malformation of right dionne on MRI) None,Stated [REFERRING] - 1-2 days Tomas Gruber MD [Medical Doctor] - 1 Week Discharge Disposition: TRANSFER TO SNF/ECF
--- NOTE | 2023-05-20 07:03 | CDI ---
Documentation Clarification Form Date: 05/15/2023 02:20:00 PM From: Alejandra Anthony Phone: [phone] Admit Date: 05/13/2023 10:02:00 AM Patient Name: Raven Moreno Visit Number: [id number] Discharge Date: 05/19/2023 02:38:00 PM ATTENTION: The Clinical Documentation Specialists (CDI) and [facility] Coding Staff appreciate your assistance in clarifying documentation. Please respond to the clarification below the line at the bottom and electronically sign. The CDI & [facility] Coding staff will review the response and follow-up if needed. Please note: Queries are made part of the Legal Health Record. If you have any questions, please contact the author of this message via ITS. Dr. Soha Anguiano Malnutrition is documented 05/14, Medicine note. Additional clarification regarding the severity of malnutrition is requested. History/Risk Factors: 82- year-old female presented to ED from nursing facility for numbness of the left hand, left facial droop, left upper and lower extremity weakness and decreased sensation on the left side. Medical History: Trouble swallowing, Cancer, GERD, HLD, HTN, OA, Parkinsons disease and Spinal stenosis. 05/13 Neurology consult. Clinical Indicators: Barium swallow, 05/15: Silent tracheal aspiration with thin nectar and puree consistencies. There were increased episodes of tracheal aspiration during the course of the examination likely related to patients known Parkinsons disease Feeding assessment Nursing notes 05/14: Percent of meal consumed: Breakfast 25% Lunch 50% Dinner 25% with moderate assistance Current BMI: 21.9kg RD Consult Assessment, 05/14: Weight 62.5kg Height 5ft 4in BMI 23.6 BMI classification Normal. [place] calculated weight 54.431kg. Treatment: Dysphagia level 3: Chopped Diet. Modifications: [place] Thick Liquids, NO straws, Aspirations Precautions, 1:1 Supervision, Heart Healthy. RD Consult above. Please clarify the severity of malnutrition, if known: [ ] Mild Protein-Calorie Malnutrition [ ] Other condition, please specify [ ] Unable to Determine Reference: Using the ASPEN Guidelines, Undernutrition (Malnutrition) is characterized by at least two of the following six findings. The severity can be determined based on the criteria listed below. Malnutrition Characteristics for Moderate and Severe Malnutrition Type of Malnutrition Acute Illness or Injury Chronic Illness Degree of Malnutrition Non-severe (moderate) Malnutrition Severe Malnutrition Non-severe (moderate) Malnutrition Severe Malnutrition Energy Intake <75% for >7 days = 50% for = 5 days <75% for = 1 month =75% for = 1 month Weight Loss 1-2% in one week, 5% in 1 month, 7.5% in 3 months 2% in one week, >5% in 1 month, >7.5% in 3 months 5% in one month, 7.5% in 3 months, 10% in 6 months, 20% in 1 year >5% in one month, >7.5% in 3 months, >10% in 6 months, >20% in 1 year Body Fat Wasting Mild Moderate Mild Severe Muscle Wasting Mild Moderate Mild Severe Presence of Edema Mild Moderate to Severe Mild Severe Human Geography Faculty Member Strength Not applicable Measurably Reduced Not applicable Measurably Reduced Source: Shameka AlvaradoV, Chris P, Dylon G, et al. Consensus statement: Academy of Nutrition and Dietetics and [place] Society for Parenteral and Enteral Nutrition: characteristics recommended for the identification and documentation of adult malnutrition (undernutrition).JENNIFER J Parenter Enteral Nutr. 2012;36(3):275-283. (Template Last Revised: April 2023) MTDD
--- NOTE | 2023-05-29 08:08 | CDI ---
Documentation Clarification Form Date: 05/15/2023 02:20:00 PM From: Alejandra Anthony RN CCDS Phone: [phone] Admit Date: 05/13/2023 10:02:00 AM Patient Name: Raven Moreno Visit Number: [id number] Discharge Date: 05/19/2023 02:38:00 PM ATTENTION: The Clinical Documentation Specialists (CDI) and [facility] Coding Staff appreciate your assistance in clarifying documentation. Please respond to the clarification below the line at the bottom and electronically sign. The CDI & [facility] Coding staff will review the response and follow-up if needed. Please note: Queries are made part of the Legal Health Record. If you have any questions, please contact the author of this message via ITS. Dr. Finn Ko Malnutrition is documented 05/14, Medicine note. Additional clarification regarding the severity of malnutrition is requested. History/Risk Factors: 82- year-old female presented to ED from nursing facility for numbness of the left hand, left facial droop, left upper and lower extremity weakness and decreased sensation on the left side. Medical History: Trouble swallowing, Cancer, GERD, HLD, HTN, OA, Parkinsons disease and Spinal stenosis. 05/13 Neurology consult. Clinical Indicators: Barium swallow, 05/15: Silent tracheal aspiration with thin nectar and puree consistencies. There were increased episodes of tracheal aspiration during the course of the examination likely related to patients known Parkinsons disease Feeding assessment Nursing notes 05/14: Percent of meal consumed: Breakfast 25% Lunch 50% Dinner 25% with moderate assistance Current BMI: 21.9kg RD Consult Assessment, 05/14: Weight 62.5kg Height 5ft 4in BMI 23.6 BMI classification Normal. [place] calculated weight 54.431kg. Treatment: Dysphagia level 3: Chopped Diet. Modifications: [place] Thick Liquids, NO straws, Aspirations Precautions, 1:1 Supervision, Heart Healthy. RD Consult above. Please clarify the severity of malnutrition, if known: [ x ] Mild Protein-Calorie Malnutrition [ ] Other condition, please specify [ ] Unable to Determine Reference: Using the ASPEN Guidelines, Undernutrition (Malnutrition) is characterized by at least two of the following six findings. The severity can be determined based on the criteria listed below. Malnutrition Characteristics for Moderate and Severe Malnutrition Type of Malnutrition Acute Illness or Injury Chronic Illness Degree of Malnutrition Non-severe (moderate) Malnutrition Severe Malnutrition Non-severe (moderate) Malnutrition Severe Malnutrition Energy Intake <75% for >7 days = 50% for = 5 days <75% for = 1 month =75% for = 1 month Weight Loss 1-2% in one week, 5% in 1 month, 7.5% in 3 months 2% in one week, >5% in 1 month, >7.5% in 3 months 5% in one month, 7.5% in 3 months, 10% in 6 months, 20% in 1 year >5% in one month, >7.5% in 3 months, >10% in 6 months, >20% in 1 year Body Fat Wasting Mild Moderate Mild Severe Muscle Wasting Mild Moderate Mild Severe Presence of Edema Mild Moderate to Severe Mild Severe Para Machine Operator Strength Not applicable Measurably Reduced Not applicable Measurably Reduced Source: Shameka AlvaradoV, Chris P, Dylon G, et al. Consensus statement: Academy of Nutrition and Dietetics and [place] Society for Parenteral and Enteral Nutrition: characteristics recommended for the identification and documentation of adult malnutrition (undernutrition). JPJONATHAN J Parenter Enteral Nutr. 2012;36(3):275-283. (Template Last Revised: April 2023) MTDD
== END 2023-05-19 14:38 | DRG 65 ==
LOC: EC 07:44 → 3SCARD 10:02
PROVIDERS: ADMIT Internal Medicine; ATTEND Internal Medicine
DX: I63.9 Cerebral infarction, unspecified (principal); G81.94 Hemiplegia, unspecified affecting left nondominant side; J44.1 Chronic obstructive pulmonary disease with (acute) exacerbation; I08.3 Combined rheumatic disorders of mitral, aortic and tricuspid valves; I10 Essential (primary) hypertension; I65.23 Occlusion and stenosis of bilateral carotid arteries; K21.9 Gastro-esophageal reflux disease without esophagitis; M19.90 Unspecified osteoarthritis, unspecified site; M48.00 Spinal stenosis, site unspecified; R13.10 Dysphagia, unspecified; R29.6 Repeated falls; R29.810 Facial weakness; R32 Unspecified urinary incontinence; G20 Parkinson's disease; F80.9 Developmental disorder of speech and language, unspecified; F41.9 Anxiety disorder, unspecified; I16.0 Hypertensive urgency; F32.A Depression, unspecified; E78.5 Hyperlipidemia, unspecified; C44.90 Unspecified malignant neoplasm of skin, unspecified; Z66 Do not resuscitate; Q27.9 Congenital malformation of peripheral vascular system, unspecified; Z79.899 Other long term (current) drug therapy; Z79.82 Long term (current) use of aspirin; Z79.1 Long term (current) use of non-steroidal anti-inflammatories (NSAID); Z79.02 Long term (current) use of antithrombotics/antiplatelets; Z85.828 Personal history of other malignant neoplasm of skin; Z88.8 Allergy status to other drugs, medicaments and biological substances
CPT/HCPCS: 36415; 70450; 70496; 70498; 70551; 71046; 74230; 80048; 80053; 80061; 82550; 83036; 84443; 85025; 85027; 85610; 85730; 93005; 93306; 93308; 93312; 93320; 93325; 93880; 94760; 96360; 96361; 99285

== ENCOUNTER 2024-01-07 10:04 | Emergency (ER) | payer MEDICARE, BC ==
[2024-01-07 10:34] VITALS: TEMP 97.6
--- NOTE | 2024-01-07 11:00 | CT ---
EXAMINATION TYPE: CT brain wo con CT DLP: 1095.4 mGycm, Automated exposure control for dose reduction was used. DATE OF EXAM: 01/07/2024 10:47 AM COMPARISON: 05/13/2023. CLINICAL INDICATION:Female, 83 years old with history of fall, on Plavix, Fall TECHNIQUE: Brain: Axial CT images of the brain were obtained with coronal and sagittal reformats created and rev iewed. Contrast used: None. Oral contrast used: None. FINDINGS: Brain: Extra-axial spaces: No abnormal extra-axial fluid collections. Ventricular system: Ventricles and sulci are prominent consistent with age-related involution. Cerebral parenchyma: No acute intraparenchymal hemorrhage or mass effect. The moseley-white junction is well differentiated. Scattered hypoattenuating areas are seen within the periventricular and deep wh ite matter. Cerebellum: Unremarkable. Mass effect: No evidence of midline shift. Intracranial vasculature: unremarkable Soft tissues: Normal. Calvarium/osseous structures: No depressed skull fracture. Paranasal sinuses and mastoid air cells: Mild scattered paranasal sinus disease. Visualized orbits: Orbital contents are intact. IMPRESSION: No acute intracranial process. Age-related involution and microangiopathy
[2024-01-07] MEDS: MORPHINE SULFATE 2 MG/ML SYRINGE IVP ONE (11:12)
--- NOTE | 2024-01-07 11:12 | XR ---
EXAMINATION TYPE: XR chest 2V DATE OF EXAM: 01/07/2024 COMPARISON: 05/13/2023 TECHNIQUE: PA and lateral views submitted. HISTORY: Pain FINDINGS: Limited inspiration with subsegmental changes at the lung bases. Atherosclerotic change aorta. Diffus e osteopenia. No pneumothorax or pleural effusion. Underlying COPD suspected. Arthropathy of the shou lders. Heart size normal and no overt failure. Osseous structures demonstrate hypertrophic and degen erative changes of the spine. IMPRESSION: 1. No acute process.
--- NOTE | 2024-01-07 11:15 | XR ---
EXAMINATION TYPE: XR wrist complete LT DATE OF EXAM: 01/07/2024 COMPARISON: NONE HISTORY: Pain TECHNIQUE: Four views submitted. FINDINGS: The osseous structures are intact. The joint spaces are preserved and there is no acute fracture or dislocation. Diffuse osteopenia with severe first carpometacarpal joint arthropathy. Chondrocalcinosi s noted. Negative ulnar variance. Mild radiocarpal joint narrowing. No erosive changes. There is mode rate trapezial scaphoid joint arthropathy. There is widening of the scapholunate joint. IMPRESSION: 1. Widening of the scapholunate joint can be associated with ligamentous injury. 2. Severe first carpometacarpal joint arthropathy.
[2024-01-07 11:17] LABS: Basophils % (A) 1 %; Eosinophils # (A) 0.2 k/uL (0-0.7); Eosinophils % (A) 4 %; HCT 41.3 % (34.0-46.0); HGB 13.1 gm/dL (11.4-16.0); Lymphocytes # (A) 1.8 k/uL (1.0-4.8); Lymphocytes % (A) 30 %; MCH 29.2 pg (25.0-35.0); MCHC 31.8 g/dL (31.0-37.0); MCV 91.7 fL (80.0-100.0); Mean Platelet Volume 8.5; Monocytes # (A) 0.4 k/uL (0-1.0); Monocytes % (A) 7 %; Neutrophils # (A) 3.2 k/uL (1.3-7.7); Neutrophils % (A) 56 %; Platelet Count 173 k/uL (150-450); RDW 14.7 % (11.5-15.5); WBC 5.8 k/uL (3.8-10.6)
[2024-01-07 11:31] LABS: INR 1.2 (<1.2); Prothrombin Time 12.5 sec (10.0-12.5)
[2024-01-07 12:18] LABS: ALT 19 U/L (4-34); AST 25 U/L (14-36); African American GFR (CKD) >90 (>60 ml/min/1.73 sqM); Albumin 3.8 g/dL (3.5-5.0); Alkaline Phosphatase 80 U/L (38-126); Anion Gap 10 mmol/L; Blood Urea Nitrogen 22 mg/dL (7-17); Calcium 9.1 mg/dL (8.4-10.2); Carbon Dioxide 21 mmol/L (22-30); Chloride 110 mmol/L (98-107); Glucose 124 mg/dL (74-99); Non-African American GFR(CKD) 83 (>60 ml/min/1.73 sqM); Sodium 141 mmol/L (137-145); Total Bilirubin 0.5 mg/dL (0.2-1.3); Total Protein 6.9 g/dL (6.3-8.2)
--- NOTE | 2024-01-07 13:19 | ED ---
Fall HPI - General Chief Complaint: Fall Stated Complaint: Fall out of bed Time Seen by Provider: 01/07/24 10:20 Source: patient, RN notes reviewed Mode of arrival: EMS - History of Present Illness Initial Comments: 83-year-old female presents emergency department chief complaint of fall. She states that she fell this morning when she was asleep out of her bed striking the side of her head on her nightstand and falling between the nightstand and the wall. She is also complaining of left handed wrist pain. Patient has complaint of right-sided leg pain that starts behind her knee and has been migrating upwards, denies obvious swelling to bilateral lower extremities. Suffe rs from chronic right shoulder and hip pain due to rotator cuff injury and osteo arthritis/porosis of the right hip. Patient denies loss of consciousness during event, but states that she does not remember due to being asleep. She denies headaches, chest pressure or palpitations, dizziness, lightheadedness, weakness. And is on Plavix. - Related Data Home Medications Medication Instructions Recorded Confirmed Multivitamin/Iron/Folic Acid 1 tab PO DAILY 04/28/18 01/07/24 [Centrum Adults Tablet] Meclizine HCl 12.5 mg PO BID PRN 10/03/20 01/07/24 Acetaminophen Tab [Tylenol] 1,000 mg PO DAILY@1500 PRN 05/13/23 01/07/24 Albuterol Sulfate [Ventolin HFA] 2 puff INHALATION RT-Q4H PRN 05/13/23 01/07/24 Autologous Serum Tears 1 drop BOTH EYES QID 05/13/23 01/07/24 Carboxymethylcellulos/Glycerin 1 drop BOTH EYES QID 05/13/23 01/07/24 [Refresh Relieva 0.5-0.9% Drop] Cholecalciferol [Vitamin D3 (25 50 mcg PO DAILY 05/13/23 01/07/24 Mcg = 1000 Iu)] Docusate [Colace] 100 mg PO HS 05/13/23 01/07/24 Eye Multivitamin/Sodium Tablet 2 tab PO BID 05/13/23 01/07/24 Furosemide [Lasix] 20 mg PO Q2D 05/13/23 01/07/24 L.acidoph,Paracasei, B.lactis 1 cap PO DAILY 05/13/23 01/07/24 [Probiotic] Pantoprazole [Protonix] 40 mg PO DAILY PRN 05/13/23 01/07/24 buPROPion XL [Wellbutrin XL] 150 mg PO DAILY 05/13/23 01/07/24 calcium polycarbophiL [Fiber-Lax] 1,250 mg PO HS 05/13/23 01/07/24 lisinopriL [Zestril] 10 mg PO DAILY 05/13/23 01/07/24 polyethylene glycoL 3350 [Miralax] 17 gm PO DAILY 05/13/23 01/07/24 rOPINIRole HCL [Requip] 0.25 mg PO HS 05/13/23 01/07/24 Dextran/Hypromellose/Glycerin 1 drop BOTH EYES QID PRN 01/07/24 01/07/24 [Genteal Tears 0.1%-0.2%-0.3%] Diclofenac Sodium [Diclofenac 1 applic TOPICAL BID PRN 01/07/24 01/07/24 Sodium 1%] Ensure Enlive 1 can PO DAILY 01/07/24 01/07/24 HYDROcodone/APAP 5-325MG [Saffell 1 tab PO BID 01/07/24 01/07/24 5-325] HYDROcodone/APAP 5-325MG [Saffell 1 tab PO Q6H PRN 01/07/24 01/07/24 5-325] Ivizia Eyelid Wipes 1 pad BOTH EYES MOWEFR 01/07/24 01/07/24 Magnesium Hydroxide [Milk of 2,400 mg PO DIRECTED PRN 01/07/24 01/07/24 Magnesia] Meloxicam [Mobic] 7.5 mg PO DAILY PRN 01/07/24 01/07/24 Menthol-Zinc Oxide Oint 1 applic TOPICAL Q12H 01/07/24 01/07/24 [Calmoseptine Ointment] Metoprolol Tartrate [Lopressor] 12.5 mg PO BID 01/07/24 01/07/24 Na Phos,M-B/Na Phos,Di-Ba [Fleet 133 ml RECTAL DAILY PRN 01/07/24 01/07/24 Adult] bisacodyL [Dulcolax] 10 mg RECTAL DAILY PRN 01/07/24 01/07/24 Previous Rx's Medication Instructions Recorded Aspirin EC [Ecotrin Low Dose] 81 mg PO DAILY #21 05/19/23 Atorvastatin [Lipitor] 40 mg PO HS #30 tab 05/19/23 Clopidogrel [Plavix] 75 mg PO DAILY #30 tab 05/19/23 amLODIPine [Norvasc] 5 mg PO DAILY #30 tab 05/19/23 Allergies Allergy/AdvReac Type Severity Reaction Status Date / Time nickel Allergy Rash/Hives Verified 01/07/24 14:07 Review of Systems ROS Statement: Those systems with pertinent positive or pertinent negative responses have been documented in the HPI. ROS Other: All systems not noted in ROS Statement are negative. Past Medical History Past Medical History: Cancer, GERD/Reflux, Hyperlipidemia, Hypertension, Osteoarthritis (OA) Additional Past Medical History / Comment(s): 'slight heart murmer", hx skin cancer, numbness in left hand-two fingers, spinal stenosis, degenerative disks, "dry eyes", "SOME TROUBLE SWALLOWING" History of Any Multi-Drug Resistant Organisms: None Reported Past Surgical History: Orthopedic Surgery Additional Past Surgical History / Comment(s): 8 surgeries to remove skin cancer,2 surgeries on rt ankle for fx(plate and screws), 2 surgeries on left knee and thu in left knee as small child, tumor removed from nose, blepharoplasty pop eyes, pop cataracts, left arm surgery to release nerve, steroid spinal injections, total right ankle arthroplasty and right ANKLE SURGERY-JOINT REPLACEMENT Past Anesthesia/Blood Transfusion Reactions: No Reported Reaction Additional Past Anesthesia/Blood Transfusion Reaction / Comment(s): no family hx (adopted) Past Psychological History: Anxiety, Depression Smoking Status: Former smoker - Past Family History Mother Family Medical History: Unable to Obtain Additional Family Medical History / Comment(s): Patient was adopted and does not know any family history. Daughter(s) Family Medical History: No Reported History Additional Family Medical History / Comment(s): Patient has 3 daughters and 2 sons all in their 50s with no major medical problems. General Exam Limitations: no limitations General appearance: alert, in no apparent distress Head exam: Present: atraumatic, normocephalic, normal inspection Eye exam: Present: normal appearance, PERRL, EOMI. Absent: scleral icterus, conjunctival injection, periorbital swelling ENT exam: Present: normal exam, mucous membranes moist Neck exam: Present: normal inspection. Absent: tenderness, meningismus, lymphadenopathy Respiratory exam: Present: normal lung sounds bilaterally. Absent: respiratory distress, wheezes, rales, rhonchi, stridor Cardiovascular Exam: Present: regular rate, normal rhythm, normal heart sounds. Absent: systolic murmur, diastolic murmur, rubs, gallop, clicks GI/Abdominal exam: Present: soft, normal bowel sounds. Absent: distended, tenderness, guarding, rebound, rigid Right Shoulder Exam: Present: tenderness. Absent: full ROM (limited active ROM due to chronic shoulder pain), swelling, abrasion, laceration Upper Arm exam: Present: normal inspection, full ROM. Absent: tenderness, swel ling, abrasion, laceration, ecchymosis Elbow exam: Present: normal inspection, full ROM. Absent: tenderness, swelling Forearm Wrist exam: Present: normal inspection, full ROM. Absent: tenderness, swelling Left Shoulder Exam: Present: normal inspection, full ROM. Absent: tenderness, swelling, abrasion, ecchymosis Upper Arm exam: Present: normal inspection, full ROM, tenderness. Absent: sw elling, laceration, ecchymosis Elbow exam: Present: normal inspection, full ROM. Absent: tenderness, swelling, ecchymosis Hand Wrist exam: Present: tenderness, swelling, ecchymosis. Absent: full ROM (limited ROM of right hand, pre coder strength in-tact, 2+ radial pulse palpated, no parasthesias) Neuro motor exam: Present: wrist extension intact, thumb opposition intact, thumb IP flexion intact, thumb adduction intact Vascular: Present: normal capillary refill, radial pulse (2+). Absent: vascular compromise Back exam: Present: normal inspection Neurological exam: Present: alert, oriented X3, CN II-XII intact Psychiatric exam: Present: normal affect, normal mood Skin exam: Present: warm, dry, intact, normal color. Absent: rash Course Vital Signs 01/07/24 01/07/24 01/07/24 10:09 11:14 12:00 Temperature 97.6 F Pulse Rate 64 63 60 Respiratory 18 12 14 Rate Blood Pressure 137/68 128/78 123/69 O2 Sat by Pulse 100 98 97 Oximetry 01/07/24 01/07/24 01/07/24 13:00 14:00 15:00 Temperature Pulse Rate 62 75 64 Respiratory 14 14 12 Rate Blood Pressure 109/50 115/80 94/65 O2 Sat by Pulse 96 97 96 Oximetry 01/07/24 16:00 Temperature Pulse Rate 70 Respiratory 12 Rate Blood Pressure 116/79 O2 Sat by Pulse 96 Oximetry Medical Decision Making - Medical Decision Making Was pt. sent in by a medical professional or institution (ARYAN Morales, MACHINE STEMMER, urgent care, hospital, or [facility]...) When possible be specific @ -No Did you speak to anyone other than the patient for history (EMS, parent, family, police, friend...)? What history was obtained from this source @ -No Did you review nursing and triage notes (agree or disagree)? Why? @ -I reviewed and agree with nursing and triage notes Were old charts reviewed (outside hosp., previous admission, EMS record, old EKG, old radiological studies, urgent care reports/EKG's, [facility] records)? Report findings @ -No old charts were reviewed Differential Diagnosis (chest pain, altered mental status, abdominal pain women, abdominal pain men, vaginal bleeding, weakness, fever, dyspnea, syncope, headache, dizziness, GI bleed, back pain, seizure, CVA, palpatations, mental health, musculoskeletal)? @ -Fall, contusion, hip pain, shoulder pain. EKG interpreted by me (3pts min.). @ -None X-rays interpreted by me (1pt min.). @ -Was completed of the left wrist chest with no acute osseous abnormality or cardiopulmonary process. CT interpreted by me (1pt min.). @ -CT brain without contrast no acute evidence of hemorrhage or intracranial bleed U/S interpreted by me (1pt. min.). @ -Ultrasound of right lower extremity. No evidence of acute DVT What testing was considered but not performed or refused? (CT, X-rays, U/S, labs)? Why? @ -None What meds were considered but not given or refused? Why? @ -None Did you discuss the management of the patient with other professionals (professionals i.e. ARYAN Morales, MACHINE STEMMER, lab, RT, psych nurse, community mental health social worker, programming development project manager, teacher, airconditioning drafting officer, case checker)? Give summary @ -No Was smoking cessation discussed for >3mins.? @ -No Was critical care preformed (if so, how long)? @ -No Were there social determinants of health that impacted care today? How? (Homelessness, low income, unemployed, alcoholism, drug addiction, transportation, low edu. Level, literacy, decrease access to med. care, shelter, rehab)? @ -No Was there de-escalation of care discussed even if they declined (Discuss DNR or withdrawal of care, Hospice)? DNR status @ -No What co-morbidities impacted this encounter? (DM, HTN, Smoking, COPD, CAD, Cancer, CVA, ARF, Chemo, Hep., AIDS, mental health diagnosis, sleep apnea, morbid obesity)? @ -None Was patient admitted / discharged? Hospital course, mention meds given and route, prescriptions, significant lab abnormalities, going to OR and other pertinent info. @ -Discharged. 83-year-old female chief complaint of fall. CT brain was obtained due to ecchymosis and slight area of swelling over the patient's right eyebrow, CT brain negative for acute fractures or bleed. X-ray of chest and left wrist no acute bony abnormalities or cardiopulmonary process noted. CBC and CMP unremarkable for signs of infection or electrolyte abnormalities. Patient reevaluated after given dose of IV pain medication, states that she is feeling well. Flex ultrasound of right leg ordered for right leg pain and swelling to rule out DVT, back negative. Due to x-ray and laboratory results that if came back within normal limits, patient is stable for discharge back to rehabilitation center. I discussed this case with my attending, Dr. Lombardo, we will plan for discharge Undiagnosed new problem with uncertain prognosis? @ -No Drug Therapy requiring intensive monitoring for toxicity (Heparin, Nitro, Insulin, Cardizem)? @ -No Were any procedures done? @ -No Diagnosis/symptom? @ -fall, most cyst to left wrist, chronic right hip pain, chronic back pain Acute, or Chronic, or Acute on Chronic? @ -Acute Uncomplicated (without systemic symptoms) or Complicated (systemic symptoms)? @ -uncomplicated Side effects of treatment? @ -No Exacerbation, Progression, or Severe Exacerbation? @ -No Poses a threat to life or bodily function? How? (Chest pain, [place], [place], pneumonia, PE, COPD, DKA, ARF, appy, cholecystitis, CVA, Diverticulitis, Homicidal, Suicidal, threat to staff... and all critical care pts) @ -No - Lab Data Result diagrams: 01/07/24 10:57 01/07/24 10:57 Lab Results 01/07/24 01/07/24 01/07/24 Range/Units 10:57 10:57 10:57 WBC 5.8 (3.8-10.6) k/uL RBC 4.50 (3.80-5.40) m/uL Hgb 13.1 (11.4-16.0) gm/dL Hct 41.3 (34.0-46.0) % MCV 91.7 (80.0-100.0) fL MCH 29.2 (25.0-35.0) pg MCHC 31.8 (31.0-37.0) g/dL RDW 14.7 (11.5-15.5) % Plt Count 173 (150-450) k/uL MPV 8.5 Neutrophils % 56 % Lymphocytes % 30 % Monocytes % 7 % Eosinophils % 4 % Basophils % 1 % Neutrophils # 3.2 (1.3-7.7) k/uL Lymphocytes # 1.8 (1.0-4.8) k/uL Monocytes # 0.4 (0-1.0) k/uL Eosinophils # 0.2 (0-0.7) k/uL Basophils # 0.0 (0-0.2) k/uL PT 12.5 (10.0-12.5) sec INR 1.2 H (<1.2) Sodium 141 (137-145) mmol/L Potassium 4.0 (3.5-5.1) mmol/L Chloride 110 H (98-107) mmol/L Carbon Dioxide 21 L (22-30) mmol/L Anion Gap 10 mmol/L BUN 22 H (7-17) mg/dL Creatinine 0.62 (0.52-1.04) mg/dL Est GFR (CKD-EPI)AfAm >90 (>60 ml/min/1.73 sqM) Est GFR (CKD-EPI)NonAf 83 (>60 ml/min/1.73 sqM) Glucose 124 H (74-99) mg/dL Calcium 9.1 (8.4-10.2) mg/dL Total Bilirubin 0.5 (0.2-1.3) mg/dL AST 25 (14-36) U/L ALT 19 (4-34) U/L Alkaline Phosphatase 80 (38-126) U/L Total Protein 6.9 (6.3-8.2) g/dL Albumin 3.8 (3.5-5.0) g/dL Disposition Clinical Impression: Fall Narrative: Return to the emergency department if symptoms worsen or do not improve Disposition: HOME SELF-CARE Condition: Good Instructions (If sedation given, give patient instructions): Fall Prevention for Older Adults (ED) Is patient prescribed a controlled substance at d/c from ED?: No Referrals: Jose J Peres MD [Primary Care Provider] - 1-2 days Time of Disposition: 15:15
--- NOTE | 2024-01-07 15:13 | US ---
EXAMINATION TYPE: US venous doppler duplex LE RT DATE OF EXAM: 01/07/2024 10:31 AM COMPARISON: NONE CLINICAL INDICATION: Female, 83 years old with history of pain; pain SIDE PERFORMED: Right TECHNIQUE: The lower extremity deep venous system is examined utilizing real time linear array sonog glenny with graded compression, doppler sonography and color-flow sonography. VESSELS IMAGED: Common Femoral Vein Deep Femoral Vein Greater Saphenous Vein * Femoral Vein Popliteal Vein Small Saphenous Vein * Proximal Calf Veins (* superficial vessels) Right Leg: Negative for DVT IMPRESSION: 1. Right lower extremity ultrasound negative for deep venous thrombosis.
[2024-01-07 16:06] VITALS: BP 116/79; PULSE 70; RESP 12
== END 2024-01-07 16:24 | disposition home or self-care (01) ==
LOC: EC 10:04
DX: S09.90XA Unspecified injury of head, initial encounter (principal); Z88.8 Allergy status to other drugs, medicaments and biological substances; Z87.891 Personal history of nicotine dependence; W06.XXXA Fall from bed, initial encounter
CPT/HCPCS: 36415; 80053; 85025; 85610; 73110; 71046; 93971; 70450; 99285; 96374; J2270

== ENCOUNTER 2024-02-01 10:01 | Inpatient (IN) | payer MEDICARE, BC ==
[2024-02-01 10:17] LABS: Glucose,Whole Blood 93 mg/dL (70-110)
[2024-02-01 10:30] LABS: Basophils % (A) 1 %; Eosinophils # (A) 0.2 k/uL (0-0.7); Eosinophils % (A) 3 %; HCT 40.1 % (34.0-46.0); HGB 13.1 gm/dL (11.4-16.0); Lymphocytes % (A) 25 %; MCHC 32.7 g/dL (31.0-37.0); MCV 91.6 fL (80.0-100.0); Mean Platelet Volume 9.6; Monocytes # (A) 0.5 k/uL (0-1.0); Monocytes % (A) 7 %; Neutrophils # (A) 5.2 k/uL (1.3-7.7); Neutrophils % (A) 64 %; Platelet Count 211 k/uL (150-450); RBC 4.38 m/uL (3.80-5.40); RDW 14.6 % (11.5-15.5); WBC 8.1 k/uL (3.8-10.6)
--- NOTE | 2024-02-01 10:47 | CT ---
EXAMINATION TYPE: CODE STROKE: CT brain wo contrast CT DLP: 1552.8 mGycm, Automated exposure control for dose reduction was used. DATE OF EXAM: 02/01/2024 10:39 AM COMPARISON: . CLINICAL INDICATION:Female, 83 years old with history of Neuro deficit, acute, stroke suspected, CODE STROKE TECHNIQUE: Brain: Axial CT images of the brain were obtained with coronal and sagittal reformats created and rev iewed. Contrast used: None. Oral contrast used: None. FINDINGS: Brain: Extra-axial spaces: No abnormal extra-axial fluid collections. Ventricular system: Ventricles and sulci are prominent consistent with age-related involution. Cerebral parenchyma: No acute intraparenchymal hemorrhage or mass effect. Periventricular and deep w agata matter hypoattenuation is consistent with chronic ischemic change otherwise noted as chronic aamir roangiopathy. Old left basal ganglia lacunar infarct Cerebellum: Unremarkable. Mass effect: No evidence of midline shift. Intracranial vasculature: unremarkable Soft tissues: Normal. Calvarium/osseous structures: No depressed skull fracture. Paranasal sinuses and mastoid air cells: Mild scattered paranasal sinus disease. Visualized orbits: Orbital contents are intact. IMPRESSION: No acute intracranial process. Chronic findings as detailed above. Called report to Sumaya Arnold at 10:44 AM
[2024-02-01 11:25] LABS: Partial Thromboplastin Time 24.9 sec (22.0-30.0); Prothrombin Time 11.4 sec (10.0-12.5)
--- NOTE | 2024-02-01 11:25 | XR ---
EXAMINATION TYPE: XR chest 2V DATE OF EXAM: 02/01/2024 COMPARISON: 01/07/2024 HISTORY: 83-year-old female confusion, altered mental status TECHNIQUE: AP and lateral views FINDINGS: Heart normal size. Tortuous aorta with atherosclerotic arch calcifications. Interstitial prominence i s unchanged. No consolidation or pleural effusion. IMPRESSION: Chronic changes, possible bronchitis or asthma. No focal infiltrate seen.
[2024-02-01 11:37] LABS: ALT 18 U/L (4-34); African American GFR (CKD) >90 (>60 ml/min/1.73 sqM); Albumin 3.6 g/dL (3.5-5.0); Anion Gap 6 mmol/L; Blood Urea Nitrogen 18 mg/dL (7-17); Calcium 9.2 mg/dL (8.4-10.2); Carbon Dioxide 24 mmol/L (22-30); Chloride 109 mmol/L (98-107); Creatine Kinase 50 U/L (30-135); Glucose 88 mg/dL (74-99); Non-African American GFR(CKD) 89 (>60 ml/min/1.73 sqM); Sodium 139 mmol/L (137-145); Total Bilirubin 0.7 mg/dL (0.2-1.3); Total Protein 6.8 g/dL (6.3-8.2)
[2024-02-01 11:47] LABS: AST 31 U/L (14-36); Potassium 4.1 mmol/L (3.5-5.1)
[2024-02-01 11:48] LABS: Alkaline Phosphatase 84 U/L (38-126)
--- NOTE | 2024-02-01 12:02 | CT ---
EXAMINATION TYPE: CT angio head neck CT DLP: 1552.8 mGycm, Automated exposure control for dose reduction was used. DATE OF EXAM: 02/01/2024 11:03 AM COMPARISON: CT brain without contrast today. CLINICAL INDICATION:Female, 83 years old with history of Neuro deficit, acute, stroke suspected; PHH, CODE STROKE TECHNIQUE: Axially acquired helical CT angiogram of the head and neck was obtained with contrast. Axi al images are supplemented with 3D reconstructions and MIP images which were post-processed at an in dependent workstation. NASCET criteria used. Contrast used:65 ml mL of Isovue 370 with IV Contrast, Oral contrast used: None. FINDINGS: CTA HEAD: No evidence of acute intracranial hemorrhage, mass effect, or midline shift. The ventricles, sulci, a nd cisterns are age-appropriate. The visualized portions of the internal carotid arteries, middle cerebral arteries, anterior cerebral arteries, and posterior cerebral arteries are patent. The basilar and vertebral arteries are patent. CTA NECK: Right Carotid System: The common carotid artery and external carotid artery are patent. The carotid bifurcation demonstrate s moderate calcific plaque no evidence of hemodynamically significant stenosis. The remaining portion s of the internal carotid artery demonstrate normal size without significant narrowing. Left Carotid System: The common carotid artery and external carotid artery are patent. The carotid bifurcation demonstrate s mild to moderate calcific plaque, but mild no evidence of hemodynamically significant stenosis. The remaining portions of the internal carotid artery demonstrate normal size without significant narrow ing. Vertebral arteries are patent without evidence hemodynamically significant stenosis. There is a three-vessel aortic arch. The origins of the great vessels are patent. No evidence of hemo dynamically significant stenosis. Upper thorax: IMPRESSION: 1. No evidence of dissection of the cervical internal carotid arteries or vertebral arteries or any e vidence of significant high-grade stenosis at the carotid bifurcations. [id number] stenosis pr esent bilaterally 2. No evidence of intracranial high-grade stenosis or intracranial aneurysm.
--- NOTE | 2024-02-01 12:24 | ED ---
General Adult HPI - General Chief complaint: Neuro Symptoms/Deficit Stated complaint: stroke Time Seen by Provider: 02/01/24 10:01 Source: EMS Mode of arrival: EMS Limitations: no limitations - History of Present Illness Initial comments: 83-year-old female with past medical history of CVA who presents emergency department with strokelike symptoms. Patient went to bed around 10 PM. She was found by her staff at [facility] this morning. She had noticeable left- sided facial droop and weakness in her left upper extremity. Patient does have a history of a stroke. I was told that this was approximately 2 months ago. I looked back in the patient's history and I see that she had a stroke back in May. She does take Plavix. Residual deficit was reported to me as some drift in left upper extremity but no facial involvement. Patient does have slurred speech and some paresthesias in the left side of her face. She denies any headache. No chest pain or difficulty breathing. No other alleviating, precipitating modifying factors - Related Data Home Medications Medication Instructions Recorded Confirmed Multivitamin/Iron/Folic Acid 1 tab PO DAILY 04/28/18 02/01/24 [Centrum Adults Tablet] Meclizine HCl 12.5 mg PO BID PRN 10/03/20 02/01/24 Acetaminophen Tab [Tylenol] 1,000 mg PO DAILY@1500 PRN 05/13/23 02/01/24 Albuterol Sulfate [Ventolin HFA] 2 puff INHALATION RT-Q4H PRN 05/13/23 02/01/24 Carboxymethylcellulos/Glycerin 1 drop BOTH EYES QID 05/13/23 02/01/24 [Refresh Relieva 0.5-0.9% Drop] Cholecalciferol [Vitamin D3 (25 50 mcg PO DAILY 05/13/23 02/01/24 Mcg = 1000 Iu)] Docusate [Colace] 100 mg PO HS 05/13/23 02/01/24 Furosemide [Lasix] 20 mg PO Q2D 05/13/23 02/01/24 L.acidoph,Paracasei, B.lactis 1 cap PO DAILY 05/13/23 02/01/24 [Probiotic] Pantoprazole [Protonix] 40 mg PO DAILY PRN 05/13/23 02/01/24 buPROPion XL [Wellbutrin XL] 150 mg PO DAILY 05/13/23 02/01/24 calcium polycarbophiL [Fiber-Lax] 1,250 mg PO HS 05/13/23 02/01/24 lisinopriL [Zestril] 10 mg PO DAILY 05/13/23 02/01/24 polyethylene glycoL 3350 [Miralax] 17 gm PO DAILY 05/13/23 02/01/24 rOPINIRole HCL [Requip] 0.25 mg PO HS 05/13/23 02/01/24 Dextran/Hypromellose/Glycerin 1 drop BOTH EYES QID PRN 01/07/24 02/01/24 [Genteal Tears 0.1%-0.2%-0.3%] Diclofenac Sodium [Diclofenac 1 applic TOPICAL BID PRN 01/07/24 02/01/24 Sodium 1%] Ensure Enlive 1 can PO DAILY 01/07/24 02/01/24 HYDROcodone/APAP 5-325MG [[place] 1 tab PO BID 01/07/24 02/01/24 5-325] HYDROcodone/APAP 5-325MG [[place] 1 tab PO Q6H PRN 01/07/24 02/01/24 5-325] Ivizia Eyelid Wipes 1 pad BOTH EYES MOWEFR 01/07/24 02/01/24 Magnesium Hydroxide [Milk of 2,400 mg PO DAILY PRN 01/07/24 02/01/24 Magnesia] Meloxicam [Mobic] 7.5 mg PO DAILY PRN 01/07/24 02/01/24 Menthol-Zinc Oxide Oint 1 applic TOPICAL Q12H 01/07/24 02/01/24 [Calmoseptine Ointment] Metoprolol Tartrate [Lopressor] 12.5 mg PO BID 01/07/24 02/01/24 Na Phos,M-B/Na Phos,Di-Ba [Fleet 133 ml RECTAL DAILY PRN 01/07/24 02/01/24 Adult] bisacodyL [Dulcolax] 10 mg RECTAL DAILY PRN 01/07/24 02/01/24 Mv-Mn/Om3/Dha/Epa/Fish/Lut/Ricarda 2 cap PO BID 02/01/24 02/01/24 [Ocuvite Adult 50 Plus Softgel] Previous Rx's Medication Instructions Recorded Aspirin EC [Ecotrin Low Dose] 81 mg PO DAILY #21 05/19/23 Atorvastatin [Lipitor] 40 mg PO HS #30 tab 05/19/23 Clopidogrel [Plavix] 75 mg PO DAILY #30 tab 05/19/23 amLODIPine [Norvasc] 5 mg PO DAILY #30 tab 05/19/23 Allergies Allergy/AdvReac Type Severity Reaction Status Date / Time nickel Allergy Rash/Hives Verified 02/01/24 10:55 Review of Systems ROS Statement: Those systems with pertinent positive or pertinent negative responses have been documented in the HPI. ROS Other: All systems not noted in ROS Statement are negative. Past Medical History Past Medical History: Cancer, GERD/Reflux, Hyperlipidemia, Hypertension, Osteoarthritis (OA) Additional Past Medical History / Comment(s): 'slight heart murmer", hx skin cancer, numbness in left hand-two fingers, spinal stenosis, degenerative disks, "dry eyes", "SOME TROUBLE SWALLOWING" History of Any Multi-Drug Resistant Organisms: None Reported Past Surgical History: Orthopedic Surgery Additional Past Surgical History / Comment(s): 8 surgeries to remove skin cancer,2 surgeries on rt ankle for fx(plate and screws), 2 surgeries on left knee and thu in left knee as small child, tumor removed from nose, blepharoplasty pop eyes, pop cataracts, left arm surgery to release nerve, steroid spinal injections, total right ankle arthroplasty and right ANKLE SURGERY-JOINT REPLACEMENT Past Anesthesia/Blood Transfusion Reactions: No Reported Reaction Additional Past Anesthesia/Blood Transfusion Reaction / Comment(s): no family hx (adopted) Past Psychological History: Anxiety, Depression Smoking Status: Former smoker - Past Family History Mother Family Medical History: Unable to Obtain Additional Family Medical History / Comment(s): Patient was adopted and does not know any family history. Daughter(s) Family Medical History: No Reported History Additional Family Medical History / Comment(s): Patient has 3 daughters and 2 sons all in their 50s with no major medical problems. General Exam Limitations: physical limitation General appearance: alert, in no apparent distress ENT exam: Present: other (Patient has left-sided facial droop with deviation to the right) Neck exam: Present: normal inspection. Absent: tenderness, meningismus, ly mphadenopathy Respiratory exam: Present: normal lung sounds bilaterally. Absent: respiratory distress, wheezes, rales, rhonchi, stridor Cardiovascular Exam: Present: regular rate, normal rhythm, normal heart sounds. Absent: systolic murmur, diastolic murmur, rubs, gallop, clicks GI/Abdominal exam: Present: soft, normal bowel sounds. Absent: distended, tenderness, guarding, rebound, rigid Extremities exam: Present: other (Patient has no strength in the left upper extremity. Drift in the bilateral lower extremities) Neurological exam: Present: oriented X3, other (Patient has visible left-sided hemiparesis) Psychiatric exam: Present: flat affect Skin exam: Present: warm, dry, intact, normal color. Absent: rash Course Vital Signs 02/01/24 02/01/24 02/01/24 10:06 10:31 11:00 Temperature 97.8 F Pulse Rate 75 73 70 Respiratory 16 16 16 Rate Blood Pressure 179/97 164/80 164/88 O2 Sat by Pulse 98 98 97 Oximetry 02/01/24 02/01/24 02/01/24 12:00 13:00 15:00 Temperature Pulse Rate 65 80 68 Respiratory 16 16 18 Rate Blood Pressure 135/67 165/91 118/74 O2 Sat by Pulse 97 97 96 Oximetry 02/01/24 02/01/24 16:00 18:21 Temperature 98.6 F Pulse Rate 71 80 Respiratory 16 16 Rate Blood Pressure 130/82 150/84 O2 Sat by Pulse 97 97 Oximetry - Reevaluation(s) Reevaluation #1: 02/01/24 13:[address] Ascencio. Patient has failed her swallow screen. She will be administered 325 mg rectal aspirin Medical Decision Making - Medical Decision Making Was pt. sent in by a medical professional or institution (, PA, SHIPWRIGHT SUPERVISOR, urgent care, hospital, or longterm...) When possible be specific @ -Patient sent in by her ECF Did you speak to anyone other than the patient for history (EMS, parent, family, police, friend...)? What history was obtained from this source @ -Spoke with EMS for history Did you review nursing and triage notes (agree or disagree)? Why? @ -I reviewed and agree with nursing and triage notes Were old charts reviewed (outside hosp., previous admission, EMS record, old EK G, old radiological studies, urgent care reports/EKG's, longterm records)? Report findings @ -I reviewed previous records. Patient was here in May with a stroke Differential Diagnosis (chest pain, altered mental status, abdominal pain women, abdominal pain men, vaginal bleeding, weakness, fever, dyspnea, syncope, headache, dizziness, GI bleed, back pain, seizure, CVA, palpatations, mental health, musculoskeletal)? @ -Differential CVA Ischemic stroke, hemorrhagic stroke, brain tumor, atypical migraine, Wernicke's encephalopathy, seizure, multiple sclerosis, meningitis, encephalitis, hypoglycemia, Guillain-Anthony, electrolytes disturbance, myasthenia gravis.... This is not meant to be an all-inclusive list EKG interpreted by me (3pts min.). @ -Yes and demonstrates sinus rhythm with a rate of 74. ME interval 191. QRS 86. QTc of 417. No acute ST segment elevations or depressions X-rays interpreted by me (1pt min.). @ -Yes and demonstrates no acute process Home CT interpreted by me (1pt min.). @ -Yes and demonstrates no acute process U/S interpreted by me (1pt. min.). @ -None done What testing was considered but not performed or refused? (CT, X-rays, U/S, labs)? Why? @ -None What meds were considered but not given or refused? Why? @ -None Did you discuss the management of the patient with other professionals (professionals i.e. , PA, SHIPWRIGHT SUPERVISOR, lab, RT, psych nurse, perinatal social worker, professional engineer, teacher, health promotion officer, case management coordinator)? Give summary @ -Spoke with Dr. Ascencio Was smoking cessation discussed for >3mins.? @ -No Was critical care preformed (if so, how long)? @ -Yes, 35 minutes for code stroke activation Were there social determinants of health that impacted care today? How? (Homelessness, low income, unemployed, alcoholism, drug addiction, transportatio n, low edu. Level, literacy, decrease access to med. care, prison, rehab)? @ -Patient resides in rehab Was there de-escalation of care discussed even if they declined (Discuss DNR or withdrawal of care, Hospice)? DNR status @ -No What co-morbidities impacted this encounter? (DM, HTN, Smoking, COPD, CAD, Cancer, CVA, ARF, Chemo, Hep., AIDS, mental health diagnosis, sleep apnea, morbid obesity)? @ -History of CVA Was patient admitted / discharged? Hospital course, mention meds given and route, prescriptions, significant lab abnormalities, going to OR and other pertinent info. @ -Upon arrival patient was seen and evaluated in trauma 2. Last known well was last night. Code stroke was activated. Patient does go for CT. I discussed the case with Dr. King who recommends medical management. I did call and speak with Dr. Ascencio. Patient failed her swallow screen and therefore will be given [address] Peres who will admit the patient. Undiagnosed new problem with uncertain prognosis? @ -No Drug Therapy requiring intensive monitoring for toxicity (Heparin, Nitro, Insulin, Cardizem)? @ -No Were any procedures done? @ -No Diagnosis/symptom? @ -Acute left hemiparesis, suspected acute CVA Acute, or Chronic, or Acute on Chronic? @ -Acute Uncomplicated (without systemic symptoms) or Complicated (systemic symptoms)? @ -Complicated Side effects of treatment? @ -No Exacerbation, Progression, or Severe Exacerbation? @ -No Poses a threat to life or bodily function? How? (Chest pain, [place], [place], pneumonia, PE, COPD, DKA, ARF, appy, cholecystitis, CVA, Diverticulitis, Homicidal, Suicidal, threat to staff... and all critical care pts) @ -Yes this patient presents with strokelike symptoms - Lab Data Result diagrams: 02/01/24 10:10 02/01/24 11:21 Lab Results 02/01/24 02/01/24 02/01/24 Range/Units 10:06 10:10 10:10 WBC 8.1 (3.8-10.6) k/uL RBC 4.38 (3.80-5.40) m/uL Hgb 13.1 (11.4-16.0) gm/dL Hct 40.1 (34.0-46.0) % MCV 91.6 (80.0-100.0) fL MCH 30.0 (25.0-35.0) pg MCHC 32.7 (31.0-37.0) g/dL RDW 14.6 (11.5-15.5) % Plt Count 211 (150-450) k/uL MPV 9.6 Neutrophils % 64 % Lymphocytes % 25 % Monocytes % 7 % Eosinophils % 3 % Basophils % 1 % Neutrophils # 5.2 (1.3-7.7) k/uL Lymphocytes # 2.0 (1.0-4.8) k/uL Monocytes # 0.5 (0-1.0) k/uL Eosinophils # 0.2 (0-0.7) k/uL Basophils # 0.0 (0-0.2) k/uL PT 11.4 (10.0-12.5) sec INR 1.0 (<1.2) APTT 24.9 (22.0-30.0) sec Sodium (137-145) mmol/L Potassium (3.5-5.1) mmol/L Chloride (98-107) mmol/L Carbon Dioxide (22-30) mmol/L Anion Gap mmol/L BUN (7-17) mg/dL Creatinine (0.52-1.04) mg/dL Est GFR (CKD-EPI)AfAm (>60 ml/min/1.73 sqM) Est GFR (CKD-EPI)NonAf (>60 ml/min/1.73 sqM) Glucose (74-99) mg/dL POC Glucose (mg/dL) 93 (70-110) mg/dL POC Glu Mixer Tender ID Daley, Gail Calcium (8.4-10.2) mg/dL Total Bilirubin (0.2-1.3) mg/dL AST (14-36) U/L ALT (4-34) U/L Alkaline Phosphatase (38-126) U/L Creatine Kinase (30-135) U/L Troponin I (0.000-0.034) ng/mL Total Protein (6.3-8.2) g/dL Albumin (3.5-5.0) g/dL 02/01/24 02/01/24 Range/Units 11:21 11:21 WBC (3.8-10.6) k/uL RBC (3.80-5.40) m/uL Hgb (11.4-16.0) gm/dL Hct (34.0-46.0) % MCV (80.0-100.0) fL MCH (25.0-35.0) pg MCHC (31.0-37.0) g/dL RDW (11.5-15.5) % Plt Count (150-450) k/uL MPV Neutrophils % % Lymphocytes % % Monocytes % % Eosinophils % % Basophils % % Neutrophils # (1.3-7.7) k/uL Lymphocytes # (1.0-4.8) k/uL Monocytes # (0-1.0) k/uL Eosinophils # (0-0.7) k/uL Basophils # (0-0.2) k/uL PT (10.0-12.5) sec INR (<1.2) APTT (22.0-30.0) sec Sodium 139 (137-145) mmol/L Potassium 4.1 (3.5-5.1) mmol/L Chloride 109 H (98-107) mmol/L Carbon Dioxide 24 (22-30) mmol/L Anion Gap 6 mmol/L BUN 18 H (7-17) mg/dL Creatinine 0.51 L (0.52-1.04) mg/dL Est GFR (CKD-EPI)AfAm >90 (>60 ml/min/1.73 sqM) Est GFR (CKD-EPI)NonAf 89 (>60 ml/min/1.73 sqM) Glucose 88 (74-99) mg/dL POC Glucose (mg/dL) (70-110) mg/dL POC Glu Mixer Tender ID Calcium 9.2 (8.4-10.2) mg/dL Total Bilirubin 0.7 (0.2-1.3) mg/dL AST 31 (14-36) U/L ALT 18 (4-34) U/L Alkaline Phosphatase 84 (38-126) U/L Creatine Kinase 50 (30-135) U/L Troponin I <0.012 (0.000-0.034) ng/mL Total Protein 6.8 (6.3-8.2) g/dL Albumin 3.6 (3.5-5.0) g/dL Disposition Clinical Impression: Cerebrovascular accident (CVA), Left hemiparesis Disposition: ADMITTED IP TO THIS [facility] Condition: Serious Is patient prescribed a controlled substance at d/c from ED?: No Time of Disposition: 13:10 Decision to Admit Reason: Admit from EC Decision Date: 02/01/24 Decision Time: 13:10
[2024-02-01] MEDS: SODIUM CHLORIDE 0.9% 1,000 ML IV SCH (14:06)
[2024-02-01] MEDS: ASPIRIN 300 MG SUPP RECTAL SCH (14:06)
--- NOTE | 2024-02-01 16:19 | P.CNNES ---
History of Present Illness Consult date: 02/01/24 Requesting physician: Sumaya Knutson Reason for Consult: cva History of Present Illness: This is an 83-year-old woman with history of strokepresented emergency department from her nursing facility because of left facial droop left upper extremity weakness. History was obtained from medical record. Per the ED note, patient the resides in the [facility] and she was found by staff today with left facial droop and left upper extremity weakness. Last normal was about 10 PM yesterday. It is reported that she had a stroke about 2 months ago with residual left upper extremity weakness but no facial droop. Per the ED note in our system she had a stroke in May 2023 and that time she was in our facility and she had the stroke workup. As stated above she had a stroke and had workup in our facility in May 2023 is seems she had bilateral hemispheric stroke predominantly right frontal bilateral parietal and right occipital when she had left facial droop at that time and left-sided weakness with numbness as well as hypophonia.The stroke appeared possible cardioembolic but so far no A. fib or flutter. She had questionable vascular malformation of the right dionne on MRI. Dr. Zuleta saw her last on the 05/19/2023. Please refer to his note for further details. somewhat workup during his hospital visit consisted of: CBC with differential is unremarkable. sodium is 139, serum glucose is 88, creatinine is 0.[address] of the head is reported as no acute intracranial process. I personally reviewed the CT and I agree there is no acute or subacute ischemia that's appreciable CT angiography of the head and neck was reported as no acute dissection, evidence of high-grade stenosis or intracranial aneurysm. Shows mild to moderate stenosis present bilaterally. code stroke was activated. Per the ED physician she stated that NIH stroke scale was probably a 12. The ED physician spoke with the stroke attending on-call (Dr. King) and no IV thrombolytic since outside window and risk outweigh benefit and no intervention and recommended medical management. Review of Systems Limited but the positive and negative as per HPI. Past Medical History Past Medical History: Cancer, GERD/Reflux, Hyperlipidemia, Hypertension, Osteoarthritis (OA) Additional Past Medical History / Comment(s): 'slight heart murmer", hx skin cancer, numbness in left hand-two fingers, spinal stenosis, degenerative disks, "dry eyes", "SOME TROUBLE SWALLOWING" History of Any Multi-Drug Resistant Organisms: None Reported Past Surgical History: Orthopedic Surgery Additional Past Surgical History / Comment(s): 8 surgeries to remove skin cancer,2 surgeries on rt ankle for fx(plate and screws), 2 surgeries on left knee and thu in left knee as small child, tumor removed from nose, blepharoplasty pop eyes, pop cataracts, left arm surgery to release nerve, steroid spinal injections, total right ankle arthroplasty and right ANKLE SURGE RY-JOINT REPLACEMENT Past Anesthesia/Blood Transfusion Reactions: No Reported Reaction Additional Past Anesthesia/Blood Transfusion Reaction / Comment(s): no family hx (adopted) Past Psychological History: Anxiety, Depression Smoking Status: Former smoker - Past Family History Mother Family Medical History: Unable to Obtain Additional Family Medical History / Comment(s): Patient was adopted and does not know any family history. Daughter(s) Family Medical History: No Reported History Additional Family Medical History / Comment(s): Patient has 3 daughters and 2 sons all in their 50s with no major medical problems. Medications and Allergies Home Medications Medication Instructions Recorded Confirmed Type Multivitamin/Iron/Folic Acid 1 tab PO DAILY 04/28/18 02/01/24 History [Centrum Adults Tablet] Meclizine HCl 12.5 mg PO BID PRN 10/03/20 02/01/24 History Acetaminophen Tab [Tylenol] 1,000 mg PO DAILY@1500 PRN 05/13/23 02/01/24 History Albuterol Sulfate [Ventolin HFA] 2 puff INHALATION RT-Q4H PRN 05/13/23 02/01/24 History Carboxymethylcellulos/Glycerin 1 drop BOTH EYES QID 05/13/23 02/01/24 History [Refresh Relieva 0.5-0.9% Drop] Cholecalciferol [Vitamin D3 (25 50 mcg PO DAILY 05/13/23 02/01/24 History Mcg = 1000 Iu)] Docusate [Colace] 100 mg PO HS 05/13/23 02/01/24 History Furosemide [Lasix] 20 mg PO Q2D 05/13/23 02/01/24 History L.acidoph,Paracasei, B.lactis 1 cap PO DAILY 05/13/23 02/01/24 History [Probiotic] Pantoprazole [Protonix] 40 mg PO DAILY PRN 05/13/23 02/01/24 History buPROPion XL [Wellbutrin XL] 150 mg PO DAILY 05/13/23 02/01/24 History calcium polycarbophiL [Fiber-Lax] 1,250 mg PO HS 05/13/23 02/01/24 History lisinopriL [Zestril] 10 mg PO DAILY 05/13/23 02/01/24 History polyethylene glycoL 3350 [Miralax] 17 gm PO DAILY 05/13/23 02/01/24 History rOPINIRole HCL [Requip] 0.25 mg PO HS 05/13/23 02/01/24 History Aspirin EC [Ecotrin Low Dose] 81 mg PO DAILY #21 05/19/23 02/01/24 Rx Atorvastatin [Lipitor] 40 mg PO HS #30 tab 05/19/23 02/01/24 Rx Clopidogrel [Plavix] 75 mg PO DAILY #30 tab 05/19/23 02/01/24 Rx amLODIPine [Norvasc] 5 mg PO DAILY #30 tab 05/19/23 02/01/24 Rx Dextran/Hypromellose/Glycerin 1 drop BOTH EYES QID PRN 01/07/24 02/01/24 History [Genteal Tears 0.1%-0.2%-0.3%] Diclofenac Sodium [Diclofenac 1 applic TOPICAL BID PRN 01/07/24 02/01/24 History Sodium 1%] Ensure Enlive 1 can PO DAILY 01/07/24 02/01/24 History HYDROcodone/APAP 5-325MG [[place] 1 tab PO BID 01/07/24 02/01/24 History 5-325] HYDROcodone/APAP 5-325MG [[place] 1 tab PO Q6H PRN 01/07/24 02/01/24 History 5-325] Ivizia Eyelid Wipes 1 pad BOTH EYES MOWEFR 01/07/24 02/01/24 History Magnesium Hydroxide [Milk of 2,400 mg PO DAILY PRN 01/07/24 02/01/24 History Magnesia] Meloxicam [Mobic] 7.5 mg PO DAILY PRN 01/07/24 02/01/24 History Menthol-Zinc Oxide Oint 1 applic TOPICAL Q12H 01/07/24 02/01/24 History [Calmoseptine Ointment] Metoprolol Tartrate [Lopressor] 12.5 mg PO BID 01/07/24 02/01/24 History Na Phos,M-B/Na Phos,Di-Ba [Fleet 133 ml RECTAL DAILY PRN 01/07/24 02/01/24 History Adult] bisacodyL [Dulcolax] 10 mg RECTAL DAILY PRN 01/07/24 02/01/24 History Mv-Mn/Om3/Dha/Epa/Fish/Lut/Ricarda 2 cap PO BID 02/01/24 02/01/24 History [Ocuvite Adult 50 Plus Softgel] Allergies Allergy/AdvReac Type Severity Reaction Status Date / Time nickel Allergy Rash/Hives Verified 02/01/24 10:55 Physical Examination - Vital Signs Vital Signs: Vital Signs Temp Pulse Resp BP Pulse Ox 02/01/24 15:00 68 18 118/74 96 02/01/24 13:00 80 16 165/91 97 02/01/24 12:00 65 16 135/67 97 02/01/24 11:00 70 16 164/88 97 02/01/24 10:31 73 16 164/80 98 02/01/24 10:06 97.8 F 75 16 179/97 98 Intake and Output 02/01/24 02/01/24 02/01/24 06:59 14:59 22:59 Other: Weight 59.103 kg General: Lying in bed and does not appear in acute distress. Neuro: Very limited. Moderate drowsy but is awakeable to voice. Is oriented to self only. She is very slow follow commands and followed only few (attempting to stick tongue out and wiggling toes). Language is very limited. Pupils are 2-3mm and reactive to light. Has moderate left lower facial droop. Is hypophonic. Motor: Strength is is limited because condition/cooperation. Is lifting uppers (moving more right> left). Is wiggling bilateral toes. Reflex: 2+ throughout except ankles are 1+. Has upgoing toe on the left at baseline. Results - Laboratory Findings CBC and BMP: 02/01/24 10:10 02/01/24 11:21 Abnormal Lab Findings: Abnormal Labs 02/01/24 11:21 Chloride 109 H BUN 18 H Creatinine 0.51 L Assessment and Plan Assessment: this is an 82-year-old woman with history of stroke who presents because of left facial droop and left upper extremity weakness at the nursing facility. Last normal was at 10 PM yesterday. per the ED NIH stroke scale was a 12. No IV thrombolytics is outside the window. acute left facial droop with worsening left upper extremity weakness: probable acute ischemic stroke History of bilateral hemispheric stroke predominately over the right frontal, bilateral parietal and right occipital in May 2023 and she had left facial droop and left-sided weakness with numbness as well as hypophonia and was reported as possible cardioembolic but no A. fib noted or flutter at that time History of questionable vascular formation within the right dionne on MRI History of Parkinson's disease Hypertension Hyperlipidemia Plan: I ordered MRI of the brain patient is on aspirin 81 mg daily and Plavix 75 mg daily at home and we'll modify the medication from Plavix to Brilinta 90 mg twice a day. but currently patient is dysphasic so patient is on aspirin 300 suppository. once the patient is able to swallow then the will resume Lipitor 40mg qhs. I ordered 2-D echo Lipid panels orders pending Continue neuro checks Cardiac monitoring PT OT and BIOMEDICAL ANALYTICAL SCIENTIST are consulted recommend permissive hypertension and controlled blood pressure of the systolics more than 200 or diastolic was 100. We'll defer the rest of the medical management to primary and other specialists for DVT prophylaxis I started the patient on subcu heparin 5000 units every 12 hours The plan was discussed with the Ed physician. Thank you for the consultation. Time with Patient: Greater than 30
[2024-02-01] MEDS ORDERED: bisacodyL 10 MG SUPP RECTAL PRN (19:16)
[2024-02-01] MEDS ORDERED: ARTIFICIAL TEARS-HYPROMELLOSE DROPS 15 ML BTL BOTH EYES PRN (19:16)
[2024-02-01] MEDS ORDERED: ALBUTEROL NEBULIZED 2.5 MG/3 ML INHALATION PRN (19:16)
[2024-02-01] MEDS ORDERED: MAGNESIUM HYDROXIDE 2,400 MG/30 ML CUP PO PRN (19:16)
[2024-02-01] MEDS ORDERED: PANTOPRAZOLE 40 MG TABLET PO PRN (19:16)
[2024-02-01] MEDS ORDERED: MECLIZINE 12.5 MG TAB PO PRN (19:16)
[2024-02-01] MEDS ORDERED: NA PHOS,M-B/NA PHOS,DI-BA 133 ML ENEMA RECTAL PRN (19:16)
[2024-02-01] MEDS ORDERED: [UNRECOGNIZED DRUG - OTHER] BOTH EYES SCH (19:30)
[2024-02-01] MEDS: ATORVASTATIN 40 MG TAB PO SCH (20:07)
[2024-02-01] MEDS: VIT A,C & E-LUTEIN-MINERALS 1 EACH TAB PO SCH (20:07)
[2024-02-01] MEDS: METOPROLOL TARTRATE 12.5 MG TAB PO SCH (20:07)
[2024-02-01] MEDS: DOCUSATE 100 MG CAP PO SCH (20:07)
[2024-02-01] MEDS: HEPARIN SODIUM,PORCINE 5,000 UNIT/ML 1 ML VIAL SQ SCH (21:09)
[2024-02-01] MEDS: ARTIFICIAL TEARS-HYPROMELLOSE DROPS 15 ML BTL BOTH EYES SCH (23:41)
--- NOTE | 2024-02-02 06:22 | P.HPIM ---
History of Present Illness H&P Date: 02/01/24 Chief Complaint: CVA with left-sided weakness, Altered mental status, confusion, recurrent s HISTORY OF PRESENT ILLNESS: 83-year-old under my office patient for many years with active medical history of recurrent stroke, fracture right ankle with hardware failure to surgeon procedure patient become debilitated not being able to walk or ambulate on it, hypertension, hyperlipidemia, history of skin cancer, recurrent osteoarthritis, mild memory loss, chronic anxiety and depression , Who had recurrent stroke last time was in May 19, 2023 where was hospitalized on May 13, 2020 May 19, 2023 and ended up seeing neurology, cardiology, physical medicine and many other and had many testing including MRI of the brain, echocardiogram, CTA and CT of the brain the conclusion as an acute ischemic stroke bilateral hemisphere involving with left-sided hemiparesis with history of Parkinson disease hypertension and hyperlipidemia with depressive mood and slight mild depression. The testing including MRI of the brain showed scattered area of acute to subacute infarct of the right frontal lobe with bilateral parietal lobe involvement as well as single focus in the right occipital lobe suspicion for cardioembolic phenomena. Her echocardiogram was negative for PFO or intracardiac thrombus carotid ultrasound was negative. Recurrent finding still consistent with abnormality related to thrombus with no sign and symptom of any A-fib and no finding consistent with deformity of the heart needed to be on anticoagulation. Patient was sent home on Plavix and she been living in assisted living has been managing well February 01, 2024 for patient found to have strokelike symptoms with droopy face on the left side with weakness of the left side of her body according to the caregiver has not been seen since 10:00 yesterday when awaking this morning and seen patient had a droopy face with significant left-sided weakness ended up coming to the emergency department for her strokelike symptoms initially her weakness was more severe CAT scan of the brain reported no acute intracranial progress, CT a did not show any higher grade stenosis in the intra or extra cranial carotid neither intracranial aneurysm like. Her laboratory value did not show any major abnormality accompanied with her family were given update the patient was hospitalized for new finding of stroke at this time. Review her lab consistent with normal CBC, normal chemistry troponin is normal no finding consistent with infection of any type. Chest x-ray came with possible bronchitis or asthma no focal infiltrate. EKG is consistent with sinus rhythm with no A-fib. The patient will be hospitalized for stroke and stroke workup at this point will initiate some workup along with neuroexam every 2 hours with neuroconsult. Talk with the son who was on the bedside about the findings and the recurrent stroke might be consistent with abnormality lead into shedding thrombus or clot most of it would be A-fib a finding in the heart just could not find it with any of the testing done previously and based on suspicion to initiate patient on heavy anticoagulation like Eliquis can be more harmful on the long run specially with patient's current condition with multifocal and higher comorbidity. Patient will be discussed again with family. Patient might require more help than expected and provided where she lives currently she might require to go to penitentiary or nursing facility and the family were in the plan to move her to one of the facility and [place] close to [place] where the daughter lives which will put the pediatric social worker into help the family when ready for her discharge. REVIEW OF SYSTEMS: CONSTITUTIONAL: Well-developed still have slight droopy face does not look in respiratory distress leaning on the right side does not look comfortable. EYES: No icterus sclerae, no conjunctivitis. EARS, NOSE, MOUTH, THROAT, and FACE: No sore throat, lymphadenopathy, carotid bruits or deformity. RESPIRATORY: Mild shortness of breath no cough or wheezes. CARDIOVASCULAR: No palpitation or angina no PND or orthopnea. GASTROINTESTINAL: No Abd pain, Nausea or vomiting, no Diarrhea or constipation, No GI Bleed, no distention or masses. GENITOURINARY: Negative for Hematuria or UTI, no kidney stones. INTEGUMENT/BREAST: Negative for any muscular injury with mild osteoarthritis.. HEMATOLOGIC/LYMPHATIC: Negative for bleed or purpura. MUSCULOSKELTAL: Generalized arthralgia and myalgia worsening in both feet. NEURLOGICAL: No LOC, Sz or syncope, blurred vision dizziness or abnormality.. BEHAVIORAL/PSYCH: Negative. ENDOCRINE: Negative. PHYSICAL EXAMINATION: General Appearance: Alert quite bit confused no distress looks older than her age. Neck HEENT: Supple, no lymphadenopathy, no thyroid enlargement, no carotid bruits. Leaning more toward the right side in bed with slight droopy face. Lungs: Decreased breath sound bilaterally with fine rhonchi no crackles. Chest Wall: Decreased expansion with deep inspiration no tenderness and no deformity was found on exam, no costochondral pain or discomfort. Heart: Regular rate and rhythm, S1, S2 normal, no murmur, rub or gallop. Back: Quite good curvature with mild scoliosis no CVA tenderness no rash on the back. Abdomen: Soft, non-tender, bowel sounds active all four quadrants, no masses, no organomegaly. Extremities: Extremities normal, atraumatic, no cyanosis or edema. Quite bit deformity in both feet with scar tissue on the left side but no infection. Pulses: 2+ and symmetric. Skin: Skin color, texture, tugor normal, no rashes or lesions. Neurologic exam: Alert severely confused cranial nerve II to XII has impact on the primary nerve VII on the left side slightly droopy face and chest, sadly I found weakness in both lower extremity still able to move the left side with quite good weeks of his right side both upper and lower extremity but she has worsening weakness on the left on the right side and had more paraplegia of the lower extremity as well. ASSESSMENT AND PLAN: _Acute stroke with weakness in the left side: Patient be admitted to the hospital see neurology will be going for another MRI of the brain, evaluation of cardio vascular with echo and transesophageal echo with CTA all completed in the past with no PFO no abnormality, will continue to monitor patient on telemetry to see if you have any finding consistent with A-fib and patient can benefit from longer-term heart monitor probably with loop recorder to see if there is any A-fib in the long run this chatter close thrombus on her MRI from May more consistent with formation of thrombus from somewhere its most likely A-fib causing the current finding. Again to look into having an aggressive anticoagulation by having patient on Eliquis or Xarelto can be more extreme because patient has high risk for fall and more problem if that create more bleed can be more harmful. But found, in background if we need that doing the longer term property assessment monitor and finding shifted to A-fib at some point patient will need to be on anticoagulation. Otherwise seems from neurology recommendation that patient might be switched f rom Plavix to Brilinta twice a day at 90 mg. _Type 2 diabetes: He is not on any medication currently continue Accu-Chek with sliding scale coverage for now her A1c was mildly elevated. _Hypertension: Blood pressure has been well-controlled on combination of amlodipine 5 mg a day with lisinopril 10 mg a day and metoprolol tartrate 12.5 mg twice a day. _Memory loss: Might benefit from initiating smaller dose of donepezil. _Parkinson disease: Has been on Requip 1.25 mg nightly only not on any Sinemet. Not clear when diagnosis was made but will continue current management for now. _Severe osteoarthritis with deformity of the feet bilaterally: Had multi surgery patient is not able to ambulate and walk has been wheelchair lately. _Chronic depression: Continue Wellbutrin XL 150 mg daily. _Reactive airway/asthma: Still on Ventolin HFA on demand only. _Restless leg syndrome: Has been on Requip 0.25 mg nightly. _Chronic constipation: Continue MiraLAX along with stool softener on a regular basis. _Chronic anemia and microcytosis: Continue multivitamin and iron supplement. _GI prophylaxis: Patient be on pantoprazole 40 mg daily. _DVT prophylaxis: Knee-high JOSH hose and initiate physical therapy early. CODE STATUS: DO NOT RESUSCITATE. Admit patient to the inpatient status for more than 2 night stay. Past Medical History Past Medical History: Cancer, GERD/Reflux, Hyperlipidemia, Hypertension, Osteoarthritis (OA) Additional Past Medical History / Comment(s): 'slight heart murmer", hx skin cancer, numbness in left hand-two fingers, spinal stenosis, degenerative disks, "dry eyes", "SOME TROUBLE SWALLOWING" History of Any Multi-Drug Resistant Organisms: None Reported Past Surgical History: Orthopedic Surgery Additional Past Surgical History / Comment(s): 8 surgeries to remove skin cancer,2 surgeries on rt ankle for fx(plate and screws), 2 surgeries on left knee and thu in left knee as small child, tumor removed from nose, bleph aroplasty pop eyes, pop cataracts, left arm surgery to release nerve, steroid spinal injections, total right ankle arthroplasty and right ANKLE SURGERY-JOINT REPLACEMENT Past Anesthesia/Blood Transfusion Reactions: No Reported Reaction Additional Past Anesthesia/Blood Transfusion Reaction / Comment(s): no family hx (adopted) Past Psychological History: Anxiety, Depression Smoking Status: Former smoker - Past Family History Mother Family Medical History: Unable to Obtain Additional Family Medical History / Comment(s): Patient was adopted and does not know any family history. Daughter(s) Family Medical History: No Reported History Additional Family Medical History / Comment(s): Patient has 3 daughters and 2 sons all in their 50s with no major medical problems. Medications and Allergies Home Medications Medication Instructions Recorded Confirmed Type Multivitamin/Iron/Folic Acid 1 tab PO DAILY 04/28/18 02/01/24 History [Centrum Adults Tablet] Meclizine HCl 12.5 mg PO BID PRN 10/03/20 02/01/24 History Acetaminophen Tab [Tylenol] 1,000 mg PO DAILY@1500 PRN 05/13/23 02/01/24 History Albuterol Sulfate [Ventolin HFA] 2 puff INHALATION RT-Q4H PRN 05/13/23 02/01/24 History Carboxymethylcellulos/Glycerin 1 drop BOTH EYES QID 05/13/23 02/01/24 History [Refresh Relieva 0.5-0.9% Drop] Cholecalciferol [Vitamin D3 (25 50 mcg PO DAILY 05/13/23 02/01/24 History Mcg = 1000 Iu)] Docusate [Colace] 100 mg PO HS 05/13/23 02/01/24 History Furosemide [Lasix] 20 mg PO Q2D 05/13/23 02/01/24 History L.acidoph,Paracasei, B.lactis 1 cap PO DAILY 05/13/23 02/01/24 History [Probiotic] Pantoprazole [Protonix] 40 mg PO DAILY PRN 05/13/23 02/01/24 History buPROPion XL [Wellbutrin XL] 150 mg PO DAILY 05/13/23 02/01/24 History calcium polycarbophiL [Fiber-Lax] 1,250 mg PO HS 05/13/23 02/01/24 History lisinopriL [Zestril] 10 mg PO DAILY 05/13/23 02/01/24 History polyethylene glycoL 3350 [Miralax] 17 gm PO DAILY 05/13/23 02/01/24 History rOPINIRole HCL [Requip] 0.25 mg PO HS 05/13/23 02/01/24 History Aspirin EC [Ecotrin Low Dose] 81 mg PO DAILY #21 05/19/23 02/01/24 Rx Atorvastatin [Lipitor] 40 mg PO HS #30 tab 05/19/23 02/01/24 Rx Clopidogrel [Plavix] 75 mg PO DAILY #30 tab 05/19/23 02/01/24 Rx amLODIPine [Norvasc] 5 mg PO DAILY #30 tab 05/19/23 02/01/24 Rx Dextran/Hypromellose/Glycerin 1 drop BOTH EYES QID PRN 01/07/24 02/01/24 History [Genteal Tears 0.1%-0.2%-0.3%] Diclofenac Sodium [Diclofenac 1 applic TOPICAL BID PRN 01/07/24 02/01/24 History Sodium 1%] Ensure Enlive 1 can PO DAILY 01/07/24 02/01/24 History HYDROcodone/APAP 5-325MG [[place] 1 tab PO BID 01/07/24 02/01/24 History 5-325] HYDROcodone/APAP 5-325MG [[place] 1 tab PO Q6H PRN 01/07/24 02/01/24 History 5-325] Ivizia Eyelid Wipes 1 pad BOTH EYES MOWEFR 01/07/24 02/01/24 History Magnesium Hydroxide [Milk of 2,400 mg PO DAILY PRN 01/07/24 02/01/24 History Magnesia] Meloxicam [Mobic] 7.5 mg PO DAILY PRN 01/07/24 02/01/24 History Menthol-Zinc Oxide Oint 1 applic TOPICAL Q12H 01/07/24 02/01/24 History [Calmoseptine Ointment] Metoprolol Tartrate [Lopressor] 12.5 mg PO BID 01/07/24 02/01/24 History Na Phos,M-B/Na Phos,Di-Ba [Fleet 133 ml RECTAL DAILY PRN 01/07/24 02/01/24 History Adult] bisacodyL [Dulcolax] 10 mg RECTAL DAILY PRN 01/07/24 02/01/24 History Mv-Mn/Om3/Dha/Epa/Fish/Lut/Ricarda 2 cap PO BID 02/01/24 02/01/24 History [Ocuvite Adult 50 Plus Softgel] Allergies Allergy/AdvReac Type Severity Reaction Status Date / Time nickel Allergy Rash/Hives Verified 02/01/24 10:55 Physical Exam Vitals: Vital Signs Temp Pulse Pulse Resp BP BP Pulse Ox 02/01/24 18:53 78 20 189/79 99 02/01/24 18:21 98.6 F 80 16 150/84 97 02/01/24 16:00 71 16 130/82 97 02/01/24 15:00 68 18 118/74 96 02/01/24 13:00 80 16 165/91 97 02/01/24 12:00 65 16 135/67 97 02/01/24 11:00 70 16 164/88 97 02/01/24 10:31 73 16 164/80 98 02/01/24 10:06 97.8 F 75 16 179/97 98 Intake and Output 02/01/24 02/01/24 02/01/24 06:59 14:59 22:59 Other: Weight 59.103 kg Results CBC & Chem 7: 02/01/24 10:10 02/01/24 11:21 Labs: Abnormal Lab Results - Last 24 Hours (Table) 02/01/24 Range/Units 11:21 Chloride 109 H (98-107) mmol/L BUN 18 H (7-17) mg/dL Creatinine 0.51 L (0.52-1.04) mg/dL
[2024-02-02] MEDS ORDERED: ENSURE ENLIVE PO SCH (09:00)
[2024-02-02] MEDS: ASPIRIN 81 MG PO SCH (10:00)
[2024-02-02] MEDS: CHOLECALCIFEROL 25 MCG (1000 IU) TABLET PO SCH (10:00)
[2024-02-02] MEDS: CLOPIDOGREL 75 MG TAB PO SCH (10:00)
[2024-02-02] MEDS: buPROPion XL 150 MG TAB.ER.24H PO SCH (10:00)
[2024-02-02] MEDS: amLODIPine 5 MG TAB PO SCH (10:00)
[2024-02-02] MEDS: MULTIVITAMINS, THERA 1 EACH TAB PO SCH (10:01)
[2024-02-02] MEDS: lisinopriL 10 MG TAB PO SCH (10:01)
[2024-02-02] MEDS: LACTOBACILLUS ACIDOPHILUS/PECT 1 EACH CAPSULE PO SCH (10:01)
[2024-02-02] MEDS: polyethylene glycoL 3350 17 GM POWD.PACK PO SCH (10:01)
[2024-02-02] MEDS: FUROSEMIDE 20 MG TAB PO SCH (10:01)
--- NOTE | 2024-02-02 13:58 | P.PN ---
Subjective Progress Note Date: 02/02/24 I am following-up with patient and she continues to have weakness on left side. Per nurse she is scheduled to have MRI Brain at 3pm today. Objective - Vital Signs Vital signs: Vital Signs Temp 97.8 F 02/02/24 08:45 Pulse 80 02/02/24 08:45 Resp 17 02/02/24 08:45 BP 152/70 02/02/24 08:45 Pulse Ox 96 02/02/24 08:45 FiO2 Intake & Output 02/01/24 02/02/24 02/02/24 18:59 06:59 18:59 Output Total 300 Balance -300 Weight 59.103 kg 59.103 kg Output: Urine 300 Other: Voiding Method External Catheter External Catheter External Catheter - Exam General: Lying in bed and does not appear in acute distress. Neuro: Very limited. Mildly drowsy but is awakeable to voice. Is oriented to self only. She is very slow following simple commands. Language is very limited. Pupils are 2-3mm and reactive to light. Has moderate left lower facial droop. Is hypophonic. Motor: Strength is is limited because condition/cooperation. Is lifting uppers (moving more right> left). Is wiggling bilateral toes. Reflex: 2+ throughout except ankles are 1+. Has upgoing toe on the left at baseline. somewhat workup during his hospital visit consisted of: CBC with differential is unremarkable. sodium is 139, serum glucose is 88, creatinine is 0.[address] of the head is reported as no acute intracranial process. I personally reviewed the CT and I agree there is no acute or subacute ischemia that's appreciable CT angiography of the head and neck was reported as no acute dissection, evidence of high-grade stenosis or intracranial aneurysm. Shows mild to moderate stenosis present bilaterally. code stroke was activated. Per the ED physician she stated that NIH stroke scale was probably a 12. - Labs CBC & Chem 7: 02/01/24 10:10 02/01/24 11:21 Assessment and Plan Assessment: this is an 82-year-old woman with history of stroke who presents because of left facial droop and left upper extremity weakness at the nursing facility. Last normal was at 10 PM yesterday. per the ED NIH stroke scale was a 12. No IV thrombolytics is outside the window. acute left facial droop with worsening left upper extremity weakness: probable acute ischemic stroke History of bilateral hemispheric stroke predominately over the right frontal, bilateral parietal and right occipital in May 2023 and she had left facial droop and left-sided weakness with numbness as well as hypophonia and was reported as possible cardioembolic but no A. fib noted or flutter at that time History of questionable vascular formation within the right dionne on MRI History of Parkinson's disease Hypertension Hyperlipidemia Plan: Pending MRI of the brain. Is schedule today at 3pm. patient is on aspirin 81 mg daily and Plavix 75 mg daily at home. I disconti nued Plavix to Brilinta 90 mg twice a day. Is on Lipitor 40mg qhs. Pending2-D echo Lipid panels orders pending Continue neuro checks Cardiac monitoring PT OT and [employer] CONSULTANT are consulted recommend permissive hypertension for an additional day and control if systolic blood pressure more than 200 or diastolic was 100. We'll defer the rest of the medical management to primary and other specialists for DVT prophylaxis IOn subcu heparin 5000 units every 12 hours The plan is discussed with the nurse. Time with Patient: Less than 30
[2024-02-02] MEDS ORDERED: ACETAMINOPHEN TAB 500 MG TAB PO PRN (15:00)
--- NOTE | 2024-02-02 15:52 | MR ---
EXAMINATION TYPE: MR brain wo con DATE OF EXAM: 02/02/2024 COMPARISON: 05/14/2023 HISTORY: Stroke, Left facial droop and left sided weakness CONTRAST: Performed utilizing 0 mL intravenous Gadavist gadolinium contrast. TECHNIQUE: Multiplanar, multiecho imaging on a 3.0 Shira magnet is performed through the brain. Stud y is performed within 24 hours of arrival to the hospital. The craniovertebral junction is normal. The pituitary is normal. Diffusion-weighted imaging is performed. There is hyperintensity through the cortex adjacent to the right sylvian fissure. Acute cortical infarction be considered. Consider other etiologies such as HSV infection. There is patchy to confluent periventricular white matter hyperintensity. This is confluent in the ce ntrum semiovale bilaterally. Microvascular ischemic change likely within the differential. This is a chronic appearance present previously. Ventricles and sulci are prominent for the patient age. IMPRESSION: 1. No acute hyperintensity on diffusion-weighted imaging cortex right parietal lobe adjacent to the s ylvian fissure. Acute cortical infarct and HSV infection should be considered. 2. Chronic fluent white matter ischemic type changes with prominent ventricles and sulci compatible w ith atrophy. Findings are stable from prior study. A [place] critical message alert has been initiated for Jose J Peres MD via the [facility] Results System on 02/02/2024 3:48 PM. This message alert has been sent to Jose J Peres MD via t rehan preferences provided by the clinician for the receipt of Radiology Critical Findings. Message ID [id number].
[2024-02-02 16:11] LABS: Chol/HDL Ratio 2.92 Ratio; LDL Cholesterol,Calculated 67.5 mg/dL (0.0-131.0); VLDL Calculation 14.14 mg/dL (5.00-40.00)
[2024-02-02 16:44] LABS: Glucose,Whole Blood 76 mg/dL (70-110)
[2024-02-02] MEDS: DEXTROSE 5%-0.9% NACL 1,000 ML IV SCH (17:11)
--- NOTE | 2024-02-02 19:05 | CA ---
Transthoracic Echo Report Name: Raven Moreno Age: 83 Gender: F : 1940 Exam Date: 02/02/2024 13:26 Exam Location: [facility] Ht (in): 62 Wt (lb): 130 Ordering Physician: Bret Ascencio MD Attending/Referring Phys: Director Radio Regina Walters RDCS Procedure CPT: Indications: stroke Cardiac Hx: Technical Quality: Fair Contrast 1: Total Dose (mL): Contrast 2: Total Dose (mL): MEASUREMENTS (Male / Female) Normal Values 2D ECHO LV Diastolic Diameter PLAX 3.2 cm 4.2 - 5.9 / 3.9 - 5.3 cm LV Systolic Diameter PLAX 2.5 cm IVS Diastolic Thickness 1.2 cm 0.6 - 1.0 / 0.6 - 0.9 cm LVPW Diastolic Thickness 1.3 cm 0.6 - 1.0 / 0.6 - 0.9 cm LV Relative Wall Thickness 0.8 RV Internal Dim ED PLAX 2.1 cm LA Systolic Diameter LX 3.2 cm 3.0 - 4.0 / 2.7 - 3.8 cm LV Diastolic Volume MOD BP 39.5 cm??? 67 - 155 / 56 - 104 cm??? LV Systolic Volume MOD BP 14.4 cm??? 22 - 58 / 19 - 49 cm??? LV Ejection Fraction MOD BP 63.5 % >= 55 % LV Cardiac Index MOD BP 1242.2 cm???/min???m??? LV Diastolic Volume MOD 4C 41.5 cm??? LV Systolic Volume MOD 4C 20.1 cm??? LV Ejection Fraction MOD 4C 51.5 % LV Cardiac Index MOD 4C 1058.1 cm???/min???m??? LV Diastolic Length 4C 6.1 cm LV Systolic Length 4C 5.2 cm LV Diastolic Volume MOD 2C 37.0 cm??? LV Systolic Volume MOD 2C 10.4 cm??? LV Ejection Fraction MOD 2C 71.8 % LV Cardiac Index MOD 2C 1317.0 cm???/min???m??? LV Diastolic Length 2C 6.0 cm LV Systolic Length 2C 5.2 cm LA Volume 28.9 cm??? 18 - 58 / 22 - 52 cm??? LA Volume Index 17.9 cm???/m??? 16 - 28 cm???/m??? M-MODE Aortic Root Diameter MM 2.9 cm LA Systolic Diameter MM 3.5 cm LA Ao Ratio MM 1.2 AV Cusp Separation MM 1.7 cm DOPPLER AV Peak Velocity 152.8 cm/s AV Peak Gradient 9.3 mmHg AI Peak Velocity 476.5 cm/s AI Peak Gradient 90.8 mmHg AI Pressure Half Time 648.3 ms MV Area PHT 2.0 cm??? Mitral E Point Velocity 68.0 cm/s Mitral A Point Velocity 87.5 cm/s Mitral E to A Ratio 0.8 MV Deceleration Time 388.1 ms TR Peak Velocity 262.9 cm/s TR Peak Gradient 27.7 mmHg Right Ventricular Systolic Press 32.7 mmHg FINDINGS Left Ventricle Left ventricular ejection fraction is estimated at 55-60 %. Mildly increased septal wall thickness. Mildly increased posterior wall thickness. Sigmod Septum. No obvious regional wall motion abnormalities. Left ventricular cavity size normal. Right Ventricle Normal right ventricular size and function. Right ventricular systolic pressure within normal limits. Right Atrium Normal right atrial size. Left Atrium Normal left atrial size. Mitral Valve Structurally normal mitral valve. Trace to mild mitral regurgitation. Aortic Valve Trileaflet aortic valve. Moderate aortic regurgitation. Thickened aortic valve without stenosis. Tricuspid Valve Structurally normal tricuspid valve. Trace tricuspid regurgitation. Pulmonic Valve Structurally normal pulmonic valve. Trace pulmonic regurgitation. Pericardium No pericardial or pleural effusion. Aorta Normal size aortic root and proximal ascending aorta. CONCLUSIONS Present illness and systolic function, LVH Moderate aortic regurgitation Previewed by: Dr. Jamin Coley MD (Electronically Signed) Final Date: 02 February 2024 19:04
[2024-02-02] MEDS: TICAGRELOR 90 MG TAB PO SCH (19:38)
--- NOTE | 2024-02-03 06:03 | P.PN ---
Subjective Progress Note Date: 02/02/24 HISTORY OF PRESENT ILLNESS: 83-year-old under my office patient for many years with active medical history of recurrent stroke, fracture right ankle with hardware failure to surgeon procedure patient become debilitated not being able to walk or ambulate on it, hypertension, hyperlipidemia, history of skin cancer, recurrent osteoarthritis, mild memory loss, chronic anxiety and depression , Who had recurrent stroke last time was in May 19, 2023 where was hospitalized on May 13, 2020 May 19, 2023 and ended up seeing neurology, cardiology, physical medicine and many other and had many testing including MRI of the brain, echocardiogram, CTA and CT of the brain the conclusion as an acute ischemic stroke bilateral hemisphere involving with left-sided hemiparesis with history of Parkinson disease hypertension and hyperlipidemia with depressive mood and slight mild depression. The testing including MRI of the brain showed scattered area of acute to subacute infarct of the right frontal lobe with bilateral parietal lobe involvement as well as single focus in the right occipital lobe suspicion for cardioembolic phenomena. Her echocardiogram was negative for PFO or intracardiac thrombus carotid ultrasound was negative. Recurrent finding still consistent with abnormality related to thrombus with no sign and symptom of any A-fib and no finding consistent with deformity of the heart needed to be on anticoagulation. Patient was sent home on Plavix and she been living in assisted living has been managing well February 01, 2024 for patient found to have strokelike symptoms with droopy face on the left side with weakness of the left side of her body according to the caregiver has not been seen since 10:00 yesterday when awaking this morning and seen patient had a droopy face with significant left-sided weakness ended up coming to the emergency department for her strokelike symptoms initially her weakness was more severe CAT scan of the brain reported no acute intracranial progress, CT a did not show any higher grade stenosis in the intra or extra cranial carotid neither intracranial aneurysm like. Her laboratory value did not show any major abnormality accompanied with her family were given update the patient was hospitalized for new finding of stroke at this time. Review her lab consistent with normal CBC, normal chemistry troponin is normal no finding consistent with infection of any type. Chest x-ray came with possible bronchitis or asthma no focal infiltrate. EKG is consistent with sinus rhythm with no A-fib. The patient will be hospitalized for stroke and stroke workup at this point will initiate some workup along with neuroexam every 2 hours with neuroconsult. Talk with the son who was on the bedside about the findings and the recurrent stroke might be consistent with abnormality lead into shedding thrombus or clot most of it would be A-fib a finding in the heart just could not find it with any of the testing done previously and based on suspicion to initiate patient on heavy anticoagulation like Eliquis can be more harmful on the long run specially with patient's current condition with multifocal and higher comorbidity. Patient will be discussed again with family. Patient might require more help than expected and provided where she lives currently she might require to go to skilled nursing or nursing facility and the family were in the plan to move her to one of the facility and [place] close to [place] where the daughter lives which will put the perinatal social worker into help the family when ready for her discharge. February 02, 2024: Patient responded remain very limited still have significant weakness in the left side and still have mild function in the right side she does follow some commands seem to understand with scheduled but not able to talk or answer. I still believe her having problem with dysphagia as well and when the son was asked about long-term management whether long-term feeding tube is something desirable and patient wishes his answer was no. Patient will be going for an MRI of the brain today through all review for the last 3 hospitalization looks like she had complete workup to make sure is no A- fib and there is no deformity of the heart can be the reason why she is having there is a thrombus clot causing stroke with never had any longer-term heart monitor we will request cardiology to do loop recorder monitor that along with her MRI will be plenty to make a decision on plan also longer-term anticoagulation patient with switch from Plavix to Brilinta. Upon discharge family apparently wanted to go to one of the SNF center close to her daughter in [facility] and the process will be started through perinatal social worker to facilitate this when ready. REVIEW OF SYSTEMS: CONSTITUTIONAL: Well-developed still have slight droopy face does not look in respiratory distress leaning on the right side does not look comfortable. EYES: No icterus sclerae, no conjunctivitis. EARS, NOSE, MOUTH, THROAT, and FACE: No sore throat, lymphadenopathy, carotid bruits or deformity. RESPIRATORY: Mild shortness of breath no cough or wheezes. CARDIOVASCULAR: No palpitation or angina no PND or orthopnea. GASTROINTESTINAL: No Abd pain, Nausea or vomiting, no Diarrhea or constipation, No GI Bleed, no distention or masses. GENITOURINARY: Negative for Hematuria or UTI, no kidney stones. INTEGUMENT/BREAST: Negative for any muscular injury with mild osteoarthritis.. HEMATOLOGIC/LYMPHATIC: Negative for bleed or purpura. MUSCULOSKELTAL: Generalized arthralgia and myalgia worsening in both feet. NEURLOGICAL: No LOC, Sz or syncope, blurred vision dizziness or abnormality.. BEHAVIORAL/PSYCH: Negative. ENDOCRINE: Negative. PHYSICAL EXAMINATION: General Appearance: Alert quite bit confused no distress looks older than her age. Neck HEENT: Supple, no lymphadenopathy, no thyroid enlargement, no carotid bruits. Leaning more toward the right side in bed with slight droopy face. Lungs: Decreased breath sound bilaterally with fine rhonchi no crackles. Chest Wall: Decreased expansion with deep inspiration no tenderness and no defor mity was found on exam, no costochondral pain or discomfort. Heart: Regular rate and rhythm, S1, S2 normal, no murmur, rub or gallop. Back: Quite good curvature with mild scoliosis no CVA tenderness no rash on the back. Abdomen: Soft, non-tender, bowel sounds active all four quadrants, no masses, no organomegaly. Extremities: Extremities normal, atraumatic, no cyanosis or edema. Quite bit deformity in both feet with scar tissue on the left side but no infection. Pulses: 2+ and symmetric. Skin: Skin color, texture, tugor normal, no rashes or lesions. Neurologic exam: Alert severely confused cranial nerve II to XII has impact on the primary nerve VII on the left side slightly droopy face and chest, sadly I found weakness in both lower extremity still able to move the left side with quite good weeks of his right side both upper and lower extremity but she has worsening weakness on the left on the right side and had more paraplegia of the lower extremity as well. ASSESSMENT AND PLAN: _Acute stroke with weakness in the left side: Still going for an MRI of the brain today, request cardiology to do loop recorder monitor and patient was switched to Brilinta from aspirin 90 mg twice a day awaiting for the results of this testing. _Debility: Not been able to ambulate: Will request PT and OT for now. _Dysphagia: With patient's current condition request swallow evaluation bedside furthermore if she needs dynamic swallow study the patient might require either help or might require feeding tube. _Type 2 diabetes: He is not on any medication currently continue Accu-Chek with sliding scale coverage for now her A1c was mildly elevated. _Hypertension: Blood pressure has been well-controlled on combination of amlodipine 5 mg a day with lisinopril 10 mg a day and metoprolol tartrate 12.5 mg twice a day. _Memory loss: Might benefit from initiating smaller dose of donepezil. _Parkinson disease: Has been on Requip 1.25 mg nightly only not on any Sinemet. Not clear when diagnosis was made but will continue current management for now. _Severe osteoarthritis with deformity of the feet bilaterally: Had multi surgery patient is not able to ambulate and walk has been wheelchair lately. _Chronic depression: Continue Wellbutrin XL 150 mg daily. _Reactive airway/asthma: Still on Ventolin HFA on demand only. _Restless leg syndrome: Has been on Requip 0.25 mg nightly. _Chronic constipation: Continue MiraLAX along with stool softener on a regular b asis. _Chronic anemia and microcytosis: Continue multivitamin and iron supplement. Prognosis: Guarded. Planning continue her workup currently Mylene done patient be transferred probably to one of the SNF center when she is ready and that can be close to family member. Objective - Vital Signs Vital signs: Vital Signs Temp 97.9 F 02/02/24 04:00 Pulse 75 02/02/24 04:00 Resp 20 02/02/24 04:00 BP 145/69 02/02/24 04:00 Pulse Ox 97 02/02/24 04:00 FiO2 Intake & Output 02/01/24 02/01/24 02/02/24 06:59 18:59 06:59 Output Total 0 Balance 0 Weight 59.103 kg 59.103 kg Output: Urine 0 Other: Voiding Method External Catheter External Catheter - Labs CBC & Chem 7: 02/01/24 10:10 02/01/24 11:21 Labs: Abnormal Lab Results - Last 24 Hours (Table) 02/01/24 Range/Units 11:21 Chloride 109 H (98-107) mmol/L BUN 18 H (7-17) mg/dL Creatinine 0.51 L (0.52-1.04) mg/dL
[2024-02-03 08:40] LABS: Glucose,Whole Blood 106 mg/dL (70-110)
[2024-02-03 11:40] LABS: Glucose,Whole Blood 119 mg/dL (70-110)
--- NOTE | 2024-02-03 16:03 | P.PN ---
Subjective Progress Note Date: 02/03/24 I am following-up with patient and today it seems more responsive than yesterday. She is unable to me if she has headache or not. There is a concern to rule out Herpes because of stroke on MRI. Objective - Vital Signs Vital signs: Vital Signs Temp 97.9 F 02/03/24 15:34 Pulse 95 02/03/24 15:34 Resp 18 02/03/24 15:34 BP 176/84 02/03/24 15:34 Pulse Ox 95 02/03/24 15:34 FiO2 Intake & Output 02/02/24 02/03/24 02/03/24 18:59 06:59 18:59 Intake Total 940 Output Total 1000 500 Balance 940 -1000 -500 Intake: Intake, IV Titration 700 Amount Sodium Chloride 0.9% 1, 700 000 ml @ 100 mls/hr IV . Q10H [facility] Rx#:[id number] Oral 240 Output: Urine 1000 500 Other: Voiding Method External Catheter External Catheter External Catheter # Voids 3 - Exam General: Lying in bed and does not appear in acute distress. HENT: Supple neck. Neuro: Limited. Mildly drowsy but is awakeable to voice. Is oriented to self only and place. She correctly stated the current month She is slow following simple commands. Language is very limited. Pupils are 2-3mm and reactive to light. Has moderate left lower facial droop. Is hypophonic. Motor: Strength is is limited because condition/cooperation. Is lifting uppers (moving more right> left). Is wiggling bilateral toes. Reflex: 2+ throughout except ankles are 1+. Has upgoing toe on the left at baseline. somewhat workup during his hospital visit consisted of: Afebrile CBC with differential is unremarkable. sodium is 139, serum glucose is 88, creatinine is 0.51 CK levels 50 lipid panels reported as triglyceride of 70, cholesterol is 124, LDLs 67 and HDL is 42. CT of the head is reported as no acute intracranial process. I personally reviewed the CT and I agree there is no acute or subacute ischemia that's appreciable CT angiography of the head and neck was reported as no acute dissection, evidence of high-grade stenosis or intracranial aneurysm. Shows mild to moderate stenosis present bilaterally. code stroke was activated. Per the ED physician she stated that NIH stroke scale was probably a 12. MRI Brain: it is reported as no acute hyperintense on diffusion weighted imaging cortex right parietal lobe adjacent to the sylvian pager. Acute cortical infarct and HSV infection should be considered. Chronic fluent white matter ischemic type changes with prominent ventricles and sulci compatible with atrophy. Findings are stable from prior study. I personally reviewed the images and the patient has diffusion restriction over anterior temporal and the border of frontal parietal region. No bleed is appreciated. 2D echo: as reported as present illness and systolic function left ventricular hypertrophy. Moderate aortic regurgitation. - Labs CBC & Chem 7: 02/01/24 10:10 02/01/24 11:21 Labs: Abnormal Lab Results - Last 24 Hours (Table) 02/03/24 Range/Units 11:39 POC Glucose (mg/dL) 119 H (70-110) mg/dL Assessment and Plan Assessment: this is an 82-year-old woman with history of stroke who presents because of left facial droop and left upper extremity weakness at the nursing facility. Last normal was at 10 PM yesterday. per the ED NIH stroke scale was a 12. No IV thrombolytics is outside the window. Acute ischemic stroke (reported as acute cortical infarct around Sylvian fissure. I feel over the sylvian/anterior temporal and right border parietal/frontal region. Presented with left facial droop and left sided weakness. It is reported to rule out HSV infection should be considered on MRI report. I doubt HSV infection and R/O cardioembolic because of recurrent strokes. Is afebrile and wbc is normal. History of bilateral hemispheric stroke predominately over the right frontal, bilateral parietal and right occipital in May 2023 and she had left facial droop and left-sided weakness with numbness as well as hypophonia and was reported as possible cardioembolic but no A. fib noted or flutter at that time History of questionable vascular formation within the right dionne on MRI History of Parkinson's disease Hypertension Hyperlipidemia Plan: Pending MRI of the brain. Is schedule today at 3pm. patient is on aspirin 81 mg daily and Plavix 75 mg daily at home. I discontinued Plavix to Brilinta 90 mg twice a day initially but I held it to pur petra with Lumbar puncture to rule out herpes. Likely she will not be able to obtain lumbar puncture until off Brilinta or Plavix for 5-7 days per Anesthesiology guideline. Is on Lipitor 40mg qhs. I.D. is consulted and ordered HSV 1/2. I spoke with I.D. team and we are in agreement will pursue with antiviral if CSF is suggestive of it. I consulted cardiology team for KRYSTLE. Patient is presenting with recurrent strokes. Continue neuro checks Cardiac monitoring PT OT and SALES TRAINING REPRESENTATIVE are consulted We'll defer the rest of the medical management to primary and other specialists for DVT prophylaxis IOn subcu heparin 5000 units every 12 hours The plan is discussed with the I.D. team and her nurse. Time with Patient: Less than 30
[2024-02-03 16:06] LABS: HSV I IgG Interp POSITIVE; HSV II IgG Interp Negative (Negative)
--- NOTE | 2024-02-03 22:30 | P.CONS ---
History of Present Illness - Reason for Consult Consult date: 02/03/24 - History of Present Illness Patient is a 83-year-old female past medical history significant for hypertension hyperlipidemia reflux osteoarthritis, presenting to the hospital 2 days ago for evaluation of strokelike symptoms apparently the patient went to bed around 10 PM the night before presentation to the hospital in the morning the patient was noticed to have left-sided facial droop weakness in the left up per extremity since then the patient has been admitted to the hospital and did have workup for the stroke patient did not have any fever during this hospital stay over the last 2 to 3 days patient was not tachycardic hypotensive or hypoxic patient did have a normal white count of 8.1 with no lymphopenia creatinine was normal liver enzymes are normal CT of the brain noted no acute intracranial process process patient did have a MRI of the brain MRI of the brain completed yesterday with acute hyperintensity on diffusion weighted imaging cortex right parietal lobe and adjacent to the sylvian fissure acute cortical infarct and HSV infection should be considered as reported by the radiologist that has prompted this infectious disease consultation. .At the time my evaluation patient is afebrile the patient is awake however not a very good historian so no meaningful history could be obtained from this patient because of her neurologic because of her neurological deficit and no family member or caregiver at the bedside bedside Past Medical History Past Medical History: Cancer, GERD/Reflux, Hyperlipidemia, Hypertension, Osteoarthritis (OA) Additional Past Medical History / Comment(s): 'slight heart murmer", hx skin cancer, numbness in left hand-two fingers, spinal stenosis, degenerative disks, "dry eyes", "SOME TROUBLE SWALLOWING" History of Any Multi-Drug Resistant Organisms: None Reported Past Surgical History: Orthopedic Surgery Additional Past Surgical History / Comment(s): 8 surgeries to remove skin cancer,2 surgeries on rt ankle for fx(plate and screws), 2 surgeries on left knee and thu in left knee as small child, tumor removed from nose, blepharoplasty pop eyes, pop cataracts, left arm surgery to release nerve, steroid spinal injections, total right ankle arthroplasty and right ANKLE SURGERY-JOINT REPLACEMENT Past Anesthesia/Blood Transfusion Reactions: No Reported Reaction Additional Past Anesthesia/Blood Transfusion Reaction / Comm: no family hx (adopted) Past Psychological History: Anxiety, Depression Smoking Status: Former smoker - Past Family History Mother Family Medical History: Unable to Obtain Additional Family Medical History / Comment(s): Patient was adopted and does not know any family history. Daughter(s) Family Medical History: No Reported History Additional Family Medical History / Comment(s): Patient has 3 daughters and 2 sons all in their 50s with no major medical problems. Medications and Allergies Home Medications Medication Instructions Recorded Confirmed Type Multivitamin/Iron/Folic Acid 1 tab PO DAILY 04/28/18 02/01/24 History [Centrum Adults Tablet] Meclizine HCl 12.5 mg PO BID PRN 10/03/20 02/01/24 History Acetaminophen Tab [Tylenol] 1,000 mg PO DAILY@1500 PRN 05/13/23 02/01/24 History Albuterol Sulfate [Ventolin HFA] 2 puff INHALATION RT-Q4H PRN 05/13/23 02/01/24 History Carboxymethylcellulos/Glycerin 1 drop BOTH EYES QID 05/13/23 02/01/24 History [Refresh Relieva 0.5-0.9% Drop] Cholecalciferol [Vitamin D3 (25 50 mcg PO DAILY 05/13/23 02/01/24 History Mcg = 1000 Iu)] Docusate [Colace] 100 mg PO HS 05/13/23 02/01/24 History Furosemide [Lasix] 20 mg PO Q2D 05/13/23 02/01/24 History L.acidoph,Paracasei, B.lactis 1 cap PO DAILY 05/13/23 02/01/24 History [Probiotic] Pantoprazole [Protonix] 40 mg PO DAILY PRN 05/13/23 02/01/24 History buPROPion XL [Wellbutrin XL] 150 mg PO DAILY 05/13/23 02/01/24 History calcium polycarbophiL [Fiber-Lax] 1,250 mg PO HS 05/13/23 02/01/24 History lisinopriL [Zestril] 10 mg PO DAILY 05/13/23 02/01/24 History polyethylene glycoL 3350 [Miralax] 17 gm PO DAILY 05/13/23 02/01/24 History rOPINIRole HCL [Requip] 0.25 mg PO HS 05/13/23 02/01/24 History Aspirin EC [Ecotrin Low Dose] 81 mg PO DAILY #21 05/19/23 02/01/24 Rx Atorvastatin [Lipitor] 40 mg PO HS #30 tab 05/19/23 02/01/24 Rx Clopidogrel [Plavix] 75 mg PO DAILY #30 tab 05/19/23 02/01/24 Rx amLODIPine [Norvasc] 5 mg PO DAILY #30 tab 05/19/23 02/01/24 Rx Dextran/Hypromellose/Glycerin 1 drop BOTH EYES QID PRN 01/07/24 02/01/24 History [Genteal Tears 0.1%-0.2%-0.3%] Diclofenac Sodium [Diclofenac 1 applic TOPICAL BID PRN 01/07/24 02/01/24 History Sodium 1%] Ensure Enlive 1 can PO DAILY 01/07/24 02/01/24 History HYDROcodone/APAP 5-325MG [[place] 1 tab PO BID 01/07/24 02/01/24 History 5-325] HYDROcodone/APAP 5-325MG [[place] 1 tab PO Q6H PRN 01/07/24 02/01/24 History 5-325] Ivizia Eyelid Wipes 1 pad BOTH EYES MOWEFR 01/07/24 02/01/24 History Magnesium Hydroxide [Milk of 2,400 mg PO DAILY PRN 01/07/24 02/01/24 History Magnesia] Meloxicam [Mobic] 7.5 mg PO DAILY PRN 01/07/24 02/01/24 History Menthol-Zinc Oxide Oint 1 applic TOPICAL Q12H 01/07/24 02/01/24 History [Calmoseptine Ointment] Metoprolol Tartrate [Lopressor] 12.5 mg PO BID 01/07/24 02/01/24 History Na Phos,M-B/Na Phos,Di-Ba [Fleet 133 ml RECTAL DAILY PRN 01/07/24 02/01/24 History Adult] bisacodyL [Dulcolax] 10 mg RECTAL DAILY PRN 01/07/24 02/01/24 History Mv-Mn/Om3/Dha/Epa/Fish/Lut/Ricarda 2 cap PO BID 02/01/24 02/01/24 History [Ocuvite Adult 50 Plus Softgel] Allergies Allergy/AdvReac Type Severity Reaction Status Date / Time nickel Allergy Rash/Hives Verified 02/01/24 10:55 Physical Exam Vitals: Vital Signs Temp Pulse Resp BP Pulse Ox 02/03/24 08:53 97 02/03/24 08:00 92 14 119/62 95 02/03/24 03:29 97.8 F 78 17 146/81 96 02/02/24 23:41 97.5 F L 89 17 151/74 98 02/02/24 20:00 97.9 F 92 17 163/78 97 02/02/24 16:00 97.7 F 90 17 134/85 97 02/02/24 14:00 81 17 02/02/24 12:00 97.9 F 81 17 154/84 98 Intake and Output 02/02/24 02/03/24 02/03/24 22:59 06:59 14:59 Output Total 250 750 Balance -250 -750 Output: Urine 250 750 Other: Voiding Method External Catheter External Catheter External Catheter Results CBC & Chem 7: 02/01/24 10:10 02/01/24 11:21 Assessment and Plan Plan: 1patient presented to hospital with left-sided facial droop weakness in the left upper extremity in this patient who in this patient who did have abnormal MRI with acute cortical infarct on the right parietal site as per discussion patient with the neurologist the patient neurological symptoms corresponding to the abnormality seen on the MRI of the MRI as far as the anatomical distribution is concerned clinically doubt HSV infection in this patient who did not have any fever during this hospital stay and usually it is a temporal lobe involved in acute HSV infection infection 2-we will check inflammatory markers and also check HSV serology 3-ideally would have obtained lumbar puncture to confirm the diagnosis however the patient is on Plavix and Brilinta and LP/CSF could not be drained for 5 to 6 days as per discussion with the neurologist 4no need for empiric acyclovir at this point We will follow on clinical condition and cultures to further adjust medication if needed Thank you for this consultation we will follow the patient along with you Dictation was produced using [facility] dictation software. please excuse any gra mmatical, word or spelling errors. Time with Patient: Greater than 30
--- NOTE | 2024-02-03 22:40 | P.PN ---
Subjective Progress Note Date: 02/03/24 HISTORY OF PRESENT ILLNESS: 83-year-old under my office patient for many years with active medical history of recurrent stroke, fracture right ankle with hardware failure to surgeon procedure patient become debilitated not being able to walk or ambulate on it, hypertension, hyperlipidemia, history of skin cancer, recurrent osteoarthritis, mild memory loss, chronic anxiety and depression , Who had recurrent stroke last time was in May 19, 2023 where was hospitalized on May 13, 2020 May 19, 2023 and ended up seeing neurology, cardiology, physical medicine and many other and had many testing including MRI of the brain, echocardiogram, CTA and CT of the brain the conclusion as an acute ischemic stroke bilateral hemisphere involving with left-sided hemiparesis with history of Parkinson disease hypertension and hyperlipidemia with depressive mood and slight mild depression. The testing including MRI of the brain showed scattered area of acute to subacute infarct of the right frontal lobe with bilateral parietal lobe involvement as well as single focus in the right occipital lobe suspicion for cardioembolic phenomena. Her echocardiogram was negative for PFO or intracardiac thrombus carotid ultrasound was negative. Recurrent finding still consistent with abnormality related to thrombus with no sign and symptom of any A-fib and no finding consistent with deformity of the heart needed to be on anticoagulation. Patient was sent home on Plavix and she been living in assisted living has been managing well February 01, 2024 for patient found to have strokelike symptoms with droopy face on the left side with weakness of the left side of her body according to the caregiver has not been seen since 10:00 yesterday when awaking this morning and seen patient had a droopy face with significant left-sided weakness ended up coming to the emergency department for her strokelike symptoms initially her weakness was more severe CAT scan of the brain reported no acute intracranial progress, CT a did not show any higher grade stenosis in the intra or extra cranial carotid neither intracranial aneurysm like. Her laboratory value did not show any major abnormality accompanied with her family were given update the patient was hospitalized for new finding of stroke at this time. Review her lab consistent with normal CBC, normal chemistry troponin is normal no finding consistent with infection of any type. Chest x-ray came with possible bronchitis or asthma no focal infiltrate. EKG is consistent with sinus rhythm with no A-fib. The patient will be hospitalized for stroke and stroke workup at this point will initiate some workup along with neuroexam every 2 hours with neuroconsult. Talk with the son who was on the bedside about the findings and the recurrent stroke might be consistent with abnormality lead into shedding thrombus or clot most of it would be A-fib a finding in the heart just could not find it with any of the testing done previously and based on suspicion to initiate patient on heavy anticoagulation like Eliquis can be more harmful on the long run specially with patient's current condition with multifocal and higher comorbidity. Patient will be discussed again with family. Patient might require more help than expected and provided where she lives currently she might require to go to skilled nursing or nursing facility and the family were in the plan to move her to one of the facility and [place] close to [place] where the daughter lives which will put the social media editor into help the family when ready for her discharge. February 02, 2024: Patient responded remain very limited still have significant weakness in the left side and still have mild function in the right side she does follow some commands seem to understand with scheduled but not able to talk or answer. I still believe her having problem with dysphagia as well and when the son was asked about long-term management whether long-term feeding tube is something desirable and patient wishes his answer was no. Patient will be going for an MRI of the brain today through all review for the last 3 hospitalization looks like she had complete workup to make sure is no A- fib and there is no deformity of the heart can be the reason why she is having there is a thrombus clot causing stroke with never had any longer-term heart monitor we will request cardiology to do loop recorder monitor that along with her MRI will be plenty to make a decision on plan also longer-term anticoagulation patient with switch from Plavix to Brilinta. Upon discharge family apparently wanted to go to one of the SNF center close to her daughter in [facility] and the process will be started through social media editor to facilitate this when ready. February 03, 2024:Patient recovery still very minimal at this point. She had a finding with MRI with me? Possible herpetic lesion in the right parietal lobe adjacent to the sylvian fissure. Consult with infectious disease decided to do inflammatory marker and check herpes simplex virus serology, this still is not ideal we will have him obtain lumbar puncture to confirm diagnosis. Because patient is on antiplatelet agent will take 5 to 7 days before able to run her LP Decide to follow-up clinically. REVIEW OF SYSTEMS: CONSTITUTIONAL: Well-developed still have slight droopy face does not look in respiratory distress leaning on the right side does not look comfortable. EYES: No icterus sclerae, no conjunctivitis. EARS, NOSE, MOUTH, THROAT, and FACE: No sore throat, lymphadenopathy, carotid bruits or deformity. RESPIRATORY: Mild shortness of breath no cough or wheezes. CARDIOVASCULAR: No palpitation or angina no PND or orthopnea. GASTROINTESTINAL: No Abd pain, Nausea or vomiting, no Diarrhea or constipation, No GI Bleed, no distention or masses. GENITOURINARY: Negative for Hematuria or UTI, no kidney stones. INTEGUMENT/BREAST: Negative for any muscular injury with mild osteoarthritis.. HEMATOLOGIC/LYMPHATIC: Negative for bleed or purpura. MUSCULOSKELTAL: Generalized arthralgia and myalgia worsening in both feet. NEURLOGICAL: No LOC, Sz or syncope, blurred vision dizziness or abnormality.. BEHAVIORAL/PSYCH: Negative. ENDOCRINE: Negative. PHYSICAL EXAMINATION: General Appearance: Alert quite bit confused no distress looks older than her age. Neck HEENT: Supple, no lymphadenopathy, no thyroid enlargement, no carotid b ruits. Leaning more toward the right side in bed with slight droopy face. Lungs: Decreased breath sound bilaterally with fine rhonchi no crackles. Chest Wall: Decreased expansion with deep inspiration no tenderness and no deformity was found on exam, no costochondral pain or discomfort. Heart: Regular rate and rhythm, S1, S2 normal, no murmur, rub or gallop. Back: Quite good curvature with mild scoliosis no CVA tenderness no rash on the back. Abdomen: Soft, non-tender, bowel sounds active all four quadrants, no masses, no organomegaly. Extremities: Extremities normal, atraumatic, no cyanosis or edema. Quite bit deformity in both feet with scar tissue on the left side but no infection. Pulses: 2+ and symmetric. Skin: Skin color, texture, tugor normal, no rashes or lesions. Neurologic exam: Alert severely confused cranial nerve II to XII has impact on the primary nerve VII on the left side slightly droopy face and chest, sadly I found weakness in both lower extremity still able to move the left side with quite good weeks of his right side both upper and lower extremity but she has worsening weakness on the left on the right side and had more paraplegia of the lower extremity as well. ASSESSMENT AND PLAN: _Acute stroke with weakness in the left side: Still going for an MRI of the brain today, request cardiology to do loop recorder monitor and patient was switched to Brilinta from aspirin 90 mg twice a day awaiting for the results of this testing. _Debility: Not been able to ambulate: Will request PT and OT for now. _Dysphagia: With patient's current condition request swallow evaluation bedside furthermore if she needs dynamic swallow study the patient might require either help or might require feeding tube. _?? HSV with the finding on MRI asking for lumbar puncture to diagnose or exclude the possibility still asking infectious disease for guidance and info. _Type 2 diabetes: He is not on any medication currently continue Accu-Chek with sliding scale coverage for now her A1c was mildly elevated. _Hypertension: Blood pressure has been well-controlled on combination of amlodipine 5 mg a day with lisinopril 10 mg a day and metoprolol tartrate 12.5 mg twice a day. _Memory loss: Might benefit from initiating smaller dose of donepezil. _Parkinson disease: Has been on Requip 1.25 mg nightly only not on any Sinemet. Not clear when diagnosis was made but will continue current management for now. _Severe osteoarthritis with deformity of the feet bilaterally: Had multi surgery patient is not able to ambulate and walk has been wheelchair lately. _Chronic depression: Continue Wellbutrin XL 150 mg daily. _Reactive airway/asthma: Still on Ventolin HFA on demand only. _Restless leg syndrome: Has been on Requip 0.25 mg nightly. _Chronic constipation: Continue MiraLAX along with stool softener on a regular basis. _Chronic anemia and microcytosis: Continue multivitamin and iron supplement. Prognosis: Guarded. Planning infectious disease consultation and continue to look at the aspect further we have any HSV sign of encephalitis on not testing with lumbar puncture need to be delayed at least 5 to 7 days. Objective - Vital Signs Vital signs: Vital Signs Temp 97.8 F 02/03/24 03:29 Pulse 78 02/03/24 03:29 Resp 17 02/03/24 03:29 BP 146/81 02/03/24 03:29 Pulse Ox 96 02/03/24 03:29 FiO2 Intake & Output 02/02/24 02/02/24 02/03/24 06:59 18:59 06:59 Intake Total 940 Output Total 300 1000 Balance -300 940 -1000 Weight 59.103 kg Intake: Intake, IV Titration 700 Amount Sodium Chloride 0.9% 1, 700 000 ml @ 100 mls/hr IV . Q10H [facility] Rx#:[id number] Oral 240 Output: Urine 300 1000 Other: Voiding Method External Catheter External Catheter External Catheter # Voids 3 - Labs CBC & Chem 7: 02/01/24 10:10 02/01/24 11:21
--- NOTE | 2024-02-04 01:44 | EEG ---
ELECTROENCEPHALOGRAM REPORT CLINICAL HISTORY: This is an 83-year-old woman with history of stroke with altered mental status. The video EEG is obtained to evaluate for seizure epileptiform activity. RELEVANT MEDICATION: The patient is not on any antiepileptic drugs. EEG TYPE: This is a routine 21-channel EEG with video using the 10/20 electrode placement system. DESCRIPTION: Wakefulness is only obtained. During awake state, the background consists of low-to- moderate voltage of 8.5 hertz activity. There is no physiological stage 2 sleep architecture. There is delta theta slowing over the right temporal/frontal central region Interictal and ictal is none. ACTIVATION PROCEDURE: Photic stimulation and hyperventilation are not performed. CLINICAL INTERPRETATION: This is an abnormal routine EEG. The focal slowing over the right temporal/frontal central suggestive of cerebral dysfunction in the involved region. Otherwise, there is no epileptiform discharge, or seizure on the EEG. Clinical correlation is recommended. [place] / RIO: [id number] / MTDD
--- NOTE | 2024-02-04 15:34 | P.CRDCN ---
History of Present Illness History of present illness: History of present illness: This is an 82-year-old female with past medical history of hypertension, hyperlipidemia, Parkinson's disease gastroesophageal reflux disease, degenerative disc disease and CVA. Patient is a poor historian and history is supplied by son. patient came in with altered mental status and was diagnosed with a stroke. Unfortunately over last 24 hours she has been more obtunded and currently not responding. Cardiology was consult is for KRYSTLE. She did have KRYSTLE after her first stroke in May which showed no cardiac source of emboli, no PFO or shunt and no left atrial appendage thrombus. There had been discussion regarding possible loop recorder placement in the past. She also is being worked up for possible encephalitis, herpes with possible lumbar puncture however this would require stopping blood thinners. Review Of Systems: At the time of my evaluation: not answering any questions, nonresponsive Physical examination: Gen: This is an 82-year-old female VS: reviewed HEENT: Head is atraumatic, normocephalic. Pupils equal, round. Sclerae is anicteric. somnolent NECK: Supple. No JVD. . LUNGS: Clear to auscultation. No wheezes or rhonchi. No intercostal retractions. HEART: Regular rate and rhythm. ABDOMEN: Soft EXTREMITIES: No pedal edema. NEUROLOGICAL: Patient is somnolent, not answering questions Assessment: altered mental status Acute ischemic stroke Hypertension Hyperlipidemia Parkinson's Gastroesophageal reflux disease Plan: patient with KRYSTLE from May with no source of stroke. Discussed possibly re-performing a KRYSTLE however discussed low yield. Also discussed possible worsening mental status or risk of aspiration with patient currently significantly obtunded. At this point we will reevaluate tomorrow. Also may consider loop recorder however son evaluating goals of care and how aggressive would like to be. If desired may consider KRYSTLE and or loop. Past Medical History Past Medical History: Cancer, GERD/Reflux, Hyperlipidemia, Hypertension, Osteoarthritis (OA) Additional Past Medical History / Comment(s): 'slight heart murmer", hx skin cancer, numbness in left hand-two fingers, spinal stenosis, degenerative disks, "dry eyes", "SOME TROUBLE SWALLOWING" History of Any Multi-Drug Resistant Organisms: None Reported Past Surgical History: Orthopedic Surgery Additional Past Surgical History / Comment(s): 8 surgeries to remove skin cancer,2 surgeries on rt ankle for fx(plate and screws), 2 surgeries on left knee and thu in left knee as small child, tumor removed from nose, blepharoplasty pop eyes, pop cataracts, left arm surgery to release nerve, ster oid spinal injections, total right ankle arthroplasty and right ANKLE SURGERY- JOINT REPLACEMENT Past Anesthesia/Blood Transfusion Reactions: No Reported Reaction Additional Past Anesthesia/Blood Transfusion Reaction / Comment(s): no family hx (adopted) Past Psychological History: Anxiety, Depression Smoking Status: Former smoker - Past Family History Mother Family Medical History: Unable to Obtain Additional Family Medical History / Comment(s): Patient was adopted and does not know any family history. Daughter(s) Family Medical History: No Reported History Additional Family Medical History / Comment(s): Patient has 3 daughters and 2 sons all in their 50s with no major medical problems. Medications and Allergies Home Medications Medication Instructions Recorded Confirmed Type Multivitamin/Iron/Folic Acid 1 tab PO DAILY 04/28/18 02/01/24 History [Centrum Adults Tablet] Meclizine HCl 12.5 mg PO BID PRN 10/03/20 02/01/24 History Acetaminophen Tab [Tylenol] 1,000 mg PO DAILY@1500 PRN 05/13/23 02/01/24 History Albuterol Sulfate [Ventolin HFA] 2 puff INHALATION RT-Q4H PRN 05/13/23 02/01/24 History Carboxymethylcellulos/Glycerin 1 drop BOTH EYES QID 05/13/23 02/01/24 History [Refresh Relieva 0.5-0.9% Drop] Cholecalciferol [Vitamin D3 (25 50 mcg PO DAILY 05/13/23 02/01/24 History Mcg = 1000 Iu)] Docusate [Colace] 100 mg PO HS 05/13/23 02/01/24 History Furosemide [Lasix] 20 mg PO Q2D 05/13/23 02/01/24 History L.acidoph,Paracasei, B.lactis 1 cap PO DAILY 05/13/23 02/01/24 History [Probiotic] Pantoprazole [Protonix] 40 mg PO DAILY PRN 05/13/23 02/01/24 History buPROPion XL [Wellbutrin XL] 150 mg PO DAILY 05/13/23 02/01/24 History calcium polycarbophiL [Fiber-Lax] 1,250 mg PO HS 05/13/23 02/01/24 History lisinopriL [Zestril] 10 mg PO DAILY 05/13/23 02/01/24 History polyethylene glycoL 3350 [Miralax] 17 gm PO DAILY 05/13/23 02/01/24 History rOPINIRole HCL [Requip] 0.25 mg PO HS 05/13/23 02/01/24 History Aspirin EC [Ecotrin Low Dose] 81 mg PO DAILY #21 05/19/23 02/01/24 Rx Atorvastatin [Lipitor] 40 mg PO HS #30 tab 05/19/23 02/01/24 Rx Clopidogrel [Plavix] 75 mg PO DAILY #30 tab 05/19/23 02/01/24 Rx amLODIPine [Norvasc] 5 mg PO DAILY #30 tab 05/19/23 02/01/24 Rx Dextran/Hypromellose/Glycerin 1 drop BOTH EYES QID PRN 01/07/24 02/01/24 History [Genteal Tears 0.1%-0.2%-0.3%] Diclofenac Sodium [Diclofenac 1 applic TOPICAL BID PRN 01/07/24 02/01/24 History Sodium 1%] Ensure Enlive 1 can PO DAILY 01/07/24 02/01/24 History HYDROcodone/APAP 5-325MG [[place] 1 tab PO BID 01/07/24 02/01/24 History 5-325] HYDROcodone/APAP 5-325MG [[place] 1 tab PO Q6H PRN 01/07/24 02/01/24 History 5-325] Ivizia Eyelid Wipes 1 pad BOTH EYES MOWEFR 01/07/24 02/01/24 History Magnesium Hydroxide [Milk of 2,400 mg PO DAILY PRN 01/07/24 02/01/24 History Magnesia] Meloxicam [Mobic] 7.5 mg PO DAILY PRN 01/07/24 02/01/24 History Menthol-Zinc Oxide Oint 1 applic TOPICAL Q12H 01/07/24 02/01/24 History [Calmoseptine Ointment] Metoprolol Tartrate [Lopressor] 12.5 mg PO BID 01/07/24 02/01/24 History Na Phos,M-B/Na Phos,Di-Ba [Fleet 133 ml RECTAL DAILY PRN 01/07/24 02/01/24 History Adult] bisacodyL [Dulcolax] 10 mg RECTAL DAILY PRN 01/07/24 02/01/24 History Mv-Mn/Om3/Dha/Epa/Fish/Lut/Ricarda 2 cap PO BID 02/01/24 02/01/24 History [Ocuvite Adult 50 Plus Softgel] Allergies Allergy/AdvReac Type Severity Reaction Status Date / Time nickel Allergy Rash/Hives Verified 02/01/24 10:55 Physical Exam Vitals: Vital Signs Temp Pulse Resp BP Pulse Ox 02/04/24 09:30 107 H 26 H 02/04/24 08:20 98.9 F 107 H 26 H 157/88 95 02/04/24 03:46 97.5 F L 96 18 153/86 95 02/03/24 23:19 97.8 F 93 18 162/85 95 02/03/24 20:00 97.6 F 96 18 160/82 96 02/03/24 15:34 97.9 F 95 18 176/84 95 Intake and Output 02/04/24 02/04/24 02/04/24 06:59 14:59 22:59 Output Total 750 Balance -750 Output: Urine 750 Other: Voiding Method External Catheter External Catheter Results 02/01/24 10:10 02/01/24 11:21 Current Medications Generic Name Dose Route Start Last Admin Trade Name Freq PRN Reason Stop Dose Admin Acetaminophen 1,000 mg 02/02/24 15:00 Acetaminophen Tab 500 Mg Tab PO DAILY@1500 PRN Mild Pain Albuterol Sulfate 2.5 mg 02/01/24 19:16 Albuterol Nebulized 2.5 Mg/3 Ml INHALATION RT-Q4H PRN Shortness Of Breath Amlodipine Besylate 5 mg 02/02/24 09:00 02/04/24 07:55 Amlodipine 5 Mg Tab PO Not Given DAILY [facility] Artificial Tears 1 drops 02/01/24 22:00 02/04/24 12:38 Artificial Tears-Hypromellose Drops 15 Ml Btl BOTH EYES 1 drops QID [facility] Administration Artificial Tears 1 drops 02/01/24 19:16 Artificial Tears-Hypromellose Drops 15 Ml Btl BOTH EYES QID PRN Dry Eye(s) Aspirin 81 mg 02/02/24 09:00 02/04/24 07:55 Aspirin 81 Mg PO Not Given DAILY [facility] Atorvastatin Calcium 40 mg 02/01/24 21:00 02/03/24 20:42 Atorvastatin 40 Mg Tab PO Not Given HS [facility] Bisacodyl 10 mg 02/01/24 19:16 Bisacodyl 10 Mg Supp RECTAL DAILY PRN if no results from MOM Bupropion HCl 150 mg 02/02/24 09:00 02/04/24 07:55 Bupropion Xl 150 Mg Tab.Er.24h PO Not Given DAILY [facility] Calcium Polycarbophil 1,250 mg 02/01/24 21:00 02/03/24 20:42 Calcium Polycarbophil 625 Mg Tab PO Not Given HS [facility] Cholecalciferol 50 mcg 02/02/24 09:00 02/04/24 07:55 Cholecalciferol 25 Mcg (1000 Iu) Tablet PO Not Given DAILY [facility] Docusate Sodium 100 mg 02/01/24 21:00 02/03/24 20:43 Docusate 100 Mg Cap PO Not Given HS [facility] Furosemide 20 mg 02/02/24 09:00 02/04/24 07:55 Furosemide 20 Mg Tab PO Not Given Q2D [facility] Heparin Sodium (Porcine) 5,000 unit 02/01/24 21:00 02/04/24 08:26 Heparin Sodium,Porcine 5,000 Unit/Ml 1 Ml Vial SQ 5,000 unit Q12HR [facility] Administration Dextrose/Sodium Chloride 1,000 mls @ 70 mls/hr 02/02/24 17:15 02/04/24 12:38 Dextrose 5%-Ns Iv Soln IV 70 mls/hr .[id number] [facility] Administration Lactobacillus Acidophilus 1 each 02/02/24 09:00 02/04/24 07:55 Lactobacillus Acidophilus/Pect 1 Each Capsule PO Not Given DAILY [facility] Lisinopril 10 mg 02/02/24 09:00 02/04/24 07:56 Lisinopril 10 Mg Tab PO Not Given DAILY [facility] Magnesium Hydroxide 2,400 mg 02/01/24 19:16 Magnesium Hydroxide 2,400 Mg/30 Ml Cup PO DAILY PRN 2 days no BM Meclizine HCl 12.5 mg 02/01/24 19:16 Meclizine 12.5 Mg Tab PO BID PRN Nausea And Vomiting Metoprolol Tartrate 12.5 mg 02/01/24 21:00 02/04/24 07:56 Metoprolol Tartrate 12.5 Mg Tab PO Not Given BID [facility] Multivitamins 1 each 02/02/24 09:00 02/04/24 07:56 Multivitamins, Thera 1 Each Tab PO Not Given DAILY [facility] Multivitamins/Minerals 2 each 02/01/24 21:00 02/04/24 07:56 Vit A,C & V-Lwxsaz-Pliiihyc 1 Each Tab PO Not Given BID [facility] Pantoprazole Sodium 40 mg 02/01/24 19:16 Pantoprazole 40 Mg Tablet PO DAILY PRN Gerd Polyethylene Glycol 17 gm 02/02/24 09:00 02/04/24 07:56 Polyethylene Glycol 3350 17 Gm Powd.Pack PO Not Given DAILY [facility] Ropinirole HCl 0.25 mg 02/01/24 21:00 02/03/24 20:43 Ropinirole Hcl 0.25 Mg Tab PO Not Given HS [facility] Sodium Biphosphate/Sodium Phosphate 133 ml 02/01/24 19:16 Na Phos,M-B/Na Phos,Di-Ba 133 Ml Enema RECTAL DAILY PRN Constipation Intake and Output 02/04/24 02/04/24 02/04/24 06:59 14:59 22:59 Output Total 750 Balance -750 Output: Urine 750 Other: Voiding Method External Catheter External Catheter 02/01/24 10:10 02/01/24 11:21
--- NOTE | 2024-02-04 16:48 | P.PN ---
Subjective Progress Note Date: 02/04/24 Principal diagnosis: Reason for follow-up with abnormal MRI and a question of possible encephalitis Patient is a 83-year-old female past medical history significant for hypertension hyperlipidemia reflux osteoarthritis, presenting to the hospital with strokelike symptom in this patient who did have a left-sided facial droop and left upper extremity weakness patient did have a MRI of the brain which raises possibility of right parietal lobe abnormality and a question of infarct versus herpes encephalitis prompting this consultation. On today's evaluation that is 02/04/2024, patient remains to be afebrile the patient is awake but nonverbal and did not answer any question she does not seem to be any distress no vomiting diarrhea or any changes reported by the nursing staff. 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 HSV-2 is negative patient CRP is less than 0.5 Objective - Vital Signs Vital signs: Vital Signs Temp 98.9 F 02/04/24 08:20 Pulse 113 H 02/04/24 14:00 Resp 20 02/04/24 14:00 BP 198/105 02/04/24 12:00 Pulse Ox 95 02/04/24 12:00 FiO2 Intake & Output 02/03/24 02/04/24 02/04/24 18:59 06:59 18:59 Output Total 950 1050 Balance -950 -1050 Output: Urine 950 1050 Other: Voiding Method External Catheter External Catheter External Catheter - Exam GENERAL DESCRIPTION: An elderly female lying in bed in no distress RESPIRATORY SYSTEM: Unlabored breathing , decreased breath sounds at bases HEART: S1 S2 regular rate and rhythm , ABDOMEN: Soft , no tenderness EXTREMITIES: No edema feet - Labs CBC & Chem 7: 02/01/24 10:10 02/01/24 11:21 Assessment and Plan (1) Abnormal brain MRI Current Visit: Yes Status: Acute Code(s): R90.89 - OTH ABNORMAL FINDINGS ON DIAGNOSTIC IMAGING OF CNSL SNOMED Code(s): 297258444 Plan: 1patient presented to hospital with left-sided facial droop weakness in the left upper extremity in this patient who in this patient who did have abnormal MRI with acute cortical infarct on the right parietal site as per discussion patient with the neurologist the patient neurological symptoms corresponding to the abnormality seen on the MRI of the MRI as far as the anatomical distribution is concerned clinically doubt HSV infection in this patient who did not have any fever during this hospital stay and usually it is a temporal lobe involved in acute HSV infection infection 2-patient did have normal CRP that will wake encephalitis to be less likely he did 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 please excuse any gramm atical, word or spelling errors. Time with Patient: Less than 30
--- NOTE | 2024-02-04 17:42 | P.PN ---
Progress Note - Text Progress Note Date: 02/04/24 I spoke with primary team and it was decided patient to be hospice. Therefore, no need for lumbar puncture or KRYSTLE. There is no additional neurological work-up. Please notify neurology team if any further concerns.
[2024-02-05 05:53] VITALS: RESP 18
--- NOTE | 2024-02-05 06:16 | P.PN ---
Subjective Progress Note Date: 02/04/24 HISTORY OF PRESENT ILLNESS: 83-year-old under my office patient for many years with active medical history of recurrent stroke, fracture right ankle with hardware failure to surgeon procedure patient become debilitated not being able to walk or ambulate on it, hypertension, hyperlipidemia, history of skin cancer, recurrent osteoarthritis, mild memory loss, chronic anxiety and depression , Who had recurrent stroke last time was in May 19, 2023 where was hospitalized on May 13, 2020 May 19, 2023 and ended up seeing neurology, cardiology, physical medicine and many other and had many testing including MRI of the brain, echocardiogram, CTA and CT of the brain the conclusion as an acute ischemic stroke bilateral hemisphere involving with left-sided hemiparesis with history of Parkinson disease hypertension and hyperlipidemia with depressive mood and slight mild depression. The testing including MRI of the brain showed scattered area of acute to subacute infarct of the right frontal lobe with bilateral parietal lobe involvement as well as single focus in the right occipital lobe suspicion for cardioembolic phenomena. Her echocardiogram was negative for PFO or intracardiac thrombus carotid ultrasound was negative. Recurrent finding still consistent with abnormality related to thrombus with no sign and symptom of any A-fib and no finding consistent with deformity of the heart needed to be on anticoagulation. Patient was sent home on Plavix and she been living in assisted living has been managing well February 01, 2024 for patient found to have strokelike symptoms with droopy face on the left side with weakness of the left side of her body according to the caregiver has not been seen since 10:00 yesterday when awaking this morning and seen patient had a droopy face with significant left-sided weakness ended up coming to the emergency department for her strokelike symptoms initially her weakness was more severe CAT scan of the brain reported no acute intracranial progress, CT a did not show any higher grade stenosis in the intra or extra cranial carotid neither intracranial aneurysm like. Her laboratory value did not show any major abnormality accompanied with her family were given update the patient was hospitalized for new finding of stroke at this time. Review her lab consistent with normal CBC, normal chemistry troponin is normal no finding consistent with infection of any type. Chest x-ray came with possible bronchitis or asthma no focal infiltrate. EKG is consistent with sinus rhythm with no A-fib. The patient will be hospitalized for stroke and stroke workup at this point will initiate some workup along with neuroexam every 2 hours with neuroconsult. Talk with the son who was on the bedside about the findings and the recurrent stroke might be consistent with abnormality lead into shedding thrombus or clot most of it would be A-fib a finding in the heart just could not find it with any of the testing done previously and based on suspicion to initiate patient on heavy anticoagulation like Eliquis can be more harmful on the long run specially with patient's current condition with multifocal and higher comorbidity. Patient will be discussed again with family. Patient might require more help than expected and provided where she lives currently she might require to go to long term or nursing facility and the family were in the plan to move her to one of the facility and [place] close to [place] where the daughter lives which will put the social professionals into help the family when ready for her discharge. February 02, 2024: Patient responded remain very limited still have significant weakness in the left side and still have mild function in the right side she does follow some commands seem to understand with scheduled but not able to talk or answer. I still believe her having problem with dysphagia as well and when the son was asked about long-term management whether long-term feeding tube is something desirable and patient wishes his answer was no. Patient will be going for an MRI of the brain today through all review for the last 3 hospitalization looks like she had complete workup to make sure is no A- fib and there is no deformity of the heart can be the reason why she is having there is a thrombus clot causing stroke with never had any longer-term heart monitor we will request cardiology to do loop recorder monitor that along with her MRI will be plenty to make a decision on plan also longer-term anticoagulation patient with switch from Plavix to Brilinta. Upon discharge family apparently wanted to go to one of the SNF center close to her daughter in [facility] and the process will be started through social professionals to facilitate this when ready. February 03, 2024:Patient recovery still very minimal at this point. She had a finding with MRI with me? Possible herpetic lesion in the right parietal lobe adjacent to the sylvian fissure. Consult with infectious disease decided to do inflammatory marker and check herpes simplex virus serology, this still is not ideal we will have him obtain lumbar puncture to confirm diagnosis. Because patient is on antiplatelet agent will take 5 to 7 days before able to run her LP Decide to follow-up clinically. February 04, 2024: Long discussion with the son this morning there is plan for transitional of care with patient is going to move to she still having significant dysphagia not able to eat or feed herself or swallow family based on her previous wishes: I do any invasive feeding with artificial feeding tube or PEG tube at this point. She will be transferred to place in [place] which is partially long-term but will do hospice and help at the time of admission. residential program worker is working on this for possible making it happen for Thursday. Patient was seen cardiology reviewed transesophageal echocardiogram from May decided not to do any further transesophageal echocardiogram loop recorder was ordered initially before family decide to do palliative and comfort care and furthermore hospice for now cardiology might hold off on doing any procedure. Full discussion with neurology about the clinical finding of was going on with patient is not herpes encephalopathy regardless with the result of the MRI and respect family wishes not to go for LP puncture or further management to decide if this is HSV. Will hold off on any further aggressive management for HSV and hold off on even acyclovir at this point. Patient can go back on her antiplatelet agent. REVIEW OF SYSTEMS: CONSTITUTIONAL: Well-developed still have slight droopy face does not look in respiratory distress leaning on the right side does not look comfortable. EYES: No icterus sclerae, no conjunctivitis. EARS, NOSE, MOUTH, THROAT, and FACE: No sore throat, lymphadenopathy, carotid bruits or deformity. RESPIRATORY: Mild shortness of breath no cough or wheezes. CARDIOVASCULAR: No palpitation or angina no PND or orthopnea. GASTROINTESTINAL: No Abd pain, Nausea or vomiting, no Diarrhea or constipation, No GI Bleed, no distention or masses. GENITOURINARY: Negative for Hematuria or UTI, no kidney stones. INTEGUMENT/BREAST: Negative for any muscular injury with mild osteoarthritis.. HEMATOLOGIC/LYMPHATIC: Negative for bleed or purpura. MUSCULOSKELTAL: Generalized arthralgia and myalgia worsening in both feet. NEURLOGICAL: No LOC, Sz or syncope, blurred vision dizziness or abnormality.. BEHAVIORAL/PSYCH: Negative. ENDOCRINE: Negative. PHYSICAL EXAMINATION: General Appearance: Alert quite bit confused no distress looks older than her age. Neck HEENT: Supple, no lymphadenopathy, no thyroid enlargement, no carotid bruits. Leaning more toward the right side in bed with slight droopy face. Lungs: Decreased breath sound bilaterally with fine rhonchi no crackles. Chest Wall: Decreased expansion with deep inspiration no tenderness and no deformity was found on exam, no costochondral pain or discomfort. Heart: Regular rate and rhythm, S1, S2 normal, no murmur, rub or gallop. Back: Quite good curvature with mild scoliosis no CVA tenderness no rash on the back. Abdomen: Soft, non-tender, bowel sounds active all four quadrants, no masses, no organomegaly. Extremities: Extremities normal, atraumatic, no cyanosis or edema. Quite bit deformity in both feet with scar tissue on the left side but no infection. Pulses: 2+ and symmetric. Skin: Skin color, texture, tugor normal, no rashes or lesions. Neurologic exam: Alert severely confused cranial nerve II to XII has impact on the primary nerve VII on the left side slightly droopy face and chest, sadly I found weakness in both lower extremity still able to move the left side with quite good weeks of his right side both upper and lower extremity but she has worsening weakness on the left on the right side and had more paraplegia of the lower extremity as well. ASSESSMENT AND PLAN: _Acute stroke with weakness in the left side: Her results still devastating at this point and with the idea of hepatic encephalitis originally hold off on antiplatelet agent for 48 hours will be continued for now. Neurology has requested cardiology consult again for possible transesophageal echocardiogram and earlier were requested for loop recorder monitor. _Debility: Patient is not recovering much from the stroke at this point not able to participate in any PT or AT will continue assessment on daily basis. _Dysphagia: Still seen speech therapy no PEG tube or feeding tube will be done again patient wishes and family respecting it at this point. _?? HSV encephalitis: No clinical picture to supportive CRP and inflammatory level are negative and with the family request no lumbar puncture or any aggressive management for HSV will be done including acyclovir management. _Type 2 diabetes: He is not on any medication currently continue Accu-Chek with sliding scale coverage for now her A1c was mildly elevated. _Hypertension: Blood pressure has been well-controlled on combination of amlodipine 5 mg a day with lisinopril 10 mg a day and metoprolol tartrate 12.5 mg twice a day. _Memory loss: Might benefit from initiating smaller dose of donepezil. _Parkinson disease: Has been on Requip 1.25 mg nightly only not on any Sinemet. Not clear when diagnosis was made but will continue current management for now. _Severe osteoarthritis with deformity of the feet bilaterally: Had multi surgery patient is not able to ambulate and walk has been wheelchair lately. _Chronic depression: Continue Wellbutrin XL 150 mg daily. _Reactive airway/asthma: Still on Ventolin HFA on demand only. _Restless leg syndrome: Has been on Requip 0.25 mg nightly. _Chronic constipation: Continue MiraLAX along with stool softener on a regular basis. _Chronic anemia and microcytosis: Continue multivitamin and iron supplement. Prognosis: Very poor. Transitional of care: Long discussion with the family plan is probably to have her go to one of the long-term care facility near family member and probably go and will be transferring to hospice at that point. Family feel comfortable with this decision and with patient terminal condition at this point specially not been able to do any long-term feeding and no more aggressive management with these over the next 48 hours and to making referral to hospice locally and making that referral plan for the new place she is going to. Objective - Vital Signs Vital signs: Vital Signs Temp 97.5 F L 02/04/24 03:46 Pulse 96 02/04/24 03:46 Resp 18 02/04/24 03:46 BP 153/86 02/04/24 03:46 Pulse Ox 95 02/04/24 03:46 FiO2 Intake & Output 02/03/24 02/03/24 02/04/24 06:59 18:59 06:59 Output Total 1000 950 700 Balance -1000 -950 -700 Output: Urine 1000 950 700 Other: Voiding Method External Catheter External Catheter External Catheter - Labs CBC & Chem 7: 02/01/24 10:10 02/01/24 11:21 Labs: Abnormal Lab Results - Last 24 Hours (Table) 02/03/24 Range/Units 11:39 POC Glucose (mg/dL) 119 H (70-110) mg/dL
--- NOTE | 2024-02-05 15:18 | P.DS ---
Providers Date of admission: 02/01/24 13:22 Expected date of discharge: 02/06/24 Attending physician: Jose J Peres Consults: 02/01/24 13:42 Consult Physician Urgent Consulting Provider: Bret Ascencio Consult Reason/Comments: CVA Do you want consulting provider notified?: Yes 02/02/24 19:23 Consult Physician Routine Consulting Provider: Erna East Consult Reason/Comments: ?? HSV Encephalopathy with abnormal MRI Do you want consulting provider notified?: Yes 02/03/24 15:58 Consult Physician Routine Consulting Provider: Pedrito Barnes Consult Reason/Comments: KRYSTLE. Has recurrent strokes Do you want consulting provider notified?: Yes Primary care physician: [facility] Course: HISTORY OF PRESENT ILLNESS: 83-year-old under my office patient for many years with active medical history of recurrent stroke, fracture right ankle with hardware failure to surgeon procedure patient become debilitated not being able to walk or ambulate on it, hypertension, hyperlipidemia, history of skin cancer, recurrent osteoarthritis, mild memory loss, chronic anxiety and depression , Who had recurrent stroke last time was in May 19, 2023 where was hospitalized on May 13, 2020 May 19, 2023 and ended up seeing neurology, cardiology, physical medicine and many other and had many testing including MRI of the brain, echocardiogram, CTA and CT of the brain the conclusion as an acute ischemic stroke bilateral hemisphere involving with left-sided hemiparesis with history of Parkinson disease hypertension and hyperlipidemia with depressive mood and slight mild depression. The testing including MRI of the brain showed scattered area of acute to subacute infarct of the right frontal lobe with bilateral parietal lobe involvement as well as single focus in the right occipital lobe suspicion for cardioembolic phenomena. Her echocardiogram was negative for PFO or intracardiac thrombus carotid ultrasound was negative. Recurrent finding still consistent with abnormality related to thrombus with no sign and symptom of any A-fib and no finding consistent with deformity of the heart needed to be on anticoagulation. Patient was sent home on Plavix and she been living in assisted living has been managing well February 01, 2024 for patient found to have strokelike symptoms with droopy face on the left side with weakness of the left side of her body according to the caregiver has not been seen since 10:00 yesterday when awaking this morning and seen patient had a droopy face with significant left-sided weakness ended up coming to the emergency department for her strokelike symptoms initially her weakness was more severe CAT scan of the brain reported no acute intracranial progress, CT a did not show any higher grade stenosis in the intra or extra cranial carotid neither intracranial aneurysm like. Her laboratory value did not show any major abnormality accompanied with her family were given update the patient was hospitalized for new finding of stroke at this time. Review her lab consistent with normal CBC, normal chemistry troponin is normal no finding consistent with infection of any type. Chest x-ray came with possible bronchitis or asthma no focal infiltrate. EKG is consistent with sinus rhythm with no A-fib. The patient will be hospitalized for stroke and stroke workup at this point will initiate some workup along with neuroexam every 2 hours with neuroconsult. Talk with the son who was on the bedside about the findings and the recurrent stroke might be consistent with abnormality lead into shedding thrombus or clot most of it would be A-fib a finding in the heart just could not find it with any of the testing done previously and based on suspicion to initiate patient on heavy anticoagulation like Eliquis can be more harmful on the long run specially with patient's current condition with multifocal and higher comorbidity. Patient will be discussed again with family. Patient might require more help than expected and provided where she lives currently she might require to go to fci or nursing facility and the family were in the plan to move her to one of the facility and [place] close to [place] where the daughter lives which will put the social services assistant into help the family when ready for her discharge. February 02, 2024: Patient responded remain very limited still have significant weakness in the left side and still have mild function in the right side she does follow some commands seem to understand with scheduled but not able to talk or answer. I still believe her having problem with dysphagia as well and when the son was asked about long-term management whether long-term feeding tube is something desirable and patient wishes his answer was no. Patient will be going for an MRI of the brain today through all review for the last 3 hospitalization looks like she had complete workup to make sure is no A- fib and there is no deformity of the heart can be the reason why she is having there is a thrombus clot causing stroke with never had any longer-term heart monitor we will request cardiology to do loop recorder monitor that along with her MRI will be plenty to make a decision on plan also longer-term anticoagulation patient with switch from Plavix to Brilinta. Upon discharge family apparently wanted to go to one of the SNF center close to her daughter in [facility] and the process will be started through social services assistant to facilitate this when ready. February 03, 2024:Patient recovery still very minimal at this point. She had a fi nding with MRI with me? Possible herpetic lesion in the right parietal lobe adjacent to the sylvian fissure. Consult with infectious disease decided to do inflammatory marker and check herpes simplex virus serology, this still is not ideal we will have him obtain lumbar puncture to confirm diagnosis. Because patient is on antiplatelet agent will take 5 to 7 days before able to run her LP Decide to follow-up clinically. February 04, 2024: Long discussion with the son this morning there is plan for transitional of care with patient is going to move to she still having significant dysphagia not able to eat or feed herself or swallow family based on her previous wishes: I do any invasive feeding with artificial feeding tube or PEG tube at this point. She will be transferred to place in [place] which is partially long-term but will do hospice and help at the time of admission. ground worker is working on this for possible making it happen for Thursday. Patient was seen cardiology reviewed transesophageal echocardiogram from May decided not to do any further transesophageal echocardiogram loop recorder was ordered initially before family decide to do palliative and comfort care and furthermore hospice for now cardiology might hold off on doing any procedure. Full discussion with neurology about the clinical finding of was going on with patient is not herpes encephalopathy regardless with the result of the MRI and respect family wishes not to go for LP puncture or further management to decide if this is HSV. Will hold off on any further aggressive management for HSV and hold off on even acyclovir at this point. Patient can go back on her antiplatelet agent. February 05, 2024: Patient response to very limited, she did not do well with her swallow evaluation, per her wishes and family request no feeding tube or PEG tube will be done at this point. Transitioning care and to reevaluate doing hospice especially with her extreme high mortality and severe comorbidity. Patient will be transferred to one of the long-term care facility in [place] and will be taking over by hospice at the time. Patient CODE STATUS was changed to DO NOT RESUSCITATE and family requested to stop doing any of the invasive testing including transesophageal echocardiogram, loop recorder monitor and lumbar puncture for possible HSV in the spinal fluid. I spoke with the son again and confirmed those wishes patient to be transferred slate splitter tomorrow by EMS to this place in [place]. Patient is laying comfortably she responds slightly by having slight smile at the time to talk but no other response she still having significant severe weakness in the left side. REVIEW OF SYSTEMS: CONSTITUTIONAL: Well-developed still have slight droopy face does not look in respiratory distress leaning on the right side does not look comfortable. EYES: No icterus sclerae, no conjunctivitis. EARS, NOSE, MOUTH, THROAT, and FACE: No sore throat, lymphadenopathy, carotid bruits or deformity. RESPIRATORY: Mild shortness of breath no cough or wheezes. CARDIOVASCULAR: No palpitation or angina no PND or orthopnea. GASTROINTESTINAL: No Abd pain, Nausea or vomiting, no Diarrhea or constipation, No GI Bleed, no distention or masses. GENITOURINARY: Negative for Hematuria or UTI, no kidney stones. INTEGUMENT/BREAST: Negative for any muscular injury with mild osteoarthritis.. HEMATOLOGIC/LYMPHATIC: Negative for bleed or purpura. MUSCULOSKELTAL: Generalized arthralgia and myalgia worsening in both feet. NEURLOGICAL: No LOC, Sz or syncope, blurred vision dizziness or abnormality.. BEHAVIORAL/PSYCH: Negative. ENDOCRINE: Negative. PHYSICAL EXAMINATION: General Appearance: Alert quite bit confused no distress looks older than her age. Neck HEENT: Supple, no lymphadenopathy, no thyroid enlargement, no carotid bruits. Leaning more toward the right side in bed with slight droopy face. Lungs: Decreased breath sound bilaterally with fine rhonchi no crackles. Chest Wall: Decreased expansion with deep inspiration no tenderness and no deformity was found on exam, no costochondral pain or discomfort. Heart: Regular rate and rhythm, S1, S2 normal, no murmur, rub or gallop. Back: Quite good curvature with mild scoliosis no CVA tenderness no rash on the back. Abdomen: Soft, non-tender, bowel sounds active all four quadrants, no masses, no organomegaly. Extremities: Extremities normal, atraumatic, no cyanosis or edema. Quite bit deformity in both feet with scar tissue on the left side but no infection. Pulses: 2+ and symmetric. Skin: Skin color, texture, tugor normal, no rashes or lesions. Neurologic exam: Alert severely confused cranial nerve II to XII has impact on the primary nerve VII on the left side slightly droopy face and chest, sadly I found weakness in both lower extremity still able to move the left side with quite good weeks of his right side both upper and lower extremity but she has worsening weakness on the left on the right side and had more paraplegia of the lower extremity as well. ASSESSMENT AND PLAN: _Acute stroke with weakness in the left side: Her results still devastating at this point and with the idea of hepatic encephalitis originally hold off on antiplatelet agent for 48 hours will be continued for now. Again despite recommendation for doing loop recorder monitor repeat transesophageal echocardiogram family decided not to go further with any invasive testing she will be on palliative care and hospice. _Debility: Patient is not recovering much from the stroke at this point not able to participate in any PT or AT will continue assessment on daily basis. _Dysphagia: Still seen speech therapy no PEG tube or feeding tube will be done again patient wishes and family respecting it at this point. _?? HSV encephalitis: Family decided not to pursue this any further by doing lumbar puncture for diagnosis of HSV encephalitis. _Type 2 diabetes: He is not on any medication currently continue Accu-Chek with sliding scale coverage for now her A1c was mildly elevated. _Hypertension: Blood pressure has been well-controlled on combination of amlodipine 5 mg a day with lisinopril 10 mg a day and metoprolol tartrate 12.5 mg twice a day. _Memory loss: Might benefit from initiating smaller dose of donepezil. _Parkinson disease: Has been on Requip 1.25 mg nightly only not on any Sinemet. Not clear when diagnosis was made but will continue current management for now. _Severe osteoarthritis with deformity of the feet bilaterally: Had multi surgery patient is not able to ambulate and walk has been wheelchair lately. _Chronic depression: Continue Wellbutrin XL 150 mg daily. _Reactive airway/asthma: Still on Ventolin HFA on demand only. _Restless leg syndrome: Has been on Requip 0.25 mg nightly. _Chronic constipation: Continue MiraLAX along with stool softener on a regular basis. _Chronic anemia and microcytosis: Continue multivitamin and iron supplement. Prognosis: Very poor. Transitional of care: Failing her swallow evaluation patient is not able to swallow no PEG tube feeding to be done at this time. Family decided not to do any further invasive testing such as transesophageal echocardiogram, loop recorder monitor or lumbar puncture for analysis of the spinal fluid for HSV panel. Patient be transferred to long-term care facility under hospice tomorrow morning. Hospital course: Patient was admitted to the hospital on February 01, 2024 for signs and symptoms of stroke she had last episode of stroke in May last year and since then has been doing well she lives in assisted living was seen by the caregiver apparently 10:00 the night before and slate splitter to come to check on her found that she had severe global face and left-sided weakness. Patient ended up coming to the emergency department [facility] CAT scan of the brain did not show any bleed CTA showed no high-grade stenosis. Her laboratory value did not show any major abnormality patient was admitted consult cardiology and to schedule MRI of the brain. MRI of the brain showed analysis for many area of thrombus like stroke affecting the right frontal, both parietal area and right occipital area. Initially neurology requested to have cardiology plan to do transesophageal echocardiogram and requested loop recorder monitor to make sure patient does not have any A-fib cannot be diagnosed with her Holter monitor and from her previous hospitalization. Her MRI of the brain shows slight abnormality might be consistent with HSV and initially neurology and infectious disease requested to take patient off her antiplatelet agent and prepare for doing lumbar puncture after 7 days for possible analysis for HSV. When talking with family about the value of this idea and there is no based on the clinical presentation whatsoever family were thinking about doing palliative care and hospice care decide to pursue this further more. Patient apparently will be transferred to one of the long-term facility closer to her family member in [place] where she is going to do hospice care at the time of arrival. Swallow evaluation came back with severe dysphagia that patient had hazards of aspiration she is not able to swallow eat any regular food. Family did not want to do any PEG tube or feeding tube. Palliative care and hospice care was requested will be done as soon as she is transferred to extended-care facility by tomorrow morning on 02/06/2024. Time spent on discharging Pt was 37 minutes. Patient Condition at Discharge: Serious Plan - Discharge Summary Discharge Rx Participant: Yes New Discharge Prescriptions: Continue Multivitamin/Iron/Folic Acid [Centrum Adults Tablet] 1 tab PO DAILY Meclizine HCl 12.5 mg PO BID PRN PRN Reason: Nausea And Vomiting Cholecalciferol [Vitamin D3 (25 Mcg = 1000 Iu)] 50 mcg PO DAILY Albuterol Sulfate [Ventolin HFA] 2 puff INHALATION RT-Q4H PRN PRN Reason: Shortness Of Breath L.acidoph,Paracasei, B.lactis [Probiotic] 1 cap PO DAILY polyethylene glycoL 3350 [Miralax] 17 gm PO DAILY lisinopriL [Zestril] 10 mg PO DAILY calcium polycarbophiL [Fiber-Lax] 1,250 mg PO HS Furosemide [Lasix] 20 mg PO Q2D buPROPion XL [Wellbutrin XL] 150 mg PO DAILY Atorvastatin [Lipitor] 40 mg PO HS #30 tab amLODIPine [Norvasc] 5 mg PO DAILY #30 tab Ensure Enlive 1 can PO DAILY bisacodyL [Dulcolax] 10 mg RECTAL DAILY PRN PRN Reason: if no results from MOM HYDROcodone/APAP 5-325MG [Malone 5-325] 1 tab PO BID Metoprolol Tartrate [Lopressor] 12.5 mg PO BID Na Phos,M-B/Na Phos,Di-Ba [Fleet Adult] 133 ml RECTAL DAILY PRN PRN Reason: Constipation Diclofenac Sodium [Diclofenac Sodium 1%] 1 applic TOPICAL BID PRN PRN Reason: left ankle pain rOPINIRole HCL [Requip] 0.25 mg PO HS Carboxymethylcellulos/Glycerin [Refresh Relieva 0.5-0.9% Drop] 1 drop BOTH EYES QID Pantoprazole [Protonix] 40 mg PO DAILY PRN PRN Reason: Gerd Docusate [Colace] 100 mg PO HS Acetaminophen Tab [Tylenol] 1,000 mg PO DAILY@1500 PRN PRN Reason: Pain Aspirin EC [Ecotrin Low Dose] 81 mg PO DAILY #21 Dextran/Hypromellose/Glycerin [Genteal Tears 0.1%-0.2%-0.3%] 1 drop BOTH EYES QID PRN PRN Reason: Dry Eye(S) Magnesium Hydroxide [Milk of Magnesia] 2,400 mg PO DAILY PRN PRN Reason: 2 days no BM Menthol-Zinc Oxide Oint [Calmoseptine Ointment] 1 applic TOPICAL Q12H Mv-Mn/Om3/Dha/Epa/Fish/Lut/Ricarda [Ocuvite Adult 50 Plus Softgel] 2 cap PO BID HYDROcodone/APAP 5-325MG [Malone 5-325] 1 tab PO Q6H PRN #30 tab PRN Reason: Pain Discontinued Clopidogrel [Plavix] 75 mg PO DAILY #30 tab Meloxicam [Mobic] 7.5 mg PO DAILY PRN PRN Reason: Pain Ivizia Eyelid Wipes 1 pad BOTH EYES MOWEFR Discharge Medication List Multivitamin/Iron/Folic Acid [Centrum Adults Tablet] 1 tab PO DAILY 04/28/18 [History] Meclizine HCl 12.5 mg PO BID PRN 10/03/20 [History] Acetaminophen Tab [Tylenol] 1,000 mg PO DAILY@1500 PRN 05/13/23 [History] Albuterol Sulfate [Ventolin HFA] 2 puff INHALATION RT-Q4H PRN 05/13/23 [History] Carboxymethylcellulos/Glycerin [Refresh Relieva 0.5-0.9% Drop] 1 drop BOTH EYES QID 05/13/23 [History] Cholecalciferol [Vitamin D3 (25 Mcg = 1000 Iu)] 50 mcg PO DAILY 05/13/23 [History] Docusate [Colace] 100 mg PO HS 05/13/23 [History] Furosemide [Lasix] 20 mg PO Q2D 05/13/23 [History] L.acidoph,Paracasei, B.lactis [Probiotic] 1 cap PO DAILY 05/13/23 [History] Pantoprazole [Protonix] 40 mg PO DAILY PRN 05/13/23 [History] buPROPion XL [Wellbutrin XL] 150 mg PO DAILY 05/13/23 [History] calcium polycarbophiL [Fiber-Lax] 1,250 mg PO HS 05/13/23 [History] lisinopriL [Zestril] 10 mg PO DAILY 05/13/23 [History] polyethylene glycoL 3350 [Miralax] 17 gm PO DAILY 05/13/23 [History] rOPINIRole HCL [Requip] 0.25 mg PO HS 05/13/23 [History] Aspirin EC [Ecotrin Low Dose] 81 mg PO DAILY #21 05/19/23 [Rx] Atorvastatin [Lipitor] 40 mg PO HS #30 tab 05/19/23 [Rx] amLODIPine [Norvasc] 5 mg PO DAILY #30 tab 05/19/23 [Rx] Dextran/Hypromellose/Glycerin [Genteal Tears 0.1%-0.2%-0.3%] 1 drop BOTH EYES QID PRN 01/07/24 [History] Diclofenac Sodium [Diclofenac Sodium 1%] 1 applic TOPICAL BID PRN 01/07/24 [History] Ensure Enlive 1 can PO DAILY 01/07/24 [History] HYDROcodone/APAP 5-325MG [Malone 5-325] 1 tab PO BID 01/07/24 [History] Magnesium Hydroxide [Milk of Magnesia] 2,400 mg PO DAILY PRN 01/07/24 [History] Menthol-Zinc Oxide Oint [Calmoseptine Ointment] 1 applic TOPICAL Q12H 01/07/24 [History] Metoprolol Tartrate [Lopressor] 12.5 mg PO BID 01/07/24 [History] Na Phos,M-B/Na Phos,Di-Ba [Fleet Adult] 133 ml RECTAL DAILY PRN 01/07/24 [History] bisacodyL [Dulcolax] 10 mg RECTAL DAILY PRN 01/07/24 [History] Mv-Mn/Om3/Dha/Epa/Fish/Lut/Ricarda [Ocuvite Adult 50 Plus Softgel] 2 cap PO BID 02/01/24 [History] HYDROcodone/APAP 5-325MG [Malone 5-325] 1 tab PO Q6H PRN #30 tab 02/05/24 [Rx] Follow up Appointment(s)/Referral(s): Jose J Peres MD [Primary Care Provider] - 1-2 days Activity/Diet/Wound Care/Special Instructions: Discharge to [address] [id number] Patient to admit to [facility] living home on Thursday02/06/24 [facility] to open patient with hospice services. [address] [place] [address], [id number] Discharge Disposition: DISCH TO HOSPICE MED FACILTY
--- NOTE | 2024-02-05 21:30 | P.PN ---
Subjective Progress Note Date: 02/05/24 Principal diagnosis: Reason for follow-up with abnormal MRI and a question of possible encephalitis Patient is a 83-year-old female past medical history significant for hypertension hyperlipidemia reflux osteoarthritis, presenting to the hospital with strokelike symptom in this patient who did have a left-sided facial droop and left upper extremity weakness patient did have a MRI of the brain which raises possibility of right parietal lobe abnormality and a question of infarct versus herpes encephalitis prompting this consultation. On today's evaluation that is 02/05/2024, the patient continues to be afebrile, the patient is on room air and breathing comfortably, the Pt does not seem to be in any distress patient is awake but nonverbal no vomiting diarrhea or any changes reported by the nursing staff. No new labs were obtained today Objective - Vital Signs Vital signs: Vital Signs Temp 99.2 F 02/05/24 08:30 Pulse 114 H 02/05/24 08:30 Resp 18 02/05/24 08:30 BP 138/79 02/05/24 08:30 Pulse Ox 95 02/05/24 09:02 FiO2 21 02/05/24 09:02 Intake & Output 02/04/24 02/05/24 02/05/24 18:59 06:59 18:59 Output Total 250 350 Balance -250 -350 Output: Urine 250 350 Other: Voiding Method External Catheter External Catheter External Catheter # Voids 1 - Exam GENERAL DESCRIPTION: An elderly female lying in bed in no distress RESPIRATORY SYSTEM: Unlabored breathing , decreased breath sounds at bases HEART: S1 S2 regular rate and rhythm , ABDOMEN: Soft , no tenderness EXTREMITIES: No edema feet - Labs CBC & Chem 7: 02/01/24 10:10 02/01/24 11:21 Assessment and Plan (1) Abnormal brain MRI Current Visit: Yes Status: Acute Code(s): R90.89 - OTH ABNORMAL FINDINGS ON DIAGNOSTIC IMAGING OF CNSL SNOMED Code(s): 122842597 Plan: 1patient presented to hospital with left-sided facial droop weakness in the left upper extremity in this patient who in this patient who did have abnormal MRI with acute cortical infarct on the right parietal site as per discussion patient with the neurologist the patient neurological symptoms corresponding to the abnormality seen on the MRI of the MRI as far as the anatomical distribution is concerned clinically doubt HSV infection in this patient who did not have any fever during this hospital stay and usually it is a temporal lobe involved in acute HSV infection infection 2-patient did have normal CRP that will wake encephalitis to be less likely, the patient did tested positive for HSV 1 IgG HSV-2 was negative 3-possible plan for patient to be transferred to [facility] for hospice oriented care we will hold off and any further workup Dictation was produced using [employer] dictation software. please excuse any grammatical, word or spelling errors. Time with Patient: Less than 30
--- NOTE | 2024-02-05 22:40 | PN ---
PROGRESS NOTE HISTORY: Raven is an 83-year-old lady with history of hypertension, dyslipidemia, Parkinson disease, and history of KRYSTLE, was admitted to hospital with acute ischemic stroke. The patient underwent KRYSTLE recently that did not reveal any evidence of PFO. OBJECTIVE: VITAL SIGNS: At the time of my evaluation this morning, heart rate is around 110 beats per minute. Blood pressure is 138/79, respiratory rate is 18. CHEST: Reveals diminished air entry bilaterally. HEART: Reveals first and second heart sounds and a systolic murmur at the apex. ABDOMEN: Soft. EXTREMITIES: Did not reveal any edema. MEDICATIONS: The patient is currently on, 1. Norvasc. 2. Aspirin. 3. Lipitor. 4. Lasix. 5. Zestril. ASSESSMENT AND PLAN: Altered mental status, CVA. Continue current medications. Prognosis is guarded. MMRADHAL / PAULETTEN: [id number] /
[2024-02-06 11:07] VITALS: BP 163/90; PULSE 107; TEMP 99.5
[2024-02-06] MEDS: ACETAMINOPHEN SUPPOSITORY 650 MG SUPP RECTAL PRN (11:16)
[2024-02-06] MEDS: SCOPOLAMINE 1 MG/72 HR PATCH TRANSDERM STA (11:17)
== END 2024-02-06 11:45 | disposition hospice, inpatient (51) | DRG 65 ==
LOC: EC 10:01 → 3SCARD 13:22
PROVIDERS: ADMIT Internal Medicine Geriatric Medicine; ATTEND Internal Medicine Geriatric Medicine
PROC: 4A10X4Z Monitoring of Central Nervous Electrical Activity, External Approach (ICD-10-PCS; principal; 2024-02-03)
DX: I63.9 Cerebral infarction, unspecified (principal); F33.9 Major depressive disorder, recurrent, unspecified; I69.354 Hemiplegia and hemiparesis following cerebral infarction affecting left non-dominant side; Z51.5 Encounter for palliative care; Z66 Do not resuscitate; G20.A1 Parkinson's disease without dyskinesia, without mention of fluctuations; D64.9 Anemia, unspecified; E78.5 Hyperlipidemia, unspecified; E11.9 Type 2 diabetes mellitus without complications; I08.3 Combined rheumatic disorders of mitral, aortic and tricuspid valves; I69.392 Facial weakness following cerebral infarction; G25.81 Restless legs syndrome; I10 Essential (primary) hypertension; J45.909 Unspecified asthma, uncomplicated; R29.712 NIHSS score 12; R29.810 Facial weakness; F41.9 Anxiety disorder, unspecified; K59.09 Other constipation; K21.9 Gastro-esophageal reflux disease without esophagitis; R41.3 Other amnesia; M19.90 Unspecified osteoarthritis, unspecified site; M21.961 Unspecified acquired deformity of right lower leg; R13.10 Dysphagia, unspecified; M21.962 Unspecified acquired deformity of left lower leg; Z79.02 Long term (current) use of antithrombotics/antiplatelets; Z79.1 Long term (current) use of non-steroidal anti-inflammatories (NSAID); Z79.82 Long term (current) use of aspirin; Z91.81 History of falling; Z85.828 Personal history of other malignant neoplasm of skin; Z79.899 Other long term (current) drug therapy; Z98.42 Cataract extraction status, left eye; Z98.41 Cataract extraction status, right eye; Z96.661 Presence of right artificial ankle joint
CPT/HCPCS: 36415; 70450; 70496; 70498; 70551; 71046; 80053; 80061; 82550; 84484; 85025; 85610; 85730; 86140; 86695; 86696; 93005; 93306; 94760; 95816; 99291